=== PATIENT | male | born 1960 | race Caucasian/White ===

== ENCOUNTER 2017-02-13 14:23 | Emergency (ER) | payer MEDICARE ==
[2017-02-13] MEDS ORDERED: KETOROLAC 60 MG/2 ML VIAL IM STA (14:59)
--- NOTE | 2017-02-13 15:04 | ED ---
General Adult HPI - General Chief complaint: Fall Stated complaint: Fall-back Pain Time Seen by Provider: 02/13/17 14:35 Source: patient, RN notes reviewed Mode of arrival: wheelchair Limitations: no limitations - History of Present Illness Initial comments: This is a 56-year-old male who presents to the emergency department complaining of lower back pain. Patient states he fell on the ice on and ever since his lower back has been hurting and he has pain radiating down the anterior thigh bilaterally. Patient denies any numbness or weakness. Patient states she's had surgery on his back years ago. Patient states currently is not any medications for his lower back. Patient denies any urinary incontinence or urinary retention. Patient states he hit his head slightly but there is no headache he did not lose consciousness and he has no upper extremity numbness or weakness. Patient denies any neck pain whatsoever. Patient denies any upper back pain patient denies any chest pain or abdominal pain. - Related Data Home Medications Medication Instructions Recorded Confirmed Multivitamins, Thera [Multivitamin 1 tab PO DAILY 02/13/17 02/13/17 (formulary)] Naproxen Sodium [Aleve] 220 mg PO ONCE PRN 02/13/17 02/13/17 Previous Rx's Medication Instructions Recorded Hydrocodone/Acetaminophen [Plato 1 each PO Q4HR PRN #20 tab 02/13/17 5-325] Allergies Allergy/AdvReac Type Severity Reaction Status Date / Time No Known Allergies Allergy Verified 02/13/17 14:49 Review of Systems ROS Statement: Those systems with pertinent positive or pertinent negative responses have been documented in the HPI. ROS Other: All systems not noted in ROS Statement are negative. Past Medical History Past Medical History: Osteoarthritis (OA) History of Any Multi-Drug Resistant Organisms: None Reported Past Surgical History: Back Surgery, Joint Replacement Additional Past Surgical History / Comment(s): neck marita hip replacement Past Psychological History: Depression Smoking Status: Current every day smoker Past Alcohol Use History: Daily Past Drug Use History: Marijuana General Exam - General Exam Comments Initial Comments: GENERAL: Patient is well-developed and well-nourished. Patient is nontoxic and well- hydrated and is in moderate distress. ENT: Neck is soft and supple. No significant lymphadenopathy is noted. Oropharynx is clear. Moist mucous membranes. Neck has full range of motion without eliciting any pain. EYES: The sclera were anicteric and conjunctiva were pink and moist. Extraocular movements were intact and pupils were equal round and reactive to light. Eyelids were unremarkable. PULMONARY: Unlabored respirations. Good breath sounds bilaterally. No audible rales rhonchi or wheezing was noted. CARDIOVASCULAR: There is a regular rate and rhythm without any murmurs gallops or rubs. ABDOMEN: Soft and nontender with normal bowel sounds. No palpable organomegaly was noted. There is no palpable pulsatile mass. SKIN: Skin is clear with no lesions or rashes and otherwise unremarkable. NEUROLOGIC: Patient is alert and oriented x3. Cranial nerves II through XII are grossly intact. Motor and sensory are also intact. Normal speech, volume and content. Symmetrical smile. Patient's straight leg test is negative bilaterally to 45 MUSCULOSKELETAL: Normal extremities with adequate strength and full range of motion. No lower extremity swelling or edema. No calf tenderness. LYMPHATICS: No significant lymphadenopathy is noted PSYCHIATRIC: Normal psychiatric evaluation. Normal interpersonal interactions appears functionally intact in deals appropriately with others. No signs of depression. No signs of anxiety. Limitations: no limitations Course Vital Signs 02/13/17 14:33 Temperature 98.2 F Pulse Rate 97 Respiratory 18 Rate Blood Pressure 163/82 O2 Sat by Pulse 98 Oximetry Disposition Clinical Impression: Fall, Sciatica Disposition: HOME SELF-CARE Condition: Good Instructions: Fall Prevention for Older Adults (ED) Prescriptions: Hydrocodone/Acetaminophen [Plato 5-325] 1 each PO Q4HR PRN #20 tab PRN Reason: Pain Referrals: Fely Rey DO [REFERRING] - 1-2 days Time of Disposition: 16:25
--- NOTE | 2017-02-13 15:29 | XR ---
EXAMINATION TYPE: XR pelvis AP view DATE OF EXAM: 02/13/2017 CLINICAL HISTORY: Pelvic pain TECHNIQUE: A single AP view of the pelvis is obtained. COMPARISON: Pelvic x-ray July 01, 2012 FINDINGS: There is no acute fracture/dislocation evident in the pelvis. Metallic hardware from hip a rthroplasties is redemonstrated. Sacroiliac joints are maintained. The overlying soft tissue appears unremarkable. IMPRESSION: There is no acute fracture or dislocation in the pelvis. No significant change from lorenzo r.
--- NOTE | 2017-02-13 15:32 | XR ---
EXAMINATION TYPE: XR lumbar spine 2 or 3V DATE OF EXAM: 02/13/2017 CLINICAL HISTORY: Low back pain TECHNIQUE: Frontal and lateral images of the lumbar spine are obtained. COMPARISON: Prior MRI lumbar spine December 23, 2012 FINDINGS: There are 5 lumbar type vertebral bodies identified. The lumbar spine shows stable and st raightened alignment without evidence of acute fracture or dislocation. Vertebral body heights remain heights are within normal limits. There is moderate to severe multilevel anterior and lateral spurr ing redemonstrated. There is stable mild to borderline moderate multilevel disc space narrowing. Ther e is facet arthropathy lower lumbar levels. Left-sided Laminectomy defects are seen better on MRI low er lumbar levels. The overlying soft tissue appears unremarkable. IMPRESSION: No acute fracture or dislocation is seen in the lumbar spine. Multilevel degenerative ch anges as detailed above, no significant change from prior MRI 2012.
[2017-02-13] MEDS ORDERED: HYDROmorphone 1 MG/ML 1 ML SYRINGE IM STA (16:03)
[2017-02-13 16:29] VITALS: BP 158/84; PULSE 75; RESP 16
[2017-02-13 16:35] VITALS: TEMP 97.2
== END 2017-02-13 16:43 | disposition home or self-care (01) ==
LOC: EC 14:23
DX: M54.30 Sciatica, unspecified side (principal); F17.200 Nicotine dependence, unspecified, uncomplicated; Z79.899 Other long term (current) drug therapy; W00.9XXA Unspecified fall due to ice and snow, initial encounter
CPT/HCPCS: 99283; 96372 ×2; 72100; 72170; J1885; J1170

== ENCOUNTER 2018-03-12 17:07 | Inpatient (IN) | payer MEDICARE ==
[2018-03-12] MEDS ORDERED: NITROGLYCERIN SL TABS 0.4 MG TAB SUBLINGUAL STA (17:38)
[2018-03-12] MEDS ORDERED: ASPIRIN 81 MG PO STA (17:38)
[2018-03-12] MEDS ORDERED: SODIUM CHLORIDE 0.9% 1,000 ML IV STA (17:38)
--- NOTE | 2018-03-12 17:41 | ED ---
Chest Pain HPI - General Chief Complaint: Chest Pain Stated Complaint: CHEST PAIN AND SHAKING Time Seen by Provider: 03/12/18 17:24 Source: patient, RN notes reviewed Mode of arrival: ambulatory Limitations: no limitations - History of Present Illness Initial Comments: This a 57-year-old male with no prior history of heart disease or known lung disease though he is a one pack plus today a smoker who states he had the onset several days ago of retrosternal chest pain at did resolve yesterday he felt good his morning he started developing anterior chest pain dull 6/10 severity he had a cough with yellow phlegm some sweats no fevers or chills. He states pain possibly gets worse with certain movements or deep breathing. He has no other modifying factors at this time other than he is very shaky and states his arms are shaking he's not sure why. Never had this happen before either MD Complaint: chest pain - Related Data Home Medications Medication Instructions Recorded Confirmed Multivitamins, Thera [Multivitamin 1 tab PO DAILY 02/13/17 03/12/18 (formulary)] Allergies Allergy/AdvReac Type Severity Reaction Status Date / Time No Known Allergies Allergy Verified 03/12/18 17:12 Review of Systems ROS Statement: Those systems with pertinent positive or pertinent negative responses have been documented in the HPI. ROS Other: All systems not noted in ROS Statement are negative. EKG Findings - EKG Results: EKG: interpreted by DAVE PENA, sinus rhythm, normal axis, normal QRS, normal ST/ T, no acute changes (EKG shows normal sinus rhythm of 94. Interval 122 QRS duration 76 QT since QTC 356/[address]-T wave changes) Past Medical History Past Medical History: Osteoarthritis (OA) History of Any Multi-Drug Resistant Organisms: None Reported Past Surgical History: Back Surgery, Joint Replacement Additional Past Surgical History / Comment(s): neck marita hip replacement , R shoulder B wrist R knee Past Psychological History: Depression Smoking Status: Current every day smoker Past Alcohol Use History: Abuse, Daily, Heavy Past Drug Use History: Marijuana General Exam - General Exam Comments Initial Comments: This is a well-developed sec appearing male who is awake alert oriented 3 and is anxious. Limitations: no limitations General appearance: alert, anxious, in distress Head exam: Present: atraumatic, normocephalic, normal inspection Eye exam: Present: normal appearance, PERRL, EOMI. Absent: scleral icterus, conjunctival injection, periorbital swelling ENT exam: Present: normal exam, mucous membranes moist Neck exam: Present: normal inspection, full ROM, other (No stridor JVD or bruits ). Absent: tenderness, meningismus, lymphadenopathy Respiratory exam: Present: normal lung sounds bilaterally. Absent: respiratory distress, wheezes, rales, rhonchi, stridor Cardiovascular Exam: Present: normal rhythm, tachycardia, normal heart sounds. Absent: systolic murmur, diastolic murmur, rubs, gallop, clicks GI/Abdominal exam: Present: soft, normal bowel sounds. Absent: distended, tenderness, guarding, rebound, rigid, bruit, pulsatile mass Extremities exam: Present: normal inspection, full ROM, normal capillary refill. Absent: tenderness, pedal edema, joint swelling, calf tenderness Back exam: Present: normal inspection Neurological exam: Present: alert, oriented X3, CN II-XII intact Psychiatric exam: Present: normal affect, normal mood Skin exam: Present: warm, dry, intact, normal color. Absent: rash Course Vital Signs 03/12/18 03/12/18 03/12/18 17:12 18:30 18:54 Temperature 98.7 F Pulse Rate 109 H 84 86 Respiratory 18 18 19 Rate Blood Pressure 132/70 146/101 125/86 O2 Sat by Pulse 99 95 99 Oximetry 03/12/18 19:42 Temperature Pulse Rate 84 Respiratory 16 Rate Blood Pressure 143/79 O2 Sat by Pulse 98 Oximetry - Reevaluation(s) Reevaluation #1: 03/12/18 19:50 I did reevaluate the patient is feeling improved after nitroglycerin. Reevaluation #2: 03/12/18 19:51 Reevaluation patient after reviewing laboratory work patient does admit that he drinks alcohol 4-6 shots a day per his family he is probably twice at many. Procedures - Smoking Cessation Time Spent Discussing Smoking Cessation w/Patient (Minutes): 3 Patient Acknowledges Need for Cessation: Yes (3.1 minutes. Patient does agree that he needs to stop smoking. ) Chest Pain MDM - MDM I did review the imaging and report no acute findings. The patient did present with complaints of retrosternal chest pain at did improve after aspirin and nitroglycerin. He does admit to smoking over one pack of cigarettes per day additionally he does admit to drinking alcohol every day. He is not had any since yesterday. He believes his tremors that he was demonstrated when he came in happen before the alcohol was stopped yesterday. He does have mild pancreatitis on lab work. I did discuss findings with him and his as well as with Dr. Love. Patient will be admitted for evaluation of chest pain. He will be placed on the alcohol withdrawal protocol as well as nicotine patch Critical Care Time Critical Care Time: Yes Critical Care Time: 31 minutes of critical care time which includes initial presentation with history physical labs x-rays several reevaluation patient to responsive therapy discuss with the patient and family regarding findings discussed with the admitting physician admission orders documentation of the above Disposition Clinical Impression: Unstable angina pectoris, Chest pain, Smoking, Alcohol abuse, Pancreatitis Disposition: ADMITTED IP TO THIS [facility] Condition: Stable Referrals: Helena Simental DO [Primary Care Provider] - 1-2 days
[2018-03-12 18:06] LABS: Glucose,Whole Blood 95 mg/dL (75-99)
[2018-03-12 18:10] LABS: Basophils % (A) 0 %; Eosinophils # (A) 0.2 k/uL (0-0.7); Eosinophils % (A) 2 %; HCT 40.8 % (39.0-53.0); HGB 13.8 gm/dL (13.0-17.5); Lymphocytes % (A) 13 %; MCH 31.9 pg (25.0-35.0); MCHC 33.7 g/dL (31.0-37.0); MCV 94.8 fL (80.0-100.0); Mean Platelet Volume 7.7; Monocytes # (A) 0.6 k/uL (0-1.0); Monocytes % (A) 8 %; Neutrophils # (A) 5.9 k/uL (1.3-7.7); Neutrophils % (A) 75 %; RBC 4.31 m/uL (4.30-5.90); WBC 7.9 k/uL (3.8-10.6)
[2018-03-12 18:25] LABS: D-Dimer 0.44 mg/L FEU (<0.60); Partial Thromboplastin Time 24.9 sec (22.0-30.0); Prothrombin Time 10.6 sec (9.0-12.0)
[2018-03-12 18:27] LABS: ALT 64 U/L (21-72); AST 137 U/L (17-59); Albumin 4.7 g/dL (3.5-5.0); Alkaline Phosphatase 112 U/L (38-126); Amylase 118 U/L (30-110); Anion Gap 9 mmol/L; Blood Urea Nitrogen 18 mg/dL (9-20); Calcium 9.8 mg/dL (8.4-10.2); Carbon Dioxide 28 mmol/L (22-30); Chloride 104 mmol/L (98-107); Creatine Kinase 92 U/L (55-170); Glucose 100 mg/dL (74-99); Lipase 503 U/L (23-300); Magnesium 1.8 mg/dL (1.6-2.3); Potassium 3.4 mmol/L (3.5-5.1); Sodium 141 mmol/L (137-145); Total Bilirubin 1.2 mg/dL (0.2-1.3); Total Protein 7.8 g/dL (6.3-8.2)
[2018-03-12 18:39] LABS: Platelet Count 76 k/uL (150-450)
[2018-03-12 18:40] LABS: Creatine Kinase MB 0.7 ng/mL (0.0-2.4); Troponin I <0.012 ng/mL (0.000-0.034)
--- NOTE | 2018-03-12 18:54 | XR ---
EXAMINATION TYPE: XR chest 2V DATE OF EXAM: 03/12/2018 COMPARISON: Chest x-ray July 01, 2012. HISTORY: Chest pain and tremors. TECHNIQUE: Frontal and lateral views of the chest are obtained. FINDINGS: There is some chronic parenchymal change without suspicious focal air space opacity, pleur al effusion, or pneumothorax seen. The cardiac silhouette size is within normal limits. Multilevel s purring in the lower thoracic spine is present. IMPRESSION: Chronic changes without acute pulmonary process.
[2018-03-12] MEDS ORDERED: HEPARIN SODIUM,PORCINE 5,000 UNIT/ML 1 ML VIAL IV ONE (19:58)
[2018-03-12] MEDS ORDERED: NICOTINE 21MG/24HR PATCH TRANSDERM STA (20:01)
[2018-03-12] MEDS ORDERED: LORazepam 2 MG/ML INJ IV PRN (20:01)
[2018-03-12] MEDS ORDERED: THIAMINE 100 MG/ML 2 ML VIAL IM STA (20:01)
[2018-03-12] MEDS: HEPARIN SOD,PORK IN 0.45% NACL 25,000 UNIT in 0.45% NACL 1 250ML.BAG IV SCH (20:26)
[2018-03-12] MEDS: NITROGLYCERIN SL TABS 0.4 MG TAB SUBLINGUAL PRN (21:13)
[2018-03-12] MEDS: NITROGLYCERIN OINT 1 INCH/GM PACKET TOPICAL SCH (21:14)
[2018-03-12] MEDS: SODIUM CHLORIDE 0.9% 1,000 ML IV SCH (21:14)
[2018-03-12 21:44] VITALS: BMI 21.2
[2018-03-12] MEDS: LORazepam 2 MG/ML INJ IV PRN (21:57)
[2018-03-13] MEDS: LORazepam 2 MG/ML INJ IV PRN ×4 (00:16→22:58)
[2018-03-13 00:47] LABS: Creatine Kinase 117 U/L (55-170)
[2018-03-13 01:00] LABS: Creatine Kinase MB 1.2 ng/mL (0.0-2.4); Troponin I <0.012 ng/mL (0.000-0.034)
[2018-03-13] MEDS: NITROGLYCERIN SL TABS 0.4 MG TAB SUBLINGUAL PRN ×2 (01:33→01:43)
[2018-03-13] MEDS: HYDROmorphone 0.5 MG/0.5 ML SYRINGE IVP PRN ×2 (02:50→19:39)
[2018-03-13] MEDS: NITROGLYCERIN OINT 1 INCH/GM PACKET TOPICAL SCH ×4 (05:26→22:58)
[2018-03-13 07:35] LABS: Cholesterol 177 mg/dL (<200); HDL Cholesterol 102 mg/dL (40-60); LDL Cholesterol,Calculated 64 mg/dL (0-99); Triglycerides 56 mg/dL (<150)
[2018-03-13 07:47] LABS: Creatine Kinase 113 U/L (55-170)
[2018-03-13 08:00] LABS: Creatine Kinase MB 1.2 ng/mL (0.0-2.4); Troponin I <0.012 ng/mL (0.000-0.034)
--- NOTE | 2018-03-13 08:59 | P.HPIM ---
History of Present Illness H&P Date: 03/13/18 Chief Complaint: Chest pain Donte May is a 57-year-old male who presented to [facility] emergency room with a chief complaint of chest pain patient describes a retrosternal sharp pain radiating to both sides of his chest accompanied with shortness of breath nausea and sweating patient rates pain at 6-7 out of 10. He states that he had pain for several days on and off then pain recurred on 03/2009 and was more severe and he decided to come to emergency room. Patient was evaluated in emergency room EKG and first set of cardiac enzymes are within normal limits his pain was relieved after he was given nitroglycerin , patient was also found to have elevated lipase and elevated AST he admits to drinking 5-10 alcoholic drinks daily, he was admitted to telemetry floor cardiology consultation was requested serial troponins were ordered he was started on IV heparin. D-dimer was negative in the emergency room. Patient is a lifelong smoker he smokes 1-2 packs per day he has been smoking for more than 50 years, he states that his cholesterol was elevated at some point in the past he has not had any blood test recently and he is not on any cholesterol medication at this time he denies ever being diagnosed with hypertension or diabetes, he does not take any prescription drug medication and has not seen his primary care physician Dr. Helena Simental in few years. In the emergency room patient was noticed to have some tremor his alcohol level was low he was started on CIWA protocol. 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 Past Medical History Past Medical History: Hyperlipidemia, Osteoarthritis (OA) Additional Past Medical History / Comment(s): Patient states "his urinary function has been changing, it is harder to urinate". History of Any Multi-Drug Resistant Organisms: None Reported Past Surgical History: Back Surgery, Joint Replacement Additional Past Surgical History / Comment(s): neck marita hip replacement , R shoulder B wrist R knee, back surgery x3 Past Anesthesia/Blood Transfusion Reactions: No Reported Reaction Past Psychological History: Anxiety, Depression Smoking Status: Current every day smoker Past Alcohol Use History: Abuse, Daily, Heavy Past Drug Use History: Marijuana - Past Family History Mother History Unknown: Yes Additional Family Medical History / Comment(s): Patient states patient after a fall. Father Family Medical History: Memory Impairment Additional Family Medical History / Comment(s): Parkinsons Medications and Allergies Home Medications Medication Instructions Recorded Confirmed Type Multivitamins, Thera [Multivitamin 1 tab PO DAILY 02/13/17 03/12/18 History (formulary)] Allergies Allergy/AdvReac Type Severity Reaction Status Date / Time No Known Allergies Allergy Verified 03/12/18 17:12 Physical Exam Vitals: Vital Signs Temp Pulse Pulse Resp BP BP Pulse Ox 03/13/18 03:48 98.1 F 69 18 103/59 99 03/13/18 01:52 79 03/13/18 01:40 112/69 03/13/18 01:30 79 18 114/70 100 03/13/18 00:00 83 18 126/71 96 03/12/18 21:30 98.6 F 85 18 160/89 99 03/12/18 19:42 84 16 143/79 98 03/12/18 18:54 86 19 125/86 99 03/12/18 18:30 84 18 146/101 95 03/12/18 17:12 98.7 F 109 H 18 132/70 99 Intake and Output 03/12/18 03/13/18 03/13/18 22:59 06:59 14:59 Intake Total 647.244 Balance 647.244 Intake: Intake, IV Titration 47.244 Amount Heparin Sod,Pork in 0.45% 47.244 NaCl 25,000 unit In 0.45 % NaCl 1 250ml.bag @ 12 UNITS/KG/HR 7.62 mls/hr IV .Q24H [facility] Rx#: [id number] Oral 600 Other: Voiding Method Toilet Toilet Urinal Urinal # Voids 1 1 Weight 63.503 kg 59.7 kg In general patient is alert and oriented 3 in no apparent distress HEENT head normocephalic and atraumatic Neck is supple no JVD no goiter no lymphadenopathy Chest exam reveals a few scattered rhonchi bilaterally no wheezing Cardiac exam reveals regular heart sounds S1 and S2 no gallops no murmurs Abdomen is soft nontender no organomegaly with normal bowel sounds Extremity exam reveals no edema no cyanosis or clubbing Neurological examination reveals no gross focal deficit Results CBC & Chem 7: 03/12/18 17:55 03/12/18 17:55 Labs: Abnormal Lab Results - Last 24 Hours (Table) 03/12/18 03/12/18 03/13/18 Range/Units 17:55 17:55 02:06 Plt Count 76 L (150-450) k/uL APTT 83.4 H (22.0-30.0) sec Potassium 3.4 L (3.5-5.1) mmol/L Glucose 100 H (74-99) mg/dL AST 137 H (17-59) U/L HDL Cholesterol (40-60) mg/dL Amylase 118 H (30-110) U/L Lipase 503 H (23-300) U/L 03/13/18 Range/Units 06:16 Plt Count (150-450) k/uL APTT (22.0-30.0) sec Potassium (3.5-5.1) mmol/L Glucose (74-99) mg/dL AST (17-59) U/L HDL Cholesterol 102 H (40-60) mg/dL Amylase (30-110) U/L Lipase (23-300) U/L Thrombosis Risk Factor Assmnt - Choose All That Apply Any of the Below Risk Factors Present?: Yes Each Factor Represents 1 point: Age 41-60 years Other Risk Factors: No Other congenital or acquired thrombophilia - If yes, enter type in comment: No Thrombosis Risk Factor Assessment Total Risk Factor Score: 1 Thrombosis Risk Factor Assessment Level: Low Risk Assessment and Plan Plan: #1 recurrent episodes of chest pain over the last few days, possible unstable angina, no evidence of acute myocardial infarction. #2 acute pancreatitis with elevated lipase #3 acute alcoholic hepatitis with elevated AST #4 underlying history of hyperlipidemia #5 underlying history of osteoarthritis, with previous history of bilateral hip replacement #6 underlying history of degenerative disc disease with previous history of back surgeries. At this time patient is admitted to telemetry floor, serial cardiac enzymes are ordered, he was started on IV heparin in the emergency room, repeat amylase and lipase were ordered, repeat liver enzymes were ordered, patient is kept nothing by mouth at this time, he is maintained on IV fluid. At this time he is chest pain-free. He is maintained on CIWA protocol for alcohol withdrawal. Will check echocardiogram and check lipid profile, possible stress test in a.m. tomorrow awaiting cardiology input.
--- NOTE | 2018-03-13 09:23 | P.CRDCN ---
History of Present Illness Consult date: 03/13/18 Requesting physician: Bobby Love Reason for Consult (text): chest pain Chief complaint: chest pain History of present illness: This is a pleasant 57-year-old gentleman with history of hyperlipidemia, smoking up to 2 packs per day, alcohol abuse drinking 5-10 drinks daily, and multiple orthopedic surgeries in the past. Presented to the emergency department with complaints of aching chest discomfort. Initially occurred a few days ago at which time he was short of breath, diaphoretic, dizzy and had some palpitations. He described the pain as aching that radiated from his left axilla to the right chest with some intermittent sharp discomfort in the right chest and some aching down his right arm. Occurred again yesterday at which time he presented to the emergency department. He's also been complaining of some abdominal discomfort with tenderness around the umbilicus and right lower quadrant. EKG on admission showed sinus rhythm without acute ischemic changes. Laboratory values show a platelet count of 76, testing of 3.4, BUN 18, creatinine 0.79, troponins negative 3, amylase 118 and a lipase of 503. Lipids this morning showed triglyceride level of 56, total cholesterol 177, LDL 64 and HDL 102. NT proBNP was normal. He's been initiated on IV heparin, aspirin and Nitro-Bid. Upon examination this morning, patient is resting comfortably in bed. He does complain of some abdominal tenderness around the umbilicus and the right lower quadrant with palpation. Denies current complaints of chest discomfort, dizziness, shortness of breath, palpitations or diaphoresis. Does verbalize concerns as his last drink of alcohol was 2 days ago. He is ordered to receive Ativan as indicated according to CIWA scale. Past Medical History Past Medical History: Hyperlipidemia, Osteoarthritis (OA) Additional Past Medical History / Comment(s): Patient states "his urinary function has been changing, it is harder to urinate". History of Any Multi-Drug Resistant Organisms: None Reported Past Surgical History: Back Surgery, Joint Replacement Additional Past Surgical History / Comment(s): neck marita hip replacement , R shoulder B wrist R knee, back surgery x3 Past Anesthesia/Blood Transfusion Reactions: No Reported Reaction Past Psychological History: Anxiety, Depression Smoking Status: Current every day smoker Past Alcohol Use History: Abuse, Daily, Heavy Past Drug Use History: Marijuana - Past Family History Mother History Unknown: Yes Additional Family Medical History / Comment(s): Patient states patient after a fall. Father Family Medical History: Memory Impairment Additional Family Medical History / Comment(s): Parkinsons Medications and Allergies Home Medications Medication Instructions Recorded Confirmed Type Multivitamins, Thera [Multivitamin 1 tab PO DAILY 02/13/17 03/12/18 History (formulary)] Allergies Allergy/AdvReac Type Severity Reaction Status Date / Time No Known Allergies Allergy Verified 03/12/18 17:12 Physical Exam Vitals: Vital Signs Temp Pulse Pulse Resp BP BP Pulse Ox 03/13/18 03:48 98.1 F 69 18 103/59 99 03/13/18 01:52 79 03/13/18 01:40 112/69 03/13/18 01:30 79 18 114/70 100 03/13/18 00:00 83 18 126/71 96 03/12/18 21:30 98.6 F 85 18 160/89 99 03/12/18 19:42 84 16 143/79 98 03/12/18 18:54 86 19 125/86 99 03/12/18 18:30 84 18 146/101 95 03/12/18 17:12 98.7 F 109 H 18 132/70 99 Intake and Output 03/12/18 03/13/18 03/13/18 22:59 06:59 14:59 Intake Total 647.244 Balance 647.244 Intake: Intake, IV Titration 47.244 Amount Heparin Sod,Pork in 0.45% 47.244 NaCl 25,000 unit In 0.45 % NaCl 1 250ml.bag @ 12 UNITS/KG/HR 7.62 mls/hr IV .Q24H [facility] Rx#: [id number] Oral 600 Other: Voiding Method Toilet Toilet Urinal Urinal # Voids 1 1 Weight 63.503 kg 59.7 kg PHYSICAL EXAMINATION: HEENT: Head is atraumatic, normocephalic. Pupils equal, round. Neck is supple. There is no elevated jugular venous pressure. HEART EXAMINATION: Heart sounds regular, S1 and S2 normal. No murmur or gallop heard. CHEST EXAMINATION: Lungs are clear to auscultation and precussion. No chest wall tenderness is noted on palpation or with deep breathing. ABDOMEN: Soft, tenderness with moderate palpation noted around the umbilicus and right lower quadrant. Bowel sounds are heard. No organomegaly noted. EXTREMITIES: 2+ peripheral pulses with no evidence of peripheral edema and no calf tenderness noted. NEUROLOGIC patient is awake, alert and oriented x3. . Results 03/13/18 08:54 03/13/18 08:54 Cardiac Enzymes 03/12/18 03/12/18 03/13/18 Range/Units 17:55 17:55 00:02 AST 137 H (17-59) U/L CK-MB (CK-2) 0.7 1.2 (0.0-2.4) ng/mL Troponin I <0.012 <0.012 (0.000-0.034) ng/mL 03/13/18 Range/Units 06:16 AST (17-59) U/L CK-MB (CK-2) 1.2 (0.0-2.4) ng/mL Troponin I <0.012 (0.000-0.034) ng/mL Coagulation 03/12/18 03/13/18 Range/Units 17:55 02:06 PT 10.6 (9.0-12.0) sec APTT 24.9 83.4 H (22.0-30.0) sec Lipids 03/13/18 Range/Units 06:16 Triglycerides 56 (<150) mg/dL Cholesterol 177 (<200) mg/dL HDL Cholesterol 102 H (40-60) mg/dL CBC 03/12/18 Range/Units 17:55 WBC 7.9 (3.8-10.6) k/uL RBC 4.31 (4.30-5.90) m/uL Hgb 13.8 (13.0-17.5) gm/dL Hct 40.8 (39.0-53.0) % Plt Count 76 L (150-450) k/uL Comprehensive Metabolic Panel 03/12/18 Range/Units 17:55 Sodium 141 (137-145) mmol/L Potassium 3.4 L (3.5-5.1) mmol/L Chloride 104 (98-107) mmol/L Carbon Dioxide 28 (22-30) mmol/L BUN 18 (9-20) mg/dL Creatinine 0.79 (0.66-1.25) mg/dL Glucose 100 H (74-99) mg/dL Calcium 9.8 (8.4-10.2) mg/dL AST 137 H (17-59) U/L ALT 64 (21-72) U/L Alkaline Phosphatase 112 (38-126) U/L Total Protein 7.8 (6.3-8.2) g/dL Albumin 4.7 (3.5-5.0) g/dL Current Medications Generic Name Dose Route Start Last Admin Trade Name Freq PRN Reason Stop Dose Admin Aspirin 325 mg 03/13/18 09:00 Aspirin PO DAILY [facility] Hydromorphone HCl 0.5 mg 03/13/18 02:37 03/13/18 02:50 Dilaudid IVP 0.5 mg Q6HR PRN Administration Pain Heparin Sodium/Sodium Chloride 250 mls @ 7.62 mls/hr 03/12/18 20:00 03/13/18 02:38 25,000 unit/ Sodium Chloride IV 10 units/kg/hr .Q24H [facility] 6.35 mls/hr Titration Protocol 12 UNITS/KG/HR Sodium Chloride 1,000 mls @ 20 mls/hr 03/12/18 20:00 03/12/18 21:14 Saline 0.9% IV 20 mls/hr .Q24H [facility] Administration Lorazepam 1 mg 03/12/18 20:01 03/13/18 08:36 Ativan IV 1 mg Q2HR PRN Administration CIWA 8 or 9 Lorazepam 1 mg 03/12/18 20:01 03/13/18 05:21 Ativan IV 1 mg Q1HR PRN Administration CIWA 10 to 15 Lorazepam 2 mg 03/12/18 20:01 Ativan IV 03/14/18 20:01 Q10M PRN CIWA 16 or higher Multivitamins 1 each 03/13/18 12:00 Theragran PO 1200 CARLEE Nitroglycerin 1 inch 03/13/18 00:00 03/13/18 05:26 Nitro-Bid Oint TOPICAL 1 inch Q6HR [facility] Administration Nitroglycerin 0.4 mg 03/12/18 19:58 03/13/18 01:43 Nitrostat SUBLINGUAL 0.4 mg Q5M PRN Administration Chest Pain Thiamine HCl 100 mg 03/13/18 12:00 Vitamin B-1 PO BID@1200,1700 CARLEE Intake and Output 03/12/18 03/13/18 03/13/18 22:59 06:59 14:59 Intake Total 647.244 Balance 647.244 Intake: Intake, IV Titration 47.244 Amount Heparin Sod,Pork in 0.45% 47.244 NaCl 25,000 unit In 0.45 % NaCl 1 250ml.bag @ 12 UNITS/KG/HR 7.62 mls/hr IV .Q24H [facility] Rx#: [id number] Oral 600 Other: Voiding Method Toilet Toilet Urinal Urinal # Voids 1 1 Weight 63.503 kg 59.7 kg 03/12/18 17:55 03/12/18 17:55 EKG Interpretations (text) Normal sinus rhythm Assessment and Plan Assessment: #1 symptoms of chest discomfort with associated dizziness, diaphoresis, shortness of breath and palpitations, suggestive of angina #2 pancreatitis #3 nicotine dependence #4 alcohol abuse Plan: From Cardiology's standpoint, we will obtain a 2-D echo with Doppler to assess LV systolic function. We'll keep the patient nothing by mouth after midnight and reevaluate patient in the morning to determine possible stress test versus cardiac catheterization. We will continue to follow the patient and provide further recommendations accordingly. EMERGENCY MEDICAL DISPATCHER note has been reviewed, I agree with a documented findings and plan of care. Patient was seen and examined.
[2018-03-13 09:31] LABS: Basophils % (A) 1 %; Eosinophils # (A) 0.2 k/uL (0-0.7); Eosinophils % (A) 3 %; HCT 32.7 % (39.0-53.0); HGB 11.3 gm/dL (13.0-17.5); Lymphocytes % (A) 21 %; MCH 32.9 pg (25.0-35.0); MCHC 34.5 g/dL (31.0-37.0); MCV 95.3 fL (80.0-100.0); Mean Platelet Volume 7.5; Monocytes # (A) 0.4 k/uL (0-1.0); Monocytes % (A) 8 %; Neutrophils # (A) 3.2 k/uL (1.3-7.7); Neutrophils % (A) 65 %; RBC 3.43 m/uL (4.30-5.90); WBC 4.9 k/uL (3.8-10.6)
[2018-03-13 09:32] LABS: Platelet Count 64 k/uL (150-450)
[2018-03-13 09:44] LABS: ALT 58 U/L (21-72); AST 77 U/L (17-59); Albumin 3.6 g/dL (3.5-5.0); Alkaline Phosphatase 79 U/L (38-126); Amylase 88 U/L (30-110); Anion Gap 4 mmol/L; Blood Urea Nitrogen 18 mg/dL (9-20); Calcium 8.6 mg/dL (8.4-10.2); Carbon Dioxide 28 mmol/L (22-30); Chloride 106 mmol/L (98-107); Cholesterol 183 mg/dL (<200); Glucose 84 mg/dL (74-99); HDL Cholesterol 105 mg/dL (40-60); LDL Cholesterol,Calculated 65 mg/dL (0-99); Lipase 433 U/L (23-300); Potassium 3.2 mmol/L (3.5-5.1); Sodium 138 mmol/L (137-145); Total Bilirubin 1.4 mg/dL (0.2-1.3); Total Protein 5.9 g/dL (6.3-8.2); Triglycerides 66 mg/dL (<150)
[2018-03-13] MEDS ORDERED: Potassium Replacement Protocol 1 EACH MISC MISCELLANE PRN (12:15)
[2018-03-13] MEDS: ASPIRIN 325 MG TAB PO SCH (12:16)
[2018-03-13] MEDS: THIAMINE 100 MG TAB PO SCH ×2 (12:16→17:38)
[2018-03-13] MEDS: MULTIVITAMINS, THERA 1 EACH TAB PO SCH (12:16)
[2018-03-13] MEDS: POTASSIUM CHLORIDE ER 20 MEQ TAB.ER PO SCH ×2 (13:24→17:38)
[2018-03-13] MEDS: HEPARIN SOD,PORK IN 0.45% NACL 25,000 UNIT in 0.45% NACL 1 250ML.BAG IV SCH (19:25)
[2018-03-13] MEDS: SODIUM CHLORIDE 0.9% 1,000 ML IV SCH (19:31)
[2018-03-14 03:52] VITALS: RESP 16
[2018-03-14] MEDS: NITROGLYCERIN OINT 1 INCH/GM PACKET TOPICAL SCH ×2 (05:14→13:33)
[2018-03-14] MEDS: HEPARIN SOD,PORK IN 0.45% NACL 25,000 UNIT in 0.45% NACL 1 250ML.BAG IV SCH (05:14)
[2018-03-14 06:23] LABS: Magnesium 1.8 mg/dL (1.6-2.3); Potassium 3.9 mmol/L (3.5-5.1)
[2018-03-14 08:42] LABS: Basophils % (A) 1 %; Eosinophils # (A) 0.2 k/uL (0-0.7); Eosinophils % (A) 4 %; HCT 33.8 % (39.0-53.0); HGB 11.6 gm/dL (13.0-17.5); Lymphocytes % (A) 22 %; MCH 33.2 pg (25.0-35.0); MCHC 34.3 g/dL (31.0-37.0); MCV 96.7 fL (80.0-100.0); Mean Platelet Volume 9.2; Monocytes # (A) 0.5 k/uL (0-1.0); Monocytes % (A) 10 %; Neutrophils # (A) 2.9 k/uL (1.3-7.7); Neutrophils % (A) 62 %; RDW 12.8 % (11.5-15.5); WBC 4.7 k/uL (3.8-10.6)
[2018-03-14 08:46] LABS: Platelet Count 70 k/uL (150-450)
[2018-03-14 08:47] LABS: ALT 41 U/L (21-72); AST 54 U/L (17-59); Albumin 3.3 g/dL (3.5-5.0); Alkaline Phosphatase 82 U/L (38-126); Amylase 101 U/L (30-110); Anion Gap 4 mmol/L; Blood Urea Nitrogen 10 mg/dL (9-20); Calcium 9.1 mg/dL (8.4-10.2); Carbon Dioxide 27 mmol/L (22-30); Chloride 106 mmol/L (98-107); Glucose 91 mg/dL (74-99); Lipase 398 U/L (23-300); Potassium 3.9 mmol/L (3.5-5.1); Sodium 137 mmol/L (137-145); Total Bilirubin 0.9 mg/dL (0.2-1.3); Total Protein 5.8 g/dL (6.3-8.2)
[2018-03-14] MEDS ORDERED: CAFFEINE CITRATE 60 MG/3 ML VIAL IV PRN (08:48)
[2018-03-14] MEDS ORDERED: REGADENOSON 0.4 MG/5 ML SYRINGE IV ONE (08:48)
[2018-03-14] MEDS: LORazepam 2 MG/ML INJ IV PRN (09:06)
--- NOTE | 2018-03-14 11:47 | ECHOF ---
Referral Reason:chest pain MEASUREMENTS -------- HEIGHT: 172.7 cm WEIGHT: 58.1 kg BP: IVSd: 1.2 cm (0.6 - 1.1) LVIDd: 2.4 cm (3.9 - 5.3) LVPWd: 1.3 cm (0.6 - 1.1) IVSs: 1.4 cm LVIDs: 1.6 cm LVPWs: 1.6 cm LAESV Index (A-L): 9.98 ml/m Ao Diam: 2.6 cm (2.0 - 3.7) AV Cusp: 1.6 cm (1.5 - 2.6) LA Diam: 2.5 cm (2.7 - 3.8) MV EXCURSION: 12.148 mm (> 18.000) MV EF SLOPE: 35 mm/s (70 - 150) EPSS: 0.5 cm MV E Glen: 0.54 m/s MV DecT: 276 ms MV A Glen: 0.64 m/s MV E/A Ratio: 0.85 RAP: 5.00 mmHg RVSP: 19.01 mmHg FINDINGS -------- Sinus rhythm. This was a technically good study. The left ventricular size is normal. There is mild concentric left ventricular hypertrophy. Overa ll left ventricular systolic function is normal with, an EF between 55 - 60 %. The right ventricle is normal in size and function. Normal LA size by volume 22+/-6 ml/m2. The right atrium is normal in size. The aortic valve is trileaflet, and appears structurally normal. No aortic stenosis or regurgitation. There is trace mitral regurgitation. Trace tricuspid regurgitation present. The right ventricular systolic pressure, as measured by Dopp ler, is 19.01mmHg. Pulmonic valve appears structurally normal. The aortic root size is normal. Normal inferior vena cava with normal inspiratory collapse consistent with estimated right atrial pre ssure of 5 mmHg. The pericardium is normal. CONCLUSIONS -------- 1. Sinus rhythm. 2. This was a technically good study. 3. The left ventricular size is normal. 4. There is mild concentric left ventricular hypertrophy. 5. Overall left ventricular systolic function is normal with, an EF between 55 - 60 %. 6. The right ventricle is normal in size and function. 7. Normal LA size by volume 22+/-6 ml/m2. 8. The right atrium is normal in size. 9. The aortic valve is trileaflet, and appears structurally normal. No aortic stenosis or regurgitati on. 10. There is trace mitral regurgitation. 11. Trace tricuspid regurgitation present. 12. The right ventricular systolic pressure, as measured by Doppler, is 19.01mmHg. 13. Pulmonic valve appears structurally normal. 14. The aortic root size is normal. 15. Normal inferior vena cava with normal inspiratory collapse consistent with estimated right atrial pressure of 5 mmHg. 16. The pericardium is normal. PLASTER WHITTLER: Louise Yan RDCS
--- NOTE | 2018-03-14 12:26 | P.PN ---
Subjective Progress Note Date: 03/14/18 This is a pleasant 57-year-old gentleman with history of hyperlipidemia, smoking up to 2 packs per day, alcohol abuse drinking 5-10 drinks daily, and multiple orthopedic surgeries in the past. Presented to the emergency department with complaints of aching chest discomfort. Initially occurred a few days ago at which time he was short of breath, diaphoretic, dizzy and had some palpitations. He described the pain as aching that radiated from his left axilla to the right chest with some intermittent sharp discomfort in the right chest and some aching down his right arm. Occurred again yesterday at which time he presented to the emergency department. He's also been complaining of some abdominal discomfort with tenderness around the umbilicus and right lower quadrant. EKG on admission showed sinus rhythm without acute ischemic changes. Laboratory values show a platelet count of 76, testing of 3.4, BUN 18, creatinine 0.79, troponins negative 3, amylase 118 and a lipase of 503. Lipids this morning showed triglyceride level of 56, total cholesterol 177, LDL 64 and HDL 102. NT proBNP was normal. He's been initiated on IV heparin, aspirin and Nitro-Bid. Upon examination this morning, patient is resting comfortably in bed. He does complain of some abdominal tenderness around the umbilicus and the right lower quadrant with palpation. Denies current complaints of chest discomfort, dizziness, shortness of breath, palpitations or diaphoresis. Does verbalize concerns as his last drink of alcohol was 2 days ago. He is ordered to receive Ativan as indicated according to CIWA scale. 03/14/2018 Patient seen and examined this morning, denies any chest discomfort. Blood pressure 132/80 with a heart rate in the 80s, 99% on 2 L of depression. White blood cell count 4.7, hemoglobin 11.6, platelet count 70. Sodium 137, potassium 3.9, BUN 10, creatinine 0.6. Objective - Vital Signs Vital signs: Vital Signs Temp 98.1 F 03/14/18 08:00 Pulse 80 03/14/18 08:00 Resp 16 03/14/18 08:00 BP 132/81 03/14/18 08:00 Pulse Ox 99 03/14/18 08:00 Intake & Output 03/13/18 03/14/18 03/14/18 18:59 06:59 18:59 Intake Total 211.2 168.91 23.813 Output Total 200 400 600 Balance 11.2 -231.09 -576.187 Weight 58.1 kg Intake: IV 51.2 Heparin Sod,Pork in 0.45% 51.2 NaCl 25,000 unit In 0.45 % NaCl 1 250ml.bag @ 12 UNITS/KG/HR 7.62 mls/hr IV .Q24H [facility] Rx#: [id number] Intake, IV Titration 160 168.91 23.813 Amount Heparin Sod,Pork in 0.45% 168.91 23.813 NaCl 25,000 unit In 0.45 % NaCl 1 250ml.bag @ 12 UNITS/KG/HR 7.62 mls/hr IV .Q24H [facility] Rx#: [id number] Sodium Chloride 0.9% 1, 160 000 ml @ 20 mls/hr IV . Q24H [facility] Rx#:[id number] Output: Urine 200 400 600 Other: Voiding Method Toilet Toilet Urinal Urinal # Voids 2 1 - Exam PHYSICAL EXAMINATION: HEENT: Head is atraumatic, normocephalic. Pupils equal, round. Neck is supple. There is no elevated jugular venous pressure. HEART EXAMINATION: Heart sounds regular, S1 and S2 normal. No murmur or gallop heard. CHEST EXAMINATION: Lungs are clear to auscultation and precussion. No chest wall tenderness is noted on palpation or with deep breathing. ABDOMEN: Soft, tenderness with moderate palpation noted around the umbilicus and right lower quadrant. Bowel sounds are heard. No organomegaly noted. EXTREMITIES: 2+ peripheral pulses with no evidence of peripheral edema and no calf tenderness noted. NEUROLOGIC patient is awake, alert and oriented x3. . - Labs CBC & Chem 7: 03/14/18 05:52 03/14/18 05:52 Labs: Abnormal Lab Results - Last 24 Hours (Table) 03/14/18 03/14/18 03/14/18 Range/Units 05:52 05:52 05:52 RBC 3.50 L (4.30-5.90) m/uL Hgb 11.6 L (13.0-17.5) gm/dL Hct 33.8 L (39.0-53.0) % Plt Count 70 L (150-450) k/uL APTT 39.3 H (22.0-30.0) sec Creatinine 0.65 L (0.66-1.25) mg/dL Total Protein 5.8 L (6.3-8.2) g/dL Albumin 3.3 L (3.5-5.0) g/dL Lipase 398 H (23-300) U/L Assessment and Plan Plan: Assessment: #1 symptoms of chest discomfort with associated dizziness, diaphoresis, shortness of breath and palpitations, suggestive of angina #2 pancreatitis #3 nicotine dependence #4 alcohol abuse Plan Patient had an echo cardiac gram with Doppler study performed which revealed a normal left ventricular systolic function. He will be scheduled today to undergo a Lexiscan stress test. From our perspective if it is negative he may be able to be discharged home today. If the test is positive further recommendations will be made. DNP note has been reviewed, I agree with a documented findings and plan of care. Patient was seen and examined.
--- NOTE | 2018-03-14 13:17 | NM ---
EXAMINATION TYPE: NM stress lexiscan cardiolite DATE OF EXAM: 03/14/2018 COMPARISON: NONE HISTORY: TECHNIQUE: After the intravenous administration of 10.2 mCi Tc 99m Sestamibi - Cardiolite resting SP ECT images acquired 90 minutes post injection. The patient received 0.4mg Lexiscan, 25.8 mCi Tc 99m Sestamibi - Stress images obtained [address] injection FINDINGS: Review of stress and rest SPECT images demonstrates no distinct perfusion abnormality. Gated analysi s shows normal wall motion with an estimated left ventricular ejection fraction of 89 %. IMPRESSION: No scintigraphic evidence for reversible ischemia.
[2018-03-14] MEDS: THIAMINE 100 MG TAB PO SCH ×2 (13:30→17:21)
[2018-03-14] MEDS: ASPIRIN 325 MG TAB PO SCH (13:30)
[2018-03-14] MEDS ORDERED: NICOTINE 21MG/24HR PATCH TRANSDERM SCH (13:30)
[2018-03-14] MEDS: MULTIVITAMINS, THERA 1 EACH TAB PO SCH (13:30)
--- NOTE | 2018-03-14 15:29 | P.DS ---
Providers Date of admission: 03/12/18 19:58 Expected date of discharge: 03/14/18 Attending physician: Bobby Love Consults: 03/12/18 19:58 Consult Physician Urgent Consulting Provider: Adarsh Marks Consult Reason/Comments: Chest pain Do you want consulting provider notified?: Yes, Notify in am Primary care physician: Helena Simental Hospital Course: Discharge diagnosis #1 recurrent episodes of chest pain over the last few days, possible angina, no evidence of acute myocardial infarction. Troponins negative 3 sets. Patient underwent stress test which was negative. Echo shows an EF of 55-60%. Patient has been cleared by cardiology for discharge #2 acute alcoholic pancreatitis with elevated lipase. Lipase has trended down to 398. He can tolerating regular diet. Abdominal pain has improved #3 acute alcoholic hepatitis with elevated AST. LFTs have normalized #4 underlying history of hyperlipidemia #5 underlying history of osteoarthritis, with previous history of bilateral hip replacement #6 underlying history of degenerative disc disease with previous history of back surgeries. Hospital course Donte May is a 57-year-old male who presented to [facility] emergency room with a chief complaint of chest pain patient describes a retrosternal sharp pain radiating to both sides of his chest accompanied with shortness of breath nausea and sweating patient rates pain at 6-7 out of 10. He states that he had pain for several days on and off then pain recurred on 03/2009 and was more severe and he decided to come to emergency room. Patient was evaluated in emergency room EKG and first set of cardiac enzymes are within normal limits his pain was relieved after he was given nitroglycerin , patient was also found to have elevated lipase and elevated AST he admits to drinking 5-10 alcoholic drinks daily, he was admitted to telemetry floor cardiology consultation was requested serial troponins were ordered he was started on IV heparin. D-dimer was negative in the emergency room. Patient is a lifelong smoker he smokes 1-2 packs per day he has been smoking for more than 50 years, he states that his cholesterol was elevated at some point in the past he has not had any blood test recently and he is not on any cholesterol medication at this time he denies ever being diagnosed with hypertension or diabetes, he does not take any prescription drug medication and has not seen his primary care physician Dr. Helena Simental in few years. In the emergency room patient was noticed to have some tremor his alcohol level was low he was started on CIWA protocol. 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 03/14/2018 stress test was negative for reversible ischemia. Patient is chest pain-free. MD ruled out. Troponins are negative 3 sets. Cardiology has cleared patient for discharge. They're recommending discharge home. Patient did have some mild pancreatitis likely alcohol induced. He was requiring the CIWA protocol. Patient has been encouraged to refrain from any alcohol use. To continue with multivitamin and thiamine and Xanax for any anxiety which all- like symptoms. And will have him follow up with his PCP in the office within the next 3 days. Also will have him follow up with GI service and outpatient setting regarding his pancreatitis. Patient's symptoms have improved. Medically stable for discharge. Please refer to chart for any further details. I performed an examination of the patient and discussed their management with the physician Senior Staff Psychologist. I have reviewed the Physician Senior Staff Psychologist's notes and agree with the documented findings and plan of care Patient Condition at Discharge: Stable Plan - Discharge Summary Discharge Rx Participant: No New Discharge Prescriptions: New ALPRAZolam [Xanax] 0.5 mg PO Q8HR PRN 3 Days #9 tab PRN Reason: Anxiety Thiamine [Vitamin B-1] 100 mg PO BID@1200,1700 #60 tab Continue Multivitamins, Thera [Multivitamin (formulary)] 1 tab PO DAILY Discharge Medication List Multivitamins, Thera [Multivitamin (formulary)] 1 tab PO DAILY 02/13/17 [History ] ALPRAZolam [Xanax] 0.5 mg PO Q8HR PRN 3 Days #9 tab 03/14/18 [Rx] Thiamine [Vitamin B-1] 100 mg PO BID@1200,1700 #60 tab 03/14/18 [Rx] Follow up Appointment(s)/Referral(s): Cm Panda MD [STAFF PHYSICIAN] - 1 Week Helena Simental DO [Primary Care Provider] - 3 Days Activity/Diet/Wound Care/Special Instructions: Diet: regular Activity: as tolerated Discharge Disposition: HOME SELF-CARE
[2018-03-14 15:35] VITALS: BP 141/81; PULSE 84; TEMP 98.2
--- NOTE | 2018-03-15 13:55 | EST ---
EXERCISE STRESS AGE: 57 SEX: M HT: 5'8" WT: 128 PROTOCOL: Lexiscan Cardiolite Stress Test HEART RATE REST: 89 BLOOD PRESSURE REST: 140/91 MAXIMUM HEART RATE ACHIEVED: 100 MAXIMUM BLOOD PRESSURE: 159/77 INDICATIONS: Chest pain. CLINICAL INFORMATION: A Lexiscan nuclear study was performed. Peak heart rate of 100 was achieved, maximum blood pressure of 159/77 mmHg was noted. Resting EKG shows normal sinus rhythm with normal MI interval and QRS duration and normal ST-T waves. No ST-segment depression suggestive of ischemia is noted. The results of the nuclear study will follow. MMODL / IJN: [id number] /
== END 2018-03-14 18:39 | disposition home or self-care (01) | DRG 311 ==
LOC: EC 17:07 → 3SCARD 19:58
PROVIDERS: ADMIT Internal Medicine; ATTEND Internal Medicine
DX: I20.9 Angina pectoris, unspecified (principal); K85.20 Alcohol induced acute pancreatitis without necrosis or infection; F10.239 Alcohol dependence with withdrawal, unspecified; K70.10 Alcoholic hepatitis without ascites; E78.5 Hyperlipidemia, unspecified; M19.90 Unspecified osteoarthritis, unspecified site; F17.210 Nicotine dependence, cigarettes, uncomplicated; F41.9 Anxiety disorder, unspecified; F32.9 Major depressive disorder, single episode, unspecified; Z71.6 Tobacco abuse counseling; Z79.899 Other long term (current) drug therapy; Z96.643 Presence of artificial hip joint, bilateral; Z82.0 Family history of epilepsy and other diseases of the nervous system
CPT/HCPCS: 36415; 71046; 78452; 80053; 80061; 80320; 82150; 82550; 82553; 83690; 83735; 83880; 84132; 84484; 85025; 85379; 85610; 85730; 93005; 93017; 93306; 96361; 96365; 96366; 96372; 96375; 96376; 99291

== ENCOUNTER 2018-04-14 07:39 | Day surgery (SDC) | payer MEDICARE ==
[2018-04-13 08:58] VITALS: BMI 20.5
[~2018-04-14 07:39] MED LIST: LACTATED RINGERS 1,000 ML IV SCH; LIDOCAINE 1% 20 ML VIAL (10MG/ML) FOR IV START INTRADERMA PRN
[2018-04-14 08:08] VITALS: TEMP 97.3
[2018-04-14] MEDS ORDERED: PROPOFOL 10 MG/ML 20 ML VIAL IV ONE (08:35)
[2018-04-14] MEDS ORDERED: LIDOCAINE 1% INJ 10MG/ML (20 ML MDV) ONE (08:35)
--- NOTE | 2018-04-14 08:43 | P.GSHP ---
History of Present Illness H&P Date: 04/14/18 Chief Complaint: Screening colonoscopy This is a 57-year-old male who presents today for screening colonoscopy. Patient denies a significant GI complaints. Past Medical History Past Medical History: Osteoarthritis (OA) Additional Past Medical History / Comment(s): Patient states "his urinary function has been changing, it is harder to urinate, had testing done on prostate, getting results today". Neuropathy bilateral feet and hands. Tinnitus bilateral ears. History of Any Multi-Drug Resistant Organisms: None Reported Past Surgical History: Back Surgery, Joint Replacement Additional Past Surgical History / Comment(s): Neck surgery, bilateral hip replacement, right shoulder surgery, bilateral wrist surgery, right knee surgery, back surgery x3. Past Anesthesia/Blood Transfusion Reactions: No Reported Reaction Past Psychological History: Anxiety Smoking Status: Current every day smoker Past Alcohol Use History: Occasional Additional Past Alcohol Use History / Comment(s): Smokes 1 PPD, has been smoking 40-50 yrs. Past Drug Use History: Marijuana Additional Drug Use History / Comment(s): Occasional marijuana use. - Past Family History Mother History Unknown: Yes Additional Family Medical History / Comment(s): Patient states after a fall. Father Family Medical History: Memory Impairment Additional Family Medical History / Comment(s): Parkinsons Medications and Allergies Home Medications Medication Instructions Recorded Confirmed Type Multivitamins, Thera [Multivitamin 1 tab PO DAILY 02/13/17 04/13/18 History (formulary)] Aspirin [Adult Low Dose Aspirin EC] 81 mg PO DAILY #30 tablet. 03/14/18 04/13/18 Rx Thiamine [Vitamin B-1] 100 mg PO BID@1200,1700 #60 tab 03/14/18 04/13/18 Rx Gabapentin [Neurontin] 300 mg PO BID 04/13/18 04/13/18 History cloNIDine HCL [Catapres] 0.1 mg PO QAM 04/13/18 04/13/18 History Allergies Allergy/AdvReac Type Severity Reaction Status Date / Time No Known Allergies Allergy Verified 04/14/18 08:02 Surgical - Exam Vital Signs Temp Pulse Resp BP Pulse Ox 97.3 F L 78 16 160/92 100 04/14/18 08:07 04/14/18 08:07 04/14/18 08:07 04/14/18 08:04/14/18 08:07 - General well developed, well nourished, no distress - Eyes PERRL - ENT normal pinna - Neck no masses - Respiratory normal expansion - Cardiovascular Rhythm: regular - Abdomen Abdomen: soft, non tender Assessment and Plan Assessment: We'll perform screening colonoscopy
--- NOTE | 2018-04-14 08:58 | P.OP ---
Date of Procedure: 04/14/18 Preoperative Diagnosis: Screening colonoscopy Postoperative Diagnosis: Internal hemorrhoids Procedure(s) Performed: Colonoscopy Anesthesia: MAC Surgeon: Michael Blankenship Pathology: none sent Condition: stable Disposition: PACU Description of Procedure: The patient's placed on the endoscopy table in the lateral position. He received IV sedation. Digital rectal exam was performed which revealed mild internal hemorrhoids. Flexible colonoscope was then placed patient anus and passed throughout the entire colon. The ileocecal valve was visualized. The cecum, ascending and transverse colon appeared normal. In descending and sigmoid colon there was no polyps seen. Scope was then brought back the rectum this appeared normal. Scope was then withdrawn through the anus and internal hemorrhoids were noted. Scope was withdrawn for patient.
[2018-04-14 09:01] VITALS: RESP 18
[2018-04-14 09:24] VITALS: BP 123/63; PULSE 82
== END 2018-04-14 09:38 | disposition home or self-care (01) ==
LOC: ORWHC2ENDO 07:39
PROVIDERS: ATTEND Surgery
DX: Z12.11 Encounter for screening for malignant neoplasm of colon (principal); F17.200 Nicotine dependence, unspecified, uncomplicated; G62.9 Polyneuropathy, unspecified; K64.8 Other hemorrhoids; M19.90 Unspecified osteoarthritis, unspecified site; Z79.82 Long term (current) use of aspirin; Z96.643 Presence of artificial hip joint, bilateral; Z79.899 Other long term (current) drug therapy
CPT/HCPCS: J2001; J2704; G0121

== ENCOUNTER → 2018-12-02 | Outpatient (CLI) | payer MEDICARE ==
--- NOTE | 2018-12-03 15:09 | MR ---
EXAMINATION TYPE: MR shoulder LT wo con DATE OF EXAM: 12/02/2018 COMPARISON: None HISTORY: Left shoulder pain into chest TECHNIQUE: Multiplanar, multisequence imaging of the left shoulder is performed without contrast. FINDINGS: The biceps tendon is intact. Subscapularis tendon shows increased signal anteriorly consistent with s ome tendinitis. There is small shoulder joint effusion. There is moderate spurring at the AC joint. T here is thickening and increased signal in the supraspinatus tendon at the subacromial space. There i s no retraction. There is spurring at the AC joint impinging on the supraspinatus tendon. The glenoid sebastian appear intact. There is no evidence of a fracture. IMPRESSION: Thickening and increased signal in the supraspinatus tendon related to full-thickness tear. No retrac tion. Partial tear of the subscapularis tendon. Moderate hypertrophic osteoarthritis of the AC joint. Mild shoulder joint effusion.
== END | disposition home or self-care (01) ==
LOC: RADMRIMAIN 21:30
PROVIDERS: ATTEND Orthopaedic Surgery
DX: S46.812A Strain of other muscles, fascia and tendons at shoulder and upper arm level, left arm, initial encounter (principal); M19.012 Primary osteoarthritis, left shoulder

== ENCOUNTER 2019-11-28 17:47 | Inpatient (IN) | payer MEDICARE ==
[2019-11-28] MEDS ORDERED: MORPHINE SULFATE 4 MG/ML SYRINGE IV STA (18:19)
--- NOTE | 2019-11-28 18:52 | CT ---
EXAMINATION TYPE: CT brain cspine wo con DATE OF EXAM: 11/28/2019 COMPARISON: None available. HISTORY: fall injury CT DLP: 1115.5 mGycm Automated exposure control for dose reduction was used. TECHNIQUE: CT scan of the head and cervical spine are performed without contrast. FINDINGS: There is no acute intracranial hemorrhage, mass effect, or midline shift identified. The ventricles and sulci are within normal limits in size. The globes are intact and the visualized sin uses are clear. Cervical spine is visualized in its entirety from C1 through upper thoracic levels and demonstrates s atisfactory alignment without evidence of acute fracture or dislocation. Prevertebral soft tissue ap pears within normal limits. The C1-C2 articulation is unremarkable. There is multilevel mild cervic al spondylosis. IMPRESSION: 1. There is no acute fracture or dislocation evident in the cervical spine. 2. No acute intracranial hemorrhage, mass effect, or midline shift is seen.
--- NOTE | 2019-11-28 18:58 | CT ---
EXAMINATION TYPE: CT facial bones wo con DATE OF EXAM: 11/28/2019 COMPARISON: None available. HISTORY: Fall injury CT DLP: 1115.5 mGycm Automated exposure control for dose reduction was used. TECHNIQUE: CT scan of the facial bones is performed without contrast, axial images are obtained, luna nal reformatted images are also reviewed. FINDINGS: There is no acute fracture or dislocation. The bilateral globes are intact. The paranasal s inuses are adequately aerated. The visualized zygomatic arches, mandible, maxilla and pterygoid plate s are intact. No significant soft tissue abnormality. IMPRESSION: No acute abnormality.
--- NOTE | 2019-11-28 19:00 | ED ---
General Adult HPI - General Chief complaint: Fall Stated complaint: fall, weakness Time Seen by Provider: 11/28/19 18:09 Source: patient Mode of arrival: wheelchair Limitations: no limitations - History of Present Illness Initial comments: Dictation was produced using [employer] dictation software. please excuse any grammatical, word or spelling errors. This patient was cared for during a federal and state declared state of emergency secondary to Covid 19 Chief Complaint: 59-year-old male with facial pain after fall 3 days ago History of Present Illness: Patient is 59-year-old male who has past medical history of osteoarthritis, hip replacement and alcoholism presents today with facial pain. Patient reports that he fell 3 days ago. He does not recall every single detail about the event. He is a limited historian. He also complains of right shoulder pain. Patient states he had multiple section chief at beverages today. Patient complains of chronic right hip pain. He reports that its stable and because of his hip surgery. The ROS documented in this emergency department record has been reviewed and confirmed by me. Those systems with pertinent positive or negative responses have been documented in the HPI. All other systems are other negative and/or noncontributory. PHYSICAL EXAM: General Impression: Alert and oriented x3, not in acute distress, smells of EtOH, tremulous HEENT: Ecchymosis to the right frontal oriented and periorbital area, extra- ocular movements intact, pupils equal and reactive to light bilaterally, mucous membranes moist. Cardiovascular: Heart regular rate and rhythm Chest: Able to complete full sentences, no retractions, no tachypnea Abdomen: abdomen soft, non-tender, non-distended, no organomegaly Musculoskeletal: Pulses present and equal in all extremities, no peripheral edema, intact right shoulder range of motion passively. There is some elicited tenderness with Motor: no focal deficits noted Neurological: CN II-XII grossly intact, no focal motor or sensory deficits noted Skin: Intact with no visualized rashes Psych: Anxious ED course: 19-year-old male presents with facial pain and right shoulder pain after fall 3 days ago. Vital signs upon arrival are within acceptable limits. Patient smells of EtOH. He does admit to having multiple alcoholic beverages today. Computed tomography scan of the head and C-spine shows no acute processes. Facial CT shows no acute abnormalities. Chest x-ray is nonacute. Pelvis x-ray is not acute. Shoulder x-ray shows no acute osseous abnormality. Laboratory evaluation obtained. CBC is unremarkable. Coag panel is negative. Patient has potassium 3.1. He does have a an alcohol level of 295. Patient is very shaky appears to be withdrawing despite having alcohol on the system. Patient will be admitted for alcohol withdrawal.. Case discussed with Dr. Rey. EKG interpretation: Ventricular rate 87, sinus rhythm, QRS 70, QTC 486. No RI prolongation, no QTC prolongation, no ST or T-wave changes noted. - Related Data Home Medications Medication Instructions Recorded Confirmed Multivitamins, Thera [Multivitamin 1 tab PO DAILY 02/13/17 04/13/18 (formulary)] Gabapentin [Neurontin] 300 mg PO BID 04/13/18 04/13/18 cloNIDine HCL [Catapres] 0.1 mg PO QAM 04/13/18 04/13/18 Previous Rx's Medication Instructions Recorded Aspirin [Adult Low Dose Aspirin EC] 81 mg PO DAILY #30 tablet. 03/14/18 Thiamine [Vitamin B-1] 100 mg PO BID@1200,1700 #60 tab 03/14/18 Allergies Allergy/AdvReac Type Severity Reaction Status Date / Time No Known Allergies Allergy Verified 11/28/19 18:07 Review of Systems ROS Statement: Those systems with pertinent positive or pertinent negative responses have been documented in the HPI. ROS Other: All systems not noted in ROS Statement are negative. Past Medical History Past Medical History: Osteoarthritis (OA) Additional Past Medical History / Comment(s): Patient states "his urinary function has been changing, it is harder to urinate, had testing done on prostate, getting results today". Neuropathy bilateral feet and hands. Tinnitus bilateral ears. History of Any Multi-Drug Resistant Organisms: None Reported Past Surgical History: Back Surgery, Joint Replacement Additional Past Surgical History / Comment(s): Neck surgery, bilateral hip repla cement, right shoulder surgery, bilateral wrist surgery, right knee surgery, back surgery x3. Past Anesthesia/Blood Transfusion Reactions: No Reported Reaction Past Psychological History: Anxiety Smoking Status: Current every day smoker Past Alcohol Use History: Occasional Past Drug Use History: Marijuana - Past Family History Mother History Unknown: Yes Additional Family Medical History / Comment(s): Patient states after a fall. Father Family Medical History: Memory Impairment Additional Family Medical History / Comment(s): Parkinsons General Exam Limitations: no limitations Course Vital Signs 11/28/19 18:05 Temperature 98.1 F Pulse Rate 88 Respiratory 18 Rate Blood Pressure 147/76 O2 Sat by Pulse 100 Oximetry Medical Decision Making - Lab Data Result diagrams: 11/28/19 19:02 11/28/19 19:02 Lab Results 11/28/19 11/28/19 11/28/19 Range/Units 19:02 19:02 19:02 WBC 3.9 (3.8-10.6) k/uL RBC 4.22 L (4.30-5.90) m/uL Hgb 14.2 (13.0-17.5) gm/dL Hct 43.0 (39.0-53.0) % MCV 101.9 H (80.0-100.0) fL MCH 33.7 (25.0-35.0) pg MCHC 33.0 (31.0-37.0) g/dL RDW 14.2 (11.5-15.5) % Plt Count 59 L (150-450) k/uL Neutrophils % 57 % Lymphocytes % 26 % Monocytes % 9 % Eosinophils % 2 % Basophils % 3 % Neutrophils # 2.2 (1.3-7.7) k/uL Lymphocytes # 1.0 (1.0-4.8) k/uL Monocytes # 0.3 (0-1.0) k/uL Eosinophils # 0.1 (0-0.7) k/uL Basophils # 0.1 (0-0.2) k/uL Macrocytosis Slight PT 10.5 (9.0-12.0) sec INR 1.0 (<1.2) APTT 26.5 (22.0-30.0) sec Sodium 142 (137-145) mmol/L Potassium 3.1 L (3.5-5.1) mmol/L Chloride 97 L (98-107) mmol/L Carbon Dioxide 29 (22-30) mmol/L Anion Gap 16 mmol/L BUN 14 (9-20) mg/dL Creatinine 0.75 (0.66-1.25) mg/dL Est GFR (CKD-EPI)AfAm >90 (>60 ml/min/1.73 sqM) Est GFR (CKD-EPI)NonAf >90 (>60 ml/min/1.73 sqM) Glucose 77 (74-99) mg/dL Calcium 9.4 (8.4-10.2) mg/dL Serum Alcohol 295 H* mg/dL Disposition Clinical Impression: Alcohol withdrawal Disposition: ADMITTED IP TO THIS HOSP Condition: Fair Referrals: Helena Simental DO [Primary Care Provider] - 1-2 days Decision Time: 20:13
--- NOTE | 2019-11-28 19:15 | XR ---
EXAMINATION TYPE: XR chest 2V DATE OF EXAM: 11/28/2019 COMPARISON: 03/12/2018. HISTORY: Pain status post fall. TECHNIQUE: Frontal and lateral views of the chest are obtained. FINDINGS: There is no focal air space opacity, pleural effusion, or pneumothorax seen. The cardiac silhouette size is within normal limits. The osseous structures are intact. IMPRESSION: No acute cardiopulmonary process.
--- NOTE | 2019-11-28 19:19 | XR ---
EXAMINATION TYPE: XR pelvis AP view DATE OF EXAM: 11/28/2019 CLINICAL HISTORY: Pain status post fall. TECHNIQUE: A single AP view of the pelvis is obtained. COMPARISON: None. FINDINGS: There is no acute fracture/dislocation evident in the pelvis. Bilateral hip arthroplasties are noted. No evidence of hardware complication. IMPRESSION: There is no acute fracture or dislocation in the pelvis.
[2019-11-28 19:21] LABS: Basophils # (A) 0.1 k/uL (0-0.2); Basophils % (A) 3 %; Eosinophils # (A) 0.1 k/uL (0-0.7); Eosinophils % (A) 2 %; HGB 14.2 gm/dL (13.0-17.5); Lymphocytes % (A) 26 %; MCH 33.7 pg (25.0-35.0); MCV 101.9 fL (80.0-100.0); Macrocytosis Slight; Mean Platelet Volume 8.3; Monocytes # (A) 0.3 k/uL (0-1.0); Monocytes % (A) 9 %; Neutrophils # (A) 2.2 k/uL (1.3-7.7); Neutrophils % (A) 57 %; RBC 4.22 m/uL (4.30-5.90); RDW 14.2 % (11.5-15.5); WBC 3.9 k/uL (3.8-10.6)
[2019-11-28 19:27] LABS: African American GFR (CKD) >90 (>60 ml/min/1.73 sqM); Anion Gap 16 mmol/L; Blood Urea Nitrogen 14 mg/dL (9-20); Calcium 9.4 mg/dL (8.4-10.2); Carbon Dioxide 29 mmol/L (22-30); Chloride 97 mmol/L (98-107); Glucose 77 mg/dL (74-99); Non-African American GFR(CKD) >90 (>60 ml/min/1.73 sqM); Platelet Count 59 k/uL (150-450); Potassium 3.1 mmol/L (3.5-5.1); Sodium 142 mmol/L (137-145)
[2019-11-28 19:32] LABS: Alcohol 295 mg/dL
--- NOTE | 2019-11-28 19:33 | XR ---
Result: Clinical History: Pain. Comparison: None available. Technique: 3 views of the right shoulder. Findings: The bone mineralization is appropriate for age. No acute fracture or dislocation is seen. There are mild degenerative changes of the acromioclavicula r and glenohumeral joints. The visualized lung is clear. Impression: No acute osseous abnormality.
[2019-11-28] MEDS ORDERED: LORazepam 2 MG/ML INJ IV STA (19:36)
[2019-11-28 19:41] LABS: Partial Thromboplastin Time 26.5 sec (22.0-30.0); Prothrombin Time 10.5 sec (9.0-12.0)
[2019-11-28] MEDS ORDERED: LORazepam 2 MG/ML INJ IV PRN ×2 (19:51)
[2019-11-28] MEDS ORDERED: THIAMINE 100 MG/ML 2 ML VIAL IM STA (19:51)
[2019-11-28] MEDS ORDERED: NALOXONE 0.4 MG/ML 1 ML VIAL IV PRN (20:11)
[2019-11-28] MEDS: SODIUM CHLORIDE 0.9% 1,000 ML IV SCH (20:36)
[2019-11-29] MEDS: ACETAMINOPHEN TAB 325 MG TAB PO PRN ×3 (00:36→23:03)
[2019-11-29] MEDS: LORazepam 2 MG/ML INJ IV PRN ×4 (00:41→19:48)
[2019-11-29] MEDS: THIAMINE 100 MG TAB PO SCH ×2 (06:48→17:49)
[2019-11-29] MEDS: SODIUM CHLORIDE 0.9% 1,000 ML IV SCH ×2 (10:58→19:50)
--- NOTE | 2019-11-29 23:58 | P.HPIM ---
History of Present Illness H&P Date: 11/29/19 Chief Complaint: alcohol withdrawl Donte May is a 59 yo M with PMH of alcoholism, OA who was brought to the ED by his due to weakness, facial swelling and intoxication. He apparently drinks a few pints of hard alcohol daily and has been drinking more recently. He had a fall at home about 3 days ago and has had some residual weakness and since then. He had another fall and hit the R side of his face which has caused eye swelling. On presentation he was hypertensive, K 3.1, alcohol 290. CT head, C spine, face with no actute process. Review of Systems All systems: negative Constitutional: Reports malaise, Reports weakness, Denies chills, Denies fever Eyes: denies blurred vision, denies pain Ears, nose, mouth and throat: Denies headache, Denies sore throat Cardiovascular: Denies chest pain, Denies shortness of breath Respiratory: Denies cough Gastrointestinal: Denies abdominal pain, Denies diarrhea, Denies nausea, Denies vomiting Musculoskeletal: Reports frequent falls, Reports gait dysfunction, Reports myalgias Integumentary: Denies pruritus, Denies rash Neurological: Reports weakness, Denies numbness Psychiatric: Denies anxiety, Denies depression Endocrine: Denies fatigue, Denies weight change Past Medical History Past Medical History: Osteoarthritis (OA) Additional Past Medical History / Comment(s): Patient states "his urinary function has been changing, it is harder to urinate, had testing done on prostate, getting results today". Neuropathy bilateral feet and hands. Tinnitus bilateral ears. History of Any Multi-Drug Resistant Organisms: None Reported Past Surgical History: Back Surgery, Joint Replacement Additional Past Surgical History / Comment(s): Neck surgery, bilateral hip re placement, right shoulder surgery, bilateral wrist surgery, right knee surgery, back surgery x3. Past Anesthesia/Blood Transfusion Reactions: No Reported Reaction Past Psychological History: Anxiety Smoking Status: Current every day smoker Past Alcohol Use History: Daily, Heavy Additional Past Alcohol Use History / Comment(s): Smokes 1 PPD, has been smoking 40-50 yrs. drinks a pint of alcohol a day for the last 6 months. Past Drug Use History: Marijuana Additional Drug Use History / Comment(s): Occasional marijuana use. - Past Family History Mother History Unknown: Yes Additional Family Medical History / Comment(s): Patient states after a fall. Father Family Medical History: Memory Impairment Additional Family Medical History / Comment(s): Parkinsons Medications and Allergies Home Medications Medication Instructions Recorded Confirmed Type Naproxen Sodium [Aleve] 440 mg PO Q12HR 11/28/19 11/28/19 History Allergies Allergy/AdvReac Type Severity Reaction Status Date / Time No Known Allergies Allergy Verified 11/28/19 21:03 Physical Exam Vitals: Vital Signs Temp Pulse Resp BP Pulse Ox 11/29/19 21:45 132/93 11/29/19 20:00 99.2 F 99 18 170/102 11/29/19 15:50 96.7 F L 95 18 169/98 97 11/29/19 11:23 98.3 F 97 18 136/89 97 11/29/19 08:02 96.5 F L 112 H 18 155/96 92 L 11/29/19 04:00 98.2 F 101 H 16 119/78 96 Intake and Output 11/29/19 11/29/19 11/30/19 14:59 22:59 06:59 Intake Total 358 240 600 Output Total 300 575 550 Balance 58 -335 50 Intake: Oral 358 240 600 Output: Urine 300 575 550 Other: Voiding Method Urinal Urinal # Voids 1 1 General: well nourished, well developed, NAD. Vitals reviewed Eyes: PERRL, EOMI, conjunctiva normal HENT: normocephalic, mucus membranes moist Neck: supple, no JVD Lungs: normal respiratory effort, no wheezes or rales CV: Regular rate and rhythm, no murmur. Peripheral pulses 2+ Abdomen: soft, nondistended, no organomegaly Lymph: no cervical or axillary LAD Skin: warm and dry. Neuro: A&Ox3, normal mood and affect. Intention tremor present Results CBC & Chem 7: 11/28/19 19:02 11/28/19 19:02 Thrombosis Risk Factor Assmnt - Choose All That Apply Any of the Below Risk Factors Present?: No Other Risk Factors: Yes Each Risk Factor Represents 2 Points: Age 61-74 years Other congenital or acquired thrombophilia - If yes, enter type in comment: No Thrombosis Risk Factor Assessment Total Risk Factor Score: 2 Thrombosis Risk Factor Assessment Level: Low Risk Assessment and Plan (1) Facial swelling Current Visit: Yes Status: Acute Code(s): R22.0 - LOCALIZED SWELLING, MASS AND LUMP, HEAD SNOMED Code(s): 652446810 (2) Alcohol withdrawal Current Visit: Yes Status: Acute Code(s): F10.239 - ALCOHOL DEPENDENCE WITH WITHDRAWAL, UNSPECIFIED SNOMED Code(s): 873159966 (3) Smoking Current Visit: No Status: Acute Code(s): F17.200 - NICOTINE DEPENDENCE, UNSPECIFIED, UNCOMPLICATED SNOMED Code(s): 55419772 Plan: 1. Alcohol withdrawal. Admit with CIWA protocol. Taper off ativan. Replete vitamins 2. R facial swelling and pain. fall. CT imaging negative, pain control
[2019-11-30] MEDS: ACETAMINOPHEN TAB 325 MG TAB PO PRN ×2 (06:31→18:35)
[2019-11-30] MEDS: THIAMINE 100 MG TAB PO SCH ×2 (06:31→15:45)
[2019-11-30] MEDS: SODIUM CHLORIDE 0.9% 1,000 ML IV SCH ×2 (06:34→21:34)
[2019-11-30 10:23] LABS: HGB 13.2 gm/dL (13.0-17.5); MCH 34.3 pg (25.0-35.0); MCV 100.8 fL (80.0-100.0); RBC 3.87 m/uL (4.30-5.90); RDW 13.1 % (11.5-15.5)
[2019-11-30 10:28] LABS: ALT 62 U/L (4-49); AST 146 U/L (17-59); African American GFR (CKD) >90 (>60 ml/min/1.73 sqM); Albumin 4.4 g/dL (3.5-5.0); Alkaline Phosphatase 97 U/L (38-126); Anion Gap 8 mmol/L; Blood Urea Nitrogen 10 mg/dL (9-20); Calcium 9.4 mg/dL (8.4-10.2); Carbon Dioxide 29 mmol/L (22-30); Chloride 97 mmol/L (98-107); Glucose 112 mg/dL (74-99); Magnesium 1.5 mg/dL (1.6-2.3); Non-African American GFR(CKD) >90 (>60 ml/min/1.73 sqM); Platelet Count 34 k/uL (150-450); Potassium 2.9 mmol/L (3.5-5.1); Sodium 134 mmol/L (137-145); Total Bilirubin 1.6 mg/dL (0.2-1.3)
[2019-11-30] MEDS ORDERED: Potassium Replacement Protocol 1 EACH MISC MISCELLANE PRN (10:39)
[2019-11-30] MEDS ORDERED: Magnesium Replacement Protocol 1 EACH MISC MISCELLANE PRN (10:40)
[2019-11-30] MEDS: MAGNESIUM SULFATE-D5W PMX 1 GM in DEXTROSE/WATER 1 100ML.BAG IVPB SCH ×2 (11:03→12:18)
[2019-11-30] MEDS: LORazepam 2 MG/ML INJ IV PRN ×2 (11:03→18:41)
[2019-11-30] MEDS: POTASSIUM CHLORIDE ER 20 MEQ TAB.ER PO SCH ×3 (11:03→13:23)
[2019-11-30] MEDS: PANTOPRAZOLE 40 MG/10 ML VIAL IVP SCH (11:17)
[2019-11-30 12:41] VITALS: BMI 18.2
--- NOTE | 2019-11-30 13:56 | P.PN ---
Subjective Progress Note Date: 11/30/19 Donte May is a 59 yo M with PMH of alcoholism, OA who was brought to the ED by his due to weakness, facial swelling and intoxication. He apparently drinks a few pints of hard alcohol daily and has been drinking more recently. He had a fall at home about 3 days ago and has had some residual weakness and since then. He had another fall and hit the R side of his face which has caused eye swelling. On presentation he was hypertensive, K 3.1, alcohol 290. CT head, C spine, face with no actute process. 11/30/2019 maintained onCIWA protocol. Sensorium significantly improved. tremors, mild tachycardia. Patient reports that he has had continuous tremors for months. Tested for Parkinson's as well; Abnormal glabellar tap, abnormal cogwheeling. Also complaining of feet numb and burning. Previously has been on Neurontin Potassium 2.9, magnesium 1.5. Elevated T bili and LFTs; T bili 1.6, AST 146, ALT 62. Alk phos 97. T-max 99.2, normal WBC. Denies chest pain, palpitations or shortness of breath. Objective - Vital Signs Vital signs: Vital Signs Temp 99.0 F 11/30/19 08:03 Pulse 114 H 11/30/19 08:03 Resp 18 11/30/19 08:03 BP 117/80 11/30/19 08:03 Pulse Ox 97 11/30/19 08:03 Intake & Output 11/29/19 11/30/19 11/30/19 18:59 06:59 18:59 Intake Total 598 600 118 Output Total 575 1150 Balance 23 -550 118 Weight 54.4 kg Intake: Oral 598 600 118 Output: Urine 575 1150 Other: Voiding Method Urinal Urinal # Voids 1 - Exam General: well nourished, well developed, NAD. Vitals reviewed Eyes: PERRL, EOMI, conjunctiva normal HENT: normocephalic, mucus membranes moist Neck: supple, no JVD Lungs: normal respiratory effort, no wheezes or rales CV: Regular rate and rhythm, no murmur. Peripheral pulses 2+ Abdomen: soft, nondistended, no organomegaly. No guarding, positive bowel sounds Skin: warm and dry. Neuro: A&Ox3, normal mood and affect. Intention tremor present, possibly Parkinson's,abnormal glabellar tap and cogwheeling - Labs CBC & Chem 7: 11/30/19 09:36 11/30/19 09:36 Labs: Abnormal Lab Results - Last 24 Hours (Table) 11/30/19 11/30/19 Range/Units 09:36 09:36 RBC 3.87 L (4.30-5.90) m/uL MCV 100.8 H (80.0-100.0) fL Plt Count 34 L (150-450) k/uL Sodium 134 L (137-145) mmol/L Potassium 2.9 L (3.5-5.1) mmol/L Chloride 97 L (98-107) mmol/L Glucose 112 H (74-99) mg/dL Magnesium 1.5 L (1.6-2.3) mg/dL Total Bilirubin 1.6 H (0.2-1.3) mg/dL AST 146 H (17-59) U/L ALT 62 H (4-49) U/L Assessment and Plan Assessment: (1) Facial swelling Current Visit: Yes Status: Acute Code(s): R22.0 - LOCALIZED SWELLING, MASS AND LUMP, HEAD SNOMED Code(s): 842041757 (2) Alcohol withdrawal Current Visit: Yes Status: Acute Code(s): F10.239 - ALCOHOL DEPENDENCE WITH WITHDRAWAL, UNSPECIFIED SNOMED Code(s): 353322878 (3) Smoking Current Visit: No Status: Acute Code(s): F17.200 - NICOTINE DEPENDENCE, UNS PECIFIED, UNCOMPLICATED SNOMED Code(s): 35223295 (4) hypokalemia (5) hypomagnesemia (6) possible Parkinson's disease, abnormal glabellar tap and cogwheeling (7) neuropathy Plan: Continue on current medication regime ,monitoring and symptomatic treatment. Neurology consulted regarding potential Parkinson's disease/tremors. Neurontin added to med regimen for neuropathy. Maintain CIWA protocol. Potassium and magnesium replacement protocols ordered. IV fluid hydration. Close monitoring of LFTs, electrolytes. Discharge planning in progress for subacute rehab tomorrow. The impression and plan of care has been dictated as directed. : I performed a history and examination of this patient, discussed the same with the dictator. I agree with the dictator's note ,documented as a scribe. Any additional findings or plans will be noted.
[2019-11-30] MEDS: GABAPENTIN 300 MG CAP PO SCH ×2 (15:45→21:34)
[2019-11-30] MEDS: NICOTINE 14MG/24HR PATCH TRANSDERM SCH (18:35)
[2019-12-01] MEDS: LORazepam 2 MG/ML INJ IV PRN ×2 (00:42→04:52)
[2019-12-01] MEDS: ACETAMINOPHEN TAB 325 MG TAB PO PRN (06:26)
[2019-12-01] MEDS: THIAMINE 100 MG TAB PO SCH (06:26)
--- NOTE | 2019-12-01 08:07 | P.DS ---
Providers Date of admission: 11/28/19 20:11 Expected date of discharge: 12/01/19 Attending physician: Bernardo Rey MD Consults: 11/30/19 13:20 Consult Physician Routine Consulting Provider: Kathie Matson Consult Reason/Comments: tremors, ?parkinsons Do you want consulting provider notified?: Yes Primary care physician: Helena Simental Hospital Course: Final DIagnoses: (1) Facial swelling,Ct imaging negative Current Visit: Yes Status: Acute Code(s): R22.0 - LOCALIZED SWELLING, MASS AND LUMP, HEAD SNOMED Code(s): 090960617 (2) Alcohol withdrawal Current Visit: Yes Status: Acute Code(s): F10.239 - ALCOHOL DEPENDENCE WITH WITHDRAWAL, UNSPECIFIED SNOMED Code(s): 983679590 (3) Smoking Current Visit: No Status: Acute Code(s): F17.200 - NICOTINE DEPENDENCE, UNSPECIFIED, UNCOMPLICATED SNOMED Code(s): 41439354 (4) hypokalemia (5) hypomagnesemia (6) possible Parkinson's disease, abnormal glabellar tap and cogwheeling (7) neuropathy Hospital COurse:Donte May is a 59 yo M with PMH of alcoholism, OA who was brought to the ED by his due to weakness, facial swelling and intoxication. He apparently drinks a few pints of hard alcohol daily and has been drinking more recently. He had a fall at home about 3 days ago and has had some residual weakness and since then. He had another fall and hit the R side of his face which has caused eye swelling. On presentation he was hypertensive, K 3.1, alcohol 290. CT head, C spine, face with no actute process. 11/30/2019 maintained onCIWA protocol. Sensorium significantly improved. tremors, mild tachycardia. Patient reports that he has had continuous tremors for months. Tested for Parkinson's as well; Abnormal glabellar tap, abnormal cogwheeling. Also complaining of feet numb and burning. Previously has been on Neurontin Potassium 2.9, magnesium 1.5. Elevated T bili and LFTs; T bili 1.6, AST 146, ALT 62. Alk phos 97. T-max 99.2, normal WBC. Denies chest pain, palpitations or shortness of breath. Significant clinical improvement. Further Neurology work up regarding potential Parkinsons Disease, OP rec. Patient will be discharged today to [facility] in a stable condition with guarded prognosis, pending magnesium level. The impression and plan of care has been dictated as directed. : I performed a history and examination of this patient, discussed the same with the dictator. I agree with the dictator's note ,documented as a scribe. Any additional findings or plans will be noted. Patient Condition at Discharge: Stable Plan - Discharge Summary Discharge Rx Participant: No New Discharge Prescriptions: No Action Naproxen Sodium [Aleve] 440 mg PO Q12HR Discharge Medication List Naproxen Sodium [Aleve] 440 mg PO Q12HR 11/28/19 [History] Follow up Appointment(s)/Referral(s): Raul Veloz MD [REFERRING] - 2 Weeks Helena Simental DO [Primary Care Provider] - 1 Week (After discharge from subacute rehab) Activity/Diet/Wound Care/Special Instructions: pending Magnesium level. [facility] Recommend following up with vending stand supervisor of choice in 2 weeks. CBC, BMP in 3 days.
[2019-12-01 08:55] LABS: HCT 40.7 % (39.0-53.0); HGB 13.6 gm/dL (13.0-17.5); MCH 34.1 pg (25.0-35.0); MCHC 33.4 g/dL (31.0-37.0); MCV 102.1 fL (80.0-100.0); Macrocytosis Slight; Mean Platelet Volume 10.3; RBC 3.99 m/uL (4.30-5.90); RDW 13.3 % (11.5-15.5); WBC 4.6 k/uL (3.8-10.6)
[2019-12-01 08:58] LABS: Platelet Count 33 k/uL (150-450)
[2019-12-01 09:02] LABS: ALT 56 U/L (4-49); AST 106 U/L (17-59); African American GFR (CKD) >90 (>60 ml/min/1.73 sqM); Albumin 4.5 g/dL (3.5-5.0); Alkaline Phosphatase 110 U/L (38-126); Anion Gap 8 mmol/L; Blood Urea Nitrogen 7 mg/dL (9-20); Carbon Dioxide 27 mmol/L (22-30); Chloride 100 mmol/L (98-107); Glucose 96 mg/dL (74-99); Magnesium 1.9 mg/dL (1.6-2.3); Non-African American GFR(CKD) >90 (>60 ml/min/1.73 sqM); Potassium 3.2 mmol/L (3.5-5.1); Sodium 135 mmol/L (137-145); Total Bilirubin 1.4 mg/dL (0.2-1.3); Total Protein 7.3 g/dL (6.3-8.2)
[2019-12-01] MEDS: GABAPENTIN 300 MG CAP PO SCH (09:35)
[2019-12-01] MEDS: PANTOPRAZOLE 40 MG/10 ML VIAL IVP SCH (09:36)
[2019-12-01] MEDS: NICOTINE 14MG/24HR PATCH TRANSDERM SCH (09:36)
[2019-12-01] MEDS: POTASSIUM CHLORIDE ER 20 MEQ TAB.ER PO SCH ×2 (09:39→11:55)
[2019-12-01 09:43] VITALS: RESP 16
[2019-12-01] MEDS ORDERED: PRIMIDONE 50 MG TAB PO SCH (11:15)
[2019-12-01 11:57] VITALS: BP 135/86; PULSE 95; TEMP 98.6
[2019-12-01] MEDS: SODIUM CHLORIDE 0.9% 1,000 ML IV SCH (12:01)
--- NOTE | 2019-12-01 12:57 | P.CNNES ---
History of Present Illness Consult date: 12/01/19 Requesting physician: Lillian Stauffer Reason for Consult: Tremors, ? Parkinson's History of Present Illness: Patient is a 59-year-old male came to the hospital on 11/28/2019 at 5:45 PM for facial pain. Patient has history of alcoholism, osteoarthritis. Patient reported that he fell 3 days ago. He does not recall every single detail about the event. Patient had multiple alcoholic beverages on the day of admission. Neurology was consulted for tremors. Patient underwent Computed tomography scan of head showed no acute process. CT of the cervical spine showed no acute fracture or dislocation. Patient is currently on gabapentin 300 mg 3 times a day, lorazepam, Protonix. Patient's blood test on arrival showed WBC 3.9 hemoglobin 14.2 with elevated MCV 101.9 and platelets 59. PTT PTT normal. Sodium normal potassium 3.1, normal renal functions, AST was elevated 146, ALT 62 and blood alcohol level 295 Patient states that he started having tremors about 6 months ago, seems to be getting worse. It involves arms and legs. He also has neuropathy in the feet, denies diabetes. Patient states his handwriting is getting more vividly and bigger. He is having difficulty getting up from chair. He sometimes uses cane sometimes walker. Patient has history of smoking tobacco 1 pack per day for last 50 years. He also has been drinking for last 40-50 years. For the first 20 years he drank 1 pint of whiskey every day, although in the last 20-30 years, he has cut back and drinks 1 pint of whiskey every other day since he got . He denies any drug use. Patient states his mother also used to have tremors. Review of Systems Positive for tremors, gait imbalance, numbness. Denies headache any problem with the vision hoarseness or throat dysphagia. Complains of numbness. Denies abdominal pain nausea vomiting diarrhea. Patient does have some back pain he has multiple surgeries including bilateral shoulders for rotator cuff, neck, back, carpal tunnel, bilateral hip, right knee surgeries. All other review of systems reviewed and noncontributory. Past Medical History Past Medical History: Osteoarthritis (OA) Additional Past Medical History / Comment(s): Patient states "his urinary function has been changing, it is harder to urinate, had testing done on prostate, getting results today". Neuropathy bilateral feet and hands. Tinnitus bilateral ears. History of Any Multi-Drug Resistant Organisms: None Reported Past Surgical History: Back Surgery, Joint Replacement Additional Past Surgical History / Comment(s): Neck surgery, bilateral hip replacement, right shoulder surgery, bilateral wrist surgery, right knee surg deena, back surgery x3. Past Anesthesia/Blood Transfusion Reactions: No Reported Reaction Past Psychological History: Anxiety Smoking Status: Current every day smoker Past Alcohol Use History: Daily, Heavy Additional Past Alcohol Use History / Comment(s): Smokes 1 PPD, has been smoking 40-50 yrs. drinks a pint of alcohol a day for the last 6 months. Past Drug Use History: Marijuana Additional Drug Use History / Comment(s): Occasional marijuana use. - Past Family History Mother History Unknown: Yes Additional Family Medical History / Comment(s): Patient states after a fall. Father Family Medical History: Memory Impairment Additional Family Medical History / Comment(s): Parkinsons Medications and Allergies Home Medications Medication Instructions Recorded Confirmed Type Acetaminophen Tab [Tylenol] 650 mg PO Q6HR PRN tab 12/01/19 Rx Famotidine [Pepcid] 40 mg PO BID #60 tab 12/01/19 Rx Folic Acid 1 mg PO DAILY #30 tablet 12/01/19 Rx Gabapentin [Neurontin] 300 mg PO TID #9 cap 12/01/19 Rx Multivitamins, Thera [Multivitamin 1 tab PO DAILY #30 tablet 12/01/19 Rx (formulary)] Nicotine 14Mg/24Hr Patch [Habitrol] 1 patch TRANSDERM DAILY patch 12/01/19 Rx Primidone [Mysoline] 50 mg PO DAILY tab 12/01/19 Rx Thiamine [Vitamin B-1] 100 mg PO DAILY tab 12/01/19 Rx Allergies Allergy/AdvReac Type Severity Reaction Status Date / Time No Known Allergies Allergy Verified 11/28/19 21:03 Physical Examination - Vital Signs Vital Signs: Vital Signs Temp Pulse Resp BP Pulse Ox 12/01/19 04:00 98.2 F 81 18 145/94 98 11/30/19 23:27 95 16 11/30/19 23:26 98.7 F 95 16 147/93 99 11/30/19 20:00 98.7 F 91 18 129/75 99 11/30/19 15:39 98.6 F 86 18 146/90 95 11/30/19 11:00 98.6 F 110 H 18 140/88 97 Intake and Output 11/30/19 12/01/19 12/01/19 22:59 06:59 14:59 Intake Total 940 Output Total 200 300 Balance 740 -300 Intake: IV 640 Sodium Chloride 0.9% 1, 640 000 ml @ 80 mls/hr IV . [id number] [facility] Rx#:[id number] Oral 300 Output: Urine 200 300 Other: Voiding Method Urinal Urinal # Voids 1 Weight 55.5 kg On examination patient is a late middle aged male, in no acute distress. Patient is alert awake fully oriented. Speech and language functions are normal. Attention and concentration fund of knowledge is adequate. On cranial examination pupils are round and reacting to light, visual boyer are full on confrontation, extraocular muscles are intact with no nystagmus. Face is symmetric, tongue protrudes the midline. Palatal elevation and sensation normal. Hearing and shoulder shrug normal. Facial sensations normal. On muscle strength testing there is no pronator drift and the strength appears normal in the arms and legs distally and proximally. Reflexes are 2+ to 3 all over and plantars are downgoing. Sensory touch is equal. Patient has moderate rhythmic tremors of both hands for [id number] as well as with posture. Tone is normal in the arms. No definitive tremors at rest noted. Bulk of muscles normal although he is thin built. Gait was deferred. Sensory touch is equal. On general examination there is Dr. bruit, S1 and S2 audible, abdomen soft nontender, chest is clear although he is slightly congested. No peripheral edema. Results - Laboratory Findings CBC and BMP: 12/01/19 08:09 12/01/19 08:09 Abnormal Lab Findings: Abnormal Labs 11/28/19 11/28/19 11/30/19 19:02 19:02 09:36 RBC 4.22 L 3.87 L MCV 101.9 H 100.8 H Plt Count 59 L 34 L Sodium Potassium 3.1 L Chloride 97 L BUN Glucose Magnesium Total Bilirubin AST ALT Serum Alcohol 295 H* 11/30/19 12/01/19 12/01/19 09:36 08:09 08:09 RBC 3.99 L MCV 102.1 H Plt Count 33 L Sodium 134 L 135 L Potassium 2.9 L 3.2 L Chloride 97 L BUN 7 L Glucose 112 H Magnesium 1.5 L Total Bilirubin 1.6 H 1.4 H AST 146 H 106 H ALT 62 H 56 H Serum Alcohol Assessment and Plan Assessment: * 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 Patient's mother also used to have tremors. Patient's long-standing history of alcoholism may also have contributing to these tremors. * Chronic alcoholism, came with alcohol intoxication * Peripheral neuropathy, likely due to above and due to possible nutritional deficiencies. Plan: * Patient will be started on Mysoline 50 mg daily for benign familial tremors. If needed, the dose can be increased to 50 mg twice a day. Possible side effects of drowsiness was informed. * Suggest patient follow up with neurologist as outpatient for management of these tremors. * Stat these labs were checked, including TSH, which is normal 1.99. B12 1123, folate 6.9, all normal. * Patient strongly recommended to abstain from alcohol, as alcoholism can make his balance, peripheral neuropathy and tremors further worse. * Also recommended complete tobacco cessation. * Neurologically clear for discharge.
[2019-12-01 20:40] LABS: Folate, Serum 6.9 ng/mL
[2019-12-02] MEDS ORDERED: PANTOPRAZOLE 40 MG TABLET PO SCH (07:30)
== END 2019-12-01 13:37 | DRG 897 ==
LOC: EC 17:47 → 3SCARD 20:11
PROVIDERS: ADMIT Family Medicine; ATTEND Family Medicine
DX: F10.239 Alcohol dependence with withdrawal, unspecified (principal); F41.9 Anxiety disorder, unspecified; F17.200 Nicotine dependence, unspecified, uncomplicated; G20 Parkinson's disease; M19.90 Unspecified osteoarthritis, unspecified site; G62.9 Polyneuropathy, unspecified; Z96.643 Presence of artificial hip joint, bilateral; Y90.8 Blood alcohol level of 240 mg/100 ml or more; R22.0 Localized swelling, mass and lump, head; G25.0 Essential tremor; E83.42 Hypomagnesemia; E87.6 Hypokalemia; G89.29 Other chronic pain; Z79.82 Long term (current) use of aspirin; Z79.899 Other long term (current) drug therapy; Z86.19 Personal history of other infectious and parasitic diseases; Z98.890 Other specified postprocedural states; Z82.0 Family history of epilepsy and other diseases of the nervous system
CPT/HCPCS: 36415; 70450; 70486; 71046; 72125; 72170; 80048; 80053; 80320; 82607; 82746; 83735; 84132; 84443; 85025; 85027; 85610; 85730; 93005

== ENCOUNTER 2020-07-24 12:34 | Observation (INO) | payer MEDICARE ==
[2020-07-24] MEDS ORDERED: NITROGLYCERIN SL TABS 0.4 MG TAB SUBLINGUAL STA ×2 (12:44)
[2020-07-24] MEDS ORDERED: ASPIRIN 81 MG PO STA (12:44)
[2020-07-24] MEDS ORDERED: ONDANSETRON 4 MG/2 ML VIAL IVP STA (12:44)
--- NOTE | 2020-07-24 12:46 | ED ---
General Adult HPI - General Chief complaint: Chest Pain Stated complaint: chest pain Time Seen by Provider: 07/24/20 12:41 Source: patient, RN notes reviewed Mode of arrival: wheelchair Limitations: no limitations - History of Present Illness Initial comments: Patient is a pleasant 60-year-old male presenting to the emergency Department with complaints of chest discomfort. Onset of symptoms was last night. Symptoms have worsened since that time. Discomfort is now becoming severe. Discomfort feels like pressure without radiation. Patient does have some associated dyspnea. Patient has had some nausea and did vomit once. Patient still has some nausea. Patient was sweaty earlier. Patient did have similar symptoms once previously associated with a muscle strain. No history of previous heart disease. No leg pain or leg swelling. - Related Data Home Medications Medication Instructions Recorded Confirmed Aspirin EC [Ecotrin] 325 mg PO DAILY PRN 07/24/20 07/24/20 Loratadine [Claritin] 10 mg PO DAILY 07/24/20 07/24/20 Allergies Allergy/AdvReac Type Severity Reaction Status Date / Time No Known Allergies Allergy Verified 07/24/20 13:46 Review of Systems ROS Statement: Those systems with pertinent positive or pertinent negative responses have been documented in the HPI. ROS Other: All systems not noted in ROS Statement are negative. Constitutional: Denies: fever Eyes: Denies: eye pain ENT: Denies: ear pain Respiratory: Reports: as per HPI, dyspnea. Denies: cough Cardiovascular: Reports: as per HPI, chest pain Endocrine: Denies: fatigue Gastrointestinal: Denies: abdominal pain Genitourinary: Denies: dysuria Musculoskeletal: Denies: back pain Skin: Denies: rash Neurological: Denies: weakness Past Medical History Past Medical History: Osteoarthritis (OA) Additional Past Medical History / Comment(s): Patient states "his urinary function has been changing, it is harder to urinate, had testing done on prostate, getting results today". Neuropathy bilateral feet and hands. Tinnitus bilateral ears. History of Any Multi-Drug Resistant Organisms: None Reported Past Surgical History: Back Surgery, Joint Replacement Additional Past Surgical History / Comment(s): Neck surgery, bilateral hip replacement, right shoulder surgery, bilateral wrist surgery, right knee surgery , back surgery x3. Past Anesthesia/Blood Transfusion Reactions: No Reported Reaction Past Psychological History: Anxiety Smoking Status: Current every day smoker Past Alcohol Use History: Daily, Heavy Past Drug Use History: Marijuana - Past Family History Mother History Unknown: Yes Additional Family Medical History / Comment(s): Patient states after a fall. Father Family Medical History: Memory Impairment Additional Family Medical History / Comment(s): Parkinsons General Exam Limitations: no limitations General appearance: alert Head exam: Present: normocephalic Eye exam: Present: normal appearance Neck exam: Present: normal inspection Respiratory exam: Present: normal lung sounds bilaterally. Absent: chest wall tenderness Cardiovascular Exam: Present: regular rate, normal rhythm, normal heart sounds Expanded Peripheral pulses: 2+: Radial (R), Radial (L), Posterior Tibialis (R), Posterior Tibialis (L) GI/Abdominal exam: Present: soft. Absent: tenderness Extremities exam: Present: normal inspection. Absent: pedal edema, calf tenderness Neurological exam: Present: alert Psychiatric exam: Present: normal affect, normal mood Skin exam: Present: normal color Course Vital Signs 07/24/20 07/24/20 07/24/20 12:36 12:54 13:00 Temperature 98.9 F Pulse Rate 59 L 121 H 138 H Respiratory 20 20 20 Rate Blood Pressure 100/66 112/99 95/72 O2 Sat by Pulse 99 100 100 Oximetry 07/24/20 13:45 Temperature Pulse Rate 104 H Respiratory 18 Rate Blood Pressure 127/77 O2 Sat by Pulse 100 Oximetry EKG Findings - EKG Comments: EKG Findings:: Sinus tachycardia with a rate of 126. IA 18. QRS 70. QT 316. QTC 457. Normal axis. Normal QRS. No acute ST change. Medical Decision Making - Medical Decision Making Patient reevaluated and resting comfortably in bed. Patient states discomfort has improved to 4/10. Patient feels like the nitroglycerin helps more than morphine. Patient and family updated on results and plan. Dr. Dobbins has been paged covering for Dr. Simental. Sotero was discussed with Dr. Rey, who will admit. - Lab Data Result diagrams: 07/24/20 12:50 07/24/20 12:50 Lab Results 07/24/20 07/24/20 07/24/20 Range/Units 12:50 12:50 12:50 WBC 8.3 (3.8-10.6) k/uL RBC 3.72 L (4.30-5.90) m/uL Hgb 12.7 L (13.0-17.5) gm/dL Hct 36.0 L (39.0-53.0) % MCV 96.9 (80.0-100.0) fL MCH 34.1 (25.0-35.0) pg MCHC 35.2 (31.0-37.0) g/dL RDW 13.7 (11.5-15.5) % Plt Count 76 L (150-450) k/uL MPV 9.0 Neutrophils % 74 % Lymphocytes % 14 % Monocytes % 9 % Eosinophils % 0 % Basophils % 1 % Neutrophils # 6.1 (1.3-7.7) k/uL Lymphocytes # 1.2 (1.0-4.8) k/uL Monocytes # 0.8 (0-1.0) k/uL Eosinophils # 0.0 (0-0.7) k/uL Basophils # 0.1 (0-0.2) k/uL PT 10.7 (9.0-12.0) sec INR 1.0 (<1.2) APTT 23.9 (22.0-30.0) sec D-Dimer 0.53 (<0.60) mg/L FEU Sodium 137 (137-145) mmol/L Potassium 3.0 L (3.5-5.1) mmol/L Chloride 95 L (98-107) mmol/L Carbon Dioxide 29 (22-30) mmol/L Anion Gap 13 mmol/L BUN 51 H (9-20) mg/dL Creatinine 1.12 (0.66-1.25) mg/dL Est GFR (CKD-EPI)AfAm 81 (>60 ml/min/1.73 sqM) Est GFR (CKD-EPI)NonAf 70 (>60 ml/min/1.73 sqM) Glucose 93 (74-99) mg/dL Calcium 10.0 (8.4-10.2) mg/dL Magnesium 1.3 L (1.6-2.3) mg/dL Total Bilirubin 1.7 H (0.2-1.3) mg/dL AST 51 (17-59) U/L ALT 33 (4-49) U/L Alkaline Phosphatase 100 (38-126) U/L Troponin I (0.000-0.034) ng/mL Total Protein 8.1 (6.3-8.2) g/dL Albumin 5.4 H (3.5-5.0) g/dL Amylase 79 (30-110) U/L Lipase 76 (23-300) U/L / Range/Units 12:50 WBC (3.8-10.6) k/uL RBC (4.30-5.90) m/uL Hgb (13.0-17.5) gm/dL Hct (39.0-53.0) % MCV (80.0-100.0) fL MCH (25.0-35.0) pg MCHC (31.0-37.0) g/dL RDW (11.5-15.5) % Plt Count (150-450) k/uL MPV Neutrophils % % Lymphocytes % % Monocytes % % Eosinophils % % Basophils % % Neutrophils # (1.3-7.7) k/uL Lymphocytes # (1.0-4.8) k/uL Monocytes # (0-1.0) k/uL Eosinophils # (0-0.7) k/uL Basophils # (0-0.2) k/uL PT (9.0-12.0) sec INR (<1.2) APTT (22.0-30.0) sec D-Dimer (<0.60) mg/L FEU Sodium (137-145) mmol/L Potassium (3.5-5.1) mmol/L Chloride (98-107) mmol/L Carbon Dioxide (22-30) mmol/L Anion Gap mmol/L BUN (9-20) mg/dL Creatinine (0.66-1.25) mg/dL Est GFR (CKD-EPI)AfAm (>60 ml/min/1.73 sqM) Est GFR (CKD-EPI)NonAf (>60 ml/min/1.73 sqM) Glucose (74-99) mg/dL Calcium (8.4-10.2) mg/dL Magnesium (1.6-2.3) mg/dL Total Bilirubin (0.2-1.3) mg/dL AST (17-59) U/L ALT (4-49) U/L Alkaline Phosphatase (38-126) U/L Troponin I <0.012 (0.000-0.034) ng/mL Total Protein (6.3-8.2) g/dL Albumin (3.5-5.0) g/dL Amylase (30-110) U/L Lipase (23-300) U/L - Radiology Data Radiology results: image reviewed (Chest x-ray shows no acute process) Disposition Clinical Impression: Chest pain Disposition: ADMITTED IP TO THIS HOSP Is patient prescribed a controlled substance at d/c from ED?: No Referrals: Helena Simental DO [Primary Care Provider] - 1-2 days Decision Time: 14:04
--- NOTE | 2020-07-24 13:09 | XR ---
EXAMINATION TYPE: XR chest 1V portable DATE OF EXAM: 07/24/2020 COMPARISON: Chest x-ray November 28, 2019 HISTORY: Chest pain. TECHNIQUE: Single AP portable follow-up right view of the chest is obtained. FINDINGS: There is chronic parenchymal change bilaterally without suspicious focal air space opacity , pleural effusion, or pneumothorax seen. The cardiac silhouette size is stable and within normal li mits. Old lateral left eighth rib fracture. Prominent spurring in the lower thoracic spine. Nodularit y right lung base redemonstrated presumed patient's nipple. IMPRESSION: No acute process.
[2020-07-24 13:16] LABS: Albumin 5.4 g/dL (3.5-5.0); Magnesium 1.3 mg/dL (1.6-2.3); Total Bilirubin 1.7 mg/dL (0.2-1.3); Total Protein 8.1 g/dL (6.3-8.2)
[2020-07-24] MEDS ORDERED: SODIUM CHLORIDE 0.9% 1,000 ML IV STA (13:19)
[2020-07-24] MEDS ORDERED: POTASSIUM CHLORIDE 20 MEQ in WATER FOR INJECTION 1 100ML.BAG IVPB STA (13:19)
[2020-07-24] MEDS ORDERED: MAGNESIUM SULFATE-D5W PMX 1 GM in DEXTROSE/WATER 1 100ML.BAG IVPB ONE (13:19)
[2020-07-24 13:21] LABS: Basophils # (A) 0.1 k/uL (0-0.2); Basophils % (A) 1 %; Eosinophils % (A) 0 %; HGB 12.7 gm/dL (13.0-17.5); Lymphocytes # (A) 1.2 k/uL (1.0-4.8); Lymphocytes % (A) 14 %; MCH 34.1 pg (25.0-35.0); MCHC 35.2 g/dL (31.0-37.0); MCV 96.9 fL (80.0-100.0); Monocytes # (A) 0.8 k/uL (0-1.0); Monocytes % (A) 9 %; Neutrophils # (A) 6.1 k/uL (1.3-7.7); Neutrophils % (A) 74 %; RBC 3.72 m/uL (4.30-5.90); RDW 13.7 % (11.5-15.5); WBC 8.3 k/uL (3.8-10.6)
[2020-07-24 13:32] LABS: D-Dimer 0.53 mg/L FEU (<0.60); Partial Thromboplastin Time 23.9 sec (22.0-30.0); Prothrombin Time 10.7 sec (9.0-12.0)
[2020-07-24] MEDS: NITROGLYCERIN SL TABS 0.4 MG TAB SUBLINGUAL STA ×2 (13:35→15:06)
[2020-07-24 13:50] LABS: Platelet Count 76 k/uL (150-450)
[2020-07-24] MEDS ORDERED: NITROGLYCERIN SL TABS 0.4 MG TAB SUBLINGUAL PRN (14:04)
[2020-07-24] MEDS ORDERED: MORPHINE SULFATE 4 MG/ML SYRINGE IVP STA (15:00)
[2020-07-24] MEDS: NITROGLYCERIN OINT 1 INCH/GM PACKET TOPICAL SCH ×2 (17:21→17:53)
[2020-07-25] MEDS: NITROGLYCERIN OINT 1 INCH/GM PACKET TOPICAL SCH ×2 (00:10→05:37)
[2020-07-25 08:15] VITALS: BP 115/73; PULSE 75; RESP 16; TEMP 97.8
--- NOTE | 2020-07-25 08:58 | CONS ---
CONSULTATION ATTENDING PHYSICIAN: Bernardo Rey MD. HISTORY OF PRESENT ILLNESS: Mr. May is a 60-year-old male with known history of chronic tobacco use, chronic alcohol intake and severe osteoarthritis, who presented to the hospital with symptoms of chest discomfort going on for the last 5 years, constant. His main complaint has been numbness in the legs and arms. He has severe back discomfort and is limited in his physical activity. He started to have discomfort in the epigastrium and upper chest. The discomfort is constant. He has chronic dyspnea on exertion, occasional rapid heartbeat with physical activity. He denies any dizziness or peripheral edema. No PND, no orthopnea. His coronary risk factors are remarkable for prior history of smoking and he has stopped recently. He has no history of hypertension, hyperlipidemia, diabetes mellitus. He was in the hospital in March of 2018 with symptoms of chest discomfort. At that time, he had no evidence of myocardial infarction and underwent myocardial perfusion imaging that revealed no evidence of inducible ischemia. The patient has been admitted for withdrawal in the past. MEDICATION: His medications at home include aspirin on a p.r.n. basis and loratadine. REVIEW OF SYSTEMS: RESPIRATORY SYSTEM: He has no recent wheezing or cough. Denies any documented history of obstructive lung disease. GI SYSTEM: No recent GI bleeding. No peptic ulcer disease. SYSTEM: No dysuria or hematuria. NERVOUS SYSTEM: No history of stroke or seizure. PHYSICAL EXAMINATION: GENERAL: A 60-year-old male, alert, oriented, in no apparent distress. VITAL SIGNS: Blood pressure 114/70 with a heart rate in 90s, afebrile. HEAD: Normocephalic. Eyes sclerae anicteric. NECK: Good carotid upstroke, no bruit, no jugular venous distention. LUNGS: Clear to auscultation. HEART: Regular rate and rhythm S1, S2. No S3. No S4. No murmur or rub. ABDOMEN: Soft. The epigastric tenderness and tenderness in the chest wall reproducing the pain. No rebound. EXTREMITIES: No edema. Intact distal pulses. LAB DATA: Lab data revealed troponin less than 0.012 for 3 samples. Potassium 3.0, BUN and creatinine of 51 and 1.12. Hemoglobin of 12.7, platelet count of 76,000. EKG revealed a sinus mechanism. Rate of 126, normal axis and intervals. No acute ST- segment changes. Chest x-ray shows no acute infiltrate. IMPRESSION: 1. Chest discomfort atypical for ischemic heart disease, appears to be musculoskeletal in etiology. The discomfort in the epigastrium could be related to history of alcohol and gastritis. 2. Prior history of chronic tobacco use. 3. Severe osteoarthritis and severe back discomfort. 4. History of chronic alcohol intake. RECOMMENDATION: From the cardiac standpoint, I see no evidence of cardiac etiology to his symptoms. I will stop his nitroglycerin paste. An echocardiogram has been ordered. If there is no evidence of segmental wall motion abnormality, then no further cardiac workup will be needed. Thank you for this consult. MMODL / IJN: [id number] /
[2020-07-25] MEDS ORDERED: ASPIRIN 81 MG PO SCH (09:00)
[2020-07-25] MEDS ORDERED: ASPIRIN 325 MG TAB PO SCH (09:00)
[2020-07-25] MEDS ORDERED: HYDROcodone/APAP 7.5-325MG 1 EACH TAB PO PRN (09:12)
[2020-07-25] MEDS ORDERED: GABAPENTIN 100 MG CAP PO SCH (10:15)
[2020-07-25 10:34] LABS: Chol/HDL Ratio 1.99; LDL Cholesterol,Calculated 152.8 mg/dL (0.0-131.0); VLDL Calculation 18.2 mg/dL (5.00-40.00)
[2020-07-25] MEDS ORDERED: PANTOPRAZOLE 40 MG TABLET PO SCH (10:45)
[2020-07-25 12:18] LABS: HCT 29.1 % (39.0-53.0); HGB 10.4 gm/dL (13.0-17.5); MCH 35.3 pg (25.0-35.0); MCHC 35.9 g/dL (31.0-37.0); MCV 98.4 fL (80.0-100.0); Mean Platelet Volume 9.4; RBC 2.96 m/uL (4.30-5.90); RDW 13.5 % (11.5-15.5)
[2020-07-25 12:20] LABS: Platelet Count 55 k/uL (150-450)
[2020-07-25 12:28] LABS: African American GFR (CKD) >90 (>60 ml/min/1.73 sqM); Anion Gap 10 mmol/L; Blood Urea Nitrogen 27 mg/dL (9-20); Calcium 9.3 mg/dL (8.4-10.2); Carbon Dioxide 29 mmol/L (22-30); Chloride 96 mmol/L (98-107); Glucose 137 mg/dL (74-99); Magnesium 1.7 mg/dL (1.6-2.3); Non-African American GFR(CKD) >90 (>60 ml/min/1.73 sqM); Potassium 3.1 mmol/L (3.5-5.1); Sodium 135 mmol/L (137-145)
--- NOTE | 2020-07-25 12:30 | ECHOF ---
Referral Reason: MEASUREMENTS -------- HEIGHT: 172.7 cm WEIGHT: 55.3 kg BP: IVSd: 1.1 cm (0.6 - 1.1) LVIDd: 3.5 cm (3.9 - 5.3) LVPWd: 1.1 cm (0.6 - 1.1) IVSs: 1.2 cm LVIDs: 3.1 cm LVPWs: 1.1 cm LAESV Index (A-L): 14.09 ml/m Ao Diam: 2.7 cm (2.0 - 3.7) AV Cusp: 1.4 cm (1.5 - 2.6) MV EXCURSION: 19.176 mm (> 18.000) MV EF SLOPE: 55 mm/s (70 - 150) EPSS: 0.3 cm MV E Glen: 0.44 m/s MV DecT: 233 ms MV A Glen: 0.72 m/s MV E/A Ratio: 0.62 RAP: 5.00 mmHg RVSP: 29.45 mmHg FINDINGS -------- Sinus rhythm. This was a technically adequate study. LV size, wall thickness and systolic function are normal, with an EF greater than 55%. The left jeison tricular size is normal. The right ventricle is normal in size. Normal LA size by volume 22+/-6 ml/m2. The right atrial size is normal. The aortic valve is trileaflet, and appears structurally normal. No aortic stenosis or regurgitation. The mitral valve is normal. Mild mitral regurgitation is present. The tricuspid valve appears structurally normal. Trace tricuspid regurgitation present. Right jeison tricular systolic pressure is normal at < 35 mmHg. There is no pulmonic regurgitation present. The aortic root size is normal. There is no pericardial effusion. CONCLUSIONS -------- 1. LV size, wall thickness and systolic function are normal, with an EF greater than 55%. 2. The left ventricular size is normal. 3. Normal LA size by volume 22+/-6 ml/m2. 4. The aortic valve is trileaflet, and appears structurally normal. No aortic stenosis or regurgitati on. 5. Mild mitral regurgitation is present. 6. Trace tricuspid regurgitation present. 7. There is no pericardial effusion. KEY ACCOUNT DIRECTOR: Inga Patrick RDCS
[2020-07-25] MEDS ORDERED: Magnesium Replacement Protocol 1 EACH MISC MISCELLANE PRN ×2 (14:26→15:10)
[2020-07-25] MEDS ORDERED: Potassium Replacement Protocol 1 EACH MISC MISCELLANE PRN ×2 (14:26→15:09)
--- NOTE | 2020-07-25 15:30 | P.HPIM ---
History of Present Illness H&P Date: 07/25/20 Chief Complaint: Chest pain History and Physical and Discharge Summary This is a 60-year-old gentleman with past medical history of osteoarthritis, neuropathy, ongoing nicotine dependence, alcohol abuse drinks a pint of alcohol daily, history of falls, THC use, anxiety presented to the ER with complaints of chest pain. Vague historian , nonradiating left chest pressure started on Wednesday accompanied by shortness of breath ,diaphoresis and nausea. Reports cardiac disease exists in family, grandmother had MO. Chest x-ray reported no acute process, old lateral left rib fracture. EKG reporting sinus tachycardia. Troponin negative X3, K 3.0, Magnesium 1.3. Received magnesium and replacement protocols in the ER. BUN 51, creatinine 1.12. Afebrile, normal WBC. Total bili 1.7, triglycerides 91, cholesterol 344, LDL 152.8, HDL 173. Hemoglobin 12.7, platelets 76 . Cardiology consult in place. Review of Systems ROS Statement: Those systems with pertinent positive or pertinent negative responses have been documented in the HPI. ROS Other: All systems not noted in ROS Statement are negative. Past Medical History Past Medical History: Osteoarthritis (OA) Additional Past Medical History / Comment(s): Patient states "his urinary function has been changing, it is harder to urinate, had testing done on prostate, getting results today". Neuropathy bilateral feet and hands. Tinnitus bilateral ears. History of Any Multi-Drug Resistant Organisms: None Reported Past Surgical History: Back Surgery, Joint Replacement Additional Past Surgical History / Comment(s): Neck surgery, bilateral hip replacement, right shoulder surgery, bilateral wrist surgery, right knee surgery, back surgery x3. Past Anesthesia/Blood Transfusion Reactions: No Reported Reaction Past Psychological History: Anxiety Smoking Status: Current every day smoker Past Alcohol Use History: Daily, Heavy Additional Past Alcohol Use History / Comment(s): Smokes 1 PPD, has been smoking 40-50 yrs. drinks a pint of alcohol a day for the last 6 months. Past Drug Use History: Marijuana Additional Drug Use History / Comment(s): Occasional marijuana use. - Past Family History Mother History Unknown: Yes Additional Family Medical History / Comment(s): Patient states after a fall. Father Family Medical History: Memory Impairment Additional Family Medical History / Comment(s): Parkinsons Medications and Allergies Home Medications Medication Instructions Recorded Confirmed Type Loratadine [Claritin] 10 mg PO DAILY 07/24/20 07/24/20 History Aspirin 81 mg PO DAILY chew 07/25/20 Rx Diclofenac Sodium Gel [Voltaren 2 gm TOPICAL QID #1 tube 07/25/20 Rx Gel] Gabapentin [Neurontin] 100 mg PO BID #9 cap 07/25/20 Rx Pantoprazole [Protonix] 40 mg PO AC-BRKFST #30 tablet. 07/25/20 Rx Allergies Allergy/AdvReac Type Severity Reaction Status Date / Time No Known Allergies Allergy Verified 07/24/20 13:46 Physical Exam Vitals: Vital Signs Temp Pulse Pulse Resp BP BP Pulse Ox 07/25/20 07:00 97.8 F 75 16 115/73 99 07/25/20 01:06 14 07/25/20 00:54 98.3 F 90 16 114/76 99 07/24/20 21:39 14 07/24/20 19:05 98.0 F 101 H 14 129/69 100 07/24/20 18:10 98.3 F 100 16 133/83 100 07/24/20 15:32 105 H 16 134/84 100 Intake and Output 07/24/20 07/25/20 07/25/20 22:59 06:59 14:59 Intake Total 118 Balance 118 Intake: Oral 118 Other: Voiding Method Toilet Toilet # Voids 2 2 Weight 55.338 kg General: well nourished, well developed, NAD. Vitals reviewed Eyes: PERRL, EOMI, conjunctiva normal HENT: normocephalic, mucus membranes moist Neck: supple, no JVD Lungs: normal respiratory effort, no wheezes or rales CV: Regular rate and rhythm, no murmur. Peripheral pulses 2+ Abdomen: soft, nondistended, no organomegaly Lymph: no cervical or axillary LAD Skin: warm and dry. Neuro: A&Ox3, normal mood and affect. Results CBC & Chem 7: 07/25/20 12:00 07/25/20 12:00 Labs: Abnormal Lab Results - Last 24 Hours (Table) 07/24/20 07/25/20 07/25/20 Range/Units 12:50 12:00 12:00 RBC 2.96 L (4.30-5.90) m/uL Hgb 10.4 L (13.0-17.5) gm/dL Hct 29.1 L (39.0-53.0) % MCH 35.3 H (25.0-35.0) pg Plt Count 55 L (150-450) k/uL Sodium 135 L (137-145) mmol/L Potassium 3.1 L (3.5-5.1) mmol/L Chloride 96 L (98-107) mmol/L BUN 27 H (9-20) mg/dL Glucose 137 H (74-99) mg/dL Cholesterol 344 H (0-200) mg/dL LDL Cholesterol, Calc 152.8 H (0.0-131.0) mg/dL HDL Cholesterol 173.0 H (40.0-60.0) mg/dL Thrombosis Risk Factor Assmnt - Choose All That Apply Each Risk Factor Represents 2 Points: Age 61-74 years Other congenital or acquired thrombophilia - If yes, enter type in comment: No Thrombosis Risk Factor Assessment Total Risk Factor Score: 2 Thrombosis Risk Factor Assessment Level: Low Risk Assessment and Plan Assessment: Chest pain, atypical, troponins negative 3, cardiology following Hypokalemia Hypomagnesemia Hyperlipidemia Chronic alcoholism Anemia, possibly dilutional, possibly of chronic disease, baseline trends between 11.3 and 13.6. Thrombocytopenia, close follow-up outpatient with PCP in clinic. Peripheral neuropathy secondary to suspected nutritional deficiencies Nicotine dependence THC use Plan: Continue on current medication regime ,monitoring and symptomatic treatment.Evaluated by cardiology, Echo pending. Follow-up labs ordered; Potassium and magnesium replaced yesterday with follow-up values pending. Electrolyte Replacement protocols will be ordered as necessary. Patient will be discharged home today in a stable condition pending echo results, final DC recommendations and clearance from cardiology,and if repeat electrolyte levels within normal limits. Smoking cessation and alcohol abstinence reinforced. Vague historian, staff reports he had dark stools at home, none here. Recommending further GI workup outpatient. Regarding thrombocytopenia, close follow-up outpatient with PCP in clinic. The impression and plan of care has been dictated as directed. : I performed a history and examination of this patient, discussed the same with the dictator. I agree with the dictator's note ,documented as a scribe. Any additional findings or plans will be noted.
== END 2020-07-25 14:20 | disposition home or self-care (01) ==
LOC: EC 12:34 → 6NMEDSUR 14:05
PROVIDERS: ADMIT Family Medicine; ATTEND Family Medicine
DX: R07.89 Other chest pain (principal); E87.6 Hypokalemia; E83.42 Hypomagnesemia; D69.6 Thrombocytopenia, unspecified; D64.9 Anemia, unspecified; G62.9 Polyneuropathy, unspecified; F10.20 Alcohol dependence, uncomplicated; H93.13 Tinnitus, bilateral; M19.90 Unspecified osteoarthritis, unspecified site; F41.9 Anxiety disorder, unspecified; J44.9 Chronic obstructive pulmonary disease, unspecified; M47.9 Spondylosis, unspecified; R61 Generalized hyperhidrosis; F17.210 Nicotine dependence, cigarettes, uncomplicated; E78.5 Hyperlipidemia, unspecified; F12.90 Cannabis use, unspecified, uncomplicated; Z79.82 Long term (current) use of aspirin; Z79.899 Other long term (current) drug therapy; Z96.643 Presence of artificial hip joint, bilateral; Z98.890 Other specified postprocedural states; Z87.81 Personal history of (healed) traumatic fracture; Z91.81 History of falling; Z82.0 Family history of epilepsy and other diseases of the nervous system; Z82.49 Family history of ischemic heart disease and other diseases of the circulatory system
CPT/HCPCS: 93005 ×2; 96368; 96365; 96366; 96375; 99285; 36415; 93306; 85379; 83880; 80061; 80053; 80048; 82150; 83690; 83735 ×2; 84484; 85025; 85027; 85610; 85730; 87635; 71045; G0378 ×2; J2270; J3480; J2405; J3475

== ENCOUNTER 2021-09-09 17:20 | Emergency (ER) | payer MEDICARE ==
[2021-09-09] MEDS ORDERED: SODIUM CHLORIDE 0.9% 1,000 ML IV STA (17:40)
[2021-09-09] MEDS ORDERED: HYDROmorphone 0.5 MG/0.5 ML SYRINGE IVP STA (17:40)
[2021-09-09] MEDS ORDERED: KETOROLAC 15 MG/ML 1 ML VIAL IVP STA (17:40)
[2021-09-09] MEDS ORDERED: ONDANSETRON 4 MG/2 ML VIAL IVP STA (17:40)
--- NOTE | 2021-09-09 17:51 | ED ---
General Adult HPI - General Chief complaint: Abdominal Pain Stated complaint: Fall-back pain Time Seen by Provider: 09/09/21 17:30 Source: patient, RN notes reviewed, old records reviewed Mode of arrival: ambulatory Limitations: no limitations - History of Present Illness Initial comments: This is a 61-year-old male who presents to the emergency department stating for the last 3 days he's had right-sided back pain that radiates into his lower abdomen. Patient states the pain does come and go. Patient states he fell a few weeks back but he didn't have any back pain then. Patient denies any dysuria hematuria urinary frequency. Patient states he has prostate problems so he wears a diaper because he can't go on his own any leak some time. Patient denies any fever chills. Patient denies any vomiting or diarrhea. Patient states occasionally little nauseated. Patient denies chest pain difficulty breathing or shortness of breath. - Related Data Home Medications Medication Instructions Recorded Confirmed Cetirizine HCl [Zyrtec] 10 mg PO DAILY 09/09/21 09/09/21 Previous Rx's Medication Instructions Recorded Cyclobenzaprine [Flexeril] 10 mg PO TID #20 tab 09/09/21 Ibuprofen [Motrin] 600 mg PO Q6HR PRN #20 tab 09/09/21 Potassium Chloride ER [K-Dur 10] 10 meq PO DAILY #7 tab 09/09/21 Allergies Allergy/AdvReac Type Severity Reaction Status Date / Time No Known Allergies Allergy Verified 09/09/21 19:33 Review of Systems ROS Statement: Those systems with pertinent positive or pertinent negative responses have been documented in the HPI. ROS Other: All systems not noted in ROS Statement are negative. Past Medical History Past Medical History: Osteoarthritis (OA) Additional Past Medical History / Comment(s): Patient states "his urinary function has been changing, it is harder to urinate, had testing done on prostate, getting results today". Neuropathy bilateral feet and hands. Tinnitus bilateral ears. History of Any Multi-Drug Resistant Organisms: None Reported Past Surgical History: Back Surgery, Joint Replacement Additional Past Surgical History / Comment(s): Neck surgery, bilateral hip replacement, right shoulder surgery, bilateral wrist surgery, right knee surgery, back surgery x3. Past Anesthesia/Blood Transfusion Reactions: No Reported Reaction Past Psychological History: Anxiety Smoking Status: Current every day smoker Past Alcohol Use History: Daily, Heavy Past Drug Use History: Marijuana - Past Family History Mother History Unknown: Yes Additional Family Medical History / Comment(s): Patient states after a fall. Father Family Medical History: Memory Impairment Additional Family Medical History / Comment(s): Parkinsons General Exam - General Exam Comments Initial Comments: GENERAL: Patient is well-developed and well-nourished. Patient is nontoxic and well- hydrated and is in moderate distress. ENT: Neck is soft and supple. No significant lymphadenopathy is noted. Oropharynx is clear. Moist mucous membranes. Neck has full range of motion without eliciting any pain. EYES: The sclera were anicteric and conjunctiva were pink and moist. Extraocular movements were intact and pupils were equal round and reactive to light. Eyelids were unremarkable. PULMONARY: Unlabored respirations. Good breath sounds bilaterally. No audible rales rhonchi or wheezing was noted. CARDIOVASCULAR: There is a regular rate and rhythm without any murmurs gallops or rubs. ABDOMEN: Soft and nontender with normal bowel sounds. SKIN: Skin is clear with no lesions or rashes and otherwise unremarkable. NEUROLOGIC: Patient is alert and oriented x3. Cranial nerves II through XII are grossly intact. Motor and sensory are also intact. Normal speech, volume and content. Symmetrical smile. MUSCULOSKELETAL: Normal extremities with adequate strength and full range of motion. LYMPHATICS: No significant lymphadenopathy is noted PSYCHIATRIC: Normal psychiatric evaluation. Limitations: no limitations Course Vital Signs 09/09/21 09/09/21 17:20 19:10 Temperature 98.1 F 97.8 F Pulse Rate 104 H 85 Respiratory 18 16 Rate Blood Pressure 139/86 164/101 O2 Sat by Pulse 98 96 Oximetry Medical Decision Making - Medical Decision Making I will back and reevaluated the patient he was feeling considerably better and was asking be discharged home. - Lab Data Result diagrams: 09/09/21 18:02 09/09/21 18:02 Lab Results 09/09/21 09/09/21 09/09/21 Range/Units 18:02 18:02 18:02 WBC 7.9 (3.8-10.6) k/uL RBC 3.84 L (4.30-5.90) m/uL Hgb 12.9 L (13.0-17.5) gm/dL Hct 38.0 L (39.0-53.0) % MCV 99.1 (80.0-100.0) fL MCH 33.7 (25.0-35.0) pg MCHC 34.0 (31.0-37.0) g/dL RDW 13.3 (11.5-15.5) % Plt Count 153 (150-450) k/uL MPV 7.7 Neutrophils % 72 % Lymphocytes % 17 % Monocytes % 7 % Eosinophils % 2 % Basophils % 1 % Neutrophils # 5.7 (1.3-7.7) k/uL Lymphocytes # 1.4 (1.0-4.8) k/uL Monocytes # 0.5 (0-1.0) k/uL Eosinophils # 0.1 (0-0.7) k/uL Basophils # 0.1 (0-0.2) k/uL Sodium 141 (137-145) mmol/L Potassium 2.7 L* (3.5-5.1) mmol/L Chloride 100 (98-107) mmol/L Carbon Dioxide 29 (22-30) mmol/L Anion Gap 12 mmol/L BUN 8 L (9-20) mg/dL Creatinine 0.74 (0.66-1.25) mg/dL Est GFR (CKD-EPI)AfAm >90 (>60 ml/min/1.73 sqM) Est GFR (CKD-EPI)NonAf >90 (>60 ml/min/1.73 sqM) Glucose 79 (74-99) mg/dL Calcium 9.3 (8.4-10.2) mg/dL Total Bilirubin 0.5 (0.2-1.3) mg/dL AST 76 H (17-59) U/L ALT 21 (4-49) U/L Alkaline Phosphatase 149 H (38-126) U/L Total Protein 7.2 (6.3-8.2) g/dL Albumin 4.5 (3.5-5.0) g/dL Amylase 110 (30-110) U/L Lipase 293 (23-300) U/L Urine Color Colorless Urine Appearance Clear (Clear) Urine pH 6.5 (5.0-8.0) Ur Specific [place] 1.002 (1.001-1.035) Urine Protein Negative (Negative) Urine Glucose (UA) Negative (Negative) Urine Ketones Negative (Negative) Urine Blood Negative (Negative) Urine Nitrite Negative (Negative) Urine Bilirubin Negative (Negative) Urine Urobilinogen <2.0 (<2.0) mg/dL Ur Leukocyte Esterase Negative (Negative) Disposition Clinical Impression: Lumbar strain, Hypokalemia Disposition: HOME SELF-CARE Condition: Good Prescriptions: Cyclobenzaprine [Flexeril] 10 mg PO TID #20 tab Potassium Chloride ER [K-Dur 10] 10 meq PO DAILY #7 tab Ibuprofen [Motrin] 600 mg PO Q6HR PRN #20 tab PRN Reason: For pain Is patient prescribed a controlled substance at d/c from ED?: No Referrals: Helena Simental DO [Primary Care Provider] - 1-2 days Time of Disposition: 20:14
[2021-09-09 18:14] LABS: Basophils # (A) 0.1 k/uL (0-0.2); Basophils % (A) 1 %; Eosinophils # (A) 0.1 k/uL (0-0.7); Eosinophils % (A) 2 %; HGB 12.9 gm/dL (13.0-17.5); Lymphocytes # (A) 1.4 k/uL (1.0-4.8); Lymphocytes % (A) 17 %; MCH 33.7 pg (25.0-35.0); MCV 99.1 fL (80.0-100.0); Mean Platelet Volume 7.7; Monocytes # (A) 0.5 k/uL (0-1.0); Monocytes % (A) 7 %; Neutrophils # (A) 5.7 k/uL (1.3-7.7); Neutrophils % (A) 72 %; Platelet Count 153 k/uL (150-450); RBC 3.84 m/uL (4.30-5.90); RDW 13.3 % (11.5-15.5); WBC 7.9 k/uL (3.8-10.6)
[2021-09-09 18:27] LABS: ALT 21 U/L (4-49); AST 76 U/L (17-59); African American GFR (CKD) >90 (>60 ml/min/1.73 sqM); Albumin 4.5 g/dL (3.5-5.0); Alkaline Phosphatase 149 U/L (38-126); Amylase 110 U/L (30-110); Anion Gap 12 mmol/L; Blood Urea Nitrogen 8 mg/dL (9-20); Calcium 9.3 mg/dL (8.4-10.2); Carbon Dioxide 29 mmol/L (22-30); Chloride 100 mmol/L (98-107); Glucose 79 mg/dL (74-99); Lipase 293 U/L (23-300); Non-African American GFR(CKD) >90 (>60 ml/min/1.73 sqM); Sodium 141 mmol/L (137-145); Total Bilirubin 0.5 mg/dL (0.2-1.3); Total Protein 7.2 g/dL (6.3-8.2)
[2021-09-09 18:30] LABS: Appearance,Urine Clear (Clear); Bilirubin,Urine Negative (Negative); Blood,Urine Negative (Negative); Color,Urine Colorless; Glucose,Urine (UA) Negative (Negative); Ketones,Urine Negative (Negative); Leukocyte Esterase,Urine Negative (Negative); Nitrite,Urine Negative (Negative); PH, Urine 6.5 (5.0-8.0); Potassium 2.7 mmol/L (3.5-5.1); Protein,Urine Negative (Negative); Specific Gravity,Urine 1.002 (1.001-1.035); Urobilinogen,Urine <2.0 mg/dL (<2.0)
[2021-09-09] MEDS ORDERED: POTASSIUM CHLORIDE ER 20 MEQ TAB.ER PO STA (18:38)
[2021-09-09] MEDS ORDERED: POTASSIUM CHLORIDE 20 MEQ in WATER FOR INJECTION 1 100ML.BAG IVPB STA (18:41)
--- NOTE | 2021-09-09 18:58 | XR ---
EXAMINATION TYPE: XR KUB DATE OF EXAM: 09/09/2021 COMPARISON: NONE HISTORY: Flank pain TECHNIQUE: 2 views upright FINDINGS: The bowel gas pattern is normal. No sign of intestinal obstruction or pneumoperitoneum. Fec al pattern is normal. No evidence of a mass. There is bilateral hip prosthesis. Lung bases are clear. There is spurring in the lumbar spine. Sacroiliac joints are intact. IMPRESSION: Nonacute abdomen. No evidence of renal calculus.
--- NOTE | 2021-09-09 19:04 | CT ---
EXAMINATION TYPE: CT abdomen pelvis wo con DATE OF EXAM: 09/09/2021 COMPARISON: None HISTORY: right flank pain CT DLP: 387.6 mGycm Automated exposure control for dose reduction was used. Images obtained from the diaphragm to the floor the pelvis with no contrast. Lung bases are clear of infiltrate. No pleural effusion. Heart size is normal. No pericardial effusion. Liver spleen and stomach pancreas appear intact. The b owel is not dilated. Gallbladder appears normal. There is no adrenal mass. Kidneys show normal size and contour. No hydronephrosis. Ureters are not di lated. There is no retroperitoneal adenopathy. Appendix is posterior and appears normal. The bladder distends smoothly. There is bilateral hip prosthesis with metal artifact. No pelvic mass no free flui d in the pelvis. There is no mesenteric edema. No ascites or free air. No sign of a bowel obstruction. There is multil evel lumbar spondylotic changes. No lumbar compression fracture. Abdominal aorta is atheromatous. Aor ta measures up to 2.8 cm. IMPRESSION: No evidence of renal stone or obstruction. Normal appendix. Atherosclerotic vascular disease. No acut e abnormality of the abdomen and pelvis.
[2021-09-09 19:12] VITALS: RESP 16
[2021-09-09 20:33] VITALS: BP 158/94; PULSE 79; TEMP 98.5
== END 2021-09-09 20:43 | disposition home or self-care (01) ==
LOC: EC 17:20
DX: S39.012A Strain of muscle, fascia and tendon of lower back, initial encounter (principal); E87.6 Hypokalemia; F17.200 Nicotine dependence, unspecified, uncomplicated; M19.90 Unspecified osteoarthritis, unspecified site; Z79.899 Other long term (current) drug therapy; W19.XXXA Unspecified fall, initial encounter
CPT/HCPCS: 36415; 80053; 82150; 83690; 85025; 81003; 74018; 74176; 99284; 96374; 96375; J3480; J2405; J1885; J1170

== ENCOUNTER 2021-09-18 18:34 | Inpatient (IN) | payer MEDICARE ==
[2021-09-18] MEDS ORDERED: LORazepam 2 MG/ML INJ IV PRN ×3 (19:49)
[2021-09-18] MEDS ORDERED: THIAMINE 100 MG/ML 2 ML VIAL IM STA (19:49)
[2021-09-18] MEDS ORDERED: chlordiazePOXIDE 25 MG CAP PO PRN (20:04)
[2021-09-18 20:28] LABS: Basophils % (A) 0 %; Eosinophils # (A) 0.2 k/uL (0-0.7); Eosinophils % (A) 1 %; HCT 41.8 % (39.0-53.0); Lymphocytes # (A) 0.8 k/uL (1.0-4.8); Lymphocytes % (A) 4 %; MCH 33.6 pg (25.0-35.0); MCHC 33.4 g/dL (31.0-37.0); MCV 100.5 fL (80.0-100.0); Mean Platelet Volume 8.1; Monocytes # (A) 1.2 k/uL (0-1.0); Monocytes % (A) 6 %; Neutrophils # (A) 16.4 k/uL (1.3-7.7); Neutrophils % (A) 88 %; Platelet Count 122 k/uL (150-450); RBC 4.16 m/uL (4.30-5.90); RDW 13.2 % (11.5-15.5); WBC 18.7 k/uL (3.8-10.6)
--- NOTE | 2021-09-18 20:31 | CT ---
Exam: CT FACIAL BONES WITHOUT CONTRAST Clinical Indication: Pain/injury Comparison: None. Technique: A CT of the facial bones was performed utilizing axial acquisition without the administra tion of intravenous contrast. Sagittal and coronal reformations were obtained. Automated dose reducti on was used for this exam. Findings: There is no acute fracture or dislocation. The pterygoid plates, zygomatic arches, maxilla and mandib le are intact. The bilateral orbits are unremarkable. The paranasal sinuses and mastoid air cells are adequately aerated. There is no significant soft tissue abnormality. Impression: No acute abnormality.
[2021-09-18 20:37] LABS: Albumin 4.8 g/dL (3.5-5.0); Calcium 9.6 mg/dL (8.4-10.2); Potassium 3.1 mmol/L (3.5-5.1); Total Bilirubin 2.4 mg/dL (0.2-1.3); Total Protein 7.7 g/dL (6.3-8.2)
[2021-09-18] MEDS: THIAMINE 100 MG TAB PO SCH (20:50)
[2021-09-18] MEDS: chlordiazePOXIDE 25 MG CAP PO PRN (20:50)
[2021-09-18] MEDS ORDERED: POTASSIUM CHLORIDE ER 20 MEQ TAB.ER PO STA (21:24)
[2021-09-18] MEDS ORDERED: ACETAMINOPHEN TAB 500 MG TAB PO STA (21:26)
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
--- NOTE | 2021-09-18 21:54 | XR ---
EXAMINATION TYPE: XR chest 2V DATE OF EXAM: 09/18/2021 COMPARISON: 07/24/2020 HISTORY: Leukocytosis. Altered mental status. TECHNIQUE: Frontal and lateral views of the chest are obtained. FINDINGS: There is no focal air space opacity, pleural effusion, or pneumothorax seen. The cardiac silhouette size is within normal limits. The osseous structures are intact. IMPRESSION: No acute cardiopulmonary process.
[2021-09-19] MEDS: chlordiazePOXIDE 25 MG CAP PO PRN ×2 (04:09→09:43)
[2021-09-19] MEDS: SODIUM CHLORIDE 0.9% 1,000 ML IV SCH ×5 (04:13→23:45)
[2021-09-19] MEDS: THIAMINE 100 MG TAB PO SCH ×2 (07:54→16:56)
[2021-09-19] MEDS: CEPHALEXIN 500 MG CAP PO SCH ×2 (09:43→20:26)
[2021-09-19] MEDS ORDERED: KETOROLAC 15 MG/ML 1 ML VIAL IVP STA (10:52)
[2021-09-19] MEDS: buPROPion XL 150 MG TAB.ER.24H PO SCH (11:20)
[2021-09-19 14:33] VITALS: BMI 18.2
[2021-09-19] MEDS: ACETAMINOPHEN TAB 325 MG TAB PO PRN (20:29)
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
[2021-09-20] MEDS: chlordiazePOXIDE 25 MG CAP PO PRN ×4 (01:18→20:35)
[2021-09-20] MEDS: ACETAMINOPHEN TAB 325 MG TAB PO PRN (01:18)
[2021-09-20] MEDS: CEPHALEXIN 500 MG CAP PO SCH ×2 (09:23→20:34)
[2021-09-20] MEDS: buPROPion XL 150 MG TAB.ER.24H PO SCH (09:23)
[2021-09-20] MEDS: THIAMINE 100 MG TAB PO SCH ×2 (09:23→16:36)
[2021-09-20] MEDS: SODIUM CHLORIDE 0.9% 1,000 ML IV SCH ×2 (09:24→20:35)
[2021-09-20 12:03] LABS: African American GFR (CKD) 111.8 (60.0-200.0); Anion Gap 10.4 mmol/L (10.00-18.00); BUN/Creat Ratio 19.66 Ratio (12.00-20.00); Blood Urea Nitrogen 15.2 mg/dL (9.0-27.0); Calcium 8.1 mg/dL (8.7-10.3); Potassium 2.7 mmol/L (3.5-5.5)
[2021-09-20 12:11] LABS: Non-African American GFR(CKD) 96.4 (60.0-200.0)
[2021-09-20] MEDS ORDERED: Potassium Replacement Protocol 1 EACH MISC MISCELLANE PRN (13:19)
[2021-09-20] MEDS: POTASSIUM CHLORIDE ER 20 MEQ TAB.ER PO SCH ×6 (13:37→22:33)
[2021-09-20 14:20] LABS: Basophils # (A) 0.04 X 10*3/uL (0.00-0.10); Basophils % (A) 0.6 %; Eosinophils # (A) 0.15 X 10*3/uL (0.04-0.35); Eosinophils % (A) 2.3 %; HCT 31.7 % (39.6-50.0); HGB 10.9 g/dL (13.0-17.0); Immature Grans, Automated 0.3 %; Lymphocytes # (A) 0.93 X 10*3/uL (0.90-5.00); Lymphocytes % (A) 14.5 %; MCH 34.3 pg (27.0-32.0); MCHC 34.4 g/dL (32.0-37.0); MCV 99.7 fL (80.0-97.0); Mean Platelet Volume 10.3 fL (9.5-12.2); Monocytes # (A) 0.93 X 10*3/uL (0.20-1.00); Monocytes % (A) 14.5 %; NRBC Per 100 WBC 0 /100 WBCS (0.0-0.0); Neutrophils # (A) 4.36 X 10*3/uL (1.80-7.70); Neutrophils % (A) 67.8 %; Platelet Count 81 X 10*3/uL (140-440); RBC 3.18 X 10*6/uL (4.40-5.60); RDW 13.2 % (11.5-14.5); WBC 6.43 X 10*3/uL (4.50-10.00)
[2021-09-21] MEDS: POTASSIUM CHLORIDE ER 20 MEQ TAB.ER PO SCH ×4 (01:31→08:34)
[2021-09-21] MEDS: chlordiazePOXIDE 25 MG CAP PO PRN ×4 (01:33→21:37)
[2021-09-21] MEDS: SODIUM CHLORIDE 0.9% 1,000 ML IV SCH ×4 (04:12→20:14)
[2021-09-21] MEDS: CEPHALEXIN 500 MG CAP PO SCH ×2 (08:34→20:13)
[2021-09-21] MEDS: THIAMINE 100 MG TAB PO SCH ×2 (08:34→17:07)
[2021-09-21] MEDS: buPROPion XL 150 MG TAB.ER.24H PO SCH (08:34)
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
[2021-09-22] MEDS: CEPHALEXIN 500 MG CAP PO SCH ×2 (08:47→20:21)
[2021-09-22] MEDS: buPROPion XL 150 MG TAB.ER.24H PO SCH (08:47)
[2021-09-22] MEDS: SODIUM CHLORIDE 0.9% 1,000 ML IV SCH ×2 (08:47→17:03)
[2021-09-22] MEDS: FAMOTIDINE 20 MG TAB PO SCH ×2 (08:47→20:21)
[2021-09-22] MEDS: THIAMINE 100 MG TAB PO SCH ×2 (08:47→16:58)
[2021-09-22 09:39] LABS: Magnesium 1.2 mg/dL (1.5-2.4)
[2021-09-22 09:44] LABS: African American GFR (CKD) 116.4 (60.0-200.0); Anion Gap 13.7 mmol/L (10.00-18.00); BUN/Creat Ratio 10.29 Ratio (12.00-20.00); Blood Urea Nitrogen 7.2 mg/dL (9.0-27.0); Calcium 9.2 mg/dL (8.7-10.3); Carbon Dioxide 24.3 mmol/L (20.0-27.5); Non-African American GFR(CKD) 100.4 (60.0-200.0); Potassium 4.5 mmol/L (3.5-5.5)
[2021-09-22 12:38] LABS: Basophils # (A) 0.05 X 10*3/uL (0.00-0.10); Basophils % (A) 0.3 %; Eosinophils # (A) 0.03 X 10*3/uL (0.04-0.35); Eosinophils % (A) 0.2 %; HCT 42.1 % (39.6-50.0); Immature Grans, Automated 0.5 %; Lymphocytes # (A) 0.55 X 10*3/uL (0.90-5.00); Lymphocytes % (A) 2.8 %; MCH 33.6 pg (27.0-32.0); MCHC 33.3 g/dL (32.0-37.0); Mean Platelet Volume 10.4 fL (9.5-12.2); Monocytes # (A) 1.79 X 10*3/uL (0.20-1.00); Monocytes % (A) 9.3 %; NRBC Per 100 WBC 0 /100 WBCS (0.0-0.0); Neutrophils # (A) 16.83 X 10*3/uL (1.80-7.70); Neutrophils % (A) 86.9 %; Platelet Count 103 X 10*3/uL (140-440); RBC 4.17 X 10*6/uL (4.40-5.60); RBC Morphology NORMAL; RDW 12.7 % (11.5-14.5); WBC 19.35 X 10*3/uL (4.50-10.00)
[2021-09-22] MEDS: ACETAMINOPHEN TAB 325 MG TAB PO PRN (16:58)
[2021-09-23] MEDS: SODIUM CHLORIDE 0.9% 1,000 ML IV SCH ×2 (00:05→08:17)
[2021-09-23] MEDS: ACETAMINOPHEN TAB 325 MG TAB PO PRN (06:06)
[2021-09-23] MEDS: THIAMINE 100 MG TAB PO SCH (08:17)
[2021-09-23] MEDS: buPROPion XL 150 MG TAB.ER.24H PO SCH (08:17)
[2021-09-23] MEDS: CEPHALEXIN 500 MG CAP PO SCH (08:17)
[2021-09-23] MEDS: FAMOTIDINE 20 MG TAB PO SCH (08:17)
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
[2021-09-23] MEDS ORDERED: IPRATROPIUM-ALBUTEROL 3 ML NEB INHALATION PRN (09:52)
[2021-09-23] MEDS: IPRATROPIUM-ALBUTEROL 3 ML NEB INHALATION SCH ×3 (11:29→15:39)
[2021-09-23 12:23] VITALS: BP 150/92; RESP 17; TEMP 97.9
[2021-09-23 15:41] VITALS: PULSE 88
== END 2021-09-23 18:39 | DRG 897 ==
LOC: EC 18:34 → 4SSUR 23:03 → 5NMEDONC 09-19 05:51
PROVIDERS: ADMIT Family Medicine; ATTEND Family Medicine
PROC: HZ2ZZZZ Detoxification Services for Substance Abuse Treatment (ICD-10-PCS; principal; 2021-09-18)
DX: F10.231 Alcohol dependence with withdrawal delirium (principal); N17.9 Acute kidney failure, unspecified; J98.11 Atelectasis; D72.829 Elevated white blood cell count, unspecified; S01.01XA Laceration without foreign body of scalp, initial encounter; Z20.822 Contact with and (suspected) exposure to COVID-19; Z71.41 Alcohol abuse counseling and surveillance of alcoholic; Z71.6 Tobacco abuse counseling; E87.6 Hypokalemia; R04.0 Epistaxis; F32.A Depression, unspecified; Y04.0XXA Assault by unarmed brawl or fight, initial encounter; E78.00 Pure hypercholesterolemia, unspecified; F17.210 Nicotine dependence, cigarettes, uncomplicated; H91.90 Unspecified hearing loss, unspecified ear; Z79.899 Other long term (current) drug therapy; Z87.19 Personal history of other diseases of the digestive system; Z96.643 Presence of artificial hip joint, bilateral; R00.0 Tachycardia, unspecified; D69.6 Thrombocytopenia, unspecified; G62.9 Polyneuropathy, unspecified; Z86.010 Personal history of colon polyps
CPT/HCPCS: 36415; 70486; 71046; 80048; 80053; 82075; 83690; 83735; 84132; 85025; 87635; 93005; 94640; 99285

== ENCOUNTER 2022-07-16 11:04 | Observation (INO) | payer MEDICARE ==
[2022-07-16] MEDS ORDERED: NITROGLYCERIN OINT 1 INCH/GM PACKET TOPICAL STA (11:48)
[2022-07-16] MEDS ORDERED: ASPIRIN 81 MG PO STA (11:48)
--- NOTE | 2022-07-16 11:50 | ED ---
General Adult HPI - General Chief complaint: Chest Pain Stated complaint: palpitations Time Seen by Provider: 07/16/22 11:26 Source: patient, EMS, RN notes reviewed Mode of arrival: ambulatory Limitations: no limitations - History of Present Illness Initial comments: Patient is a pleasant [age]-year-old male presenting to the emergency Department with chest discomfort. Patient woke up this morning and had palpitations and dyspnea that lasted around an hour. both resolved. Patient is having soreness of his upper chest which has remained since that time. Discomfort is moderate. No diaphoresis. No vomiting. - Related Data Home Medications Medication Instructions Recorded Confirmed No Known Home Medications 07/16/22 07/16/22 Allergies Allergy/AdvReac Type Severity Reaction Status Date / Time No Known Allergies Allergy Verified 07/16/22 12:30 Review of Systems ROS Statement: Those systems with pertinent positive or pertinent negative responses have been documented in the HPI. ROS Other: All systems not noted in ROS Statement are negative. Constitutional: Denies: fever Eyes: Denies: eye pain ENT: Denies: ear pain Respiratory: Reports: as per HPI Cardiovascular: Reports: as per HPI, chest pain, palpitations Endocrine: Denies: fatigue Gastrointestinal: Denies: abdominal pain Genitourinary: Denies: urgency Musculoskeletal: Denies: back pain Skin: Denies: rash Past Medical History Past Medical History: Blood Disorder, Hearing Disorder / Deafness, Hyperlipidemia, Osteoarthritis (OA), Syncope Additional Past Medical History / Comment(s): ETOH abuse/withdrawal DTs, thrombocytopenia, FALLS, past high cholesterol, neuropathy bilateral hands/feet, chronic back pain, benign colon polyps, frequent urination/wears depends, tinnitis bilateral ears, sinus issues History of Any Multi-Drug Resistant Organisms: None Reported Past Surgical History: Back Surgery, Joint Replacement Additional Past Surgical History / Comment(s): Back surgeries x 3, cervical surgery, bilateral hip surgeries including total hip arthroplasties, R knee arthroscopy/meniscus repair, R knee injections, R shoulder rotator cuff repair, bilateral wrist carpal tunnel releases, colonoscopy. Past Anesthesia/Blood Transfusion Reactions: No Reported Reaction Past Psychological History: Anxiety Smoking Status: Current every day smoker Past Alcohol Use History: Daily, Heavy Past Drug Use History: Marijuana - Past Family History Mother History Unknown: Yes Additional Family Medical History / Comment(s): Patient states after a fall which cause cervical fracture. Father Family Medical History: Dementia, Musculoskeletal Disorder Additional Family Medical History / Comment(s): Parkinsons General Exam Limitations: no limitations General appearance: alert, in no apparent distress Head exam: Present: normocephalic Eye exam: Present: normal appearance Neck exam: Present: normal inspection Respiratory exam: Present: normal lung sounds bilaterally. Absent: chest wall tenderness Cardiovascular Exam: Present: regular rate, normal rhythm, normal heart sounds Expanded Peripheral pulses: 2+: Radial (R), Radial (L), Posterior Tibialis (R), Posterior Tibialis (L) GI/Abdominal exam: Present: soft. Absent: tenderness Extremities exam: Present: normal inspection. Absent: pedal edema, calf t enderness Neurological exam: Present: alert Psychiatric exam: Present: normal affect, normal mood Skin exam: Present: normal color Course Vital Signs 07/16/22 07/16/22 07/16/22 11:20 11:24 12:09 Temperature 98.2 F Pulse Rate 98 95 Pulse Rate [ 91 Dock Associate ] Respiratory 18 18 Rate Blood Pressure 129/58 164/81 O2 Sat by Pulse 95 96 Oximetry EKG Findings - EKG Results: EKG: interpreted by ERMD, sinus rhythm, normal axis, normal QRS, normal ST/T Medical Decision Making - Medical Decision Making Was pt. sent in by a medical professional or institution ([facility], MUSIC DEPARTMENT CHAIR, urgent care, hospital, or senior care...) When possible be specific @ -No Did you speak to anyone other than the patient for history (EMS, parent, family, police, friend...)? What history was obtained from this source @ -No Did you review nursing and triage notes (agree or disagree)? Why? @ -I reviewed and agree with nursing and triage notes Were old charts reviewed (outside hosp., previous admission, EMS record, old EKG, old radiological studies, urgent care reports/EKG's, senior care records)? Report findings @ -No old charts were reviewed Differential Diagnosis (chest pain, altered mental status, abdominal pain women, abdominal pain men, vaginal bleeding, weakness, fever, dyspnea, syncope, headache, dizziness, GI bleed, back pain, seizure, CVA, palpatations, mental health)? @ -Differential Chest Pain: Stable Angina, Unstable Angina, STEMI, NSTEMI Aortic Dissection, Pneumothorax, Musculoskeletal, Esophageal Spasm GERD, Cholecystitis, Pancreatitis, Zoster, this is not meant to be an all-inclusive list. EKG interpreted by me (3pts min.). @ -As above X-rays interpreted by me (1pt min.). @ -Chest x-ray shows no acute process CT interpreted by me (1pt min.). @ -Report reviewed U/S interpreted by me (1pt. min.). @ -None done What testing was considered but not performed or refused? (CT, X-rays, U/S, labs)? Why? @ -None What meds were considered but not given or refused? Why? @ -None Did you discuss the management of the patient with other professionals (gonzalo shannon i.e. , PA, MUSIC DEPARTMENT CHAIR, lab, RT, psych nurse, social welfare clerk, farm crew member, teacher, security vehicle patrol officer, nurse outreach case manager)? Give summary @ -Case was discussed with Dr. Metcalf who will admit covering Dr. Nieto. Was smoking cessation discussed for >3mins.? @ -No Was critical care preformed (if so, how long)? @ -No Were there social determinants of health that impacted care today? How? (Homelessness, low income, unemployed, alcoholism, drug addiction, transportation, low edu. Level, literacy, decrease access to med. care, detention, rehab)? @ -No Was there de-escalation of care discussed even if they declined (Discuss DNR or withdrawal of care, Hospice)? DNR status @ -No What co-morbidities impacted this encounter? (DM, HTN, Smoking, COPD, CAD, Cancer, CVA, ARF, Chemo, Hep., AIDS, mental health diagnosis, sleep apnea, m orbid obesity)? @ -None Was patient admitted / discharged? Hospital course, mention meds given and route, prescriptions, significant lab abnormalities, going to OR and other pertinent info. @ -Patient reevaluated. Patient updated. Patient will be admitted Undiagnosed new problem with uncertain prognosis? @ -No Drug Therapy requiring intensive monitoring for toxicity (Heparin, Nitro, Insulin, Cardizem)? @ -No Were any procedures done? @ -No Diagnosis/symptom? @ -Chest pain Acute, or Chronic, or Acute on Chronic? @ -Acute Uncomplicated (without systemic symptoms) or Complicated (systemic symptoms)? @ -default Side effects of treatment? @ -No Exacerbation, Progression, or Severe Exacerbation? @ -No Poses a threat to life or bodily function? How? (Chest pain, [place], [place], pneumonia, PE, COPD, DKA, ARF, appy, cholecystitis, CVA, Diverticulitis, Homicidal, Suicidal, threat to staff... and all critical care pts) @ -No - Lab Data Result diagrams: 07/16/22 12:03 07/16/22 12:03 Lab Results 07/16/22 07/16/22 07/16/22 Range/Units 12:03 12:03 12:03 WBC 9.1 (3.8-10.6) k/uL RBC 3.98 L (4.30-5.90) m/uL Hgb 13.2 (13.0-17.5) gm/dL Hct 38.6 L (39.0-53.0) % MCV 97.1 (80.0-100.0) fL MCH 33.3 (25.0-35.0) pg MCHC 34.3 (31.0-37.0) g/dL RDW 14.1 (11.5-15.5) % Plt Count 102 L D (150-450) k/uL MPV 8.0 Neutrophils % 82 % Lymphocytes % 9 % Monocytes % 6 % Eosinophils % 1 % Basophils % 1 % Neutrophils # 7.5 (1.3-7.7) k/uL Lymphocytes # 0.8 L (1.0-4.8) k/uL Monocytes # 0.6 (0-1.0) k/uL Eosinophils # 0.1 (0-0.7) k/uL Basophils # 0.1 (0-0.2) k/uL PT (9.0-12.0) sec INR (<1.2) APTT (22.0-30.0) sec D-Dimer (<0.60) mg/L FEU Sodium 140 (137-145) mmol/L Potassium 3.3 L (3.5-5.1) mmol/L Chloride 99 (98-107) mmol/L Carbon Dioxide 30 (22-30) mmol/L Anion Gap 11 mmol/L BUN 12 (9-20) mg/dL Creatinine 0.63 L (0.66-1.25) mg/dL Est GFR (CKD-EPI)AfAm >90 (>60 ml/min/1.73 sqM) Est GFR (CKD-EPI)NonAf >90 (>60 ml/min/1.73 sqM) Glucose 78 (74-99) mg/dL Calcium 8.6 (8.4-10.2) mg/dL Magnesium 1.6 (1.6-2.3) mg/dL Total Bilirubin 1.2 (0.2-1.3) mg/dL AST 113 H (17-59) U/L ALT 39 (4-49) U/L Alkaline Phosphatase 152 H (38-126) U/L Troponin I 0.012 (0.000-0.034) ng/mL NT-Pro-B Natriuret Pep pg/mL Total Protein 7.0 (6.3-8.2) g/dL Albumin 4.2 (3.5-5.0) g/dL 07/16/22 07/16/22 Range/Units 12:03 13:47 WBC (3.8-10.6) k/uL RBC (4.30-5.90) m/uL Hgb (13.0-17.5) gm/dL Hct (39.0-53.0) % MCV (80.0-100.0) fL MCH (25.0-35.0) pg MCHC (31.0-37.0) g/dL RDW (11.5-15.5) % Plt Count (150-450) k/uL MPV Neutrophils % % Lymphocytes % % Monocytes % % Eosinophils % % Basophils % % Neutrophils # (1.3-7.7) k/uL Lymphocytes # (1.0-4.8) k/uL Monocytes # (0-1.0) k/uL Eosinophils # (0-0.7) k/uL Basophils # (0-0.2) k/uL PT 10.9 (9.0-12.0) sec INR 1.0 (<1.2) APTT 25.2 (22.0-30.0) sec D-Dimer 2.20 H (<0.60) mg/L FEU Sodium (137-145) mmol/L Potassium (3.5-5.1) mmol/L Chloride (98-107) mmol/L Carbon Dioxide (22-30) mmol/L Anion Gap mmol/L BUN (9-20) mg/dL Creatinine (0.66-1.25) mg/dL Est GFR (CKD-EPI)AfAm (>60 ml/min/1.73 sqM) Est GFR (CKD-EPI)NonAf (>60 ml/min/1.73 sqM) Glucose (74-99) mg/dL Calcium (8.4-10.2) mg/dL Magnesium (1.6-2.3) mg/dL Total Bilirubin (0.2-1.3) mg/dL AST (17-59) U/L ALT (4-49) U/L Alkaline Phosphatase (38-126) U/L Troponin I (0.000-0.034) ng/mL NT-Pro-B Natriuret Pep 94 pg/mL Total Protein (6.3-8.2) g/dL Albumin (3.5-5.0) g/dL Disposition Clinical Impression: Chest pain Disposition: ADMITTED IP TO THIS HOSP Is patient prescribed a controlled substance at d/c from ED?: No Referrals: Rosa Nieto MD [Primary Care Provider] - 1-2 days Forms: Outpatient Counseling, In Substance Abuse Facilities Time of Disposition: 15:01
--- NOTE | 2022-07-16 12:14 | XR ---
EXAMINATION TYPE: XR chest 2V DATE OF EXAM: 07/16/2022 COMPARISON: 06/12/2022 TECHNIQUE: PA and lateral views submitted. HISTORY: Chest pain FINDINGS: The lungs are clear and there is no pneumothorax, pleural effusion, or focal pneumonia. Heart size normal and no overt failure. Osseous structures demonstrate hypertrophic and degenerative changes of the spine. Diffuse hyperinflation lungs compatible COPD. Arthropathy of the shoulders with diffuse os teopenia. Vague nodules bilateral lung boyer most likely related to nipple shadows. IMPRESSION: 1. No acute process. COPD. Suspect nodules overlying both midlungs are related to nipple shadow.
[2022-07-16 12:24] LABS: Basophils # (A) 0.1 k/uL (0-0.2); Basophils % (A) 1 %; Eosinophils # (A) 0.1 k/uL (0-0.7); Eosinophils % (A) 1 %; HCT 38.6 % (39.0-53.0); HGB 13.2 gm/dL (13.0-17.5); Lymphocytes # (A) 0.8 k/uL (1.0-4.8); Lymphocytes % (A) 9 %; MCH 33.3 pg (25.0-35.0); MCHC 34.3 g/dL (31.0-37.0); MCV 97.1 fL (80.0-100.0); Monocytes # (A) 0.6 k/uL (0-1.0); Monocytes % (A) 6 %; Neutrophils # (A) 7.5 k/uL (1.3-7.7); Neutrophils % (A) 82 %; RBC 3.98 m/uL (4.30-5.90); RDW 14.1 % (11.5-15.5); WBC 9.1 k/uL (3.8-10.6)
[2022-07-16 12:36] LABS: Platelet Count 102 k/uL (150-450)
[2022-07-16 12:45] LABS: ALT 39 U/L (4-49); AST 113 U/L (17-59); African American GFR (CKD) >90 (>60 ml/min/1.73 sqM); Albumin 4.2 g/dL (3.5-5.0); Alkaline Phosphatase 152 U/L (38-126); Anion Gap 11 mmol/L; Blood Urea Nitrogen 12 mg/dL (9-20); Calcium 8.6 mg/dL (8.4-10.2); Carbon Dioxide 30 mmol/L (22-30); Chloride 99 mmol/L (98-107); Glucose 78 mg/dL (74-99); Magnesium 1.6 mg/dL (1.6-2.3); Non-African American GFR(CKD) >90 (>60 ml/min/1.73 sqM); Potassium 3.3 mmol/L (3.5-5.1); Sodium 140 mmol/L (137-145); Total Bilirubin 1.2 mg/dL (0.2-1.3)
[2022-07-16 14:07] LABS: Partial Thromboplastin Time 25.2 sec (22.0-30.0); Prothrombin Time 10.9 sec (9.0-12.0)
--- NOTE | 2022-07-16 14:58 | CT ---
EXAMINATION TYPE: CT angio chest CT DLP: 230.7 mGycm, Automated exposure control for dose reduction was used. DATE OF EXAM: 07/16/2022 2:37 PM COMPARISON: Chest radiograph 07/16/2022 CLINICAL INDICATION:Male, 62 years old with history of cp; Chest pain. TECHNIQUE/CONTRAST: CTA scan of the thorax is performed with IV Contrast, patient injected with 60ml mL of Isovue 370, pu lmonary embolism protocol. MIP images are created and reviewed. FINDINGS: Pulmonary Artery: There is no evidence for a filling defect within the pulmonary vasculature to sugge st acute pulmonary embolism. The pulmonary artery is of normal size. Lungs/Pleura: No evidence of focal consolidation, pleural effusion or pneumothorax. Mild emphysematou s changes. No suspicious pulmonary nodule or mass. Airway: Large airways are patent. Heart: Heart is within normal limits for size.. No pericardial effusion. Mild coronary arterial calci fications. Vasculature: No evidence of aortic aneurysm. Mediastinum: No evidence of adenopathy. Musculoskeletal: No acute osseous abnormalities. Remote posterior left 11th rib fracture. Multilevel degenerative disc disease. Soft Tissues: Unremarkable. Lower neck: No significant findings. Upper Abdomen: Diffuse low-attenuation to the liver parenchyma.. Nonspecific calcification in the reg ion of the pancreatic body. IMPRESSION: 1. No evidence of pulmonary embolism or acute thoracic process. 2. Mild COPD changes.
[2022-07-16] MEDS ORDERED: NITROGLYCERIN SL TABS 0.4 MG TAB SUBLINGUAL PRN ×2 (15:00→15:01)
[2022-07-16] MEDS ORDERED: NALOXONE 0.4 MG/ML 1 ML VIAL IVP PRN (15:00)
[2022-07-16] MEDS ORDERED: LORazepam 0.5 MG TAB PO PRN (15:03)
[2022-07-16] MEDS ORDERED: THIAMINE 100 MG/ML 2 ML VIAL IM STA (15:03)
[2022-07-16] MEDS ORDERED: POTASSIUM CHLORIDE 20 MEQ in WATER FOR INJECTION 1 100ML.BAG IVPB STA (15:05)
[2022-07-16] MEDS: ASPIRIN 81 MG PO SCH (15:22)
--- NOTE | 2022-07-16 15:25 | P.HPIM ---
History of Present Illness H&P Date: 07/16/22 * 57-year-old gentleman with past medical history significant for hyperlipidemia chronic history of smoking, history of alcohol use disorder presented to the emergency department with complaints of chest pain. * patient does have extensive history of alcohol use smokes about 5-10 drinks every day * Patient complained of associated shortness of breath, diaphoresis and feeling dizzy * Lab work obtained in the time of presentation showed serum chemistry sodium of 140 potassium 3.3 BUN 12 creatinine 0.63, initial troponin obtained negative d-dimer elevated * CTA chest on negative for acute intrathoracic process negative for pulmonary embolism * EKG obtained showed normal sinus rhythm * Patient to be admitted with cardiology consultation and management for alcohol withdrawal and ACS rule out * Patient states he has not seen a physician in several years Review of Systems REVIEW OF SYSTEMS: Chest pain, weakness, generalized tremors chronic CONSTITUTIONAL: No fever, no malaise, no fatigue. HEENT: No recent visual problems or hearing problems. Denied any sore throat. CARDIOVASCULAR: No chest pain, orthopnea, PND, no palpitations, no syncope. PULMONARY: No shortness of breath, no cough, no hemoptysis. GASTROINTESTINAL: No diarrhea, no nausea, no vomiting, no abdominal pain. NEUROLOGICAL: No headaches, no weakness, no numbness. HEMATOLOGICAL: Denies any bleeding or petechiae. GENITOURINARY: Denies any burning micturition, frequency, or urgency. MUSCULOSKELETAL/RHEUMATOLOGICAL: Denies any joint pain, swelling, or any muscle pain. ENDOCRINE: Denies any polyuria or polydipsia. Past Medical History Past Medical History: Blood Disorder, Hearing Disorder / Deafness, Hyperlipidemia, Osteoarthritis (OA), Syncope Additional Past Medical History / Comment(s): ETOH abuse/withdrawal DTs, thrombocytopenia, FALLS, past high cholesterol, neuropathy bilateral hands/feet, chronic back pain, benign colon polyps, frequent urination/wears depends, tinnitis bilateral ears, sinus issues History of Any Multi-Drug Resistant Organisms: None Reported Past Surgical History: Back Surgery, Joint Replacement Additional Past Surgical History / Comment(s): Back surgeries x 3, cervical surgery, bilateral hip surgeries including total hip arthroplasties, R knee art hroscopy/meniscus repair, R knee injections, R shoulder rotator cuff repair, bilateral wrist carpal tunnel releases, colonoscopy. Past Anesthesia/Blood Transfusion Reactions: No Reported Reaction Past Psychological History: Anxiety Smoking Status: Current every day smoker Past Alcohol Use History: Daily, Heavy Past Drug Use History: Marijuana - Past Family History Mother History Unknown: Yes Additional Family Medical History / Comment(s): Patient states after a fall which cause cervical fracture. Father Family Medical History: Dementia, Musculoskeletal Disorder Additional Family Medical History / Comment(s): Parkinsons Medications and Allergies Home Medications Medication Instructions Recorded Confirmed Type No Known Home Medications 07/16/22 07/16/22 History Allergies Allergy/AdvReac Type Severity Reaction Status Date / Time No Known Allergies Allergy Verified 07/16/22 12:30 Physical Exam Vitals: Vital Signs Temp Pulse Pulse Resp BP Pulse Ox 07/16/22 12:09 95 18 164/81 96 07/16/22 11:24 91 07/16/22 11:20 98.2 F 98 18 129/58 95 Intake and Output 07/16/22 07/16/22 07/16/22 06:59 14:59 22:59 Other: Weight 53.524 kg PHYSICAL EXAMINATION: GENERAL: The patient is alert and oriented x3 ill appearance, generalized weakness, generalized tremor noted, underweight HEENT: Pupils are round and equally reacting to light. EOMI. No scleral icterus. No conjunctival pallor. Normocephalic, atraumatic. No pharyngeal erythema. No thyromegaly. CARDIOVASCULAR: S1 and S2 present. No murmurs, rubs, or gallops. PULMONARY: Chest is clear to auscultation, no wheezing or crackles. ABDOMEN: Soft, nontender, nondistended, normoactive bowel sounds. No palpable organomegaly. MUSCULOSKELETAL: No joint swelling or deformity. EXTREMITIES: No cyanosis, clubbing, or pedal edema. NEUROLOGICAL: Gross neurological examination did not reveal any focal deficits. SKIN: No rashes. Results CBC & Chem 7: 07/16/22 12:03 07/16/22 12:03 Labs: Abnormal Lab Results - Last 24 Hours (Table) 07/16/22 07/16/22 07/16/22 Range/Units 12:03 12:03 13:47 RBC 3.98 L (4.30-5.90) m/uL Hct 38.6 L (39.0-53.0) % Plt Count 102 L D (150-450) k/uL Lymphocytes # 0.8 L (1.0-4.8) k/uL D-Dimer 2.20 H (<0.60) mg/L FEU Potassium 3.3 L (3.5-5.1) mmol/L Creatinine 0.63 L (0.66-1.25) mg/dL AST 113 H (17-59) U/L Alkaline Phosphatase 152 H (38-126) U/L Assessment and Plan Assessment: Assessment and plan * Chest pain rule out acute coronary syndrome * Alcohol use disorder * Hypokalemia * Serial troponins ordered, EKG ordered, echocardiogram ordered, continue aspirin * In regards to alcohol withdrawal patient started on Cipro protocol continue thiamine * In regards to hypokalemia potassium supplementation given * Patient on Lovenox for DVT prophylaxis * CODE STATUS is full code
[2022-07-16] MEDS: LORazepam 2 MG/ML INJ IV PRN ×2 (15:42→19:37)
[2022-07-16] MEDS: NITROGLYCERIN OINT 1 INCH/GM PACKET TOPICAL SCH (18:27)
[2022-07-17] MEDS: NITROGLYCERIN OINT 1 INCH/GM PACKET TOPICAL SCH ×2 (01:08→08:12)
[2022-07-17 07:25] LABS: HCT 36.3 % (39.0-53.0); HGB 12.3 gm/dL (13.0-17.5); MCH 33.1 pg (25.0-35.0); MCHC 33.8 g/dL (31.0-37.0); Mean Platelet Volume 8.6; RDW 14.1 % (11.5-15.5); WBC 6.9 k/uL (3.8-10.6)
[2022-07-17 07:40] LABS: African American GFR (CKD) >90 (>60 ml/min/1.73 sqM); Anion Gap 6 mmol/L; Blood Urea Nitrogen 10 mg/dL (9-20); Calcium 8.1 mg/dL (8.4-10.2); Carbon Dioxide 32 mmol/L (22-30); Chloride 96 mmol/L (98-107); Glucose 67 mg/dL (74-99); Magnesium 1.4 mg/dL (1.6-2.3); Non-African American GFR(CKD) >90 (>60 ml/min/1.73 sqM); Potassium 2.8 mmol/L (3.5-5.1); Sodium 134 mmol/L (137-145)
[2022-07-17 07:56] LABS: Platelet Count 90 k/uL (150-450)
[2022-07-17] MEDS: THIAMINE 100 MG TAB PO SCH ×2 (09:03→09:04)
[2022-07-17] MEDS: LORazepam 1 MG TAB PO PRN ×3 (09:04→21:08)
[2022-07-17] MEDS: ENOXAPARIN 40 MG/0.4 ML SYRINGE SQ SCH (09:04)
[2022-07-17] MEDS: ASPIRIN 81 MG PO SCH (09:05)
[2022-07-17] MEDS ORDERED: REGADENOSON 0.4 MG/5 ML SYRINGE IV PRN (09:33)
[2022-07-17] MEDS ORDERED: AMINOPHYLLINE 500 MG/20 ML VIAL IV PRN (09:33)
[2022-07-17] MEDS ORDERED: CAFFEINE CITRATE 60 MG/3 ML VIAL IV PRN (09:33)
[2022-07-17] MEDS: MAGNESIUM SULFATE-D5W PMX 1 GM in DEXTROSE/WATER 1 100ML.BAG IVPB SCH ×2 (09:41→12:58)
[2022-07-17] MEDS ORDERED: POTASSIUM CHLORIDE 10 MEQ in WATER FOR INJECTION 1 100ML.BAG IVPB SCH (10:00)
--- NOTE | 2022-07-17 10:38 | P.CRDCN ---
History of Present Illness History of present illness: HISTORY OF PRESENT ILLNESS: This is a 62-year-old male with a past medical history significant for hyperlipidemia, nicotine dependence, and alcohol abuse. 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 He also reports he has not seen a doctor in several years.. We have been asked to see the patient in consultation for chest pain. Patient examined at the bedside. Patient states that he woke up the other day and was having multiple symptoms. He states that his heart felt like it was racing. He states that his breathing felt faster than normal. He had pain go ing across the top of his chest on the left and right side. He also reports having sharp shooting pains down his arms. He states this has happened before as he has a history of neuropathy. He states that he felt like his heart was going to jump out of his chest so he called EMS and was brought to the hospital for further evaluation. At the time of examination, the patient denies chest pain or pressure. He denies shortness of breath. The patient is a current cigarette smoker and smokes one to 2 packs per day. He is a daily alcohol drinker as well. He also reports a history of hyperlipidemia but states he does not take medications any more. He states that he does not drive so he has not been to see a doctor in several years. He also reports that he does not walk very frequently and is fairly and active. He states that he falls frequently at home and uses a cane to ambulate. * EKG reveals sinus mechanism with nonspecific ST-T wave changes * Chest xray no acute process. COPD. Suspect nodules overlying both mid lungs related to nipple shadow. * CTA: No evidence for PE. Mild COPD changes. * Laboratory data: WBC 6.9. Hemoglobin 12.3. Platelet count 90. D-dimer 2.20. Sodium 134. Potassium 2.8. BUN 10. Creatinine 0.71. * Current home cardiac medications include none * Most recent echocardiogram obtained in July 2020 revealing ejection fraction 55%, mild MR, trace TR * Patient underwent Lexiscan stress test in March 2018 which was negative for ischemia REVIEW OF SYSTEMS: At the time of my exam: CONSTITUTIONAL: Denies fever or chills. HEENT: Denies blurred vision, vision changes, or eye pain. Denies hemoptysis CARDIOVASCULAR: Denies chest pain. Denies orthopnea. Denies PND. Denies palpitations RESPIRATORY: Denies shortness of breath. GASTROINTESTINAL: Denies abdominal pain. Denies nausea or vomiting. HEMATOLOGIC: Denies bleeding disorders. GENITOURINARY: Denies any blood in urine. SKIN: Denies pruitis. Denies rash. PHYSICAL EXAM: VITAL SIGNS: Reviewed. GENERAL: Well-developed in no acute distress. HEENT: Head is normocephalic. Pupils are equal, round. Sclerae anicteric. Mucous membranes of the mouth are moist. Neck supple. No JVD or thyromegaly LUNGS: Respirations even and unlabored. Lungs essentially clear to auscultation bilaterally. HEART: Regular rate and rhythm. S1 and S2 heard. ABDOMEN: Soft. Nondistended. Nontender. EXTREMITIES: Normal range of motion. No clubbing or cyanosis. Peripheral pulses intact. No lower extremity edema NEUROLOGIC: Awake and alert. Oriented x 3. ASSESSMENT: Chest pain, troponins negative 3 Hyperlipidemia, not on a statin therapy outpatient Medication noncompliance History of alcohol abuse Nicotine dependence Hypokalemia Hypomagnesemia Thrombocytopenia PLAN: An acute coronary event has been ruled out Obtain 2-D echo to assess cardiac structure and function Replace magnesium and potassium Smoking cessation recommended Abstinence from alcohol recommended Begin Lipitor 20 mg daily. Lipid panel pending. Patient to undergo Lexiscan stress test today Further recommendations pending patient's course Nurse practitioner note has been reviewed by physician. Signing provider agrees with the documented findings, assessment, and plan of care. Past Medical History Past Medical History: Blood Disorder, Hearing Disorder / Deafness, Hyp erlipidemia, Osteoarthritis (OA), Syncope Additional Past Medical History / Comment(s): ETOH abuse/withdrawal DTs, thrombocytopenia, FALLS, past high cholesterol, neuropathy bilateral hands/feet, chronic back pain, benign colon polyps, frequent urination/wears depends, tinni tis bilateral ears, sinus issues History of Any Multi-Drug Resistant Organisms: None Reported Past Surgical History: Back Surgery, Joint Replacement Additional Past Surgical History / Comment(s): Back surgeries x 3, cervical surgery, bilateral hip surgeries including total hip arthroplasties, R knee arthroscopy/meniscus repair, R knee injections, R shoulder rotator cuff repair, bilateral wrist carpal tunnel releases, colonoscopy. Past Anesthesia/Blood Transfusion Reactions: No Reported Reaction Past Psychological History: Anxiety Smoking Status: Current every day smoker Past Alcohol Use History: Daily, Heavy Past Drug Use History: Marijuana - Past Family History Mother History Unknown: Yes Additional Family Medical History / Comment(s): Patient states after a fall which cause cervical fracture. Father Family Medical History: Dementia, Musculoskeletal Disorder Additional Family Medical History / Comment(s): Parkinsons Medications and Allergies Home Medications Medication Instructions Recorded Confirmed Type No Known Home Medications 07/16/22 07/16/22 History Allergies Allergy/AdvReac Type Severity Reaction Status Date / Time No Known Allergies Allergy Verified 07/16/22 12:30 Physical Exam Vitals: Vital Signs Temp Pulse Pulse Resp BP Pulse Ox 07/17/22 08:11 75 16 121/67 96 07/17/22 07:20 16 07/17/22 06:48 74 15 123/88 96 07/17/22 05:42 82 16 113/92 96 07/17/22 03:57 74 14 120/77 97 07/17/22 02:00 96 15 124/86 94 L 07/17/22 01:08 65 12 104/72 07/16/22 22:48 115 H 17 07/16/22 21:24 115 H 17 128/65 99 07/16/22 21:13 99 07/16/22 19:27 110 H 17 145/95 98 07/16/22 18:00 98 16 149/98 97 07/16/22 17:30 97 16 153/91 97 07/16/22 17:00 95 16 145/90 97 07/16/22 16:30 95 16 137/87 96 07/16/22 16:00 90 16 139/89 99 07/16/22 15:00 99.3 F 94 18 162/94 97 07/16/22 12:09 95 18 164/81 96 07/16/22 11:24 91 07/16/22 11:20 98.2 F 98 18 129/58 95 Intake and Output 07/16/22 07/17/22 07/17/22 22:59 06:59 14:59 Intake Total 0 Output Total 650 400 Balance -650 -400 Intake: Oral 0 Tube Feeding 0 Blood Product 0 Other 0 Output: Gastric Drainage 0 Urine 650 400 Stool 0 Urine/Stool Mix 0 Emesis 0 Oral Regurgitation 0 Other 0 Other: # Voids 0 # Bowel Movements 0 Results 07/17/22 06:13 07/17/22 06:13 Cardiac Enzymes 07/16/22 07/16/22 07/16/22 Range/Units 12:03 12:03 15:22 AST 113 H (17-59) U/L Troponin I 0.012 0.014 (0.000-0.034) ng/mL 07/16/22 Range/Units 18:12 AST (17-59) U/L Troponin I <0.012 (0.000-0.034) ng/mL Coagulation 07/16/22 Range/Units 13:47 PT 10.9 (9.0-12.0) sec APTT 25.2 (22.0-30.0) sec CBC 07/16/22 07/17/22 Range/Units 12:03 06:13 WBC 9.1 6.9 (3.8-10.6) k/uL RBC 3.98 L 3.70 L (4.30-5.90) m/uL Hgb 13.2 12.3 L (13.0-17.5) gm/dL Hct 38.6 L 36.3 L (39.0-53.0) % Plt Count 102 L D 90 L (150-450) k/uL Comprehensive Metabolic Panel 07/16/22 07/17/22 Range/Units 12:03 06:13 Sodium 140 134 L (137-145) mmol/L Potassium 3.3 L 2.8 L (3.5-5.1) mmol/L Chloride 99 96 L (98-107) mmol/L Carbon Dioxide 30 32 H (22-30) mmol/L BUN 12 10 (9-20) mg/dL Creatinine 0.63 L 0.71 (0.66-1.25) mg/dL Glucose 78 67 L (74-99) mg/dL Calcium 8.6 8.1 L (8.4-10.2) mg/dL AST 113 H (17-59) U/L ALT 39 (4-49) U/L Alkaline Phosphatase 152 H (38-126) U/L Total Protein 7.0 (6.3-8.2) g/dL Albumin 4.2 (3.5-5.0) g/dL Current Medications Generic Name Dose Route Start Last Admin Trade Name Freq PRN Reason Stop Dose Admin Aspirin 81 mg 07/16/22 15:15 07/16/22 15:22 Aspirin 81 Mg PO Not Given DAILY [facility] Enoxaparin Sodium 40 mg 07/17/22 09:00 Enoxaparin 40 Mg/0.4 Ml Syringe SQ DAILY CARLEE Lorazepam 0.5 mg 07/16/22 15:03 Lorazepam 0.5 Mg Tab PO Q4HR PRN Ciwa 4 To 5 Lorazepam 1 mg 07/16/22 15:03 Lorazepam 1 Mg Tab PO Q4HR PRN Ciwa 6 To 7 Lorazepam 2 mg 07/16/22 15:03 07/17/22 09:04 Lorazepam 1 Mg Tab PO 2 mg Q2HR PRN Administration Ciwa 10 or greater Lorazepam 1 mg 07/16/22 15:03 07/16/22 19:37 Lorazepam 2 Mg/Ml Inj IV 1 mg Q1HR PRN Administration CIWA 10 to 15 Naloxone HCl 0.2 mg 07/16/22 15:00 Naloxone 0.4 Mg/Ml 1 Ml Vial IVP Q2M PRN Opioid Reversal Nitroglycerin 0.4 mg 07/16/22 15:00 Nitroglycerin Sl Tabs 0.4 Mg Tab SUBLINGUAL Q5M PRN Chest Pain Sodium Chloride 10 ml 07/16/22 21:00 07/17/22 09:03 Sodium Chloride 0.9% Flush 10 Ml Syringe IV 10 ml BID CARLEE Administration Thiamine HCl 100 mg 07/17/22 09:00 07/17/22 09:03 Thiamine 100 Mg Tab PO 100 mg DAILY CARLEE Administration Intake and Output 07/16/22 07/17/22 07/17/22 22:59 06:59 14:59 Intake Total 0 Output Total 650 400 Balance -650 -400 Intake: Oral 0 Tube Feeding 0 Blood Product 0 Other 0 Output: Gastric Drainage 0 Urine 650 400 Stool 0 Urine/Stool Mix 0 Emesis 0 Oral Regurgitation 0 Other 0 Other: # Voids 0 # Bowel Movements 0 07/17/22 06:13 07/17/22 06:13
[2022-07-17 11:04] LABS: VLDL Calculation 12.66 mg/dL (5.00-40.00)
[2022-07-17 11:15] LABS: Chol/HDL Ratio 1.74 Ratio; LDL Cholesterol,Calculated 96.3 mg/dL (0.0-131.0)
[2022-07-17] MEDS: POTASSIUM CHLORIDE ER 20 MEQ TAB.ER PO SCH ×3 (13:03→14:38)
--- NOTE | 2022-07-17 13:20 | P.PN ---
Subjective Progress Note Date: 07/17/22 * 62-year-old male with a past medical history significant for hyperlipidemia, nicotine dependence, and alcohol abuse.alls frequently at home and uses a cane to ambulate. * EKG reveals sinus mechanism with nonspecific ST-T wave changes * Chest xray no acute process. COPD. * CTA: No evidence for PE. * Consultation from cardiology, Stress test ordered * Monitor for Alcohol Withdrawl REVIEW OF SYSTEMS: Chest pain RESOLVED , weakness, generalized tremors chronic CONSTITUTIONAL: No fever, no malaise, no fatigue. HEENT: No recent visual problems or hearing problems. Denied any sore throat. CARDIOVASCULAR: No chest pain, orthopnea, PND, no palpitations, no syncope. PULMONARY: No shortness of breath, no cough, no hemoptysis. GASTROINTESTINAL: No diarrhea, no nausea, no vomiting, no abdominal pain. NEUROLOGICAL: No headaches, no weakness, no numbness. HEMATOLOGICAL: Denies any bleeding or petechiae. GENITOURINARY: Denies any burning micturition, frequency, or urgency. MUSCULOSKELETAL/RHEUMATOLOGICAL: Denies any joint pain, swelling, or any muscle pain. ENDOCRINE: Denies any polyuria or polydipsia. Objective - Vital Signs Vital signs: Vital Signs Temp 98.1 F 07/17/22 09:06 Pulse 112 H 07/17/22 13:04 Resp 18 07/17/22 13:04 BP 124/97 07/17/22 13:04 Pulse Ox 98 07/17/22 13:04 FiO2 Intake & Output 07/16/22 07/17/22 07/17/22 18:59 06:59 18:59 Intake Total 0 Output Total 650 400 Balance -650 -400 Weight 53.524 kg Intake: Oral 0 Tube Feeding 0 Blood Product 0 Other 0 Output: Gastric Drainage 0 Urine 650 400 Stool 0 Urine/Stool Mix 0 Emesis 0 Oral Regurgitation 0 Other 0 Other: # Voids 0 # Bowel Movements 0 - Exam PHYSICAL EXAMINATION: GENERAL: The patient is alert and oriented x3 ill appearance, generalized weakness, generalized tremor noted, underweight HEENT: Pupils are round and equally reacting to light. EOMI. No scleral icterus. No conjunctival pallor. Normocephalic, atraumatic. No pharyngeal erythema. No thyromegaly. CARDIOVASCULAR: S1 and S2 present. No murmurs, rubs, or gallops. PULMONARY: Chest is clear to auscultation, no wheezing or crackles. ABDOMEN: Soft, nontender, nondistended, normoactive bowel sounds. No palpable organomegaly. MUSCULOSKELETAL: No joint swelling or deformity. EXTREMITIES: No cyanosis, clubbing, or pedal edema. NEUROLOGICAL: Gross neurological examination did not reveal any focal deficits. SKIN: No rashes. - Labs CBC & Chem 7: 07/17/22 06:13 07/17/22 06:13 Labs: Abnormal Lab Results - Last 24 Hours (Table) 07/16/22 07/17/22 07/17/22 Range/Units 13:47 06:13 06:13 RBC 3.70 L (4.30-5.90) m/uL Hgb 12.3 L (13.0-17.5) gm/dL Hct 36.3 L (39.0-53.0) % Plt Count 90 L (150-450) k/uL D-Dimer 2.20 H (<0.60) mg/L FEU Sodium 134 L (137-145) mmol/L Potassium 2.8 L (3.5-5.1) mmol/L Chloride 96 L (98-107) mmol/L Carbon Dioxide 32 H (22-30) mmol/L Glucose 67 L (74-99) mg/dL Calcium 8.1 L (8.4-10.2) mg/dL Magnesium 1.4 L (1.6-2.3) mg/dL Cholesterol 257.00 H (0.00-200.00) mg/dL HDL Cholesterol 148.00 H (40.00-60.00) mg/dL Assessment and Plan Assessment: Assessment and plan * Chest pain rule out acute coronary syndrome * Alcohol use disorder * Hypokalemia, Hypomagnesemia * Serial troponins ordered NEGATIVE >> STRESS TEST ORDERED , , echocardiogram ordered, continue aspirin * In regards to alcohol withdrawal patient started on CIWA * In regards to hypokalemia potassium supplementation given, Mag replaced * Patient on Lovenox for DVT prophylaxis * CODE STATUS is full code Time with Patient: Less than 30
--- NOTE | 2022-07-17 13:21 | CA ---
Transthoracic Echo Report Name: Donte May Age: 62 Gender: M : 1960 Exam Date: 07/17/2022 08:16 Exam Location: [place] [facility] Ht (in): 67 Wt (lb): 118 Ordering Physician: John Rivera MD Attending/Referring Phys: Blanchard Grinder Operator Sudhir Rogers Procedure CPT: Indications: chest pain, [place] breath Cardiac Hx: Technical Quality: Fair Contrast 1: Total Dose (mL): Contrast 2: Total Dose (mL): MEASUREMENTS (Male / Female) Normal Values 2D ECHO LV Diastolic Diameter PLAX 3.4 cm 4.2 - 5.9 / 3.9 - 5.3 cm LV Systolic Diameter PLAX 2.5 cm IVS Diastolic Thickness 0.8 cm 0.6 - 1.0 / 0.6 - 0.9 cm LVPW Diastolic Thickness 0.9 cm 0.6 - 1.0 / 0.6 - 0.9 cm LV Relative Wall Thickness 0.5 RV Internal Dim ED PLAX 2.2 cm LVOT Diameter 2.1 cm Aortic Root Diameter 3.1 cm LA Systolic Diameter LX 1.6 cm 3.0 - 4.0 / 2.7 - 3.8 cm LV Diastolic Volume MOD BP 23.5 cm??? 67 - 155 / 56 - 104 cm??? LV Systolic Volume MOD BP 6.7 cm??? 22 - 58 / 19 - 49 cm??? LV Ejection Fraction MOD BP 71.5 % >= 55 % LV Diastolic Volume MOD 4C 27.5 cm??? LV Systolic Volume MOD 4C 5.5 cm??? LV Ejection Fraction MOD 4C 80.1 % LV Diastolic Length 4C 6.2 cm LV Systolic Length 4C 4.8 cm LV Diastolic Volume MOD 2C 13.2 cm??? LV Systolic Volume MOD 2C 6.8 cm??? LV Ejection Fraction MOD 2C 48.4 % LV Diastolic Length 2C 4.1 cm LV Systolic Length 2C 3.9 cm LA Volume 20.1 cm??? 18 - 58 / 22 - 52 cm??? Ascending Aorta Diameter 2.9 cm DOPPLER AV Peak Velocity 97.0 cm/s AV Peak Gradient 3.8 mmHg Mitral E Point Velocity 69.1 cm/s Mitral A Point Velocity 71.8 cm/s Mitral E to A Ratio 1.0 MV Deceleration Time 178.9 ms TR Peak Velocity 87.3 cm/s TR Peak Gradient 3.0 mmHg Right Ventricular Systolic Press 8.0 mmHg FINDINGS Left Ventricle Left ventricular ejection fraction is estimated at 50-55 %. Right Ventricle Normal right ventricular size. Right Atrium Normal right atrial size. Left Atrium Normal left atrial size. Mitral Valve Structurally normal mitral valve. No mitral stenosis, regurgitation. Aortic Valve No aortic valve stenosis or regurgitation. Aortic valve not well visualized. Tricuspid Valve Tricuspid valve not well visualized. Trace TR. Pulmonic Valve Pulmonic valve not well visualized. Pericardium Normal pericardium. Aorta Aortic root and proximal ascending aorta not well visualized. CONCLUSIONS Normal LV systolic function Poorly visualized aortic valve Previewed by: Dr. Jareth Aguilar MD (Electronically Signed) Final Date: 17 July 2022 13:20
--- NOTE | 2022-07-17 14:44 | NM ---
EXAMINATION TYPE: NM stress lexiscan cardiolite DATE OF EXAM: 07/17/2022 COMPARISON: 03/14/2018 CLINICAL INDICATION: Male, 62 years old with history of chest pain; TECHNIQUE: After the intravenous administration of 9.1 mCi Tc 99m Sestamibi - Cardiolite resting SPE CT images acquired 50 minutes post injection. The patient received 0.4mg Lexiscan, 25.2 mCi Tc 99m Sestamibi - Stress images obtained [address] injection FINDINGS: Review of stress and rest SPECT images demonstrates decreased perfusion along the septal wall on rest . This improves on stress suggesting attenuation artifact. Otherwise, no distinct perfusion abnormali ty. Gated analysis shows normal wall motion with an estimated left ventricular ejection fraction of 81 %. TID is calculated at 0.7 by, within normal limits. IMPRESSION: Some attenuation artifact along the septal wall. No scintigraphic evidence for reversible ischemia.
--- NOTE | 2022-07-17 18:48 | CA ---
Lexiscan Nuclear Stress Test Report Name: Donte May Exam Date: 07/17/2022 11:39 Exam Location: [place] Stress Ht (in): 67 Wt (lb): 118 BSA: 1.62 Ordering Phys: Charmaine Pop Referring Phys: KUSHAL,, Technologist: ALYSIA,, Age: 62 Gender: M : 1960 Procedure CPT: Indications: Reflex order-Stress test ICD-10 Codes: Patient History: Chest pain Medications: Meds past 24 hrs: Pretest Chest Pain: STRESS TEST Lexiscan Protocol Exercise Duration (min:sec): 01:[address] Depressions (mm): Angina Score: Kemp Score: Resting HR (bpm): 75 Peak HR (bpm): 122 Resting BP (mmHg): 159 / 94 Peak BP (mmHg): 152 / 87 MPHR: 156 Target HR: 133 % MPHR: 78 METS: 1.0 Total Dose: Peak Dose: Atropine: Double Product: 48663 BP Response: Stress Termination: INFUSION COMPLETE Stress Symptoms: CHEST PRESSURE,DIFFICULTY IN BREATHING Stress Summary: ECG ANALYSIS Resting ECG: Stress ECG: CONCLUSIONS Nondiagnostic stress test Dr. Jareth Aguilar MD (Electronically Signed) Final Date: 17 July 2022 18:47
[2022-07-17] MEDS ORDERED: ATORVASTATIN 20 MG TAB PO SCH (21:00)
[2022-07-18] MEDS: LORazepam 1 MG TAB PO PRN ×3 (03:33→14:07)
--- NOTE | 2022-07-18 08:31 | CT ---
EXAMINATION TYPE: CT brain wo con DATE OF EXAM: 07/18/2022 COMPARISON: 06/12/2022 HISTORY: 62-year-old male with pain after Hit head, fall TECHNIQUE: Examination was done in axial plane without intravenous contrast. Coronal and sagittal r econstructions performed. CT DLP: 1036.0 mGycm Automated exposure control for dose reduction was used. FINDINGS: There is no evidence of acute intracranial hemorrhage, acute ischemic changes, mass, mass-effect, or extra-axial fluid collection. There is no effacement of cerebral sulci or basal subarachnoid cister ns. There is no midline shift. Maharaj-white matter distinction is preserved. Redemonstrated mild generalized supratentorial volume loss and secondary prominence to the ventricula r system. Benign basal ganglionic punctate calcifications. Paranasal sinuses and mastoid air cells well pneumatized. Orbits and globes are intact. IMPRESSION: Mild generalized atrophy redemonstrated. Otherwise stable exam without acute intracranial abnormality seen.
[2022-07-18] MEDS: ASPIRIN 81 MG PO SCH (09:17)
[2022-07-18] MEDS: ENOXAPARIN 40 MG/0.4 ML SYRINGE SQ SCH (09:17)
--- NOTE | 2022-07-18 10:11 | P.PN ---
Subjective HISTORY OF PRESENT ILLNESS: This is a 62-year-old male with a past medical history significant for hyperlipidemia, nicotine dependence, and alcohol abuse. 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 He also reports he has not seen a doctor in several years.. We have been asked to see the patient in consultation for chest pain. Patient examined at the bedside. Patient states that he woke up the other day and was having multiple symptoms. He states that his heart felt like it was racing. He states that his breathing felt faster than normal. He had pain going across the top of his chest on the left and right side. He also reports having sharp shooting pains down his arms. He states this has happened before as he has a history of neuropathy. He states that he felt like his heart was going to jump out of his chest so he called EMS and was brought to the hospital for further evaluation. At the time of examination, the patient denies chest pain or pressure. He denies shortness of breath. The patient is a current cigarette smoker and smokes one to 2 packs per day. He is a daily alcohol drinker as well. He also reports a history of hyperlipidemia but states he does not take medications any more. He states that he does not drive so he has not been to see a doctor in several years. He also reports that he does not walk very frequently and is fairly and active. He states that he falls frequently at home and uses a cane to ambulate. * EKG reveals sinus mechanism with nonspecific ST-T wave changes * Chest xray no acute process. COPD. Suspect nodules overlying both mid lungs related to nipple shadow. * CTA: No evidence for PE. Mild COPD changes. * Laboratory data: WBC 6.9. Hemoglobin 12.3. Platelet count 90. D-dimer 2.20. Sodium 134. Potassium 2.8. BUN 10. Creatinine 0.71. * Current home cardiac medications include none * Most recent echocardiogram obtained in July 2020 revealing ejection fraction 55%, mild MR, trace TR * Patient underwent Lexiscan stress test in March 2018 which was negative for ischemia 07/18 Patient seen and examined. Patient still admits to continued chest pain. It is reproducible on the left chest wall. Stress test showed no inducible ischemia. Echo showed preserved EF with poorly viewed aortic valve. PHYSICAL EXAM: VITAL SIGNS: Reviewed. GENERAL: Well-developed in no acute distress. HEENT: Head is normocephalic. Pupils are equal, round. Sclerae anicteric. Mucous membranes of the mouth are moist. Neck supple. No JVD or thyromegaly LUNGS: Respirations even and unlabored. Lungs essentially clear to auscultation bilaterally. HEART: Regular rate and rhythm. S1 and S2 heard. ABDOMEN: Soft. Nondistended. Nontender. EXTREMITIES: Normal range of motion. No clubbing or cyanosis. Peripheral pulses intact. No lower extremity edema NEUROLOGIC: Awake and alert. Oriented x 3. ASSESSMENT: Chest pain, troponins negative 3 Hyperlipidemia, not on a statin therapy outpatient Medication noncompliance History of alcohol abuse Nicotine dependence Hypokalemia Hypomagnesemia Thrombocytopenia PLAN: Chest pain atypical and reproducible on exam. Stress test unrevealing for any reversible ischemia and echo showing preserved EF. No further workup from a cardiology standpoint. Follow-up in office in 1-2 weeks. Stable for discharge home from a cardiology standpoint. Objective - Vital Signs Vital signs: Vital Signs Temp 97.7 F 07/18/22 07:00 Pulse 86 07/18/22 07:00 Resp 14 07/18/22 07:00 BP 159/83 07/18/22 07:00 Pulse Ox 99 07/18/22 07:00 FiO2 Intake & Output 07/17/22 07/18/22 07/18/22 18:59 06:59 18:59 Weight 53.524 kg Other: Voiding Method Diaper External Catheter # Voids 3 - Labs CBC & Chem 7: 07/17/22 06:13 07/17/22 06:13 Labs: Abnormal Lab Results - Last 24 Hours (Table) 07/17/22 Range/Units 06:13 Cholesterol 257.00 H (0.00-200.00) mg/dL HDL Cholesterol 148.00 H (40.00-60.00) mg/dL
[2022-07-18 13:07] VITALS: BMI 18.4
[2022-07-18 14:39] VITALS: BP 116/78; RESP 18; TEMP 97.9
[2022-07-18 16:07] VITALS: PULSE 91
== END 2022-07-18 18:36 | disposition home or self-care (01) ==
LOC: EC 11:04 → 6NMEDSUR 15:02 → 3SCARD 07-17 11:40 → 6NMEDSUR 07-17 18:21
PROVIDERS: ADMIT Internal Medicine; ATTEND Internal Medicine
DX: R07.89 Other chest pain (principal); E78.5 Hyperlipidemia, unspecified; G62.9 Polyneuropathy, unspecified; F41.9 Anxiety disorder, unspecified; R29.6 Repeated falls; F10.239 Alcohol dependence with withdrawal, unspecified; E87.6 Hypokalemia; E83.42 Hypomagnesemia; D69.6 Thrombocytopenia, unspecified; Z91.148 Patient's other noncompliance with medication regimen for other reason; F17.210 Nicotine dependence, cigarettes, uncomplicated; Z79.01 Long term (current) use of anticoagulants
CPT/HCPCS: 96372 ×3; 96376; 96368; 96365; 96366 ×2; 96375; 99285; 36415; 93005 ×2; 93017; 93306; 85379; 83880; 80061; 80053; 80048; 83735 ×2; 84484; 85025; 85027; 85610; 85730; 71046; 70450; 71275; 78452; G0378 ×4; A9500; J2060; J3411; J3480 ×2; J1650 ×2; J3475; J2785; Q9967

== ENCOUNTER 2023-01-29 19:20 | Observation (INO) | payer MEDICARE ==
[2023-01-29 20:57] LABS: Basophils # (A) 0.1 k/uL (0-0.2); Basophils % (A) 1 %; Eosinophils # (A) 0.1 k/uL (0-0.7); Eosinophils % (A) 2 %; HCT 41.8 % (39.0-53.0); HGB 14.2 gm/dL (13.0-17.5); Lymphocytes # (A) 1.4 k/uL (1.0-4.8); Lymphocytes % (A) 21 %; MCH 33.6 pg (25.0-35.0); MCHC 34.1 g/dL (31.0-37.0); MCV 98.8 fL (80.0-100.0); Mean Platelet Volume 7.5; Monocytes # (A) 0.6 k/uL (0-1.0); Monocytes % (A) 9 %; Neutrophils % (A) 63 %; RBC 4.23 m/uL (4.30-5.90); RDW 12.4 % (11.5-15.5); WBC 6.4 k/uL (3.8-10.6)
[2023-01-29 20:58] LABS: ALT 19 U/L (4-49); AST 65 U/L (17-59); African American GFR (CKD) >90 (>60 ml/min/1.73 sqM); Albumin 4.3 g/dL (3.5-5.0); Alkaline Phosphatase 109 U/L (38-126); Anion Gap 12 mmol/L; Blood Urea Nitrogen 11 mg/dL (9-20); Calcium 8.5 mg/dL (8.4-10.2); Carbon Dioxide 27 mmol/L (22-30); Chloride 105 mmol/L (98-107); Glucose 75 mg/dL (74-99); Magnesium 1.7 mg/dL (1.6-2.3); Non-African American GFR(CKD) >90 (>60 ml/min/1.73 sqM); Potassium 3.2 mmol/L (3.5-5.1); Sodium 144 mmol/L (137-145); Total Bilirubin 0.6 mg/dL (0.2-1.3)
--- NOTE | 2023-01-29 20:58 | CT ---
EXAMINATION TYPE: CT brain cspine wo con CT DLP: 1271 mGycm, Automated exposure control for dose reduction was used. DATE OF EXAM: 01/29/2023 8:25 PM COMPARISON: 11/02/2022. CLINICAL INDICATION:Male, 62 years old with history of fall; Fall. ETOH. Neuropathy. Head and neck pa in. TECHNIQUE: Brain: Multiple axial CT images of the brain were obtained without IV contrast. Cspine: Axial CT images from the skull base to the inferior aspect of T2 we obtained without intraven ous contrast. Coronal and sagittal reformatted images were also reviewed. FINDINGS: Brain: Extra-axial spaces: No abnormal extra-axial fluid collections. Ventricular system: Dilatation in proportion to cerebral atrophy. Cerebral parenchyma: Cerebral atrophy. No acute intraparenchymal hemorrhage or mass effect. The parker -white junction is well differentiated. Scattered hypoattenuating areas are seen within the white mat ter. Cerebellum: Unremarkable. Mass effect: No evidence of midline shift. Intracranial vasculature: Atherosclerotic calcifications of the intracranial vessels. Soft tissues: Normal. Calvarium/osseous structures: No depressed skull fracture. Paranasal sinuses and mastoid air cells: Clear. Visualized orbits: Orbital contents are intact. Cervical spine: Fracture: None. Osseous structures: Multilevel degenerative disc disease changes with endplate spurring and disc oste ophyte complex's. Vertebral alignment: Within normal limits. Spinal canal/Neural Foramina: Disc osteophyte complexes at C3-C7 with at least mild spinal canal sten osis. Facet joint uncovertebral joint arthropathy scattered throughout the cervical spine with varyin g degrees of neural foraminal stenosis. Findings worse at C3-C4 with moderate to severe left, C4-C5 w ith moderate left, C5-C6 moderate to severe bilateral, severe right and moderate severe left C6-C7. Neck soft tissues: Prevertebral soft tissues are within normal limits. Other: The airway is patent. Atherosclerosis of the carotid bifurcations. Mild paraseptal and centril obular emphysema changes. IMPRESSION: 1. No acute intracranial process. 2. Nonspecific white matter changes, likely secondary to chronic small vessel ischemic disease. 3. No evidence of cervical spine fracture. 4. Moderate multilevel degenerative disc disease. Multilevel high-grade neural foraminal stenosis as described above.
[2023-01-29 21:09] LABS: Alcohol 370 mg/dL
[2023-01-29 21:36] LABS: Platelet Count 56 k/uL (150-450)
[2023-01-29] MEDS ORDERED: THIAMINE 100 MG/ML 2 ML VIAL IM STA (21:41)
[2023-01-29] MEDS ORDERED: LORazepam 2 MG/ML INJ IV PRN ×2 (21:41)
[2023-01-29] MEDS ORDERED: NALOXONE 0.4 MG/ML 1 ML VIAL IV PRN (21:42)
[2023-01-29] MEDS ORDERED: POTASSIUM CHLORIDE ER 20 MEQ TAB.ER PO STA (21:43)
--- NOTE | 2023-01-29 21:53 | ED ---
General Adult HPI - General Chief complaint: Fall Stated complaint: Fall Time Seen by Provider: 01/29/23 19:40 Source: patient, EMS, RN notes reviewed, old records reviewed Mode of arrival: EMS Limitations: no limitations - History of Present Illness Initial comments: 62-year-old male presenting for evaluation of alcohol intoxication and fall. Patient admits to drinking large volume of whiskey. Patient had a ground-level fall he states that he had minor head injury. Patient was transported by paramedics for evaluation. - Related Data Previous Rx's Medication Instructions Recorded Aspirin 81 mg PO DAILY tab 07/18/22 Atorvastatin [Lipitor] 20 mg PO HS 30 Days #30 tab 07/18/22 Thiamine [Vitamin B-1] 100 mg PO DAILY tab 07/18/22 Ibuprofen [Motrin] 600 mg PO Q8HR PRN #30 tab 11/03/22 Allergies Allergy/AdvReac Type Severity Reaction Status Date / Time No Known Allergies Allergy Verified 11/02/22 20:29 Review of Systems ROS Statement: Those systems with pertinent positive or pertinent negative responses have been documented in the HPI. ROS Other: All systems not noted in ROS Statement are negative. Past Medical History Past Medical History: Blood Disorder, Hearing Disorder / Deafness, Hyperlipidemia, Osteoarthritis (OA), Syncope Additional Past Medical History / Comment(s): ETOH abuse/withdrawal DTs, thrombocytopenia, FALLS, past high cholesterol, neuropathy bilateral hands/feet, chronic back pain, benign colon polyps, frequent urination/wears depends, tinnitis bilateral ears, sinus issues History of Any Multi-Drug Resistant Organisms: None Reported Past Surgical History: Back Surgery, Joint Replacement Additional Past Surgical History / Comment(s): Back surgeries x 3, cervical surgery, bilateral hip surgeries including total hip arthroplasties, R knee arthroscopy/meniscus repair, R knee injections, R shoulder rotator cuff repair, bilateral wrist carpal tunnel releases, colonoscopy. Past Anesthesia/Blood Transfusion Reactions: No Reported Reaction Past Psychological History: Anxiety Additional Psychological History / Comment(s): Pt resides with his spouse. He had a walker but fell on it and now it is bent and unable to use. Pt no longer drives d/t bilateral feet neuropathy. Pt has FALLS. He states he manages his own medication but misses doses at times. Smoking Status: Current every day smoker Past Alcohol Use History: Daily, Heavy Additional Past Alcohol Use History / Comment(s): Pt started smoking in 1973 and smokes at least a ppd. Pt drinks a pint to a fifth of whiskey per day and last drank 07/16/2022 Past Drug Use History: Marijuana Additional Drug Use History / Comment(s): Occasional marijuana use. - Past Family History Mother History Unknown: Yes Additional Family Medical History / Comment(s): Patient states after a fall which cause cervical fracture. Father Family Medical History: Dementia, Musculoskeletal Disorder Additional Family Medical History / Comment(s): Parkinsons General Exam General appearance: alert, in no apparent distress Head exam: Present: atraumatic, normocephalic, other (I do not see any external signs of trauma, no hematoma) Neck exam: Present: normal inspection, other (C-collar). Absent: tenderness Respiratory exam: Present: normal lung sounds bilaterally. Absent: respiratory distress, wheezes Cardiovascular Exam: Present: regular rate, normal rhythm GI/Abdominal exam: Present: soft. Absent: distended, tenderness Extremities exam: Present: normal inspection, full ROM Neurological exam: Present: alert, oriented X3, CN II-XII intact. Absent: motor sensory deficit Psychiatric exam: Present: normal affect, normal mood Skin exam: Present: warm, dry, intact. Absent: cyanosis, diaphoretic Course Vital Signs 01/29/23 19:25 Pulse Rate 86 Respiratory 18 Rate Blood Pressure 153/87 O2 Sat by Pulse 97 Oximetry Medical Decision Making - Medical Decision Making Was pt. sent in by a medical professional or institution (, PA, CONTROL CENTER OPERATOR, urgent care, hospital, or penitentiary...) When possible be specific @ -No Did you speak to anyone other than the patient for history (EMS, parent, family, police, friend...)? What history was obtained from this source @ -No Did you review nursing and triage notes (agree or disagree)? Why? @ -I reviewed and agree with nursing and triage notes Were old charts reviewed (outside hosp., previous admission, EMS record, old EKG, old radiological studies, urgent care reports/EKG's, penitentiary records)? Report findings @ -No old charts were reviewed Differential Diagnosis (chest pain, altered mental status, abdominal pain women, abdominal pain men, vaginal bleeding, weakness, fever, dyspnea, syncope, headache, dizziness, GI bleed, back pain, seizure, CVA, palpatations, mental health, musculoskeletal)? @Alcohol intoxication, traumatic injury from EKG interpreted by me (3pts min.). @ -As above X-rays interpreted by me (1pt min.). @ -None done CT interpreted by me (1pt min.). @22 brain negative for intracranial hemorrhage or mass effect, CT cervical spine negative for fracture subluxation U/S interpreted by me (1pt. min.). @ -None done What testing was considered but not performed or refused? (CT, X-rays, U/S, labs )? Why? @ -None What meds were considered but not given or refused? Why? @ -None Did you discuss the management of the patient with other professionals (professionals i.e. , PA, CONTROL CENTER OPERATOR, lab, RT, psych nurse, medical social consultant, continuous improvement director, teacher, administrative officer, bottle caser)? Give summary @ -EMH Was smoking cessation discussed for >3mins.? @ -No Was critical care preformed (if so, how long)? @ -No Were there social determinants of health that impacted care today? How? (Homelessness, low income, unemployed, alcoholism, drug addiction, transportation, low edu. Level, literacy, decrease access to med. care, snf, rehab)? @ -No Was there de-escalation of care discussed even if they declined (Discuss DNR or withdrawal of care, Hospice)? DNR status @ -No What co-morbidities impacted this encounter? (DM, HTN, Smoking, COPD, CAD, Cancer, CVA, ARF, Chemo, Hep., AIDS, mental health diagnosis, sleep apnea, morbid obesity)? @ -Alcohol abuse. Was patient admitted / discharged? Hospital course, mention meds given and route, prescriptions, significant lab abnormalities, going to OR and other pertinent info. @ -[62-year-old male presenting with alcohol intoxication and apparent fall. No external signs of trauma. CT brain and C-spine are negative for traumatic injury. Patient's blood alcohol is 370. He has no one at home was able to get him. He will be placed in observation for acute alcohol intoxication. Undiagnosed new problem with uncertain prognosis? @ -No Drug Therapy requiring intensive monitoring for toxicity (Heparin, Nitro, Insulin, Cardizem)? @ -No Were any procedures done? @ -No Diagnosis/symptom? @ -Alcohol intoxication Acute, or Chronic, or Acute on Chronic? @ -[Acute Uncomplicated (without systemic symptoms) or Complicated (systemic symptoms)? @ -default Side effects of treatment? @ -No Exacerbation, Progression, or Severe Exacerbation? @ -No] Poses a threat to life or bodily function? How? (Chest pain, USA, CT, pneumonia, PE, COPD, DKA, ARF, appy, cholecystitis, CVA, Diverticulitis, Homicidal, Suicidal, threat to staff... and all critical care pts) @ -[low risk - Lab Data Result diagrams: 01/29/23 20:28 01/29/23 20:28 Lab Results 01/29/23 01/29/23 Range/Units 20: 20:28 WBC 6.4 (3.8-10.6) k/uL RBC 4.23 L (4.30-5.90) m/uL Hgb 14.2 (13.0-17.5) gm/dL Hct 41.8 (39.0-53.0) % MCV 98.8 (80.0-100.0) fL MCH 33.6 (25.0-35.0) pg MCHC 34.1 (31.0-37.0) g/dL RDW 12.4 (11.5-15.5) % Plt Count 56 L (150-450) k/uL MPV 7.5 Neutrophils % 63 % Lymphocytes % 21 % Monocytes % 9 % Eosinophils % 2 % Basophils % 1 % Neutrophils # 4.0 (1.3-7.7) k/uL Lymphocytes # 1.4 (1.0-4.8) k/uL Monocytes # 0.6 (0-1.0) k/uL Eosinophils # 0.1 (0-0.7) k/uL Basophils # 0.1 (0-0.2) k/uL Manual Slide Review Performed Sodium 144 (137-145) mmol/L Potassium 3.2 L (3.5-5.1) mmol/L Chloride 105 (98-107) mmol/L Carbon Dioxide 27 (22-30) mmol/L Anion Gap 12 mmol/L BUN 11 (9-20) mg/dL Creatinine 0.58 L (0.66-1.25) mg/dL Est GFR (CKD-EPI)AfAm >90 (>60 ml/min/1.73 sqM) Est GFR (CKD-EPI)NonAf >90 (>60 ml/min/1.73 sqM) Glucose 75 (74-99) mg/dL Calcium 8.5 (8.4-10.2) mg/dL Magnesium 1.7 (1.6-2.3) mg/dL Total Bilirubin 0.6 (0.2-1.3) mg/dL AST 65 H (17-59) U/L ALT 19 (4-49) U/L Alkaline Phosphatase 109 (38-126) U/L Total Protein 7.0 (6.3-8.2) g/dL Albumin 4.3 (3.5-5.0) g/dL Serum Alcohol 370 H* mg/dL Disposition Clinical Impression: Alcohol abuse, Alcohol intoxication Disposition: ADMITTED IP TO THIS HOSP Condition: Stable Is patient prescribed a controlled substance at d/c from ED?: No Referrals: Rosa Nieto MD [Primary Care Provider] - 1-2 days Time of Disposition: 21:53
[2023-01-29] MEDS: SODIUM CHLORIDE 0.9% 1,000 ML IV SCH (22:27)
[2023-01-30] MEDS: LORazepam 2 MG/ML INJ IV PRN ×3 (01:58→21:09)
[2023-01-30 08:29] LABS: African American GFR (CKD) >90 (>60 ml/min/1.73 sqM); Anion Gap 10 mmol/L; Blood Urea Nitrogen 8 mg/dL (9-20); Calcium 8.2 mg/dL (8.4-10.2); Carbon Dioxide 26 mmol/L (22-30); Chloride 104 mmol/L (98-107); Glucose 72 mg/dL (74-99); Magnesium 1.5 mg/dL (1.6-2.3); Non-African American GFR(CKD) >90 (>60 ml/min/1.73 sqM); Potassium 3.5 mmol/L (3.5-5.1); Sodium 140 mmol/L (137-145)
[2023-01-30] MEDS ORDERED: NALOXONE 0.4 MG/ML 1 ML VIAL IV PRN (10:52)
[2023-01-30] MEDS ORDERED: CALCIUM CARBONATE 500 MG CHEWABLE PO PRN (10:52)
[2023-01-30] MEDS ORDERED: ONDANSETRON 4 MG/2 ML VIAL IVP PRN (10:52)
[2023-01-30] MEDS ORDERED: MELATONIN 3 MG TABLET PO PRN (10:52)
[2023-01-30] MEDS ORDERED: MAG HYDROX/AL HYDROX/SIMETH 30 ML CUP PO PRN (10:52)
[2023-01-30] MEDS: THIAMINE 100 MG TAB PO SCH (11:04)
[2023-01-30] MEDS: SODIUM CHLORIDE 0.9% 1,000 ML IV SCH (11:04)
[2023-01-30] MEDS: MAGNESIUM SULFATE-D5W PMX 1 GM in DEXTROSE/WATER 1 100ML.BAG IVPB SCH ×3 (11:04→14:06)
--- NOTE | 2023-01-30 14:40 | P.HPIM ---
History of Present Illness H&P Date: 01/30/23 History of present illness; patient is 62-year-old gentleman with no significant past medical history of present the ER for alcohol intoxication and fall. Patient lives at home with his who he states works all the time. Patient admits to drinking whiskey daily. Patient denies any homicidal or suicidal thoughts. Denies any auditory or visual hallucinations. Patient was drinking yesterday and did state that he might have drunk too much. Patient admitted to falling, didn't lose his consciousness. Denies any jerking movement of any extremity. Denies any slurred speech. Because of this FALL, patient was brought to the ER Initial lab work done in the ER showed WBC 6.4, hemoglobin 14.2, platelet count 56 sodium 144, potassium 3.2, BUN 11, creatinine 0.58 AST 65, serum alcohol level is 370 CT head done showed no acute intracranial process CTA head and neck done showed no significant stenosis, aneurysm or thrombus in the intracranial circulation Patient admitted to internal medicine service REVIEW OF SYSTEMS: CONSTITUTIONAL: No fever, no malaise, no fatigue. HEENT: No recent visual problems or hearing problems. Denied any sore throat. CARDIOVASCULAR: No chest pain, orthopnea, PND, no palpitations, no syncope. PULMONARY: No shortness of breath, no cough, no hemoptysis. GASTROINTESTINAL: No diarrhea, no nausea, no vomiting, no abdominal pain. NEUROLOGICAL: No headaches, no weakness, no numbness. HEMATOLOGICAL: Denies any bleeding or petechiae. GENITOURINARY: Denies any burning micturition, frequency, or urgency. MUSCULOSKELETAL/RHEUMATOLOGICAL: Denies any joint pain, swelling, or any muscle pain. ENDOCRINE: Denies any polyuria or polydipsia. The rest of the 14-point review of systems is negative. PHYSICAL EXAMINATION: GENERAL: The patient is alert and oriented x3, not in any acute distress. Well developed, well nourished. HEENT: Pupils are round and equally reacting to light. EOMI. No scleral icterus. No conjunctival pallor. Normocephalic, atraumatic. No pharyngeal erythema. No thyromegaly. CARDIOVASCULAR: S1 and S2 present. No murmurs, rubs, or gallops. PULMONARY: Chest is clear to auscultation, no wheezing or crackles. ABDOMEN: Soft, nontender, nondistended, normoactive bowel sounds. No palpable organomegaly. MUSCULOSKELETAL: No joint swelling or deformity. EXTREMITIES: No cyanosis, clubbing, or pedal edema. NEUROLOGICAL: Gross neurological examination did not reveal any focal deficits. SKIN: No rashes. Assessment and plan Alcohol intoxication Impending alcohol detox Hypokalemia Alcohol abuse disorder Thrombocytopenia Monitor vital signs Monitor CBC Monitor CMP Continue telemetry monitoring Continue CIWA protocol Continue thiamine and folic acid Continue antiemetics Continue IV fluids Replace electrolytes Patient counseled in detail regarding alcohol cessation. Labs and medication were reviewed.. Continue same treatment. Continue with symptomatic treatment. Resume home medication. Monitor labs and vitals. DVT and GI prophylaxis. Further recommendations as per clinical course of the pat ient Dictation was produced using [employer] dictation software. please excuse any grammatical, word or spelling errors. Past Medical History Past Medical History: Blood Disorder, Hearing Disorder / Deafness, Hyperlipidemia, Osteoarthritis (OA), Syncope Additional Past Medical History / Comment(s): ETOH abuse/withdrawal DTs, thrombocytopenia, FALLS, past high cholesterol, neuropathy bilateral hands/feet, chronic back pain, benign colon polyps, frequent urination/wears depends, tinnitis bilateral ears, sinus issues History of Any Multi-Drug Resistant Organisms: None Reported Past Surgical History: Back Surgery, Joint Replacement Additional Past Surgical History / Comment(s): Back surgeries x 3, cervical surgery, bilateral hip surgeries including total hip arthroplasties, R knee arthroscopy/meniscus repair, R knee injections, R shoulder rotator cuff repair, bilateral wrist carpal tunnel releases, colonoscopy. Past Anesthesia/Blood Transfusion Reactions: No Reported Reaction Past Psychological History: Anxiety Additional Psychological History / Comment(s): Pt resides with his spouse. He had a walker but fell on it and now it is bent and unable to use. Pt no longer drives d/t bilateral feet neuropathy. Pt has FALLS. He states he manages his own medication but misses doses at times. Smoking Status: Current every day smoker Past Alcohol Use History: Daily, Heavy Additional Past Alcohol Use History / Comment(s): Pt started smoking in 1973 and smokes at least a ppd. Pt drinks a pint to a fifth of whiskey per day and last drank 07/16/2022 Past Drug Use History: Marijuana Additional Drug Use History / Comment(s): Occasional marijuana use. - Past Family History Mother History Unknown: Yes Additional Family Medical History / Comment(s): Patient states after a fall which cause cervical fracture. Father Family Medical History: Dementia, Musculoskeletal Disorder Additional Family Medical History / Comment(s): Parkinsons Medications and Allergies Home Medications Medication Instructions Recorded Confirmed Type No Known Home Medications 01/29/23 01/29/23 History Allergies Allergy/AdvReac Type Severity Reaction Status Date / Time No Known Allergies Allergy Verified 01/29/23 22:34 Physical Exam Vitals: Vital Signs Temp Pulse Pulse Resp BP BP BP 01/30/23 07:00 98.8 F 88 20 143/85 01/30/23 02:00 98.3 F 96 18 158/84 01/30/23 00:02 80 18 114/77 01/29/23 19:25 86 18 153/87 Pulse Ox 01/30/23 07:00 97 01/30/23 02:00 98 01/30/23 00:02 98 01/29/23 19:25 97 Intake and Output 01/29/23 01/30/23 01/30/23 22:59 06:59 14:59 Other: Voiding Method Urinal Urinal # Voids 1 Weight 56.699 kg 56.699 kg Results CBC & Chem 7: 01/29/23 20:28 01/30/23 07:14 Labs: Abnormal Lab Results - Last 24 Hours (Table) 01/29/23 01/29/23 01/30/23 Range/Units 20:28 20:28 07:14 RBC 4.23 L (4.30-5.90) m/uL Plt Count 56 L (150-450) k/uL Potassium 3.2 L (3.5-5.1) mmol/L BUN 8 L (9-20) mg/dL Creatinine 0.58 L 0.61 L (0.66-1.25) mg/dL Glucose 72 L (74-99) mg/dL Calcium 8.2 L (8.4-10.2) mg/dL Magnesium 1.5 L (1.6-2.3) mg/dL AST 65 H (17-59) U/L Serum Alcohol 370 H* mg/dL Thrombosis Risk Factor Assmnt - Choose All That Apply Any of the Below Risk Factors Present?: No Other Risk Factors: Yes Each Risk Factor Represents 2 Points: Age 61-74 years Other congenital or acquired thrombophilia - If yes, enter type in comment: No Thrombosis Risk Factor Assessment Total Risk Factor Score: 2 Thrombosis Risk Factor Assessment Level: Low Risk
[2023-01-31] MEDS: SODIUM CHLORIDE 0.9% 1,000 ML IV SCH ×2 (03:47→14:49)
[2023-01-31] MEDS: ACETAMINOPHEN TAB 325 MG TAB PO PRN ×3 (03:47→20:28)
[2023-01-31] MEDS: THIAMINE 100 MG TAB PO SCH (08:40)
[2023-01-31 10:38] LABS: ALT 17 U/L (10-49); AST 50 U/L (14-35); Albumin 4.4 g/dL (3.8-4.9); Albumin/Globulin Ratio 1.83 Ratio (1.60-3.17); Alkaline Phosphatase 111 U/L (41-126); BUN/Creat Ratio 8.57 Ratio (12.00-20.00); Calcium 9.1 mg/dL (8.7-10.3); Carbon Dioxide 26.2 mmol/L (21.6-31.8); Chloride 98 mmol/L (96-109); Globulin 2.4 g/dL (1.6-3.3); Glucose 91 mg/dL (70-110); Potassium 3.7 mmol/L (3.5-5.5); Sodium 136 mmol/L (135-145); Total Bilirubin 1.2 mg/dL (0.3-1.2); Total Protein 6.8 g/dL (6.2-8.2)
[2023-01-31 11:40] LABS: Basophils # (A) 0.06 X 10*3/uL (0.00-0.10); Basophils % (A) 0.8 %; Eosinophils # (A) 0.14 X 10*3/uL (0.04-0.35); Eosinophils % (A) 1.8 %; HCT 37.7 % (39.6-50.0); HGB 13.1 g/dL (13.0-17.0); Immature Platelet Fraction 6.9 % (1.1-6.1); Lymphocytes # (A) 0.92 X 10*3/uL (0.90-5.00); Lymphocytes % (A) 11.5 %; MCH 32.8 pg (27.0-32.0); MCHC 34.7 g/dL (32.0-37.0); MCV 94.5 FL (80.0-97.0); Monocytes # (A) 1.32 X 10*3/uL (0.20-1.00); Monocytes % (A) 16.6 %; NRBC Per 100 WBC 0 X 10*3/uL (0.00-0.01); Neutrophils # (A) 5.51 X 10*3/uL (1.80-7.70); Platelet Count 41 X 10*3/uL (140-440); RBC 3.99 X 10*6/uL (4.40-5.60); RBC Morphology Normal (Normal); RDW 11.9 % (11.5-14.5); WBC 7.97 X 10*3/uL (4.50-10.00)
--- NOTE | 2023-01-31 12:44 | P.PN ---
Subjective Progress Note Date: 01/31/23 patient is 62-year-old gentleman with no significant past medical history of present the ER for alcohol intoxication and fall. Patient lives at home with his who he states works all the time. Patient admits to drinking whiskey daily. Patient denies any homicidal or suicidal thoughts. Denies any auditory or visual hallucinations. Patient was drinking yesterday and did state that he might have drunk too much. Patient admitted to falling, didn't lose his consciousness. Denies any jerking movement of any extremity. Denies any slurred speech. Because of this FALL, patient was brought to the ER Initial lab work done in the ER showed WBC 6.4, hemoglobin 14.2, platelet count 56 sodium 144, potassium 3.2, BUN 11, creatinine 0.58 AST 65, serum alcohol level is 370 CT head done showed no acute intracranial process CTA head and neck done showed no significant stenosis, aneurysm or thrombus in the intracranial circulation Patient admitted to internal medicine service 01/31. Patient seen and examined. CIWA scores have been ranging between 4-8. Patient is very shaky and fidgety. Denies any auditory or visual hallucinations. REVIEW OF SYSTEMS: CONSTITUTIONAL: No fever, no malaise,. CARDIOVASCULAR: No chest pain, no palpitations, no syncope. PULMONARY: No shortness of breath, no cough, GASTROINTESTINAL: No diarrhea, no nausea, no vomiting, no abdominal pain. NEUROLOGICAL: No headaches, no weakness, PHYSICAL EXAMINATION: GENERAL: The patient is alert and oriented x3, not in any acute distress. Very shaky HEENT: Pupils are round and equally reacting to light. EOMI. No scleral icterus. No conjunctival pallor. Normocephalic, atraumatic. No pharyngeal erythema. No thyromegaly. CARDIOVASCULAR: S1 and S2 present. No murmurs, rubs, or gallops. PULMONARY: Chest is clear to auscultation, no wheezing or crackles. ABDOMEN: Soft, nontender, nondistended, normoactive bowel sounds. No palpable organomegaly. MUSCULOSKELETAL: No joint swelling or deformity. EXTREMITIES: No cyanosis, clubbing, or pedal edema. NEUROLOGICAL: Gross neurological examination did not reveal any focal deficits. SKIN: No rashes. Assessment and plan Alcohol intoxication Impending alcohol detox Hypokalemia Alcohol abuse disorder Thrombocytopenia Monitor vital signs Monitor CBC Monitor CMP Fall precautions Delirium precautions Continue telemetry monitoring Continue CIWA protocol Continue thiamine and folic acid Continue antiemetics Continue IV fluids Continue rest of treatment for now Labs and medication were reviewed.. Continue same treatment. Continue with symptomatic treatment. Resume home medication. Monitor labs and vitals. DVT and GI prophylaxis. Further recommendations as per clinical course of the patient Dictation was produced using [employer] dictation software. please excuse any grammatical, word or spelling errors. Objective - Vital Signs Vital signs: Vital Signs Temp 97.4 F L 01/31/23 07:00 Pulse 80 01/31/23 07:00 Resp 15 01/31/23 07:00 BP 132/93 01/31/23 07:00 Pulse Ox 100 01/31/23 07:00 FiO2 Intake & Output 01/30/23 01/31/23 01/31/23 18:59 06:59 18:59 Intake Total 360 222 Output Total 675 Balance 360 -675 222 Intake: Oral 360 222 Output: Urine 675 Other: Voiding Method Urinal Urinal # Voids 1 - Labs CBC & Chem 7: 01/31/23 04:42 01/31/23 04:42
[2023-01-31] MEDS: LORazepam 2 MG/ML INJ IV PRN (23:43)
[2023-02-01] MEDS: SODIUM CHLORIDE 0.9% 1,000 ML IV SCH (04:18)
[2023-02-01 05:28] VITALS: RESP 16; TEMP 98.3
[2023-02-01 07:21] VITALS: BP 171/84; PULSE 73
[2023-02-01] MEDS: THIAMINE 100 MG TAB PO SCH (08:01)
[2023-02-01] MEDS: LORazepam 2 MG/ML INJ IV PRN (08:02)
--- NOTE | 2023-02-01 10:23 | P.DS ---
Providers Date of admission: 01/29/23 21:43 Expected date of discharge: 02/01/23 Attending physician: Antonella Ferguson Primary care physician: Rosa Nieto [facility] Course: Discharge diagnoses; Alcohol intoxication Impending alcohol detox Hypokalemia Alcohol abuse disorder Thrombocytopenia Hospital course; patient is 62-year-old gentleman with no significant past medical history of present the ER for alcohol intoxication and fall. Patient lives at home with his who he states works all the time. Patient admits to drinking whiskey daily. Patient denies any homicidal or suicidal thoughts. Denies any auditory or visual hallucinations. Patient was drinking yesterday and did state that he might have drunk too much. Patient admitted to falling, didn't lose his consciousness. Denies any jerking movement of any extremity. Denies any slurred speech. Because of this FALL, patient was brought to the ER Initial lab work done in the ER showed WBC 6.4, hemoglobin 14.2, platelet count 56 sodium 144, potassium 3.2, BUN 11, creatinine 0.58 AST 65, serum alcohol level is 370 CT head done showed no acute intracranial process CTA head and neck done showed no significant stenosis, aneurysm or thrombus in the intracranial circulation Patient admitted to internal medicine service 01/31. Patient seen and examined. CIWA scores have been ranging between 4-8. Patient is very shaky and fidgety. Denies any auditory or visual hallucinations. 02/01. Patient seen and examined. CIWA scores have been low. Patient asking to discharge home. Patient not interested in any alcohol rehab. Being discharged on thiamine and folic acid PHYSICAL EXAMINATION: GENERAL: The patient is alert and oriented x3, not in any acute distress. Well developed, well nourished. HEENT: Pupils are round and equally reacting to light. EOMI. No scleral icterus. No conjunctival pallor. Normocephalic, atraumatic. No pharyngeal erythema. No thyromegaly. CARDIOVASCULAR: S1 and S2 present. No murmurs, rubs, or gallops. PULMONARY: Chest is clear to auscultation, no wheezing or crackles. ABDOMEN: Soft, nontender, nondistended, normoactive bowel sounds. No palpable organomegaly. MUSCULOSKELETAL: No joint swelling or deformity. EXTREMITIES: No cyanosis, clubbing, or pedal edema. NEUROLOGICAL: Gross neurological examination did not reveal any focal deficits. SKIN: No rashes. Dictation was produced using [employer] dictation software. please excuse any grammatical, word or spelling errors. Patient Condition at Discharge: Stable Plan - Discharge Summary Discharge Rx Participant: No New Discharge Prescriptions: New Thiamine [Vitamin B-1] 100 mg PO DAILY 30 Days #30 tab Folic Acid 1 mg PO DAILY 30 Days #30 tablet Discharge Medication List Folic Acid 1 mg PO DAILY 30 Days #30 tablet 02/01/23 [Rx] Thiamine [Vitamin B-1] 100 mg PO DAILY 30 Days #30 tab 02/01/23 [Rx] Follow up Appointment(s)/Referral(s): Rosa Nieto MD [Primary Care Provider] - 1-2 days
== END 2023-02-01 13:40 | disposition home or self-care (01) ==
LOC: EC 19:20 → 6NMEDSUR 21:43
PROVIDERS: ADMIT Hospitalist; ATTEND Hospitalist
DX: F10.229 Alcohol dependence with intoxication, unspecified (principal); F41.9 Anxiety disorder, unspecified; F17.200 Nicotine dependence, unspecified, uncomplicated; E87.6 Hypokalemia; E78.00 Pure hypercholesterolemia, unspecified; D69.6 Thrombocytopenia, unspecified; I10 Essential (primary) hypertension; H91.90 Unspecified hearing loss, unspecified ear; W18.30XA Fall on same level, unspecified, initial encounter; Y90.8 Blood alcohol level of 240 mg/100 ml or more; Z79.82 Long term (current) use of aspirin; Z82.0 Family history of epilepsy and other diseases of the nervous system; Z87.19 Personal history of other diseases of the digestive system
CPT/HCPCS: 96376 ×3; 96361 ×3; 96375; 96365; 96366; 96372; 99285; 36415; 80053 ×2; 80048; 83735 ×2; 85025 ×2; 72125; 70450; G0378 ×4; G0480; J2060 ×3; J3411; J3475; 80320

== ENCOUNTER 2023-02-23 21:09 | Emergency (ER) | payer MEDICARE ==
[2023-02-23 21:45] VITALS: BP 122/78; PULSE 91; RESP 20; TEMP 98
--- NOTE | 2023-02-23 22:10 | CT ---
EXAMINATION TYPE: CT brain onel muñoz con DATE OF EXAM: 02/23/2023 COMPARISON: 01/29/2023 HISTORY: Fall CT DLP: 1255.3 mGycm Automated exposure control for dose reduction was used. TECHNIQUE: CT scan of the head and cervical spine are performed without contrast. FINDINGS: Head CT: The ventricles, basal cisterns and sulci over convexities are moderately enlarged consistent with mod erate generalized atrophy. There is no mass effect or shift of midline structures. No abnormal density is seen throughout the brain parenchyma and there is no acute intraparenchymal ex tra-axial hemorrhage. The posterior fossa is grossly normal. The intraorbital contents appear normal and symmetric Visualized paranasal sinuses and mastoid air cells are well aerated. The calvarium is intact. CT cervical spine: The craniovertebral junction relationships and prevertebral soft tissues are normal. The cervical vertebral segments are normal in height and alignment and there is no fracture subluxati on. There is moderate degenerative disease at C6-7 and mild degenerative disease at the C3-4, C4-5 an d C5-6 levels. There is no bony encroachment of the cervical canal. Secondary to degeneration of facet joints and un covertebral joints, there is severe bony neural foraminal encroachment at multiple levels including C 3-4 on the left, C5-6 on the right and C6-7 bilaterally. IMPRESSION: 1. Moderate generalized atrophy. 2. No acute bleed or mass effect. 3. Calvarium intact. 4. Degenerative changes in the cervical spine without acute fracture or subluxation.
--- NOTE | 2023-02-23 23:19 | ED ---
Fall HPI - General Source: patient Mode of arrival: EMS <Leo Beach - Last Filed: 02/23/23 23:18> <Fredis Cao - Last Filed: 02/24/23 03:06> - General Chief Complaint: Fall Stated Complaint: Fall Time Seen by Provider: 02/23/23 23:18 - History of Present Illness Initial Comments: 62-year-old male presenting with chief complaint of fall. Patient is intoxicated. He fell off of 3 steps on his porch this evening he also states that after he got inside he fell on his headache. He admits to loss of consciousness. Denies blood thinners. He also complains of left shoulder pain. (Leo Beach) - Related Data Previous Rx's Medication Instructions Recorded Folic Acid 1 mg PO DAILY 30 Days #30 tablet 02/01/23 Thiamine [Vitamin B-1] 100 mg PO DAILY 30 Days #30 tab 02/01/23 Allergies Allergy/AdvReac Type Severity Reaction Status Date / Time No Known Allergies Allergy Verified 01/29/23 22:34 Review of Systems ROS Other: All systems not noted in ROS Statement are negative. <Leo Beach - Last Filed: 02/23/23 23:18> ROS Other: All systems not noted in ROS Statement are negative. <Fredis Cao - Last Filed: 02/24/23 03:06> ROS Statement: Those systems with pertinent positive or pertinent negative responses have been documented in the HPI. Past Medical History Past Medical History: Blood Disorder, Hearing Disorder / Deafness, Hyperlipidemia, Osteoarthritis (OA), Syncope Additional Past Medical History / Comment(s): ETOH abuse/withdrawal DTs, thrombocytopenia, FALLS, past high cholesterol, neuropathy bilateral hands/feet, chronic back pain, benign colon polyps, frequent urination/wears depends, tinnitis bilateral ears, sinus issues History of Any Multi-Drug Resistant Organisms: None Reported Past Surgical History: Back Surgery, Joint Replacement Additional Past Surgical History / Comment(s): Back surgeries x 3, cervical surgery, bilateral hip surgeries including total hip arthroplasties, R knee arthroscopy/meniscus repair, R knee injections, R shoulder rotator cuff repair, bilateral wrist carpal tunnel releases, colonoscopy. Past Anesthesia/Blood Transfusion Reactions: No Reported Reaction Past Psychological History: Anxiety Smoking Status: Current every day smoker Past Alcohol Use History: Daily, Heavy Past Drug Use History: Marijuana - Past Family History Mother History Unknown: Yes Additional Family Medical History / Comment(s): Patient states after a fall which cause cervical fracture. Father Family Medical History: Dementia, Musculoskeletal Disorder Additional Family Medical History / Comment(s): Parkinsons <Leo Beach - Last Filed: 02/23/23 23:18> General Exam Limitations: no limitations <Leo Beach - Last Filed: 02/23/23 23:18> - General Exam Comments Initial Comments: Visual Physical Exam Vital signs reviewed General:intoxicated Head: Normocephalic, atraumatic Eyes: PERRLA, EOMI ENT: Airway patent Chest: Nonlabored breathing Skin: No visual rash, normal skin tone Neuro: Alert and oriented 3 Musculoskeletal: No gross abnormalities (Leo Beach) Course Vital Signs 02/23/23 21:32 Temperature 98 F Pulse Rate 91 Respiratory 20 Rate Blood Pressure 122/78 O2 Sat by Pulse 98 Oximetry Disposition <Leo Beach - Last Filed: 02/23/23 23:18> Is patient prescribed a controlled substance at d/c from ED?: No <Fredis Cao - Last Filed: 02/24/23 03:06> Clinical Impression: Fall, Shoulder injury, Head injury, Cervical strain Disposition: HOME SELF-CARE Condition: Poor Instructions (If sedation given, give patient instructions): Fall Prevention for Older Adults (ED), Rotator Cuff Injury (ED), Head Injury (ED) Referrals: Rosa Nieto MD [Primary Care Provider] - 1-2 days
[2023-02-24] MEDS ORDERED: ACET/COD 300 MG/30 MG STARTER PACK 6 TAB BTL PO STA (03:07)
--- NOTE | 2023-02-24 07:56 | XR ---
EXAM: XR Left Shoulder Complete, 3 Views CLINICAL HISTORY: Fall TECHNIQUE: 3 views of the left shoulder. COMPARISON: 06/12/2022. FINDINGS: Bones/joints: Bones are osteopenic. No acute fracture. No dislocation. Soft tissues: Unremarkable. IMPRESSION: Normal left shoulder x-rays. MTDD
== END 2023-02-24 03:21 | disposition home or self-care (01) ==
LOC: EC 21:09
DX: S16.1XXA Strain of muscle, fascia and tendon at neck level, initial encounter (principal); S09.90XA Unspecified injury of head, initial encounter; S49.92XA Unspecified injury of left shoulder and upper arm, initial encounter; F17.200 Nicotine dependence, unspecified, uncomplicated; F12.90 Cannabis use, unspecified, uncomplicated; Z86.59 Personal history of other mental and behavioral disorders; W10.9XXA Fall (on) (from) unspecified stairs and steps, initial encounter
CPT/HCPCS: 70450; 72125; 99284

== ENCOUNTER 2023-04-17 21:33 | Observation (INO) | payer MEDICARE ==
--- NOTE | 2023-04-17 21:42 | ED ---
Weakness HPI - General Chief complaint: Fall Stated complaint: Fall, head pain Time Seen by Provider: 04/17/23 21:41 Source: patient, EMS, RN notes reviewed, old records reviewed, Caregiver Mode of arrival: EMS Limitations: no limitations, altered mental status, physical limitation - History of Present Illness Initial comments: This is a 62-year-old male well-known to this emergency room coming in for fall. Patient states he fell and hit his head which is why he called EMS to come to the hospital. Patient states he was very light headed dizzy and weak on his feet prior to this fall. Patient is a poor historian secondary to likely clinical condition of intoxication history of ER visits for alcohol intoxication MD Complaint: lack of energy, difficulty walking -: days(s) Location: generalized Severity: moderate Severity scale (1-10): 7 Quality: aching Consistency: constant Improves with: none Worsens with: none Context: recent illness, history of similar Associated Symptoms: denies other symptoms - Related Data Home Medications Medication Instructions Recorded Confirmed No Known Home Medications 04/18/23 04/18/23 Allergies Allergy/AdvReac Type Severity Reaction Status Date / Time No Known Allergies Allergy Verified 04/18/23 11:17 Review of Systems ROS Statement: Those systems with pertinent positive or pertinent negative responses have been documented in the HPI. ROS Other: All systems not noted in ROS Statement are negative. Past Medical History Past Medical History: Blood Disorder, Hearing Disorder / Deafness, Hyperlipidemia, Osteoarthritis (OA), Syncope Additional Past Medical History / Comment(s): ETOH abuse/withdrawal DTs, thrombocytopenia, FALLS, past high cholesterol, neuropathy bilateral hands/feet, chronic back pain, benign colon polyps, frequent urination/wears depends, tinnitis bilateral ears, sinus issues. History of Any Multi-Drug Resistant Organisms: None Reported Past Surgical History: Back Surgery, Joint Replacement Additional Past Surgical History / Comment(s): Back surgeries x 3, cervical surgery, bilateral hip surgeries including total hip arthroplasties, R knee arthroscopy/meniscus repair, R knee injections, R shoulder rotator cuff repair, bilateral wrist carpal tunnel releases, colonoscopy. Past Anesthesia/Blood Transfusion Reactions: No Reported Reaction Past Psychological History: Anxiety Smoking Status: Current every day smoker Past Alcohol Use History: Daily, Heavy Past Drug Use History: Marijuana - Past Family History Mother History Unknown: Yes Additional Family Medical History / Comment(s): Patient states after a fall which cause cervical fracture. Father Family Medical History: Dementia, Musculoskeletal Disorder Additional Family Medical History / Comment(s): Parkinsons General Exam Limitations: no limitations, altered mental status, physical limitation General appearance: alert, appears intoxicated, anxious, lethargic Head exam: Present: atraumatic, normocephalic, normal inspection Eye exam: Present: normal appearance, PERRL, EOMI. Absent: scleral icterus, conjunctival injection, periorbital swelling ENT exam: Present: normal exam, mucous membranes moist Neck exam: Present: normal inspection. Absent: tenderness, meningismus, lymphadenopathy Respiratory exam: Present: normal lung sounds bilaterally. Absent: respiratory distress, wheezes, rales, rhonchi, stridor Cardiovascular Exam: Present: regular rate, normal rhythm, normal heart sounds. Absent: systolic murmur, diastolic murmur, rubs, gallop, clicks GI/Abdominal exam: Present: soft, normal bowel sounds. Absent: distended, tenderness, guarding, rebound, rigid Extremities exam: Present: normal inspection, full ROM, normal capillary refill. Absent: tenderness, pedal edema, joint swelling, calf tenderness Back exam: Present: normal inspection Neurological exam: Present: alert, oriented X3, CN II-XII intact Psychiatric exam: Present: normal affect, normal mood Skin exam: Present: warm, dry, intact, normal color. Absent: rash Course Vital Signs 04/17/23 04/17/23 04/17/23 21:35 21:46 23:00 Temperature 98.7 F Pulse Rate 91 90 80 Respiratory 16 14 19 Rate Blood Pressure 130/118 140/94 136/91 O2 Sat by Pulse 98 98 94 L Oximetry 04/18/23 04/18/23 04/18/23 00:00 01:00 03:57 Temperature Pulse Rate 97 79 98 Respiratory 16 15 17 Rate Blood Pressure 125/83 137/86 125/90 O2 Sat by Pulse 96 95 96 Oximetry 04/18/23 06:30 Temperature Pulse Rate 85 Respiratory 18 Rate Blood Pressure 113/67 O2 Sat by Pulse 97 Oximetry - Reevaluation(s) Reevaluation #1: 04/17/23 22:01 Medical records reviewed Reevaluation #2: 04/17/23 22:01 Patient symptoms unchanged Reevaluation #3: 04/17/23 23:26 Patient has no change in symptoms here in the ER Reevaluation #4: 04/17/23 22:01 Was pt. sent in by a medical professional or institution (ЮЛИЯ Tolentino, GASTROENTEROLOGY PROFESSOR, urgent care, hospital, or usp...) When possible be specific @ -no Did you speak to anyone other than the patient for history (EMS, parent, family, police, friend...)? What history was obtained from this source @ -no Did you review nursing and triage notes (agree or disagree)? Why? @ -agree Are old charts reviewed (outside hosp., previous admission, EMS record, old EKG, old radiological studies, urgent care reports/EKG's, usp records)? Report findings @ -yes Differential Diagnosis (chest pain, altered mental status, abdominal pain women, abdominal pain men, vaginal bleeding, weakness, fever, dyspnea, syncope, headache, dizziness, GI bleed, back pain, seizure, CVA, palpatations, mental health, musculoskeletal)? @ -prior EKG interpreted by me (3pts min.). @ -yes X-rays interpreted by me (1pt min.). @ -yes negative for acute disease CT interpreted by me (1pt min.). @ -Yes negative for acute disease U/S interpreted by me (1pt. min.). @ -no What testing was considered but not performed or refused? (CT, X-rays, U/S, labs)? Why? @ -none What meds were considered but not given or refused? Why? @ -none Did you discuss the management of the patient with other professionals (randolph pillai i.e. ЮЛИЯ Tolentino, GASTROENTEROLOGY PROFESSOR, lab, RT, psych nurse, social work instructor, pediatric psychologist, teacher, safety instruction police officer, insurance case manager)? Give summary @ -no Was smoking cessation discussed for >3mins.? @ -no Was critical care preformed (if so, how long)? @ -no Were there social determinants of health that impacted care today? How? (Homelessness, low income, unemployed, alcoholism, drug addiction, transportation, low edu. Level, literacy, decrease access to med. care, [facility], rehab)? @ -none Was there de-escalation of care discussed even if they declined (Discuss DNR or withdrawal of care, Hospice)? DNR status @ -no What co-morbidities impacted this encounter? (DM, HTN, Smoking, COPD, CAD, Cancer, CVA, ARF, Chemo, Hep., AIDS, mental health diagnosis, sleep apnea, morbid obesity)? @ -none Was patient admitted / discharged? Hospital course, mention meds given and route, prescriptions, significant lab abnormalities, going to OR and other pertinent info. @ - 62 male to be admitted for severe alcohol intoxication Admitted Undiagnosed new problem with uncertain prognosis? @ -no Drug Therapy requiring intensive monitoring for toxicity (Heparin, Nitro, Insulin, Cardizem)? @ -no Were any procedures done? @ -no Diagnosis/symptom? @ -Alcohol intoxication Acute, or Chronic, or Acute on Chronic? @ -Acute Uncomplicated (without systemic symptoms) or Complicated (systemic symptoms)? @ -Complicated Side effects of treatment? @ -no Exacerbation, Progression, or Severe Exacerbation? @ -exacerbation Poses a threat to life or bodily function? How? (Chest pain, [place], NE, pneumonia, PE, COPD, DKA, ARF, appy, cholecystitis, CVA, Diverticulitis, Homicidal, Suicidal, threat to staff... and all critical care pts) @ -yes with significant intoxication Reevaluation #5: Differential Altered Mental Status: Hypoglycemia, DKA, hypercapnia, ETOH, overdose, CO poisoning, trauma, myxedema coma, HTN encephalopathy, infection, encephalitis, psychosis, intercranial hemorrhage, hepatic encephalopathy, meningitis, CVA, this is not meant to be an all-inclusive list - Consultations Consultation #1: Spoke with sound who agrees to admit this patient EKG Findings - EKG Comments: EKG Findings:: EKG is sinus 88 WI 152 QRS 88 QTc 406 - EKG Results: EKG: interpreted by BECKY Medical Decision Making - Medical Decision Making 62 male to be admitted for severe alcohol intoxication - Lab Data Result diagrams: 04/19/23 05:46 04/19/23 05:46 Lab Results 04/17/23 04/17/23 04/17/23 Range/Units 21:48 21:48 21:48 WBC 5.4 (3.8-10.6) k/uL RBC 3.88 L (4.30-5.90) m/uL Hgb 12.6 L (13.0-17.5) gm/dL Hct 37.7 L (39.0-53.0) % MCV 97.1 (80.0-100.0) fL MCH 32.4 (25.0-35.0) pg MCHC 33.4 (31.0-37.0) g/dL RDW 13.1 (11.5-15.5) % Plt Count 115 L (150-450) k/uL MPV 7.8 Neutrophils % 58 % Lymphocytes % 28 % Monocytes % 8 % Eosinophils % 1 % Basophils % 2 % Neutrophils # 3.1 (1.3-7.7) k/uL Lymphocytes # 1.5 (1.0-4.8) k/uL Monocytes # 0.4 (0-1.0) k/uL Eosinophils # 0.0 (0-0.7) k/uL Basophils # 0.1 (0-0.2) k/uL PT 10.9 (10.0-12.5) sec INR 1.0 (<1.2) APTT 28.2 (22.0-30.0) sec Sodium (137-145) mmol/L Potassium (3.5-5.1) mmol/L Chloride (98-107) mmol/L Carbon Dioxide (22-30) mmol/L Anion Gap mmol/L BUN (9-20) mg/dL Creatinine (0.66-1.25) mg/dL Est GFR (CKD-EPI)AfAm (>60 ml/min/1.73 sqM) Est GFR (CKD-EPI)NonAf (>60 ml/min/1.73 sqM) Glucose (74-99) mg/dL Lactic Ac Sepsis Rflx Plasma Lactic Acid Pratik (0.7-2.0) mmol/L Calcium (8.4-10.2) mg/dL Phosphorus (2.5-4.5) mg/dL Magnesium (1.6-2.3) mg/dL Total Bilirubin (0.2-1.3) mg/dL AST (17-59) U/L ALT (4-49) U/L Alkaline Phosphatase (38-126) U/L Troponin I (0.000-0.034) ng/mL Total Protein (6.3-8.2) g/dL Albumin (3.5-5.0) g/dL Urine Color Colorless Urine Appearance Clear (Clear) Urine pH 7.0 (5.0-8.0) Ur Specific [place] 1.004 (1.001-1.035) Urine Protein Negative (Negative) Urine Glucose (UA) Negative (Negative) Urine Ketones Negative (Negative) Urine Blood Negative (Negative) Urine Nitrite Negative (Negative) Urine Bilirubin Negative (Negative) Urine Urobilinogen <2.0 (<2.0) mg/dL Ur Leukocyte Esterase Negative (Negative) Serum Alcohol mg/dL 04/17/23 04/17/23 04/17/23 Range/Units 21:48 21:48 21:48 WBC (3.8-10.6) k/uL RBC (4.30-5.90) m/uL Hgb (13.0-17.5) gm/dL Hct (39.0-53.0) % MCV (80.0-100.0) fL MCH (25.0-35.0) pg MCHC (31.0-37.0) g/dL RDW (11.5-15.5) % Plt Count (150-450) k/uL MPV Neutrophils % % Lymphocytes % % Monocytes % % Eosinophils % % Basophils % % Neutrophils # (1.3-7.7) k/uL Lymphocytes # (1.0-4.8) k/uL Monocytes # (0-1.0) k/uL Eosinophils # (0-0.7) k/uL Basophils # (0-0.2) k/uL PT (10.0-12.5) sec INR (<1.2) APTT (22.0-30.0) sec Sodium (137-145) mmol/L Potassium (3.5-5.1) mmol/L Chloride (98-107) mmol/L Carbon Dioxide (22-30) mmol/L Anion Gap mmol/L BUN (9-20) mg/dL Creatinine (0.66-1.25) mg/dL Est GFR (CKD-EPI)AfAm (>60 ml/min/1.73 sqM) Est GFR (CKD-EPI)NonAf (>60 ml/min/1.73 sqM) Glucose (74-99) mg/dL Lactic Ac Sepsis Rflx Plasma Lactic Acid Pratik 2.3 H* (0.7-2.0) mmol/L Calcium (8.4-10.2) mg/dL Phosphorus 3.8 (2.5-4.5) mg/dL Magnesium 1.9 (1.6-2.3) mg/dL Total Bilirubin (0.2-1.3) mg/dL AST (17-59) U/L ALT (4-49) U/L Alkaline Phosphatase (38-126) U/L Troponin I <0.012 (0.000-0.034) ng/mL Total Protein (6.3-8.2) g/dL Albumin (3.5-5.0) g/dL Urine Color Urine Appearance (Clear) Urine pH (5.0-8.0) Ur Specific [place] (1.001-1.035) Urine Protein (Negative) Urine Glucose (UA) (Negative) Urine Ketones (Negative) Urine Blood (Negative) Urine Nitrite (Negative) Urine Bilirubin (Negative) Urine Urobilinogen (<2.0) mg/dL Ur Leukocyte Esterase (Negative) Serum Alcohol mg/dL 04/17/23 04/17/23 Range/Units 22:27 22:38 WBC (3.8-10.6) k/uL RBC (4.30-5.90) m/uL Hgb (13.0-17.5) gm/dL Hct (39.0-53.0) % MCV (80.0-100.0) fL MCH (25.0-35.0) pg MCHC (31.0-37.0) g/dL RDW (11.5-15.5) % Plt Count (150-450) k/uL MPV Neutrophils % % Lymphocytes % % Monocytes % % Eosinophils % % Basophils % % Neutrophils # (1.3-7.7) k/uL Lymphocytes # (1.0-4.8) k/uL Monocytes # (0-1.0) k/uL Eosinophils # (0-0.7) k/uL Basophils # (0-0.2) k/uL PT (10.0-12.5) sec INR (<1.2) APTT (22.0-30.0) sec Sodium 146 H (137-145) mmol/L Potassium 3.5 (3.5-5.1) mmol/L Chloride 109 H (98-107) mmol/L Carbon Dioxide 27 (22-30) mmol/L Anion Gap 10 mmol/L BUN 9 (9-20) mg/dL Creatinine 0.64 L (0.66-1.25) mg/dL Est GFR (CKD-EPI)AfAm >90 (>60 ml/min/1.73 sqM) Est GFR (CKD-EPI)NonAf >90 (>60 ml/min/1.73 sqM) Glucose 85 (74-99) mg/dL Lactic Ac Sepsis Rflx Y Plasma Lactic Acid Pratik (0.7-2.0) mmol/L Calcium 8.6 (8.4-10.2) mg/dL Phosphorus (2.5-4.5) mg/dL Magnesium (1.6-2.3) mg/dL Total Bilirubin 0.6 (0.2-1.3) mg/dL AST 51 (17-59) U/L ALT 17 (4-49) U/L Alkaline Phosphatase 96 (38-126) U/L Troponin I (0.000-0.034) ng/mL Total Protein 6.9 (6.3-8.2) g/dL Albumin 4.2 (3.5-5.0) g/dL Urine Color Urine Appearance (Clear) Urine pH (5.0-8.0) Ur Specific [place] (1.001-1.035) Urine Protein (Negative) Urine Glucose (UA) (Negative) Urine Ketones (Negative) Urine Blood (Negative) Urine Nitrite (Negative) Urine Bilirubin (Negative) Urine Urobilinogen (<2.0) mg/dL Ur Leukocyte Esterase (Negative) Serum Alcohol 373 H* mg/dL - EKG Data -: EKG Interpreted by Me - Radiology Data Radiology results: report reviewed (CT brain and C-spine x-rays negative for acute traumatic injury, chest and pelvis x-ray negative for acute disease), image reviewed Disposition Clinical Impression: Alcohol intoxication, Alcohol abuse, Fall Disposition: ADMITTED IP TO THIS [facility] Condition: Stable Is patient prescribed a controlled substance at d/c from ED?: No
[2023-04-17] MEDS: SODIUM CHLORIDE 0.9% 1,000 ML IV STA ×2 (21:51→21:52)
[2023-04-17] MEDS: SODIUM CHLORIDE 0.9% 500 ML 500 ML IV STA (21:51)
[2023-04-17] MEDS: LORazepam 2 MG/ML INJ IV STA (21:52)
[2023-04-17 21:59] LABS: Basophils # (A) 0.1 k/uL (0-0.2); Basophils % (A) 2 %; Eosinophils % (A) 1 %; HCT 37.7 % (39.0-53.0); HGB 12.6 gm/dL (13.0-17.5); Lymphocytes # (A) 1.5 k/uL (1.0-4.8); Lymphocytes % (A) 28 %; MCH 32.4 pg (25.0-35.0); MCHC 33.4 g/dL (31.0-37.0); MCV 97.1 fL (80.0-100.0); Mean Platelet Volume 7.8; Monocytes # (A) 0.4 k/uL (0-1.0); Monocytes % (A) 8 %; Neutrophils # (A) 3.1 k/uL (1.3-7.7); Neutrophils % (A) 58 %; Platelet Count 115 k/uL (150-450); RBC 3.88 m/uL (4.30-5.90); RDW 13.1 % (11.5-15.5); WBC 5.4 k/uL (3.8-10.6)
[2023-04-17 22:11] LABS: Magnesium 1.9 mg/dL (1.6-2.3); Phosphorus 3.8 mg/dL (2.5-4.5)
[2023-04-17 22:23] LABS: Partial Thromboplastin Time 28.2 sec (22.0-30.0); Prothrombin Time 10.9 sec (10.0-12.5)
--- NOTE | 2023-04-17 22:46 | CT ---
EXAMINATION TYPE: CT brain cspine wo con CT DLP: 1224.8 mGycm, Automated exposure control for dose reduction was used. DATE OF EXAM: 04/17/2023 10:30 PM COMPARISON: None. CLINICAL INDICATION:Male, 62 years old with history of fall; pain after fall TECHNIQUE: Brain: Multiple axial CT images of the brain were obtained without IV contrast. Cspine: Axial CT images from the skull base to the inferior aspect of T2 we obtained without intraven ous contrast. Coronal and sagittal reformatted images were also reviewed. FINDINGS: Brain: Extra-axial spaces: No abnormal extra-axial fluid collections. Ventricular system: Appear dilated in proportion to the degree of cerebral atrophy. Cerebral parenchyma: No increased attenuation to suggest acute intraparenchymal hemorrhage. The gra y-white matter interface appears maintained without evidence of acute territorial infarct. Mild/mode rate generalized brain atrophy. White matter unremarkable by CT. Small bilateral basal ganglia calci fications. Small circumscribed hypodensity in the right subinsular region, may represent prominent pe rivascular space or remote lacunar infarct. Cerebellum: No acute abnormality. Mass effect: No evidence of mass effect or midline shift. Intracranial vasculature: Atherosclerotic calcifications of the larger arteries near the skull base. No evidence for hyperdense vessels sign. Soft tissues: Normal. Visualized orbits: Orbital contents appear grossly intact. Calvarium/osseous structures: No evidence of calvarial fracture. Paranasal sinuses and mastoid air cells: Clear. Frontal sinuses are developmentally hypoplastic. MRI is more sensitive for detecting acute processes such as infarct, and may be considered if clinica lly warranted. Cervical spine: Fracture: None seen. Osseous structures, spinal canal/neural foramina: Craniocervical junction is intact. Mild/moderate de generative change of the anterior C1-C2 articulation. Mild/moderate multilevel degenerative disc dise ase throughout the cervical spine with straightening and mild reversal of the normal lordosis. Mild/m oderate facet disease throughout as well, with no evidence of jumped/perched facets. Most significant findings appear to be moderate severe left neural foraminal stenosis, mild/moderate canal and right neural foraminal stenosis C3-C4. At C5-C6, moderate to severe right neural foraminal stenosis, mild c anal and left neural foraminal stenosis. At C6-C7, moderate bilateral neural foraminal stenoses. Mild canal stenosis. Vertebral alignment: No traumatic malalignment. Straightening and mild reversal of the normal cervica l lordosis. Neck soft tissues: show no acute abnormalities. Calcifications of the right more than left carotid ar teries in the bifurcation regions. Other: Included lung apices show mild paraseptal emphysematous changes. No acute infiltrate or pneumo thorax. IMPRESSION: CT head: 1. No acute intracranial CT abnormality. 2. Mild/moderate generalized atrophy. CT cervical spine: 1. No evidence of acute cervical spine fracture or traumatic malalignment. 2. Mild/moderate cervical spondylosis. 3. Mild biapical pulmonary emphysema.
[2023-04-17 23:03] LABS: ALT 17 U/L (4-49); AST 51 U/L (17-59); African American GFR (CKD) >90 (>60 ml/min/1.73 sqM); Albumin 4.2 g/dL (3.5-5.0); Alkaline Phosphatase 96 U/L (38-126); Anion Gap 10 mmol/L; Blood Urea Nitrogen 9 mg/dL (9-20); Calcium 8.6 mg/dL (8.4-10.2); Carbon Dioxide 27 mmol/L (22-30); Chloride 109 mmol/L (98-107); Glucose 85 mg/dL (74-99); Non-African American GFR(CKD) >90 (>60 ml/min/1.73 sqM); Potassium 3.5 mmol/L (3.5-5.1); Sodium 146 mmol/L (137-145); Total Bilirubin 0.6 mg/dL (0.2-1.3); Total Protein 6.9 g/dL (6.3-8.2)
[2023-04-17 23:18] LABS: Alcohol 373 mg/dL
[2023-04-17] MEDS ORDERED: MORPHINE SULFATE 4 MG/ML SYRINGE IV PRN (23:24)
[2023-04-17] MEDS ORDERED: ONDANSETRON 4 MG/2 ML VIAL IVP PRN (23:24)
[2023-04-17] MEDS ORDERED: LORazepam 2 MG/ML INJ IV PRN ×3 (23:24)
[2023-04-17] MEDS ORDERED: LORazepam 0.5 MG TAB PO PRN (23:24)
[2023-04-17] MEDS ORDERED: NALOXONE 0.4 MG/ML 1 ML VIAL IV PRN (23:24)
[2023-04-17] MEDS ORDERED: LORazepam 1 MG TAB PO PRN ×3 (23:24)
[2023-04-17] MEDS: THIAMINE 100 MG/ML 2 ML VIAL IM STA (23:40)
[2023-04-17 23:56] LABS: Appearance,Urine Clear (Clear); Bilirubin,Urine Negative (Negative); Blood,Urine Negative (Negative); Color,Urine Colorless; Glucose,Urine (UA) Negative (Negative); Ketones,Urine Negative (Negative); Leukocyte Esterase,Urine Negative (Negative); Nitrite,Urine Negative (Negative); Protein,Urine Negative (Negative); Specific Gravity,Urine 1.004 (1.001-1.035); Urobilinogen,Urine <2.0 mg/dL (<2.0)
[2023-04-18 00:21] LABS: Glucose,Whole Blood 88 mg/dL (70-110)
[2023-04-18 00:44] LABS: Glucose,Whole Blood 78 mg/dL (70-110)
[2023-04-18] MEDS: DEXTROSE 5%-0.45% NACL 1,000 ML IV SCH (00:50)
--- NOTE | 2023-04-18 01:21 | XR ---
EXAM: XR Pelvis, 1 or 2 Views CLINICAL HISTORY: ITS.REASON XR Reason: fall TECHNIQUE: Frontal view of the pelvis. COMPARISON: No relevant prior studies available. FINDINGS: Bones/joints: Bilateral hip arthroplasties. No periprosthetic fracture. No pelvic bone fracture. Lumbar spondylosis. Osseous demineralization. No dislocation. Soft tissues: Unremarkable. IMPRESSION: No acute findings in the pelvis. The need for CT scan should be determined clinically.
--- NOTE | 2023-04-18 01:21 | XR ---
EXAM: XR Chest, 1 View CLINICAL HISTORY: ITS.REASON XR Reason: fall TECHNIQUE: Frontal view of the chest. COMPARISON: No relevant prior studies available. FINDINGS: Lungs: Unremarkable. No consolidation. Pleural space: Unremarkable. No pneumothorax. Heart: Unremarkable. No cardiomegaly. Mediastinum: Unremarkable. Normal mediastinal contour. Bones/joints: Unremarkable. No acute fracture. IMPRESSION: Normal chest x-ray.
--- NOTE | 2023-04-18 03:05 | P.HPIM ---
History of Present Illness H&P Date: 04/18/23 Patient is a 62-year-old male with a PMH of EtOH abuse who had presented to the emergency room with complaints of fall. The patient had reportedly fallen and hit his head and called EMS because he felt lightheaded. He also endorsed right hip pain as a result of this fall at the time of interview. Denied experiencing chest discomfort, shortness of breath, loss of consciousness, fever, chills, co ugh. Reports ongoing alcohol abuse drinking a pint of hard liquor daily for the past several years. In the emergency room head/cervical spine CT, pelvis x-ray, and a chest x-ray were all negative for acute abnormalities. EKG revealed sinus rhythm at [address]/T wave changes noted as reviewed by me. Laboratory evaluation was remarkable for lactic acidosis of 2.3, troponin less than 0.012, serum alcohol level 373, hemoglobin 12.6, sodium 146, and chloride 109. ED documentation reviewed and case discussed with ED provider. Review of systems: Pertinent positives and negatives as discussed in HPI, a complete review of systems was performed and all other systems are negative. Physical examination: Vital signs reviewed General: Somewhat foul-smelling and disheveled male, mildly tremulous, appears at stated age, normal weight Derm: no unusual rashes/lesions, warm Head: atraumatic, normocephalic, symmetric Eyes: EOMI, no lid lag, anicteric sclera, pupils equal round reactive to light ENT: Nose and ears atraumatic Neck: No cervical lymphadenopathy, trachea midline, supple Mouth: no lip lesion, mucus membranes moist, tongue fasciculations noted Cardiovascular: S1S2 reg, no murmur, positive dorsalis pedis pulse bilateral, no edema Lungs: CTA bilateral, no rhonchi, no rales, no accessory muscle use Abdominal: soft, nontender to palpation, no guarding Ext: muscle strength 5 out of 5 in all 4 extremities grossly, no gross muscle atrophy, no contractures, Neuro: CN II-XI grossly intact, no gross focal neuro deficits, outstretched hand tremor Psych: Alert, oriented, appropriate affect Assessment: Fall due to lightheadedness in setting of alcohol abuse Lactic acidosis, likely due to EtOH abuse Imaging: In the emergency room head/cervical spine CT, pelvis x-ray, and a chest x-ray were all negative for acute abnormalities. EKG revealed sinus rhythm at [address]/T wave changes noted as reviewed by me. Data Review: Laboratory evaluation was remarkable for lactic acidosis of 2.3, troponin less than 0.012, serum alcohol level 373, hemoglobin 12.6, sodium 146, and chloride 109. Plan: Advised on importance of alcohol cessation CIWA protocol Continue with thiamine, multivitamin IV fluids with normal saline 130 cc/h Fall precautions Cardiac monitoring DVT prophylaxis: Lovenox Subq The patient is admitted with an anticipated [] than 2 midnight stay for evaluation of [] CODE STATUS: Full Code Discussed with: Patient Anticipated discharge place: Home Past Medical History Past Medical History: Blood Disorder, Hearing Disorder / Deafness, Hyperlipidemia, Osteoarthritis (OA), Syncope Additional Past Medical History / Comment(s): ETOH abuse/withdrawal DTs, thrombocytopenia, FALLS, past high cholesterol, neuropathy bilateral hands/feet, chronic back pain, benign colon polyps, frequent urination/wears depends, tinnitis bilateral ears, sinus issues. History of Any Multi-Drug Resistant Organisms: None Reported Past Surgical History: Back Surgery, Joint Replacement Additional Past Surgical History / Comment(s): Back surgeries x 3, cervical surgery, bilateral hip surgeries including total hip arthroplasties, R knee arthroscopy/meniscus repair, R knee injections, R shoulder rotator cuff repair, bilateral wrist carpal tunnel releases, colonoscopy. Past Anesthesia/Blood Transfusion Reactions: No Reported Reaction Past Psychological History: Anxiety Smoking Status: Current every day smoker Past Alcohol Use History: Daily, Heavy Past Drug Use History: Marijuana - Past Family History Mother History Unknown: Yes Additional Family Medical History / Comment(s): Patient states after a fall which cause cervical fracture. Father Family Medical History: Dementia, Musculoskeletal Disorder Additional Family Medical History / Comment(s): Parkinsons Medications and Allergies Home Medications Medication Instructions Recorded Confirmed Type Folic Acid 1 mg PO DAILY 30 Days #30 tablet 02/01/23 Rx Thiamine [Vitamin B-1] 100 mg PO DAILY 30 Days #30 tab 02/01/23 Rx Allergies Allergy/AdvReac Type Severity Reaction Status Date / Time No Known Allergies Allergy Verified 01/29/23 22:34 Physical Exam Vitals: Vital Signs Temp Pulse Resp BP Pulse Ox 04/18/23 01:00 79 15 137/86 95 04/18/23 00:00 97 16 125/83 96 04/17/23 23:00 80 19 136/91 94 L 04/17/23 21:46 90 14 140/94 98 04/17/23 21:35 98.7 F 91 16 130/118 98 Intake and Output 04/17/23 04/17/23 04/18/23 14:59 22:59 07:59 Other: Weight 58.967 kg Results CBC & Chem 7: 04/17/23 21:48 04/17/23 22:38 Labs: Abnormal Lab Results - Last 24 Hours (Table) 04/17/23 04/17/23 04/17/23 Range/Units 21:48 21:48 22:38 RBC 3.88 L (4.30-5.90) m/uL Hgb 12.6 L (13.0-17.5) gm/dL Hct 37.7 L (39.0-53.0) % Plt Count 115 L (150-450) k/uL Sodium 146 H (137-145) mmol/L Chloride 109 H (98-107) mmol/L Creatinine 0.64 L (0.66-1.25) mg/dL Plasma Lactic Acid Pratik 2.3 H* (0.7-2.0) mmol/L Serum Alcohol 373 H* mg/dL 04/18/23 Range/Units 00:37 RBC (4.30-5.90) m/uL Hgb (13.0-17.5) gm/dL Hct (39.0-53.0) % Plt Count (150-450) k/uL Sodium (137-145) mmol/L Chloride (98-107) mmol/L Creatinine (0.66-1.25) mg/dL Plasma Lactic Acid Pratik 2.4 H* (0.7-2.0) mmol/L Serum Alcohol mg/dL
[2023-04-18 03:12] LABS: Glucose,Whole Blood 189 mg/dL (70-110)
[2023-04-18] MEDS: LORazepam 1 MG TAB PO PRN (03:17)
[2023-04-18] MEDS: ENOXAPARIN 40 MG/0.4 ML SYRINGE SQ SCH (08:27)
[2023-04-18] MEDS: THIAMINE 100 MG TAB PO SCH (08:27)
[2023-04-18] MEDS ORDERED: IPRATROPIUM-ALBUTEROL 3 ML NEB INHALATION PRN (09:56)
--- NOTE | 2023-04-18 09:57 | P.PN ---
Subjective Progress Note Date: 04/18/23 Hospital course: Patient is a pleasant 62-year-old male with a past medical history of alcoholism with daily alcohol use/abuse. He presented to the emergency department on 04/17/2023 for reports of dizziness/lightheadedness status post fall resulting in him hitting his head and calling EMS for transport to the hospital. Upon arrival to the emergency department, patient underwent full evaluation. Vital signs upon arrival show blood pressure 130/118, heart rate 91, respiratory rate 16, temp 98.7 F, and SpO2 of 98% on room air. EKG was completed showing normal sinus rhythm at [address] head showing mild to moderate generalized atrophy otherwise negative for acute intracranial abnormality. CT cervical spine showing no evidence of acute cervical spine fracture or traumatic malalignment revealing mild to moderate cervical spondylosis. Chest x-ray negative for acute cardiopulmonary process. X-ray pelvis negative for acute abnormalities. Labs completed and reviewed. CBC showing bicytopenia with hemoglobin of 12.6 and platelet count of 115. Coagulation profile normal findings. BMP revealed mild hyponatremia with sodium of 146 and hyperchloremia with chloride of 109. Liver profile unremarkable. Magnesium normal findings at 1.9. Troponin negative at less than 0.012. Urinalysis negative for infection. Lactic acid was elevated at 2.3. Serum alcohol level also elevated at 373. Patient admitted under our services for alcohol intoxication. Patient reports he has been trying to quit drinking and was recently prescribed Librium to assist him, but states after he ran out, he unfortunately started drinking again. Patient requesting assistance with medical detox and would like to go to rehab. Patient reports he drinks at least a fifth of alcohol daily and is aware of the risks of going through detox and the added stress it causes on one's body, but states he has to quit drinking and cannot do it alone. Admission order changed from observation to inpatient for patient to undergo medical assisted detox. Physical exam: Patient seen and fully evaluated at bedside this morning. Patient currently reporting headache and overall just feeling unwell. He denies having any chest pain, palpitations, shortness of breath, or experiencing any numbness/tingling/weakness in his extremities. Patient reports he has been trying to quit drinking and was recently prescribed Librium to assist him, but states he ran out and unfortunately started drinking again. Patient requesting assistance with medical detox. Patient reports he is aware of the risks of going through detox and that added stress it causes on one's body, but states he has to quit drinking and cannot do it alone. We will change patient from observation to full admission to undergo medical assisted detox. Vital signs reviewed and stable. General: Nontoxic, no distress and appears stated age. Derm: Skin warm and dry, normal coloration for ethnicity. Head: Atraumatic, normocephalic and symmetric. Eyes: EOMs intact, no lid lag, and anicteric sclera Mouth: no lip lesions, mucus membranes moist Cardiovascular: regular rate and rhythm with normal S1S2, no murmur, positive posterior tibial pulses bilaterally, and cap refill < 2 seconds. Lungs: Respirations even, regular, and unlabored on room air. Lungs CTA bilat erally, no rhonchi, no rales, no wheezing, and no accessory muscle usage. Abdominal: soft, nontender to palpation, no guarding, no appreciable organomegaly Ext: ROM intact. No gross muscle atrophy, no edema, no contractures Neuro: Speech clear, face symmetrical and CN II-XII grossly intact with no noted focal neuro deficits Psych: Alert and oriented to person, place, time, and situation. Appropriate and pleasant affect. Assessment and Plan of Care: Alcohol intoxication pending withdrawal in an active alcoholic Bicytopenia secondary to above Lactic acidosis secondary to alcohol intoxication -Continue monitoring of CIWA scores and patient to be medicated with Ativan 0.5 mg every 4 hours as needed for CIWA score of 4-5, Ativan 1 mg every 4 hours for CIWA score of 6-7, Ativan 2 mg every 3 hours CIWA score of 8-9, and Ativan 2 mg every 2 hours forr CIWA score of 10 or greater. -Thiamine 100 mg daily, Multivitamin daily, and Folate 1 mg daily -Seizure and fall precautions in place. -Continued close monitoring of electrolytes and replace as needed. -Telemetry monitoring. Fall with head injury while intoxicated -CT head and cervical spine negative for acute process. -Continue fall precautions. Nicotine dependence Recommend smoking cessation. Order placed for nicotine patch 21 mg daily along with DuoNebs as needed for shortness of breath and/or wheezing. Data reviewed: -Vital signs reviewed and stable. Blood pressure 136/82, heart rate 98, respiratory rate 14, temp 98.2 F, and SpO2 of 94% on room air. CODE STATUS: Full code DVT prophylaxis: Lovenox Anticipated discharge date: Clinical course to determine Anticipated discharge place: Home Patient was seen independently by Nurse Pracitioner. This document was prepared using [employer] dictation software. Please allow for errors in digital technician, while rare they do occur. I reviewed the documentation as provided by the GURPREET above, who is the original author of this note. I agree with the documented assessment and plan, with the following changes: none Objective - Vital Signs Vital signs: Vital Signs Temp 98.2 F 04/18/23 08:02 Pulse 98 04/18/23 08:02 Resp 14 04/18/23 08:02 BP 136/82 04/18/23 08:02 Pulse Ox 94 L 04/18/23 08:02 FiO2 Intake & Output 04/17/23 04/18/23 04/18/23 17:59 06:59 18:59 Weight - Labs CBC & Chem 7: 04/17/23 21:48 04/17/23 22:38 Labs: Abnormal Lab Results - Last 24 Hours (Table) 04/17/23 04/17/23 04/17/23 Range/Units 21:48 21:48 22:38 RBC 3.88 L (4.30-5.90) m/uL Hgb 12.6 L (13.0-17.5) gm/dL Hct 37.7 L (39.0-53.0) % Plt Count 115 L (150-450) k/uL Sodium 146 H (137-145) mmol/L Chloride 109 H (98-107) mmol/L Creatinine 0.64 L (0.66-1.25) mg/dL POC Glucose (mg/dL) (70-110) mg/dL Plasma Lactic Acid Pratik 2.3 H* (0.7-2.0) mmol/L Serum Alcohol 373 H* mg/dL 04/18/23 04/18/23 04/18/23 Range/Units 00:37 03:11 03:28 RBC (4.30-5.90) m/uL Hgb (13.0-17.5) gm/dL Hct (39.0-53.0) % Plt Count (150-450) k/uL Sodium (137-145) mmol/L Chloride (98-107) mmol/L Creatinine (0.66-1.25) mg/dL POC Glucose (mg/dL) 189 H (70-110) mg/dL Plasma Lactic Acid Pratik 2.4 H* 2.1 H* (0.7-2.0) mmol/L Serum Alcohol mg/dL
[2023-04-18] MEDS: FOLIC ACID 1 MG TAB PO SCH (10:05)
[2023-04-18] MEDS: MULTIVITAMINS, THERA 1 EACH TAB PO SCH (10:05)
[2023-04-18] MEDS: NICOTINE 21MG/24HR PATCH TRANSDERM SCH (10:05)
[2023-04-18] MEDS: IBUPROFEN 200 MG TAB PO STA (20:38)
[2023-04-19] MEDS: IBUPROFEN 200 MG TAB PO STA (06:34)
[2023-04-19 08:48] VITALS: BP 119/82; PULSE 100; RESP 17; TEMP 98.7
[2023-04-19 08:48] LABS: ALT 16 U/L (10-49); AST 35 U/L (14-35); Albumin 4.4 g/dL (3.8-4.9); Albumin/Globulin Ratio 1.76 Ratio (1.60-3.17); Alkaline Phosphatase 103 U/L (41-126); BUN/Creat Ratio 9.83 Ratio (12.00-20.00); Blood Urea Nitrogen 5.9 mg/dL (9.0-27.0); Calcium 9.4 mg/dL (8.7-10.3); Carbon Dioxide 23.9 mmol/L (21.6-31.8); Chloride 97 mmol/L (96-109); Globulin 2.5 g/dL (1.6-3.3); Glucose 92 mg/dL (70-110); Magnesium 1.7 mg/dL (1.5-2.4); Potassium 3.3 mmol/L (3.5-5.5); Sodium 136 mmol/L (135-145); Total Bilirubin 0.9 mg/dL (0.3-1.2); Total Protein 6.9 g/dL (6.2-8.2)
[2023-04-19 10:34] LABS: HCT 37.2 % (39.6-50.0); HGB 12.6 g/dL (13.0-17.0); Immature Platelet Fraction 7.9 % (1.1-6.1); MCH 31.7 pg (27.0-32.0); MCHC 33.9 g/dL (32.0-37.0); MCV 93.5 FL (80.0-97.0); Mean Platelet Volume 11.2 FL (9.5-12.2); NRBC Per 100 WBC 0 X 10*3/uL (0.00-0.01); Platelet Count 77 X 10*3/uL (140-440); RBC 3.98 X 10*6/uL (4.40-5.60); RDW 12.5 % (11.5-14.5)
[2023-04-19] MEDS: POTASSIUM CHLORIDE ER 20 MEQ TAB.ER PO STA (12:23)
[2023-04-19] MEDS: MAGNESIUM OXIDE 400 MG TAB PO STA (12:23)
--- NOTE | 2023-04-19 16:14 | P.DS ---
Providers Date of admission: 04/17/23 23:24 Expected date of discharge: 04/19/23 Attending physician: Craig Almanza MD Primary care physician: Rosa Nieto [facility] Course: Discharge Diagnosis: Alcohol intoxication pending withdrawal in an active alcoholic Bicytopenia secondary to above Lactic acidosis secondary to alcohol intoxication Fall with head injury while intoxicated. CT head and cervical spine negative for acute process. Nicotine dependence Recommend smoking cessation. Hospital Course: Patient is a pleasant 62-year-old male with a past medical history of alcoholism with daily alcohol use/abuse. He presented to the emergency department on 04/17/2023 for reports of dizziness/lightheadedness status post fall resulting in him hitting his head and calling EMS for transport to the hospital. Upon arrival to the emergency department, patient underwent full evaluation. Vital signs upon arrival show blood pressure 130/118, heart rate 91, respiratory rate 16, temp 98.7 F, and SpO2 of 98% on room air. EKG was completed showing normal sinus rhythm at [address] head showing mild to moderate generalized atrophy otherwise negative for acute intracranial abnormality. CT cervical spine showing no evidence of acute cervical spine fracture or traumatic malalignment revealing mild to moderate cervical spondylosis. Chest x-ray negative for acute cardiopulmonary process. X-ray pelvis negative for acute abnormalities. Labs completed and reviewed. CBC showing bicytopenia with hemoglobin of 12.6 and platelet count of 115. Coagulation profile normal findings. BMP revealed mild hyponatremia with sodium of 146 and hyperchloremia with chloride of 109. Liver profile unremarkable. Magnesium normal findings at 1.9. Troponin negative at less than 0.012. Urinalysis negative for infection. Lactic acid was elevated at 2.3. Serum alcohol level also elevated at 373. Patient admitted under our services for alcohol intoxication. Patient reports he has been trying to quit drinking and was recently prescribed Librium to assist him, but states after he ran out, he unfortunately started drinking again. Patient requesting assistance with medical detox and would like to go to rehab. Patient reports he drinks at least a fifth of alcohol daily and is aware of the risks of going through detox and the added stress it causes on one's body, but states he has to quit drinking and cannot do it alone. Admission order changed from observation to inpatient for patient to undergo medical assisted detox. On the morning of 04/19/2023 patient stating he does not want to go to rehab. He wants to go home and talk to his first and then possibly go to a rehabilitation facility to assist with maintaining long-term plan for sobriety. Patient medically stable at this time. Strongly recommended inpatient drug and alcohol rehabilitation facility, again patient declined at this time stating there are some things he needs to take c are of at home and needs to discuss with his . Patient medically cleared for discharge at this time. Strongly recommended avoidance of any and all alcohol use. Physical exam: Vital signs reviewed and stable. General: Nontoxic, no distress and appears stated age. Derm: Skin warm and dry, normal coloration for ethnicity. Head: Atraumatic, normocephalic and symmetric. Eyes: EOMs intact, no lid lag, and anicteric sclera Mouth: no lip lesions, mucus membranes moist Cardiovascular: regular rate and rhythm with normal S1S2, no murmur, positive po sterior tibial pulses bilaterally, and cap refill < 2 seconds. Lungs: Respirations even, regular, and unlabored on room air. Lungs CTA bilaterally, no rhonchi, no rales, no wheezing, and no accessory muscle usage. Abdominal: soft, nontender to palpation, no guarding, no appreciable organomegaly Ext: ROM intact. No gross muscle atrophy, no edema, no contractures Neuro: Speech clear, face symmetrical and CN II-XII grossly intact with no noted focal neuro deficits Psych: Alert and oriented to person, place, time, and situation. Appropriate and pleasant affect. A total of 34 minutes of time were spent preparing this complex discharge summary. Pt was discharged on 04/19/2023 at 11:54 AM. Patient was seen independently by Nurse Practitioner. This document was prepared using [employer] dictation software. Please allow for errors in rental car deliverer while rare they do occur. Shane Sanchez NP rendered care for this patient independently, reviewed the findings and plan as documented in the note above. I did not physically speak with or examine the patient on this date. Patient Condition at Discharge: Stable Plan - Discharge Summary New Discharge Prescriptions: No Action No Known Home Medications Discharge Medication List No Known Home Medications 04/18/23 [History] Follow up Appointment(s)/Referral(s): None,Stated [REFERRING] - 1-2 days Patient Instructions/Handouts: Abuse of Alcohol (DC), Alcohol Withdrawal (DC) Activity/Diet/Wound Care/Special Instructions: Activity: As tolerated. Take breaks as needed. Diet: Heart healthy and carb consistent diet. Avoid salts, or foods with hidden salts such as canned or boxed foods and frozen dinners. Extra salt makes your heart work harder and traps the fluid in your body for longer. Special Instructions: As we discussed at bedside, strongly recommend inpatient substance abuse treatment facility. You would like to go home and discuss with your first, we have provided you with a list of inpatient rehab facilities and resources available to you in the community. Strongly recommend avoiding any and all alcohol use. Thank you for allowing us to participate in your care, it was truly a pleasure having you for our patient!!! Discharge/Stand Alone Forms: AA Meetings [facility] - [facility], AA Meetings [place], Community Resources, In Substance Abuse Facilities, Outpatient Counseling Discharge Disposition: HOME SELF-CARE
== END 2023-04-19 19:43 | disposition home or self-care (01) ==
LOC: EC 21:33 → 6NMEDSUR 23:24
PROVIDERS: ADMIT Internal Medicine; ATTEND Internal Medicine
DX: F10.229 Alcohol dependence with intoxication, unspecified (principal); E87.20 Acidosis, unspecified; E87.1 Hypo-osmolality and hyponatremia; R51.9 Headache, unspecified; E87.8 Other disorders of electrolyte and fluid balance, not elsewhere classified; D61.818 Other pancytopenia; M47.812 Spondylosis without myelopathy or radiculopathy, cervical region; S09.90XA Unspecified injury of head, initial encounter; M25.551 Pain in right hip; W19.XXXA Unspecified fall, initial encounter; Y90.8 Blood alcohol level of 240 mg/100 ml or more
CPT/HCPCS: 96361 ×3; 96372 ×3; 96374; 99285; 36415 ×2; 93005; 80053 ×2; 83605 ×2; 83735 ×2; 84100; 84484; 85025; 85027; 85610; 85730; 81003; 72170; 71045; 72125; 70450; G0378 ×3; G0480; S4990 ×2; J2060; J3411; J1650 ×2; 80320

== ENCOUNTER 2023-05-23 10:24 | Emergency (ER) | payer MEDICARE ==
--- NOTE | 2023-05-23 10:35 | ED ---
General Adult HPI - General Stated complaint: Fall Time Seen by Provider: 05/23/23 10:25 Source: patient, RN notes reviewed, old records reviewed - History of Present Illness Initial comments: This is a 63-year-old male who presents to the emergency department after having a fall. Patient states she was walking on the steps to go feed the birds and he fell off the last step forward he states he hit his head he thinks he lost consciousness but is not sure. Patient denies any neck pain. Patient has any numbness or weakness. Patient denies any chest pain after the fall. Patient states earlier in the morning he did have some chest pain but it is resolved. Patient denies any difficulty breathing. Patient states he has some right shoulder pain and right wrist pain. Patient states he last drank at 3:30 in the morning. Patient denies any abdominal pain patient [place] any hip pain or leg pain. - Related Data Home Medications Medication Instructions Recorded Confirmed No Known Home Medications 04/18/23 04/18/23 Allergies Allergy/AdvReac Type Severity Reaction Status Date / Time No Known Allergies Allergy Verified 05/23/23 10:36 Review of Systems ROS Statement: Those systems with pertinent positive or pertinent negative responses have been documented in the HPI. ROS Other: All systems not noted in ROS Statement are negative. Past Medical History Past Medical History: Blood Disorder, Hearing Disorder / Deafness, Hyperlipidemia, Osteoarthritis (OA), Syncope Additional Past Medical History / Comment(s): ETOH abuse/withdrawal DTs, thrombocytopenia, FALLS, past high cholesterol, neuropathy bilateral hands/feet, chronic back pain, benign colon polyps, frequent urination/wears depends, tinnitis bilateral ears, sinus issues. History of Any Multi-Drug Resistant Organisms: None Reported Past Surgical History: Back Surgery, Joint Replacement Additional Past Surgical History / Comment(s): Back surgeries x 3, cervical surgery, bilateral hip surgeries including total hip arthroplasties, R knee arthroscopy/meniscus repair, R knee injections, R shoulder rotator cuff repair, bilateral wrist carpal tunnel releases, colonoscopy. Past Anesthesia/Blood Transfusion Reactions: No Reported Reaction Past Psychological History: Anxiety Smoking Status: Current every day smoker Past Alcohol Use History: Daily, Heavy Past Drug Use History: Marijuana - Past Family History Mother History Unknown: Yes Additional Family Medical History / Comment(s): Patient states after a fall which cause cervical fracture. Father Family Medical History: Dementia, Musculoskeletal Disorder Additional Family Medical History / Comment(s): Parkinsons General Exam - General Exam Comments Initial Comments: GENERAL: Patient is well-developed and well-nourished. Patient is nontoxic and well- hydrated and is in mild distress. ENT: Neck is soft and supple. No significant lymphadenopathy is noted. Oropharynx is clear. Moist mucous membranes. Neck has full range of motion without eliciting any pain. EYES: The sclera were anicteric and conjunctiva were pink and moist. Extraocular movements were intact and pupils were equal round and reactive to light. Eyelids were unremarkable. PULMONARY: Unlabored respirations. Good breath sounds bilaterally. No audible rales rhonchi or wheezing was noted. CARDIOVASCULAR: There is a regular rate and rhythm without any murmurs gallops or rubs. ABDOMEN: Soft and nontender with normal bowel sounds. SKIN: Skin is clear with no lesions or rashes and otherwise unremarkable. NEUROLOGIC: Patient is alert and oriented x3. Cranial nerves II through XII are grossly intact. Motor and sensory are also intact. Normal speech, volume and content. Symmetrical smile. MUSCULOSKELETAL: Normal extremities with adequate strength and full range of motion. Patient has some mild tenderness to the posterior aspect of his right shoulder and the posterior aspect of his right wrist. There is no swelling either. No discoloration. LYMPHATICS: No significant lymphadenopathy is noted PSYCHIATRIC: Normal psychiatric evaluation. Course Vital Signs 05/23/23 05/23/23 10:25 12:20 Temperature 98.0 F Pulse Rate 83 82 Respiratory 18 20 Rate Blood Pressure 118/96 142/91 O2 Sat by Pulse 98 98 Oximetry Medical Decision Making - Medical Decision Making EKG is interpreted by myself but EKG shows a sinus rhythm 88 bpm W[place] of 158 QRS is 81 QT interval 360 QTc is 405. Patient's EKG shows no ST segment ovation or depression. Was pt. sent in by a medical professional or institution (, PA, CUSTOMER SERVICE ADMINISTRATOR, urgent care, hospital, or alf...) When possible be specific @ -No Did you speak to anyone other than the patient for history (EMS, parent, family, police, friend...)? What history was obtained from this source @ -No Did you review nursing and triage notes (agree or disagree)? Why? @ -I reviewed and agree with nursing and triage notes Were old charts reviewed (outside hosp., previous admission, EMS record, old EKG, old radiological studies, urgent care reports/EKG's, alf records)? Report findings @ -No old charts were reviewed Differential Diagnosis (chest pain, altered mental status, abdominal pain women, abdominal pain men, vaginal bleeding, weakness, fever, dyspnea, syncope, headache, dizziness, GI bleed, back pain, seizure, CVA, palpatations, mental health, musculoskeletal)? @ -Subarachnoid hemorrhage, subdural hemorrhage, intraparenchymal hemorrhage, epidural hemorrhage, skull fracture, cervical spine fracture, wrist fracture, shoulder fracture, EKG interpreted by me (3pts min.). @ -As above X-rays interpreted by me (1pt min.). @ -Chest x-ray of the wrist and shoulder showed no acute abnormality CT interpreted by me (1pt min.). @ -CT of the C-spine and brain showed no acute normality U/S interpreted by me (1pt. min.). @ -None done What testing was considered but not performed or refused? (CT, X-rays, U/S, labs)? Why? @ -None What meds were considered but not given or refused? Why? @ -None Did you discuss the management of the patient with other professionals (professionals i.e. , PA, CUSTOMER SERVICE ADMINISTRATOR, lab, RT, psych nurse, social work lecturer, forestry worker, teacher, debt recovery officer, case folder)? Give summary @ -No Was smoking cessation discussed for >3mins.? @ -No Was critical care preformed (if so, how long)? @ -No Were there social determinants of health that impacted care today? How? (Homelessness, low income, unemployed, alcoholism, drug addiction, transportation, low edu. Level, literacy, decrease access to med. care, penitentiary, rehab)? @ -No Was there de-escalation of care discussed even if they declined (Discuss DNR or withdrawal of care, Hospice)? DNR status @ -No What co-morbidities impacted this encounter? (DM, HTN, Smoking, COPD, CAD, Cancer, CVA, ARF, Chemo, Hep., AIDS, mental health diagnosis, sleep apnea, morbid obesity)? @ -None Was patient admitted / discharged? Hospital course, mention meds given and route, prescriptions, significant lab abnormalities, going to OR and other pertinent info. @ -Patient slept most of the time in the emergency department he was able to get up and ambulate without problem. Patient's will come and pick him up and take him home. Undiagnosed new problem with uncertain prognosis? @ -No Drug Therapy requiring intensive monitoring for toxicity (Heparin, Nitro, Insulin, Cardizem)? @ -No Were any procedures done? @ -No Diagnosis/symptom? @ -Alcohol intoxication Acute, or Chronic, or Acute on Chronic? @ -Acute Uncomplicated (without systemic symptoms) or Complicated (systemic symptoms)? @ -Complicated Side effects of treatment? @ -No Exacerbation, Progression, or Severe Exacerbation? @ -No Poses a threat to life or bodily function? How? (Chest pain, [place], [place], pneumonia, PE, COPD, DKA, ARF, appy, cholecystitis, CVA, Diverticulitis, Homicidal, Suicidal, threat to staff... and all critical care pts) @ -No Diagnosis/symptom? @ -Fall Acute, or Chronic, or Acute on Chronic? @ -Acute Uncomplicated (without systemic symptoms) or Complicated (systemic symptoms)? @ -Complicated Side effects of treatment? @ -None Exacerbation, Progression, or Severe Exacerbation] @ -No Poses a threat to life or bodily function? @ -No Diagnosis/symptom? @ -Wrist sprain Acute, or Chronic, or Acute on Chronic? @ -Acute Uncomplicated (without systemic symptoms) or Complicated (systemic symptoms)? @ -Uncomplicated Side effects of treatment? @ -None Exacerbation, Progression, or Severe Exacerbation] @ -No Poses a threat to life or bodily function? @ -No Diagnosis/symptom? @ -Shoulder contusion Acute, or Chronic, or Acute on Chronic? @ -Acute Uncomplicated (without systemic symptoms) or Complicated (systemic symptoms)? @ -Uncomplicated Side effects of treatment? @ -None Exacerbation, Progression, or Severe Exacerbation] @ -No Poses a threat to life or bodily function? @ -No - Lab Data Result diagrams: 05/23/23 10:37 05/23/23 10:31 Lab Results 05/23/23 05/23/23 05/23/23 Range/Units 10:31 10:31 10:31 WBC (3.8-10.6) k/uL RBC (4.30-5.90) m/uL Hgb (13.0-17.5) gm/dL Hct (39.0-53.0) % MCV (80.0-100.0) fL MCH (25.0-35.0) pg MCHC (31.0-37.0) g/dL RDW (11.5-15.5) % Plt Count (150-450) k/uL MPV Neutrophils % % Lymphocytes % % Monocytes % % Eosinophils % % Basophils % % Neutrophils # (1.3-7.7) k/uL Lymphocytes # (1.0-4.8) k/uL Monocytes # (0-1.0) k/uL Eosinophils # (0-0.7) k/uL Basophils # (0-0.2) k/uL PT 11.4 (10.0-12.5) sec INR 1.1 (<1.2) APTT 27.2 (22.0-30.0) sec Sodium 140 (137-145) mmol/L Potassium 4.0 (3.5-5.1) mmol/L Chloride 108 H (98-107) mmol/L Carbon Dioxide 18 L (22-30) mmol/L Anion Gap 14 mmol/L BUN 12 (9-20) mg/dL Creatinine 0.71 (0.66-1.25) mg/dL Est GFR (CKD-EPI)AfAm >90 (>60 ml/min/1.73 sqM) Est GFR (CKD-EPI)NonAf >90 (>60 ml/min/1.73 sqM) Glucose 85 (74-99) mg/dL Calcium 9.3 (8.4-10.2) mg/dL Magnesium 1.8 (1.6-2.3) mg/dL Total Bilirubin 0.8 (0.2-1.3) mg/dL AST 36 (17-59) U/L ALT 12 (4-49) U/L Alkaline Phosphatase 97 (38-126) U/L Troponin I <0.012 (0.000-0.034) ng/mL Total Protein 7.3 (6.3-8.2) g/dL Albumin 4.4 (3.5-5.0) g/dL Serum Alcohol 207 H* mg/dL 05/23/23 Range/Units 10:37 WBC 5.7 (3.8-10.6) k/uL RBC 4.11 L (4.30-5.90) m/uL Hgb 12.9 L (13.0-17.5) gm/dL Hct 38.7 L (39.0-53.0) % MCV 94.0 (80.0-100.0) fL MCH 31.4 (25.0-35.0) pg MCHC 33.4 (31.0-37.0) g/dL RDW 13.5 (11.5-15.5) % Plt Count 141 L (150-450) k/uL MPV 7.9 Neutrophils % 62 % Lymphocytes % 25 % Monocytes % 7 % Eosinophils % 2 % Basophils % 1 % Neutrophils # 3.5 (1.3-7.7) k/uL Lymphocytes # 1.4 (1.0-4.8) k/uL Monocytes # 0.4 (0-1.0) k/uL Eosinophils # 0.1 (0-0.7) k/uL Basophils # 0.1 (0-0.2) k/uL PT (10.0-12.5) sec INR (<1.2) APTT (22.0-30.0) sec Sodium (137-145) mmol/L Potassium (3.5-5.1) mmol/L Chloride (98-107) mmol/L Carbon Dioxide (22-30) mmol/L Anion Gap mmol/L BUN (9-20) mg/dL Creatinine (0.66-1.25) mg/dL Est GFR (CKD-EPI)AfAm (>60 ml/min/1.73 sqM) Est GFR (CKD-EPI)NonAf (>60 ml/min/1.73 sqM) Glucose (74-99) mg/dL Calcium (8.4-10.2) mg/dL Magnesium (1.6-2.3) mg/dL Total Bilirubin (0.2-1.3) mg/dL AST (17-59) U/L ALT (4-49) U/L Alkaline Phosphatase (38-126) U/L Troponin I (0.000-0.034) ng/mL Total Protein (6.3-8.2) g/dL Albumin (3.5-5.0) g/dL Serum Alcohol mg/dL Disposition Clinical Impression: Fall, Wrist sprain, Shoulder contusion, Alcohol intoxication Disposition: HOME SELF-CARE Instructions (If sedation given, give patient instructions): Fall Prevention for Older Adults (ED), Alcohol Intoxication (ED) Is patient prescribed a controlled substance at d/c from ED?: No Referrals: Rosa Nieto MD [Primary Care Provider] - 1-2 days Time of Disposition: 13:04
[2023-05-23] MEDS: SODIUM CHLORIDE 0.9% 1,000 ML IV STA (10:42)
[2023-05-23 10:45] VITALS: TEMP 98
[2023-05-23 10:51] LABS: Basophils # (A) 0.1 k/uL (0-0.2); Basophils % (A) 1 %; Eosinophils # (A) 0.1 k/uL (0-0.7); Eosinophils % (A) 2 %; HCT 38.7 % (39.0-53.0); HGB 12.9 gm/dL (13.0-17.5); Lymphocytes # (A) 1.4 k/uL (1.0-4.8); Lymphocytes % (A) 25 %; MCH 31.4 pg (25.0-35.0); MCHC 33.4 g/dL (31.0-37.0); Mean Platelet Volume 7.9; Monocytes # (A) 0.4 k/uL (0-1.0); Monocytes % (A) 7 %; Neutrophils # (A) 3.5 k/uL (1.3-7.7); Neutrophils % (A) 62 %; Platelet Count 141 k/uL (150-450); RBC 4.11 m/uL (4.30-5.90); RDW 13.5 % (11.5-15.5); WBC 5.7 k/uL (3.8-10.6)
[2023-05-23 11:01] LABS: INR 1.1 (<1.2); Partial Thromboplastin Time 27.2 sec (22.0-30.0); Prothrombin Time 11.4 sec (10.0-12.5)
[2023-05-23 11:06] LABS: ALT 12 U/L (4-49); AST 36 U/L (17-59); African American GFR (CKD) >90 (>60 ml/min/1.73 sqM); Albumin 4.4 g/dL (3.5-5.0); Alkaline Phosphatase 97 U/L (38-126); Anion Gap 14 mmol/L; Blood Urea Nitrogen 12 mg/dL (9-20); Calcium 9.3 mg/dL (8.4-10.2); Carbon Dioxide 18 mmol/L (22-30); Chloride 108 mmol/L (98-107); Glucose 85 mg/dL (74-99); Magnesium 1.8 mg/dL (1.6-2.3); Non-African American GFR(CKD) >90 (>60 ml/min/1.73 sqM); Sodium 140 mmol/L (137-145); Total Bilirubin 0.8 mg/dL (0.2-1.3); Total Protein 7.3 g/dL (6.3-8.2)
[2023-05-23 11:18] LABS: Alcohol 207 mg/dL
--- NOTE | 2023-05-23 11:27 | CT ---
EXAMINATION TYPE: CT brain cspine wo con CT DLP: 1320 mGycm, Automated exposure control for dose reduction was used. DATE OF EXAM: 05/23/2023 11:01 AM COMPARISON: None. CLINICAL INDICATION:Male, 63 years old with history of Trauma; FALL TECHNIQUE: Brain: Multiple axial CT images of the brain were obtained without IV contrast. Cspine: Axial CT images from the skull base to the inferior aspect of T2 we obtained without intraven ous contrast. Coronal and sagittal reformatted images were also reviewed. FINDINGS: Brain: Extra-axial spaces: No abnormal extra-axial fluid collections. Ventricular system: Appear dilated in proportion to the degree of cerebral atrophy. Cerebral parenchyma: No increased attenuation to suggest acute intraparenchymal hemorrhage. The gra y-white matter interface appears maintained. Moderate generalized brain atrophy. Scattered hypoatte nuating areas are seen within the cerebral white matter, nonspecific but most often seen with chronic microvascular ischemic changes; mild to moderate in degree. Faint basal ganglia calcifications. Cerebellum: No acute abnormality. Mass effect: No evidence of mass effect or midline shift. Intracranial vasculature: Atherosclerotic calcifications of the larger arteries near the skull base. Soft tissues: No significant abnormality. Visualized orbits: Orbital contents appear grossly intact. Calvarium/osseous structures: No evidence of calvarial fracture. Paranasal sinuses and mastoid air cells: Clear. MRI is more sensitive for detecting acute processes such as infarct, and may be considered if clinica lly warranted. Cervical spine: Fracture: None seen. Osseous structures, spinal canal/neural foramina: Craniocervical junction appears intact. Mild/modera te degenerative changes of the anterior C1-C2 articulation. Mild/moderate multilevel degenerative dis k disease and facet arthrosis throughout the cervical spine. Changes appear most significant at: C3-C 4 where there is severe left neural foraminal stenosis, mild canal and right neural foraminal stenosi s. C5-C6 where there is moderate to severe right neural foraminal stenosis. C6-C7 where there is mode rate to severe right neural foraminal stenosis, mild canal and lateral foraminal stenosis. Previous l eft-sided laminectomy has been performed at this level. Vertebral alignment: No traumatic malalignment. Some straightening of the normal cervical lordosis, c an be seen with degenerative changes, pain, positioning, muscular spasm. Neck soft tissues: No acute finding.. Airway appears patent. Moderate atherosclerotic calcifications in the carotid bifurcation regions. Other: Lung apices show no acute infiltrate or pneumothorax. Mild to moderate emphysematous changes. IMPRESSION: CT head: 1. No acute intracranial CT abnormality. 2. Atrophy and chronic microvascular ischemic changes. CT cervical spine: 1. No evidence of acute cervical spine fracture or traumatic malalignment. 2. Mild to moderate cervical spondylosis with potentially significant neural foraminal stenoses, as a claudette.
[2023-05-23 12:44] VITALS: RESP 20
--- NOTE | 2023-05-23 13:34 | XR ---
EXAMINATION TYPE: XR shoulder complete RT DATE OF EXAM: 05/23/2023 11:56 AM CLINICAL INDICATION:Male, 63 years old with history of Trauma; [facility] COMPARISON: TECHNIQUE: XR shoulder complete RT; shoulder was examined in AP, internally rotated and scapular Y p rojections. FINDINGS: No evidence of acute osseous pathology, joint dislocation, or soft tissue swelling. Mild to moderate degenerative changes of the acromioclavicular and glenohumeral joints. IMPRESSION: No acute osseous pathology.
--- NOTE | 2023-05-23 13:37 | XR ---
EXAMINATION TYPE: XR wrist complete RT DATE OF EXAM: 05/23/2023 11:56 AM CLINICAL INDICATION:Male, 63 years old with history of Trauma; [facility] COMPARISON: None. TECHNIQUE: 4 views of the right wrist. FINDINGS: Osseous mineralization appears appropriate. No destructive bony lesion. No acute fracture or dislocat ion. Mild degenerative changes.. Unremarkable soft tissues. No radiopaque foreign body is seen. IMPRESSION: No evidence of fracture or dislocation.
--- NOTE | 2023-05-23 13:44 | XR ---
EXAMINATION TYPE: XR chest 2V DATE OF EXAM: 05/23/2023 11:56 AM CLINICAL INDICATION:Male, 63 years old with history of Chest Pain; [facility] COMPARISON: Chest radiographs from 04/17/2023 TECHNIQUE: XR chest 2V Frontal and lateral views of the chest. FINDINGS: Lungs/Pleura: There is no evidence of pleural effusion, focal consolidation, or pneumothorax. Pulmonary vascularity: Unremarkable. Heart/mediastinum: Cardiomediastinal silhouette is unremarkable. Musculoskeletal: Degenerative changes of the shoulder joints. IMPRESSION: No acute cardiopulmonary disease/process.
[2023-05-23] MEDS: ACETAMINOPHEN TAB 500 MG TAB PO STA (13:58)
[2023-05-23 14:03] VITALS: BP 165/95; PULSE 98
== END 2023-05-23 14:16 | disposition home or self-care (01) ==
LOC: EC 10:24
DX: S63.501A Unspecified sprain of right wrist, initial encounter (principal); S40.011A Contusion of right shoulder, initial encounter; F10.129 Alcohol abuse with intoxication, unspecified; F12.90 Cannabis use, unspecified, uncomplicated; F17.200 Nicotine dependence, unspecified, uncomplicated; Y90.7 Blood alcohol level of 200-239 mg/100 ml; W19.XXXA Unspecified fall, initial encounter; Y93.01 Activity, walking, marching and hiking
CPT/HCPCS: 36415; 93005; 80053; 83735; 84484; 85025; 85610; 85730; 73030; 73110; 71046; 72125; 70450; 99285; 96360; G0480; 80320

== ENCOUNTER 2023-07-04 11:58 | Inpatient (IN) | payer MEDICARE ==
[2023-07-04 13:08] LABS: Basophils % (A) 1 %; Eosinophils # (A) 0.1 k/uL (0-0.7); Eosinophils % (A) 1 %; HCT 34.8 % (39.0-53.0); HGB 11.6 gm/dL (13.0-17.5); Lymphocytes # (A) 0.5 k/uL (1.0-4.8); Lymphocytes % (A) 7 %; MCH 31.4 pg (25.0-35.0); MCHC 33.2 g/dL (31.0-37.0); MCV 94.7 fL (80.0-100.0); Mean Platelet Volume 8.5; Monocytes # (A) 0.4 k/uL (0-1.0); Monocytes % (A) 5 %; Neutrophils # (A) 6.1 k/uL (1.3-7.7); Neutrophils % (A) 86 %; RBC 3.68 m/uL (4.30-5.90); RDW 14.5 % (11.5-15.5); WBC 7.1 k/uL (3.8-10.6)
[2023-07-04 13:17] LABS: Partial Thromboplastin Time 24.7 sec (22.0-30.0); Prothrombin Time 11.1 sec (10.0-12.5)
[2023-07-04 13:26] LABS: ALT 22 U/L (4-49); AST 77 U/L (17-59); African American GFR (CKD) >90 (>60 ml/min/1.73 sqM); Albumin 4.2 g/dL (3.5-5.0); Alcohol 70 mg/dL; Alkaline Phosphatase 94 U/L (38-126); Anion Gap 14 mmol/L; Blood Urea Nitrogen 11 mg/dL (9-20); Calcium 8.3 mg/dL (8.4-10.2); Carbon Dioxide 21 mmol/L (22-30); Chloride 106 mmol/L (98-107); Glucose 72 mg/dL (74-99); Lipase 112 U/L (23-300); Magnesium 1.2 mg/dL (1.6-2.3); Non-African American GFR(CKD) >90 (>60 ml/min/1.73 sqM); Potassium 3.2 mmol/L (3.5-5.1); Sodium 141 mmol/L (137-145); Total Bilirubin 1.1 mg/dL (0.2-1.3); Total Protein 6.8 g/dL (6.3-8.2)
[2023-07-04 13:44] LABS: Platelet Count 45 k/uL (150-450)
--- NOTE | 2023-07-04 15:05 | ED ---
Chest Pain HPI - General Chief Complaint: Chest Pain Stated Complaint: Chest pain Time Seen by Provider: 07/04/23 12:00 Source: patient, EMS Mode of arrival: EMS Limitations: no limitations - History of Present Illness Initial Comments: 63-year-old male with past medical history of alcohol abuse who presents emergency department reporting chest pain. States that it started this morning. Described as a pressure sensation over the left side of his chest. States that the pain is so severe that it has caused his legs to feel numb. EMS did give him an aspirin and 3 nitro. He states that it completely resolved his pain. He denies history of coronary disease. Does have history of alcohol abuse. States his last drink was 2 days ago. - Related Data Home Medications Medication Instructions Recorded Confirmed Acetaminophen Tab [Tylenol Tab] 500 mg PO Q6H PRN 07/04/23 07/04/23 Men's Multivitamin 50+ Gummy 1 tab PO DAILY 07/04/23 07/04/23 Potassium Gluconate 99 mg PO DAILY 07/04/23 07/04/23 Thiamine [Vitamin B-1] 100 mg PO DAILY 07/04/23 07/04/23 Allergies Allergy/AdvReac Type Severity Reaction Status Date / Time No Known Allergies Allergy Verified 07/04/23 17:49 Review of Systems ROS Statement: Those systems with pertinent positive or pertinent negative responses have been documented in the HPI. ROS Other: All systems not noted in ROS Statement are negative. Past Medical History Past Medical History: Blood Disorder, Hearing Disorder / Deafness, Hyperlipidemia, Osteoarthritis (OA), Syncope Additional Past Medical History / Comment(s): ETOH abuse/withdrawal DTs, thrombocytopenia, FALLS, past high cholesterol, neuropathy bilateral hands/feet, chronic back pain, benign colon polyps, frequent urination/wears depends, tinnitis bilateral ears, sinus issues. History of Any Multi-Drug Resistant Organisms: None Reported Past Surgical History: Back Surgery, Joint Replacement Additional Past Surgical History / Comment(s): Back surgeries x 3, cervical surgery, bilateral hip surgeries including total hip arthroplasties, R knee arthroscopy/meniscus repair, R knee injections, R shoulder rotator cuff repair, bilateral wrist carpal tunnel releases, colonoscopy. Past Anesthesia/Blood Transfusion Reactions: No Reported Reaction Past Psychological History: Anxiety Smoking Status: Current every day smoker Past Alcohol Use History: Daily, Heavy Past Drug Use History: Marijuana - Past Family History Mother History Unknown: Yes Additional Family Medical History / Comment(s): Patient states after a fall which cause cervical fracture. Father Family Medical History: Dementia, Musculoskeletal Disorder Additional Family Medical History / Comment(s): Parkinsons General Exam Limitations: no limitations General appearance: alert, in no apparent distress Head exam: Present: atraumatic, normocephalic, normal inspection Eye exam: Present: normal appearance, PERRL, EOMI. Absent: scleral icterus, conjunctival injection, periorbital swelling ENT exam: Present: normal exam, mucous membranes moist Neck exam: Present: normal inspection. Absent: tenderness, meningismus, lymphadenopathy Respiratory exam: Present: normal lung sounds bilaterally. Absent: respiratory distress, wheezes, rales, rhonchi, stridor Cardiovascular Exam: Present: regular rate, normal rhythm, normal heart sounds. Absent: systolic murmur, diastolic murmur, rubs, gallop, clicks GI/Abdominal exam: Present: soft, normal bowel sounds. Absent: distended, tenderness, guarding, rebound, rigid Extremities exam: Present: normal inspection, full ROM, normal capillary refill. Absent: tenderness, pedal edema, joint swelling, calf tenderness Back exam: Present: normal inspection Neurological exam: Present: alert, oriented X3, CN II-XII intact Psychiatric exam: Present: normal affect, normal mood Skin exam: Present: warm, dry, intact, normal color. Absent: rash Course Vital Signs 07/04/23 07/04/23 11:59 19:42 Temperature 98.4 F 98.6 F Pulse Rate 111 H 98 Respiratory 16 16 Rate Blood Pressure 145/97 134/99 O2 Sat by Pulse 99 99 Oximetry Chest Pain MDM - MDM Was pt. sent in by a medical professional or institution (, PA, EDUCATIONAL ADMINISTRATOR, urgent care, hospital, or [facility]...) When possible be specific @ -No Did you speak to anyone other than the patient for history (EMS, parent, family, police, friend...)? What history was obtained from this source @ -Spoke with EMS for history Did you review nursing and triage notes (agree or disagree)? Why? @ -I reviewed and agree with nursing and triage notes Were old charts reviewed (outside hosp., previous admission, EMS record, old EKG, old radiological studies, urgent care reports/EKG's, [facility] records)? Report findings @ -No old charts were reviewed Differential Diagnosis (chest pain, altered mental status, abdominal pain women, abdominal pain men, vaginal bleeding, weakness, fever, dyspnea, syncope, headache, dizziness, GI bleed, back pain, seizure, CVA, palpatations, mental health, musculoskeletal)? @ -Differential Chest Pain: Stable Angina, Unstable Angina, STEMI, NSTEMI Aortic Dissection, Pneumothorax, Musculoskeletal, Esophageal Spasm GERD, Cholecystitis, Pancreatitis, Zoster, this is not meant to be an all-inclusive list. EKG interpreted by me (3pts min.). @ -Yes and demonstrates sinus tachycardia with a rate of 107. VT interval 149. QRS 81. QTc of 415. No acute ST segment elevations or depressions X-rays interpreted by me (1pt min.). @ -None done CT interpreted by me (1pt min.). @ -Yes which demonstrates aneurysms that patient is already aware of U/S interpreted by me (1pt. min.). @ -None done What testing was considered but not performed or refused? (CT, X-rays, U/S, labs)? Why? @ -None What meds were considered but not given or refused? Why? @ -None Did you discuss the management of the patient with other professionals (professionals i.e. , PA, EDUCATIONAL ADMINISTRATOR, lab, RT, psych nurse, social services director, brick maker, teacher, air defense artillery officer, upper caser)? Give summary @ -Spoke with Dr. brown for admission Was smoking cessation discussed for >3mins.? @ -No Was critical care preformed (if so, how long)? @ -No Were there social determinants of health that impacted care today? How? (Homelessness, low income, unemployed, alcoholism, drug addiction, transportation, low edu. Level, literacy, decrease access to med. care, senior care, rehab)? @ -No Was there de-escalation of care discussed even if they declined (Discuss DNR or withdrawal of care, Hospice)? DNR status @ -No What co-morbidities impacted this encounter? (DM, HTN, Smoking, COPD, CAD, Cancer, CVA, ARF, Chemo, Hep., AIDS, mental health diagnosis, sleep apnea, morbid obesity)? @ -History of aneurysms, hyperlipidemia, alcohol abuse Was patient admitted / discharged? Hospital course, mention meds given and route, prescriptions, significant lab abnormalities, going to OR and other pertinent info. @ -Upon arrival patient seen and evaluated in room 7. Thorough history and physical exam was performed. IV access was established. Laboratory studies are conducted. As patient is reporting the chest pain with lower extremity numbness I did CT him. It does demonstrate 2 aneurysms with some thrombus. Patient is aware of these aneurysms. Patient does request medication for pain control. Patient is given dose of morphine. Recommended admission for further evaluation by cardiology. Patient was agreeable to this. Spoke with Dr. Brown for admission Undiagnosed new problem with uncertain prognosis? @ -No Drug Therapy requiring intensive monitoring for toxicity (Heparin, Nitro, Insulin, Cardizem)? @ -No Were any procedures done? @ -No Diagnosis/symptom? @ -Acute chest pain, abdominal aneurysms Acute, or Chronic, or Acute on Chronic? @ -Acute Uncomplicated (without systemic symptoms) or Complicated (systemic symptoms)? @ -Complicated Side effects of treatment? @ -No Exacerbation, Progression, or Severe Exacerbation? @ -No Poses a threat to life or bodily function? How? (Chest pain, [place], [place], pneumonia, PE, COPD, DKA, ARF, appy, cholecystitis, CVA, Diverticulitis, Homicidal, Suicidal, threat to staff... and all critical care pts) @ -No Disposition Clinical Impression: Alcohol intoxication, Chest pain, Alcohol abuse, Thrombocytopenia, Hypomagnesemia, Hypokalemia Disposition: ADMITTED IP TO THIS HOSP Condition: Serious Is patient prescribed a controlled substance at d/c from ED?: No Time of Disposition: 18:00 Decision to Admit Reason: Admit from EC Decision Date: 07/04/23 Decision Time: 18:00
[2023-07-04] MEDS: LORazepam 2 MG/ML INJ IV STA (16:38)
[2023-07-04] MEDS: MORPHINE SULFATE 4 MG/ML SYRINGE IVP STA (16:38)
[2023-07-04] MEDS ORDERED: NALOXONE 0.4 MG/ML 1 ML VIAL IV PRN (18:00)
[2023-07-04] MEDS: MAGNESIUM SULFATE-D5W PMX 1 GM in DEXTROSE/WATER 1 100ML.BAG IVPB SCH (18:24)
--- NOTE | 2023-07-04 19:03 | CT ---
EXAMINATION TYPE: CT angio abdomen pelvis CT DLP: 722.6 mGycm, Automated exposure control for dose reduction was used. DATE OF EXAM: 07/04/2023 3:15 PM COMPARISON: None. . CLINICAL INDICATION:Male, 63 years old with history of numbness b/l extremities, hx aneurysm; PHH, bi lateral leg numbness TECHNIQUE: Multiple thin slice angiographic sub-millimeter images of the abdomen and pelvis were obta ined after administration of contrast. 3-D reconstructed images and maximum intensity projection margoth ges were obtained. CT Contrast: Contrast used:100 mL of Isovue 370 with IV Contrast, Oral contrast used: without Oral Contrast None FINDINGS: CTA Abdomen and pelvis: Moderate to heavy atherosclerotic calcifications throughout the abdominal aorta and major branches. Postcontrast study shows relatively normal enhancement of the aortic lumen without evidence of dissec tion flap. There is some soft plaque superimposed on the calcific plaque throughout. There is luminal narrowing with hooklike configuration of the proximal celiac artery and mild poststenotic dilatation which can be seen with median arcuate ligament syndrome. The proximal superior mesenteric artery is patent, major branches appear patent. There is a saccular aneurysm suggested extending towards the ri ght off of a SMA branch on image 66 series 501,r measuring 15 x 11 mm, has peripheral calcification o f the wall and significant crescentic intraluminal thrombus however the enhancing lumen does not appe ar significantly narrowed. The proximal right renal artery appears normally patent. Proximal left lopez al artery appears mildly to moderately narrowed by mixed plaque. Below the renal arteries, there is an unusual lobular saccular aneurysm extending from the anterior w all of the aorta, difficult to measure precisely but the aneurysm plus the aortic lumen is about 3.9 x 2.9 cm, image 75. Most of the aneurysm component shows crescentic thrombus anteriorly with the cavazos nt lumen of the aorta essentially preserved, and there is some mild smooth remaining bulging of the c ontrast column in the base of the aneurysm. No dissection flap is seen. MARGOTH takeoff is patent. Additi onal moderate mixed disease throughout the iliac arterial trees without critical stenosis, aneurysm, or dissection seen. Visualized superficial femoral and profunda femoris arteries appear patent bilate rally. Non-CTA findings: There are some limitations due to the angiographic phase of imaging. Heart size appears within normal limits. No pericardial effusion. Mild dependent atelectasis in the l donis bases. Severe hepatic steatosis. No calcified gallstones or evidence of cholecystitis. No biliary dilatation is seen. Spleen, pancreas show no acute abnormality. There is no adrenal mass. Adrenals appear mildly thickene d. Kidneys show no discrete acute abnormality. No free fluid or free air in the abdomen. No adenopathy by CT criteria. GI tract limited without enteric contrast. There is no evidence of obstruction or wall pneumatosis. A ppendix is not visualized. Moderate stool throughout the colon without definite acute abnormality see n. No evidence of diverticulitis. Pelvis structures are largely obscured by artifact from bilateral femoral arthroplasties. Bladder noreen ears mildly distended, grossly unremarkable. Prostate not visualized. No acute soft tissue abnormality is seen. Bones appear mildly osteopenic. No acute abnormality is seen. There are moderate degenerative changes throughout the lumbar spine with associated canal and foraminal stenoses. IMPRESSION: CTA: * Moderate to heavy mixed calcific and soft atherosclerotic plaque throughout the abdominal aorta an d major branches. * Configuration of the proximal celiac artery can be seen in the setting of median arcuate ligament syndrome. Correlate for corresponding symptoms. * Saccular aneurysm suggested extending towards the right off of an SMA branch * In the mid abdomen measuring 15 x 11 mm, containing crescentic intraluminal thrombus however the e nhancing arterial lumen does not appear significantly narrowed. * Proximal right renal artery is patent. Proximal left renal artery appears mildly to moderately lia rowed by mixed plaque. * Below the renal arteries, there is an unusual lobular saccular aneurysm extending from the anterio r wall of the aorta, difficult to measure precisely but the aneurysm plus the aortic lumen is about 3 .9 x 2.9 cm. Most of the aneurysm component shows crescentic thrombus anteriorly with the patent lume n of the aorta essentially preserved, and there is some mild smooth remaining bulging of the contrast column in the base of the aneurysm. No dissection flap is seen. Non-CTA: * Severe hepatic steatosis. * No acute abnormality shown in the abdomen or pelvis.
[2023-07-04] MEDS: MORPHINE SULFATE 4 MG/ML SYRINGE IV PRN (20:42)
[2023-07-04] MEDS ORDERED: LORazepam 0.5 MG TAB PO PRN (22:18)
[2023-07-04] MEDS ORDERED: LORazepam 1 MG/0.5 ML VIAL IV PRN (22:18)
[2023-07-04] MEDS ORDERED: LORazepam 1 MG TAB PO PRN ×4 (22:18)
[2023-07-05] MEDS: POTASSIUM CHLORIDE ER 20 MEQ TAB.ER PO STA ×2 (00:33→22:15)
[2023-07-05] MEDS: NICOTINE 21MG/24HR PATCH TRANSDERM SCH (00:34)
[2023-07-05] MEDS: LORazepam 1 MG/0.5 ML VIAL IV PRN ×3 (03:56→15:36)
[2023-07-05 09:33] LABS: Blood Urea Nitrogen 9.8 mg/dL (9.0-27.0); Calcium 8.8 mg/dL (8.7-10.3); Carbon Dioxide 27.4 mmol/L (21.6-31.8); Chloride 93 mmol/L (96-109); Glucose 87 mg/dL (70-110); Potassium 3.2 mmol/L (3.5-5.5); Sodium 135 mmol/L (135-145)
[2023-07-05] MEDS: FOLIC ACID 1 MG TAB PO SCH (10:00)
[2023-07-05] MEDS: MULTIVITAMINS, THERA 1 EACH TAB PO SCH (10:00)
[2023-07-05 10:39] LABS: Basophils # (A) 0.05 X 10*3/uL (0.00-0.10); Basophils % (A) 0.9 %; Eosinophils # (A) 0.01 X 10*3/uL (0.04-0.35); Eosinophils % (A) 0.2 %; HCT 35.8 % (39.6-50.0); HGB 12.6 g/dL (13.0-17.0); Lymphocytes # (A) 0.64 X 10*3/uL (0.90-5.00); Lymphocytes % (A) 11.8 %; MCHC 35.2 g/dL (32.0-37.0); MCV 90.9 FL (80.0-97.0); Mean Platelet Volume 10.9 FL (9.5-12.2); Monocytes # (A) 0.61 X 10*3/uL (0.20-1.00); Monocytes % (A) 11.2 %; NRBC Per 100 WBC 0 X 10*3/uL (0.00-0.01); Neutrophils % (A) 75.5 %; Platelet Count 46 X 10*3/uL (140-440); RBC 3.94 X 10*6/uL (4.40-5.60); WBC 5.43 X 10*3/uL (4.50-10.00)
[2023-07-05] MEDS ORDERED: REGADENOSON 0.4 MG/5 ML SYRINGE IV PRN (13:27)
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
[2023-07-05] MEDS ORDERED: ACETAMINOPHEN TAB 500 MG TAB PO PRN (13:45)
[2023-07-05] MEDS: chlordiazePOXIDE 25 MG CAP PO SCH (15:35)
[2023-07-05] MEDS ORDERED: ZINC OXIDE PASTE (Z-GUARD) 1 APPLIC TOPICAL PRN (18:18)
[2023-07-05] MEDS ORDERED: ONDANSETRON 4 MG/2 ML VIAL IVP PRN (19:43)
[2023-07-05] MEDS: HEPARIN SODIUM,PORCINE 5,000 UNIT/ML 1 ML VIAL SQ SCH (20:14)
[2023-07-05] MEDS: SODIUM CHLORIDE 0.9% 1,000 ML IV SCH (20:30)
--- NOTE | 2023-07-05 23:23 | HP ---
HISTORY AND PHYSICAL CHIEF COMPLAINT: Chest pain. HISTORY OF PRESENT ILLNESS: This is a 63-year-old gentleman with a past medical history of multiple medical problems including hyperlipidemia, ETOH, syncope, was admitted with chest pain which was felt in the anterior part of chest and the left side of chest. The patient reports that the pain was so severe that legs felt numb and the patient took some admitted for further evaluation. The patient also had history of EtOH. Alcohol level was 70, the patient is possibly going through early withdrawals also. There is no history of any fevers, rigors, or chills. PAST MEDICAL HISTORY: Hyperlipidemia, syncope, EtOH, rest of the history and rest of the chart is also reviewed. HOME MEDICATIONS: Thiamine, dose and rest of medications reviewed. ALLERGIES: None. FAMILY HISTORY: History of dementia. SOCIAL HISTORY: Heavy alcohol, marijuana. REVIEW OF SYSTEMS: A 14-point review is negative except as mentioned earlier. PHYSICAL EXAMINATION: VITAL SIGNS: Pulse is 90, blood pressure 153/84, respirations 18. HEENT: Conjunctivae normal. NECK: No jugular venous distention. CARDIOVASCULAR: S1, S2. RESPIRATIONS: Few scattered rhonchi. ABDOMEN: Soft, nontender. LEGS: No edema. NERVOUS SYSTEM: Diffusely weak and tremulous. SKIN: No ulcer, rash, bleeding. JOINTS: No active deforming arthropathy. LABORATORY DATA: WBC 5.3, platelets 40, rest of the labs are noted. ASSESSMENT: 1. Chest pain for evaluation, rule out coronary artery disease. 2. Alcohol intoxication and early delirium tremens. 3. Hypokalemia. 4. Thrombocytopenia, possibly secondary to alcohol. 5. Hyperlipidemia. 6. History of DJD. 7. History of syncope. 8. History of falls. 9. History of anxiety. RECOMMENDATIONS AND DISCUSSION: This is a 63-year-old gentleman with multiple complex medical issues, we will monitor the patient closely. [facility] protocol. Cardiology evaluation. Symptomatic treatment. Recommend social service consultation and arrange rehab after discharge. Prognosis is guarded. Further recommendations to follow. Seizure precautions. See orders for details. MMODL / IJN: [id number] / YAO
[2023-07-06] MEDS ORDERED: CAFFEINE CITRATE 60 MG/3 ML VIAL IV PRN (06:00)
[2023-07-06] MEDS ORDERED: REGADENOSON 0.4 MG/5 ML SYRINGE IV PRN (06:00)
[2023-07-06] MEDS ORDERED: AMINOPHYLLINE 500 MG/20 ML VIAL IV PRN (06:00)
[2023-07-06] MEDS: PANTOPRAZOLE 40 MG TABLET PO SCH (06:23)
[2023-07-06] MEDS: THIAMINE 100 MG TAB PO SCH (08:46)
[2023-07-06] MEDS ORDERED: NON FORMULARY DRUG (Potassium Gluconate [Potassium Gluconate] 99 MG Tablet) PO SCH (09:00)
[2023-07-06 10:50] LABS: Basophils # (A) 0.03 X 10*3/uL (0.00-0.10); Basophils % (A) 0.4 %; Eosinophils # (A) 0.05 X 10*3/uL (0.04-0.35); Eosinophils % (A) 0.7 %; HCT 35.1 % (39.6-50.0); Immature Platelet Fraction 12.7 % (1.1-6.1); Lymphocytes # (A) 0.87 X 10*3/uL (0.90-5.00); Lymphocytes % (A) 11.4 %; MCH 31.7 pg (27.0-32.0); MCHC 34.2 g/dL (32.0-37.0); MCV 92.6 FL (80.0-97.0); Mean Platelet Volume 12.2 FL (9.5-12.2); Monocytes % (A) 9.2 %; NRBC Per 100 WBC 0 X 10*3/uL (0.00-0.01); Neutrophils # (A) 5.98 X 10*3/uL (1.80-7.70); Platelet Count 37 X 10*3/uL (140-440); RBC 3.79 X 10*6/uL (4.40-5.60); WBC 7.65 X 10*3/uL (4.50-10.00)
[2023-07-06 11:27] LABS: ALT 22 U/L (10-49); AST 46 U/L (14-35); Albumin 4.2 g/dL (3.8-4.9); Albumin/Globulin Ratio 1.91 Ratio (1.60-3.17); Alkaline Phosphatase 95 U/L (41-126); BUN/Creat Ratio 18.86 Ratio (12.00-20.00); Blood Urea Nitrogen 13.2 mg/dL (9.0-27.0); Carbon Dioxide 27.3 mmol/L (21.6-31.8); Chloride 94 mmol/L (96-109); Globulin 2.2 g/dL (1.6-3.3); Glucose 81 mg/dL (70-110); Potassium 3.3 mmol/L (3.5-5.5); Sodium 136 mmol/L (135-145); Total Protein 6.4 g/dL (6.2-8.2)
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
--- NOTE | 2023-07-06 12:46 | NM ---
EXAMINATION TYPE: NM stress lexiscan cardiolite DATE OF EXAM: 07/06/2023 COMPARISON: NONE CLINICAL INDICATION: Male, 63 years old with history of chest pain; TECHNIQUE: After the intravenous administration of 10.4 mCi Tc 99m Sestamibi - Cardiolite resting SP ECT images acquired 70 minutes post injection. The patient received 0.4mg Lexiscan, 24 mCi Tc 99m Sestamibi - Stress images obtained 30 minutes post injection FINDINGS: Review of stress and rest SPECT images demonstrates predominantly a fixed area of reduced uptake on b oth stress and rest images along the anteroseptal myocardium.. Gated analysis shows normal wall wyatt on with an estimated left ventricular ejection fraction of 86 %. IMPRESSION: Predominantly fixed small defect involving the myocardial septum. Tiny area of stress-induced reversi ble ischemia is not excluded correlate clinically.
[2023-07-06] MEDS: POTASSIUM CHLORIDE ER 20 MEQ TAB.ER PO STA (13:23)
--- NOTE | 2023-07-06 18:25 | CA ---
Transthoracic Echo Report Name: Donte May Age: 63 Gender: M : 1960 Exam Date: 07/06/2023 12:07 Exam Location: [facility] Ht (in): 67 Wt (lb): 120 Ordering Physician: Kaur Leon Attending/Referring Phys: Cnc Programmer Martina Silverman RDCS Procedure CPT: Indications: Chest Pain Cardiac Hx: Technical Quality: Poor Contrast 1: Total Dose (mL): Contrast 2: Total Dose (mL): MEASUREMENTS (Male / Female) Normal Values 2D ECHO LV Diastolic Diameter PLAX 3.6 cm 4.2 - 5.9 / 3.9 - 5.3 cm LV Systolic Diameter PLAX 2.3 cm IVS Diastolic Thickness 1.0 cm 0.6 - 1.0 / 0.6 - 0.9 cm LVPW Diastolic Thickness 1.0 cm 0.6 - 1.0 / 0.6 - 0.9 cm LV Relative Wall Thickness 0.6 RV Internal Dim ED PLAX 2.4 cm LA Systolic Diameter LX 2.9 cm 3.0 - 4.0 / 2.7 - 3.8 cm M-MODE Aortic Root Diameter MM 3.2 cm AV Cusp Separation MM 2.0 cm DOPPLER AV Peak Velocity 70.6 cm/s AV Peak Gradient 2.0 mmHg MV Area PHT 5.5 cm??? Mitral E Point Velocity 46.9 cm/s Mitral A Point Velocity 53.3 cm/s Mitral E to A Ratio 0.9 MV Deceleration Time 138.7 ms FINDINGS Left Ventricle Left ventricular ejection fraction is estimated at 55-60 %. Small left ventricular cavity. No obvious regional wall motion abnormalities. Right Ventricle Normal right ventricular size and function. Unable to estimate the right ventricular systolic pressure. Right Atrium Normal right atrial size. No right atrial thrombus or mass seen. Left Atrium Left atrium not well visualized. No left atrial thrombus or mass present. Mitral Valve Structurally normal mitral valve. No mitral stenosis, regurgitation or prolapse. Aortic Valve No aortic valve stenosis or regurgitation. Tricuspid Valve Structurally normal tricuspid valve. No tricuspid stenosis, regurgitation or prolapse. Pulmonic Valve No pulmonic regurgitation. Pericardium No pericardial effusion. No pleural effusion. Aorta Normal size aortic root and proximal ascending aorta. CONCLUSIONS Left ventricular ejection fraction is estimated at 55-60 %. No obvious regional wall motion abnormalities. Normal right ventricular size and function. No significant valvular dysfunction No pericardial effusion. Previewed by: Dr Cuba Villalobos (Electronically Signed) Final Date: 06 Jul 2023 18:24
--- NOTE | 2023-07-06 18:26 | CA ---
Lexiscan Nuclear Stress Test Report Name: Donte May Exam Date: 07/06/2023 11:07 Exam Location: [facility] Ht (in): 67 Wt (lb): 118 BSA: 1.62 Ordering Phys: Kaur Leon Referring Phys: MARVIN Technologist: ZAIDA Age: 63 Gender: M : 1960 Procedure CPT: Indications: Reflex order-Stress test ICD-10 Codes: Patient History: Chest pain, short of breath and palpitations Medications: Meds past 24 hrs: Pretest Chest Pain: STRESS TEST Lexiscan Protocol Exercise Duration (min:sec): 01:[address] Depressions (mm): Angina Score: Kemp Score: Resting HR (bpm): 86 Peak HR (bpm): 114 Resting BP (mmHg): 158 / 90 Peak BP (mmHg): 146 / 73 MPHR: 155 Target HR: 132 % MPHR: 74 METS: 1.0 Total Dose: Peak Dose: Atropine: Double Product: 40575 BP Response: Stress Termination: Infusion complete Stress Symptoms: No chest pain or symptoms Stress Summary: ECG ANALYSIS Resting ECG: Stress ECG: CONCLUSIONS RESTING EKG: [Normal sinus rhythm, normal EKG] , Heart rate 86 BPM Patient recieved IV infusion of Lexiscan 0.4mg and at peak infusion STRESS EKG showed: [No significant ST-T wave changes diagnostic for ischemia by ST segment analysis] ARRYTHMIAS: [No ectopic rhythms or sustained arrythmias] CONCLUSION: 1. Normal hemodynamic and clinical response to Lexiscan infusion. 2. Non-ischemic EKG response to lexiscan infusion Please refer to the nuclear imaging portion of this stress test for complete interpretation of the study. Dr Cuba Villalobos (Electronically Signed) Final Date: 06 Jul 2023 18:25
[2023-07-06] MEDS ORDERED: LORazepam 1 MG TAB PO PRN (19:13)
--- NOTE | 2023-07-06 19:21 | P.PN ---
Subjective Progress Note Date: 07/06/23 This is a pleasant 63-year-old male who was recently admitted with chest pain along with EtOH intoxication with concerns of acute delirium tremens. Patient evaluated by cardiology with 3 negative troponins continuing to report chest pain and is scheduled to undergo stress test today. Patient is maintained on CIWA protocol along with Librium taper and will continue. Patient is afebrile with no reports of worsening chest pain or shortness of breath. Patient reports to being extremely tremulous. Plan is for patient to return home with home care on discharge. Discussed complete alcohol cessation. Review of systems: Constitutional: No reports of fatigue, fever, or chills Cardiovascular: No reports of chest pain or palpitations Respiratory: No reports of shortness of breath or cough GI: No reports of nausea, no reports of vomiting, no diarrhea : No reports of dysuria or retention Neurovascular: reports of generalized weakness All medications have been reviewed PHYSICAL EXAMINATION: GENERAL: The patient is alert and oriented x4, Well developed, thin built, elderly appearing, tremulous on exam HEENT: Pupils are round and equally reacting to light. EOMI. no scleral icterus. No conjunctival pallor. Normocephalic, atraumatic. No pharyngeal erythema. No thyromegaly. CARDIOVASCULAR: S1 and S2 muffled PULMONARY: diminished breath sounds bilaterally with no wheezing, coarse rhonchi noted. ABDOMEN: soft. Nontender on exam. Thin, scaphoid. non-distended, normoactive bowel sounds. No palpable organomegaly. MUSCULOSKELETAL: No joint swelling or deformity. EXTREMITIES: No cyanosis, clubbing, or pedal edema. Significant muscle wasting noted, cachectic NEUROLOGICAL: Gross neurological examination did not reveal any focal deficits. Diffuse weakness SKIN: No rashes. Assessment: Chest pain, ruled out ACS status post negative stress test on 07/06/2023 Alcohol intoxication and early delirium tremens Hypokalemia Thrombocytopenia, likely secondary to alcohol use Hyperlipidemia History of degenerative joint disease History of syncope History of falls Anxiety history Moderate protein calorie malnutrition with a BMI of 18.8 Continued ongoing nicotine dependence Daily alcohol use GI prophylaxis DVT prophylaxis Full code Plan: Recommend to continue with current medications and management with cardiology following. Patient underwent stress test with a tiny area of concern and reducible ischemia not entirely excluded although reviewed by cardiology and has cleared the patient for discharge. Patient to continue with current medications and outpatient follow-up with cardiology Patient is maintained on CIWA protocol and will continue with Librium taper. Will add as needed Ativan as needed for anxiety Encouraged to increase activity as tolerated. Patient with generalized weakness and recurrent falls discussed further with social work and will plan for home with home care as patient plans on returning home with family on discharge. Discussed complete alcohol cessation Encouraged oral intake Will monitor overnight with possible discharge planning in the next 24 hours Due to multiple complex medical issues, prognosis is guarded The impression and plan of care has been dictated by Meaghan Waller, nurse practitioner as directed. Dr. Marty MD I have performed a history and examination and MDM of this patient, discussed the same with the dictator, and agree with the dictator's assessment and plan as written ,documented as a scribe. Based on total visit time, I have performed more than 50% of the visit. Any additional findings or plans will be noted. Objective - Vital Signs Vital signs: Vital Signs Temp 98.0 F 07/06/23 07:25 Pulse 95 07/06/23 07:25 Resp 18 07/06/23 07:25 BP 126/72 07/06/23 07:25 Pulse Ox 99 07/06/23 07:25 FiO2 Intake & Output 07/05/23 07/06/23 07/06/23 18:59 06:59 18:59 Other: Voiding Method Urinal Urinal # Voids 2 2 # Bowel Movements 1 - Labs CBC & Chem 7: 07/06/23 06:29 07/06/23 06:29 Labs: Abnormal Lab Results - Last 24 Hours (Table) 07/05/23 07/06/23 07/06/23 Range/Units 06:33 06:29 06:29 RBC 3.79 L (4.40-5.60) X 10*6/uL Hgb 12.0 L (13.0-17.0) g/dL Hct 35.1 L (39.6-50.0) % Plt Count 37 L (140-440) X 10*3/uL Lymphocytes # 0.87 L (0.90-5.00) X 10*3/uL Immature Plt Fraction 12.7 H (1.1-6.1) % Potassium 3.3 L (3.5-5.5) mmol/L Chloride 94 L (96-109) mmol/L Anion Gap 14.70 H (4.00-12.00) mmol/L AST 46 H (14-35) U/L NT-Pro-B Natriuret Pep 597 H (0-125) pg/mL
[2023-07-07] MEDS: ASPIRIN 81 MG PO SCH (08:59)
[2023-07-07] MEDS: METOPROLOL SUCCINATE (ER) 25 MG TAB.ER.24H PO SCH (08:59)
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
[2023-07-07 10:45] LABS: Blood Urea Nitrogen 8.8 mg/dL (9.0-27.0); Calcium 8.9 mg/dL (8.7-10.3); Carbon Dioxide 25.2 mmol/L (21.6-31.8); Chloride 101 mmol/L (96-109); Glucose 92 mg/dL (70-110); Magnesium 1.8 mg/dL (1.5-2.4); Potassium 3.4 mmol/L (3.5-5.5); Sodium 138 mmol/L (135-145)
[2023-07-07 15:22] VITALS: BP 114/77; PULSE 85; RESP 20; TEMP 98.1
[2023-07-07] MEDS ORDERED: ATORVASTATIN 20 MG TAB PO SCH (21:00)
--- NOTE | 2023-07-10 07:34 | P.DS ---
Providers Date of admission: 07/05/23 13:44 Expected date of discharge: 07/07/23 Attending physician: Chaka Brown MD Consults: 07/04/23 18:00 Consult Physician Urgent Consulting Provider: [facility] Consult Reason/Comments: chest pain Do you want consulting provider notified?: Yes Primary care physician: Rosa Nieto Hospital Course: Final diagnosis Chest pain, ruled out ACS status post negative stress test on 07/06/2023 Alcohol intoxication and early delirium tremens Hypokalemia, improved Thrombocytopenia, likely secondary to alcohol use Hyperlipidemia History of degenerative joint disease History of syncope History of falls Anxiety history Moderate protein calorie malnutrition with a BMI of 18.8 Continued ongoing nicotine dependence Daily alcohol use GI prophylaxis DVT prophylaxis Full code Discharge disposition Patient is being discharged in a stable condition with guarded prognosis to home. Patient will follow-up with Dr. Nieto in the outpatient setting upon discharge. Patient is to continue with Librium taper and outpatient follow-up with AA meetings. Patient to follow-up with cardiology as scheduled. Total time taken is greater than 35 minutes. Hospital course This is a 63-year-old male who was recently admitted with chest pain and acute alcohol intoxication with acute delirium tremens being closely monitored. Patient maintained on CIWA protocol and also evaluated by cardiology underwent a stress test which per cardiology was negative recommending to continue with medical management and outpatient follow-up. Patient continued on CIWA protocol as well as to Librium taper and discussed alcohol cessation. Patient does not want to go to alcohol rehab. Will continue Librium taper on discharge and has been instructed to follow-up with primary care provider. Please refer to cardiology notes for further HPI. Currently no reports of chest pain, shortness of breath, or palpitations. Patient is afebrile. No reports of nausea or vomiting and patient is tolerating diet. Patient will be discharged home today. Guarded prognosis and high risk for readmissions given patient's continued alcohol use and noncompliance along with comorbidities. Physical exam: Gen: This is a 63-year-old male who is awake, alert and oriented x 3, thin built, elderly appearing, cachectic HEENT: Head is atraumatic, normocephalic. Pupils equal, round. Sclerae is anicteric. NECK: Supple. No JVD. No lymphadenopathy. No thyromegaly. LUNGS: Diminished breath sounds bilaterally otherwise clear to auscultation. No wheezes or rhonchi. No intercostal retractions. HEART: S1, S2 are muffled ABDOMEN: Soft. Thin, scaphoid bowel sounds are present. No masses. No tenderness. EXTREMITIES: No pedal edema. No calf tenderness. Significant muscle wasting noted of the upper and lower extremities NEUROLOGICAL: Patient is awake, alert and oriented x3. Cranial nerves 2 through 12 are grossly intact. Please refer to medication reconciliation sheet for a list of medications. The impression and plan of care has been dictated by Meaghan Waller, Nurse Practitioner as directed. Dr. Marty MD I have performed a history and examination and MDM of this patient, discussed the same with the dictator, and agree with the dictator's assessment and plan as written ,documented as a scribe. Based on total visit time, I have performed more than 50% of the visit. Patient Condition at Discharge: Fair Plan - Discharge Summary New Discharge Prescriptions: New Aspirin 81 mg PO DAILY #30 tab Folic Acid 1 mg PO DAILY #30 tab Nicotine 21Mg/24Hr Patch [Habitrol] 1 patch TRANSDERM DAILY patch Metoprolol Succinate (ER) [Toprol XL] 25 mg PO DAILY #30 tab chlordiazePOXIDE HCl [Librium] 25 mg PO TID #6 cap Atorvastatin [Lipitor] 20 mg PO HS #30 tab Multivitamins, Thera [Multivitamin (formulary)] 1 each PO DAILY #30 tab Continue Thiamine [Vitamin B-1] 100 mg PO DAILY Acetaminophen Tab [Tylenol] 500 mg PO Q6H PRN PRN Reason: Pain Or Fever > 100.5 Potassium Gluconate 99 mg PO DAILY Men's Multivitamin 50+ Gummy 1 tab PO DAILY Discharge Medication List Acetaminophen Tab [Tylenol] 500 mg PO Q6H PRN 07/04/23 [History] Men's Multivitamin 50+ Gummy 1 tab PO DAILY 07/04/23 [History] Potassium Gluconate 99 mg PO DAILY 07/04/23 [History] Thiamine [Vitamin B-1] 100 mg PO DAILY 07/04/23 [History] Aspirin 81 mg PO DAILY #30 tab 07/07/23 [Rx] Atorvastatin [Lipitor] 20 mg PO HS #30 tab 07/07/23 [Rx] Folic Acid 1 mg PO DAILY #30 tab 07/07/23 [Rx] Metoprolol Succinate (ER) [Toprol XL] 25 mg PO DAILY #30 tab 07/07/23 [Rx] Multivitamins, Thera [Multivitamin (formulary)] 1 each PO DAILY #30 tab 07/07/23 [Rx] Nicotine 21Mg/24Hr Patch [Habitrol] 1 patch TRANSDERM DAILY patch 07/07/23 [Rx] chlordiazePOXIDE HCl [Librium] 25 mg PO TID #6 cap 07/07/23 [Rx] Follow up Appointment(s)/Referral(s): [facility], [NON-STAFF] - As Needed (Must have PCP appointment prior to PCP signing Home Care Orders ) Rosa Nieto MD [Primary Care Provider] - 07/08/23 3:00 pm (Must have PCP appointment prior to PCP signing Home Care Orders ) Patient Instructions/Handouts: Chest Pain (GEN), Abuse of Alcohol (GEN), Alcohol Withdrawal (GEN) Discharge/Stand Alone Forms: AA Meetings [address] - [facility], AA Meetings [place], Who Do I Call?, Community Resources, Outpatient Counseling, In Substance Abuse Facilities Discharge Disposition: HOME WITH HOME HEALTH SERVICES
== END 2023-07-07 20:20 | disposition home health service (06) | DRG 313 ==
LOC: EC 11:58 → 6NMEDSUR 18:01 → OBSVTOIN 07-05 13:44
PROVIDERS: ADMIT Internal Medicine; ATTEND Internal Medicine
DX: R07.9 Chest pain, unspecified (principal); F10.121 Alcohol abuse with intoxication delirium; F10.131 Alcohol abuse with withdrawal delirium; E44.0 Moderate protein-calorie malnutrition; Z68.1 Body mass index [BMI] 19.9 or less, adult; E88.A Wasting disease (syndrome) due to underlying condition; D69.59 Other secondary thrombocytopenia; Z28.310 Unvaccinated for COVID-19; E78.00 Pure hypercholesterolemia, unspecified; G62.9 Polyneuropathy, unspecified; E83.42 Hypomagnesemia; E87.6 Hypokalemia; Y90.3 Blood alcohol level of 60-79 mg/100 ml; F41.9 Anxiety disorder, unspecified; H91.90 Unspecified hearing loss, unspecified ear; G89.29 Other chronic pain; M54.9 Dorsalgia, unspecified; M19.90 Unspecified osteoarthritis, unspecified site; R35.0 Frequency of micturition; F17.200 Nicotine dependence, unspecified, uncomplicated; Z71.6 Tobacco abuse counseling; Z79.899 Other long term (current) drug therapy; Z91.81 History of falling; Z59.41 Food insecurity; Z59.82 Transportation insecurity; Z63.8 Other specified problems related to primary support group; Z96.643 Presence of artificial hip joint, bilateral; Z98.1 Arthrodesis status
CPT/HCPCS: 36415; 74174; 78452; 80048; 80053; 80320; 83690; 83735; 83880; 84484; 85025; 85610; 85730; 93005; 93017; 93306; 96365; 96366; 96375; 99285

== ENCOUNTER 2023-10-27 15:36 | Emergency (ER) | payer MEDICARE ==
[2023-10-27 15:53] VITALS: TEMP 98.3
--- NOTE | 2023-10-27 16:20 | ED ---
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 Fall Witnessed: no Place Fall Occurred: home Loss of Consciousness: none Prolonged Down Time?: no Symptoms Prior to Fall: none Location: head Severity: mild Context: tripped/slipped, alcohol use Associated Symptoms: denies - Related Data Home Medications Medication Instructions Recorded Confirmed Acetaminophen Tab [Tylenol] 500 mg PO Q6H PRN 07/04/23 07/04/23 Men's Multivitamin 50+ Gummy 1 tab PO DAILY 07/04/23 07/04/23 Potassium Gluconate 99 mg PO DAILY 07/04/23 07/04/23 Thiamine [Vitamin B-1] 100 mg PO DAILY 07/04/23 07/04/23 Previous Rx's Medication Instructions Recorded Aspirin 81 mg PO DAILY #30 tab 07/07/23 Atorvastatin [Lipitor] 20 mg PO HS #30 tab 07/07/23 Folic Acid 1 mg PO DAILY #30 tab 07/07/23 Metoprolol Succinate (ER) [Toprol 25 mg PO DAILY #30 tab 07/07/23 XL] Multivitamins, Thera [Multivitamin 1 each PO DAILY #30 tab 07/07/23 (formulary)] Nicotine 21Mg/24Hr Patch [Habitrol] 1 patch TRANSDERM DAILY patch 07/07/23 chlordiazePOXIDE HCl [Librium] 25 mg PO TID #6 cap 07/07/23 Allergies Allergy/AdvReac Type Severity Reaction Status Date / Time No Known Allergies Allergy Verified 07/08/23 15:05 Review of Systems ROS Statement: Those systems with pertinent positive or pertinent negative responses have been documented in the HPI. ROS Other: All systems not noted in ROS Statement are negative. Past Medical History Past Medical History: Blood Disorder, Hearing Disorder / Deafness, Hyperlipidemia, Osteoarthritis (OA), Syncope Additional Past Medical History / Comment(s): ETOH abuse/withdrawal DTs, thrombocytopenia, FALLS, past high cholesterol, neuropathy bilateral hands/feet, chronic back pain, benign colon polyps, frequent urination/wears depends, tinnitis bilateral ears, sinus issues. History of Any Multi-Drug Resistant Organisms: None Reported Past Surgical History: Back Surgery, Joint Replacement Additional Past Surgical History / Comment(s): Back surgeries x 3, cervical surgery, bilateral hip surgeries including total hip arthroplasties, R knee arthroscopy/meniscus repair, R knee injections, R shoulder rotator cuff repair, bilateral wrist carpal tunnel releases, colonoscopy. Past Anesthesia/Blood Transfusion Reactions: No Reported Reaction Past Psychological History: Anxiety Smoking Status: Current every day smoker Past Alcohol Use History: Daily, Heavy Past Drug Use History: Marijuana - Past Family History Mother History Unknown: Yes Additional Family Medical History / Comment(s): Patient states after a fall which cause cervical fracture. Father Family Medical History: Dementia, Musculoskeletal Disorder Additional Family Medical History / Comment(s): Parkinsons General Exam General appearance: alert, in no apparent distress, appears intoxicated Head exam: Present: atraumatic, normocephalic, normal inspection Eye exam: Present: normal appearance, PERRL, EOMI. Absent: scleral icterus, conjunctival injection, periorbital swelling ENT exam: Present: normal exam, mucous membranes moist Neck exam: Present: normal inspection. Absent: tenderness, meningismus, l ymphadenopathy Respiratory exam: Present: normal lung sounds bilaterally. Absent: respiratory distress, wheezes, rales, rhonchi, stridor Cardiovascular Exam: Present: regular rate, normal rhythm, normal heart sounds. Absent: systolic murmur, diastolic murmur, rubs, gallop, clicks GI/Abdominal exam: Present: soft, normal bowel sounds. Absent: distended, tenderness, guarding, rebound, rigid Extremities exam: Present: normal inspection, full ROM, normal capillary refill. Absent: tenderness, pedal edema, joint swelling, calf tenderness Back exam: Present: normal inspection Neurological exam: Present: alert, oriented X3, CN II-XII intact Psychiatric exam: Present: normal affect, normal mood Skin exam: Present: warm, dry, intact, normal color. Absent: rash Course Vital Signs 10/27/23 10/27/23 10/27/23 15:46 17:53 20:30 Temperature 98.3 F Pulse Rate 105 H 94 96 Respiratory 18 20 20 Rate Blood Pressure 125/54 146/85 158/87 O2 Sat by Pulse 96 98 95 Oximetry - Reevaluation(s) Reevaluation #1: Medical records reviewed Reevaluation #2: Patient has no significant change in symptoms here in the ER Reevaluation #3: Patient informed of results and questions answered Reevaluation #4: Was pt. sent in by a medical professional or institution (, [facility], [facility], urgent care, hospital, or senior care...) When possible be specific @ -no Did you speak to anyone other than the patient for history (EMS, parent, family, police, friend...)? What history was obtained from this source @ -no Did you review nursing and triage notes (agree or disagree)? Why? @ -agree Are old charts reviewed (outside hosp., previous admission, EMS record, old EKG, old radiological studies, urgent care reports/EKG's, senior care records)? Report findings @ -yes Differential Diagnosis (chest pain, altered mental status, abdominal pain women, abdominal pain men, vaginal bleeding, weakness, fever, dyspnea, syncope, he adache, dizziness, GI bleed, back pain, seizure, CVA, palpatations, mental health, musculoskeletal)? @ -prior EKG interpreted by me (3pts min.). @ -yes X-rays interpreted by me (1pt min.). @ -no CT interpreted by me (1pt min.). @ -yes negative for acute disease U/S interpreted by me (1pt. min.). @ -no What testing was considered but not performed or refused? (CT, X-rays, U/S, labs)? Why? @ -none What meds were considered but not given or refused? Why? @ -none Did you discuss the management of the patient with other professionals (professionals i.e. , [facility], [facility], lab, RT, psych nurse, social and human services assistant, corporation lawyer, teacher, court registry officer, case worker)? Give summary @ -no Was smoking cessation discussed for >3mins.? @ -no Was critical care preformed (if so, how long)? @ -no Were there social determinants of health that impacted care today? How? (Homelessness, low income, unemployed, alcoholism, drug addiction, transportation, low edu. Level, literacy, decrease access to med. care, correction, rehab)? @ -none Was there de-escalation of care discussed even if they declined (Discuss DNR or withdrawal of care, Hospice)? DNR status @ -no What co-morbidities impacted this encounter? (DM, HTN, Smoking, COPD, CAD, Cancer, CVA, ARF, Chemo, Hep., AIDS, mental health diagnosis, sleep apnea, m orbid obesity)? @ -none Was patient admitted / discharged? Hospital course, mention meds given and route, prescriptions, significant lab abnormalities, going to OR and other pertinent info. @ -63 male to ER for evaluation of alcohol intoxication and a fall with no traumatic injury noted can discharged to care of family Charge Undiagnosed new problem with uncertain prognosis? @ -no Drug Therapy requiring intensive monitoring for toxicity (Heparin, Nitro, Insulin, Cardizem)? @ -no Were any procedures done? @ -no Diagnosis/symptom? @ -Alcohol intoxication with fall Acute, or Chronic, or Acute on Chronic? @ -Acute Uncomplicated (without systemic symptoms) or Complicated (systemic symptoms)? @ -Complicated Side effects of treatment? @ -no Exacerbation, Progression, or Severe Exacerbation? @ -exacerbation Poses a threat to life or bodily function? How? (Chest pain, [place], [place], pneumonia, PE, COPD, DKA, ARF, appy, cholecystitis, CVA, Diverticulitis, Homicidal, Suicidal, threat to staff... and all critical care pts) @ -yes severe intoxication Medical Decision Making - Medical Decision Making 63 male with fall fall with weakness and alcohol intoxication. Patient has no acute traumatic injury noted and can be discharged home - Lab Data Result diagrams: 10/27/23 16:51 10/27/23 16:51 Lab Results 10/27/23 10/27/23 10/27/23 Range/Units 16:51 16:51 16:51 WBC 3.7 L (3.8-10.6) k/uL RBC 3.85 L (4.30-5.90) m/uL Hgb 11.4 L (13.0-17.5) gm/dL Hct 35.9 L (39.0-53.0) % MCV 93.2 (80.0-100.0) fL MCH 29.6 (25.0-35.0) pg MCHC 31.7 (31.0-37.0) g/dL RDW 14.4 (11.5-15.5) % Plt Count 83 L (150-450) k/uL MPV 7.6 Neutrophils % 59 % Lymphocytes % 26 % Monocytes % 8 % Eosinophils % 1 % Basophils % 1 % Neutrophils # 2.2 (1.3-7.7) k/uL Lymphocytes # 1.0 (1.0-4.8) k/uL Monocytes # 0.3 (0-1.0) k/uL Eosinophils # 0.0 (0-0.7) k/uL Basophils # 0.1 (0-0.2) k/uL Manual Slide Review Performed PT 10.6 (10.0-12.5) sec INR 1.0 (<1.2) APTT 27.3 (22.0-30.0) sec Sodium 144 (137-145) mmol/L Potassium 3.2 L (3.5-5.1) mmol/L Chloride 107 (98-107) mmol/L Carbon Dioxide 25 (22-30) mmol/L Anion Gap 12 mmol/L BUN 13 (9-20) mg/dL Creatinine 0.75 (0.66-1.25) mg/dL Est GFR (CKD-EPI)AfAm >90 (>60 ml/min/1.73 sqM) Est GFR (CKD-EPI)NonAf >90 (>60 ml/min/1.73 sqM) Glucose 98 (74-99) mg/dL Lactic Ac Sepsis Rflx Plasma Lactic Acid Pratik (0.7-2.0) mmol/L Calcium 8.7 (8.4-10.2) mg/dL Phosphorus 3.4 (2.5-4.5) mg/dL Magnesium 1.7 (1.6-2.3) mg/dL Total Bilirubin 0.5 (0.2-1.3) mg/dL AST 40 (17-59) U/L ALT 9 (4-49) U/L Alkaline Phosphatase 83 (38-126) U/L Troponin I (0.000-0.034) ng/mL Total Protein 6.9 (6.3-8.2) g/dL Albumin 4.2 (3.5-5.0) g/dL TSH 1.020 (0.465-4.680) mIU/L Urine Color Urine Appearance (Clear) Urine pH (5.0-8.0) Ur Specific [place] (1.001-1.035) Urine Protein (Negative) Urine Glucose (UA) (Negative) Urine Ketones (Negative) Urine Blood (Negative) Urine Nitrite (Negative) Urine Bilirubin (Negative) Urine Urobilinogen (<2.0) mg/dL Ur Leukocyte Esterase (Negative) Serum Alcohol 339 H* mg/dL 10/27/23 10/27/23 10/27/23 Range/Units 16:51 16:51 16:57 WBC (3.8-10.6) k/uL RBC (4.30-5.90) m/uL Hgb (13.0-17.5) gm/dL Hct (39.0-53.0) % MCV (80.0-100.0) fL MCH (25.0-35.0) pg MCHC (31.0-37.0) g/dL RDW (11.5-15.5) % Plt Count (150-450) k/uL MPV Neutrophils % % Lymphocytes % % Monocytes % % Eosinophils % % Basophils % % Neutrophils # (1.3-7.7) k/uL Lymphocytes # (1.0-4.8) k/uL Monocytes # (0-1.0) k/uL Eosinophils # (0-0.7) k/uL Basophils # (0-0.2) k/uL Manual Slide Review PT (10.0-12.5) sec INR (<1.2) APTT (22.0-30.0) sec Sodium (137-145) mmol/L Potassium (3.5-5.1) mmol/L Chloride (98-107) mmol/L Carbon Dioxide (22-30) mmol/L Anion Gap mmol/L BUN (9-20) mg/dL Creatinine (0.66-1.25) mg/dL Est GFR (CKD-EPI)AfAm (>60 ml/min/1.73 sqM) Est GFR (CKD-EPI)NonAf (>60 ml/min/1.73 sqM) Glucose (74-99) mg/dL Lactic Ac Sepsis Rflx Plasma Lactic Acid Pratik 2.8 H* (0.7-2.0) mmol/L Calcium (8.4-10.2) mg/dL Phosphorus (2.5-4.5) mg/dL Magnesium (1.6-2.3) mg/dL Total Bilirubin (0.2-1.3) mg/dL AST (17-59) U/L ALT (4-49) U/L Alkaline Phosphatase (38-126) U/L Troponin I <0.012 (0.000-0.034) ng/mL Total Protein (6.3-8.2) g/dL Albumin (3.5-5.0) g/dL TSH (0.465-4.680) mIU/L Urine Color Light Yellow Urine Appearance Clear (Clear) Urine pH 5.5 (5.0-8.0) Ur Specific [place] 1.011 (1.001-1.035) Urine Protein Negative (Negative) Urine Glucose (UA) Negative (Negative) Urine Ketones Negative (Negative) Urine Blood Negative (Negative) Urine Nitrite Negative (Negative) Urine Bilirubin Negative (Negative) Urine Urobilinogen <2.0 (<2.0) mg/dL Ur Leukocyte Esterase Negative (Negative) Serum Alcohol mg/dL 10/27/23 Range/Units 17:39 WBC (3.8-10.6) k/uL RBC (4.30-5.90) m/uL Hgb (13.0-17.5) gm/dL Hct (39.0-53.0) % MCV (80.0-100.0) fL MCH (25.0-35.0) pg MCHC (31.0-37.0) g/dL RDW (11.5-15.5) % Plt Count (150-450) k/uL MPV Neutrophils % % Lymphocytes % % Monocytes % % Eosinophils % % Basophils % % Neutrophils # (1.3-7.7) k/uL Lymphocytes # (1.0-4.8) k/uL Monocytes # (0-1.0) k/uL Eosinophils # (0-0.7) k/uL Basophils # (0-0.2) k/uL Manual Slide Review PT (10.0-12.5) sec INR (<1.2) APTT (22.0-30.0) sec Sodium (137-145) mmol/L Potassium (3.5-5.1) mmol/L Chloride (98-107) mmol/L Carbon Dioxide (22-30) mmol/L Anion Gap mmol/L BUN (9-20) mg/dL Creatinine (0.66-1.25) mg/dL Est GFR (CKD-EPI)AfAm (>60 ml/min/1.73 sqM) Est GFR (CKD-EPI)NonAf (>60 ml/min/1.73 sqM) Glucose (74-99) mg/dL Lactic Ac Sepsis Rflx Y Plasma Lactic Acid Pratik (0.7-2.0) mmol/L Calcium (8.4-10.2) mg/dL Phosphorus (2.5-4.5) mg/dL Magnesium (1.6-2.3) mg/dL Total Bilirubin (0.2-1.3) mg/dL AST (17-59) U/L ALT (4-49) U/L Alkaline Phosphatase (38-126) U/L Troponin I (0.000-0.034) ng/mL Total Protein (6.3-8.2) g/dL Albumin (3.5-5.0) g/dL TSH (0.465-4.680) mIU/L Urine Color Urine Appearance (Clear) Urine pH (5.0-8.0) Ur Specific [place] (1.001-1.035) Urine Protein (Negative) Urine Glucose (UA) (Negative) Urine Ketones (Negative) Urine Blood (Negative) Urine Nitrite (Negative) Urine Bilirubin (Negative) Urine Urobilinogen (<2.0) mg/dL Ur Leukocyte Esterase (Negative) Serum Alcohol mg/dL - Radiology Data Radiology results: report reviewed (CT brain C-spine negative for acute disease), image reviewed Disposition Clinical Impression: Fall, Alcohol intoxication, Weakness Disposition: HOME SELF-CARE Condition: Fair Is patient prescribed a controlled substance at d/c from ED?: No Referrals: Rosa Nieto MD [STAFF PHYSICIAN] - 1-2 days
[2023-10-27] MEDS: SODIUM CHLORIDE 0.9% 1,000 ML IV ONE (16:53)
[2023-10-27] MEDS: SODIUM CHLORIDE 0.9% 1,000 ML IV STA (16:54)
[2023-10-27 17:02] LABS: Basophils # (A) 0.1 k/uL (0-0.2); Basophils % (A) 1 %; Eosinophils % (A) 1 %; HCT 35.9 % (39.0-53.0); HGB 11.4 gm/dL (13.0-17.5); Lymphocytes % (A) 26 %; MCH 29.6 pg (25.0-35.0); MCHC 31.7 g/dL (31.0-37.0); MCV 93.2 fL (80.0-100.0); Mean Platelet Volume 7.6; Monocytes # (A) 0.3 k/uL (0-1.0); Monocytes % (A) 8 %; Neutrophils # (A) 2.2 k/uL (1.3-7.7); Neutrophils % (A) 59 %; RBC 3.85 m/uL (4.30-5.90); RDW 14.4 % (11.5-15.5); WBC 3.7 k/uL (3.8-10.6)
[2023-10-27 17:13] LABS: ALT 9 U/L (4-49); AST 40 U/L (17-59); African American GFR (CKD) >90 (>60 ml/min/1.73 sqM); Albumin 4.2 g/dL (3.5-5.0); Alkaline Phosphatase 83 U/L (38-126); Anion Gap 12 mmol/L; Blood Urea Nitrogen 13 mg/dL (9-20); Calcium 8.7 mg/dL (8.4-10.2); Carbon Dioxide 25 mmol/L (22-30); Chloride 107 mmol/L (98-107); Glucose 98 mg/dL (74-99); Magnesium 1.7 mg/dL (1.6-2.3); Non-African American GFR(CKD) >90 (>60 ml/min/1.73 sqM); Phosphorus 3.4 mg/dL (2.5-4.5); Potassium 3.2 mmol/L (3.5-5.1); Sodium 144 mmol/L (137-145); Total Bilirubin 0.5 mg/dL (0.2-1.3); Total Protein 6.9 g/dL (6.3-8.2)
[2023-10-27 17:15] LABS: Appearance,Urine Clear (Clear); Bilirubin,Urine Negative (Negative); Blood,Urine Negative (Negative); Color,Urine Light Yellow; Glucose,Urine (UA) Negative (Negative); Ketones,Urine Negative (Negative); Leukocyte Esterase,Urine Negative (Negative); Nitrite,Urine Negative (Negative); PH, Urine 5.5 (5.0-8.0); Protein,Urine Negative (Negative); Specific Gravity,Urine 1.011 (1.001-1.035); Urobilinogen,Urine <2.0 mg/dL (<2.0)
[2023-10-27 17:25] LABS: Partial Thromboplastin Time 27.3 sec (22.0-30.0); Prothrombin Time 10.6 sec (10.0-12.5)
--- NOTE | 2023-10-27 17:26 | CT ---
EXAMINATION TYPE: CT brain danisine wo con DATE OF EXAM: 10/27/2023 COMPARISON: 05/23/2023 HISTORY: Fall, hematoma to back of head. ETOH. CT DLP: 1239 mGycm, Automated exposure control for dose reduction was used. CONTRAST: Patient injected with 0 mL of Isovue 300. CT of the brain is performed utilizing 3 mm thick sections through the posterior fossa and 3 mm thick sections through the remaining calvarium. Study is performed within 24 hours of arrival to the hospital. No abnormal hyperdensity is present to suggest an acute intracranial hemorrhage. No mass lesion is evident. No acute infarcts are evident. Ventricles and sulci are appropriate for the patient age. Paranasal sinuses and mastoid air cells within the [id number] are clear. IMPRESSIONS: 1. No acute intracranial process. Follow-up MRI can be performed as clinically indicated. CT cervical spine. COMPARISON: None CT of the cervical spine is performed in the axial plane at 2 mm thick sections. Reconstructed image s in the coronal, and sagittal plane are reviewed on the computer. No acute fractures are evident. Vertebral body alignment is normal. Disc space narrowing is present C6-7. Vertebral body heights are preserved. No spinal canal stenosis is evident. Facet hypertrophy contributing to left foraminal stenosis C3-4. Right foraminal stenosis present C5-6 . Broad-based disc bulge with mild anterior thecal sac compression at C5-6. No AP spinal canal stenosis . Central disc protrusion is present C6-7 with mild anterior thecal sac compression. No AP spinal can al stenosis present. IMPRESSION: 1. Degenerative disc changes lower cervical spine. 2. Disc bulging C5-6 C6-7 without spinal canal stenosis. 3. Some foraminal stenosis discussed above. [facility], , 10/27/2023 5:23 PM
[2023-10-27 17:40] LABS: Alcohol 339 mg/dL
[2023-10-27 17:58] LABS: Platelet Count 83 k/uL (150-450)
[2023-10-27 20:47] VITALS: RESP 20
[2023-10-27 20:50] VITALS: BP 158/87; PULSE 96
== END 2023-10-27 20:35 | disposition home or self-care (01) ==
LOC: EC 15:36
CPT/HCPCS: 36415; 70450; 72125; 80053; 80320; 81003; 83605; 83735; 84100; 84443; 84484; 85025; 85610; 85730; 96360; 96361; 99284

== ENCOUNTER 2023-12-01 16:46 | Observation (INO) | payer MEDICARE ==
--- NOTE | 2023-12-01 17:21 | ED ---
Fall HPI - General Chief Complaint: Fall Stated Complaint: fall, ETOH Time Seen by Provider: 12/01/23 17:00 Source: patient, EMS, RN notes reviewed Mode of arrival: EMS - History of Present Illness Initial Comments: 63-year-old male with history of alcohol use disorder presenting for fall prior to arrival. States he was walking down the porch when he lost his balance and fell down several porch steps, injuring his "tailbone", left shoulder, and hit the back of his head on the concrete. States he did not lose consciousness. Denies chest pain or shortness of breath surrounding the fall. Denies blood thinners. Patient states he lives at home with . Per EMS, patient drinks a half a gallon of alcohol daily and frequently calls EMS for falls. - Related Data Home Medications Medication Instructions Recorded Confirmed Acetaminophen Tab [Tylenol] 500 mg PO Q6H PRN 07/04/23 07/04/23 Men's Multivitamin 50+ Gummy 1 tab PO DAILY 07/04/23 07/04/23 Potassium Gluconate 99 mg PO DAILY 07/04/23 07/04/23 Thiamine [Vitamin B-1] 100 mg PO DAILY 07/04/23 07/04/23 Previous Rx's Medication Instructions Recorded Aspirin 81 mg PO DAILY #30 tab 07/07/23 Atorvastatin [Lipitor] 20 mg PO HS #30 tab 07/07/23 Folic Acid 1 mg PO DAILY #30 tab 07/07/23 Metoprolol Succinate (ER) [Toprol 25 mg PO DAILY #30 tab 07/07/23 XL] Multivitamins, Thera [Multivitamin 1 each PO DAILY #30 tab 07/07/23 (formulary)] Nicotine 21Mg/24Hr Patch [Habitrol] 1 patch TRANSDERM DAILY patch 07/07/23 chlordiazePOXIDE HCl [Librium] 25 mg PO TID #6 cap 07/07/23 Allergies Allergy/AdvReac Type Severity Reaction Status Date / Time No Known Allergies Allergy Verified 12/01/23 17:04 Review of Systems ROS Statement: Those systems with pertinent positive or pertinent negative responses have been documented in the HPI. ROS Other: All systems not noted in ROS Statement are negative. Past Medical History Past Medical History: Blood Disorder, Hearing Disorder / Deafness, Hyperlipidemia, Osteoarthritis (OA), Syncope Additional Past Medical History / Comment(s): ETOH abuse/withdrawal DTs, thrombocytopenia, FALLS, past high cholesterol, neuropathy bilateral hands/feet, chronic back pain, benign colon polyps, frequent urination/wears depends, tinnitis bilateral ears, sinus issues. History of Any Multi-Drug Resistant Organisms: None Reported Past Surgical History: Back Surgery, Joint Replacement Additional Past Surgical History / Comment(s): Back surgeries x 3, cervical surgery, bilateral hip surgeries including total hip arthroplasties, R knee arthroscopy/meniscus repair, R knee injections, R shoulder rotator cuff repair, bilateral wrist carpal tunnel releases, colonoscopy. Past Anesthesia/Blood Transfusion Reactions: No Reported Reaction Past Psychological History: Anxiety Smoking Status: Current every day smoker Past Alcohol Use History: Abuse, Daily, Heavy Past Drug Use History: Marijuana - Past Family History Mother History Unknown: Yes Additional Family Medical History / Comment(s): Patient states after a fall which cause cervical fracture. Father Family Medical History: Dementia, Musculoskeletal Disorder Additional Family Medical History / Comment(s): Parkinsons General Exam General appearance: in no apparent distress, appears intoxicated, other Head exam: Present: atraumatic, normocephalic, normal inspection Eye exam: Present: normal appearance, PERRL, EOMI. Absent: scleral icterus, conjunctival injection, periorbital swelling Neck exam: Present: normal inspection. Absent: tenderness, meningismus, lymphadenopathy Respiratory exam: Present: normal lung sounds bilaterally. Absent: respiratory distress, wheezes, rales, rhonchi, stridor Cardiovascular Exam: Present: regular rate, normal rhythm, normal heart sounds. Absent: systolic murmur, diastolic murmur, rubs, gallop, clicks GI/Abdominal exam: Present: soft, normal bowel sounds. Absent: distended, tenderness, guarding, rebound, rigid Extremities exam: Present: normal inspection, full ROM, normal capillary refill. Absent: tenderness, pedal edema, joint swelling, calf tenderness Back exam: Present: normal inspection, full ROM Neurological exam: Present: alert, oriented X3 Psychiatric exam: Present: agitated Skin exam: Present: warm, dry, intact, normal color. Absent: rash Course Vital Signs 12/01/23 16:57 Temperature 97.4 F L Pulse Rate 92 Respiratory 18 Rate Blood Pressure 126/68 O2 Sat by Pulse 95 Oximetry Medical Decision Making - Medical Decision Making Was pt. sent in by a medical professional or institution ([facility], CENTER REP, urgent care, hospital, or half-way...) When possible be specific @ -No Did you speak to anyone other than the patient for history (EMS, parent, family, police, friend...)? What history was obtained from this source @ -EMS supplemented history Did you review nursing and triage notes (agree or disagree)? Why? @ -I reviewed and agree with nursing and triage notes Were old charts reviewed (outside hosp., previous admission, EMS record, old EKG, old radiological studies, urgent care reports/EKG's, half-way records)? Report findings @ -No old charts were reviewed Differential Diagnosis (chest pain, altered mental status, abdominal pain women, abdominal pain men, vaginal bleeding, weakness, fever, dyspnea, syncope, headache, dizziness, GI bleed, back pain, seizure, CVA, palpatations, mental health, musculoskeletal)? @ -Alcohol intoxication, alcohol withdrawal, intracranial bleed, skull fracture, differential Musculoskeletal Muscular strain, contusion, ligament sprain, fracture, arthritis, septic arthrit is, bursitis, cellulitis, muscle spasm, nerve compression, DVT, arterial occlusion, herpes zoster, electrolyte abnormality, tumor.... This is not meant to be in all inclusive list EKG interpreted by me (3pts min.). @ -None X-rays interpreted by me (1pt min.). @ -X-ray left shoulder interpreted by me reveals no acute process, x-ray sacrococcyx no acute process CT interpreted by me (1pt min.). @ -CT head and neck revealed no acute process U/S interpreted by me (1pt. min.). @ -None done What testing was considered but not performed or refused? (CT, X-rays, U/S, labs)? Why? @ -None What meds were considered but not given or refused? Why? @ -None Did you discuss the management of the patient with other professionals (professionals i.e. [facility], CENTER REP, lab, RT, psych nurse, social worker masters, set key driver, t eacher, radio division officer, rn case manager)? Give summary @ -I spoke with Dr. Rey for admission to observation for alcohol intoxication, will initiate CIWA protocol Was smoking cessation discussed for >3mins.? @ -No Was critical care preformed (if so, how long)? @ -No Were there social determinants of health that impacted care today? How? (Homelessness, low income, unemployed, alcoholism, drug addiction, transportation, low edu. Level, literacy, decrease access to med. care, detention, rehab)? @ -No Was there de-escalation of care discussed even if they declined (Discuss DNR or withdrawal of care, Hospice)? DNR status @ -No What co-morbidities impacted this encounter? (DM, HTN, Smoking, COPD, CAD, Cancer, CVA, ARF, Chemo, Hep., AIDS, mental health diagnosis, sleep apnea, morbid obesity)? @ -Alcohol use disorder Was patient admitted / discharged? Hospital course, mention meds given and route, prescriptions, significant lab abnormalities, going to OR and other pertinent info. @ -Admitted. This is a 63-year-old male with history of alcohol use disorder presenting for mechanical fall prior to arrival and alcohol intoxication. Patient states he drinks half gallon per day. Endorsing left shoulder and low back pain since the fall, also states he hit his head. CT head and neck revealed no acute process. X-ray sacrococcyx and left shoulder revealed no acute process. Laboratory studies including CBC, CMP, lactic acid, serum alcohol remarkable for serum alcohol 379, lactic acid 3.2, AST 224, ALT 73. Findings discussed with patient. Patient does not have a ride home. I believe patient was admitted to observation for alcohol intoxication and will initiate [facility] protocol. I spoke with Dr. Rey for admission. He was discussed with Dr. Thompson. Undiagnosed new problem with uncertain prognosis? @ -No Drug Therapy requiring intensive monitoring for toxicity (Heparin, Nitro, Insul in, Cardizem)? @ -No Were any procedures done? @ -No Diagnosis/symptom? @ -Acute alcohol intoxication Acute, or Chronic, or Acute on Chronic? @ -Acute Uncomplicated (without systemic symptoms) or Complicated (systemic symptoms)? @ -Complicated Side effects of treatment? @ -No Exacerbation, Progression, or Severe Exacerbation? @ -No Poses a threat to life or bodily function? How? (Chest pain, [place], [place], pneumonia, PE, COPD, DKA, ARF, appy, cholecystitis, CVA, Diverticulitis, Homicidal, Suicidal, threat to staff... and all critical care pts) @ -Possibly - Lab Data Result diagrams: 12/01/23 17:50 12/01/23 17:50 Lab Results 12/01/23 12/01/23 12/01/23 Range/Units 17:50 17:50 17:50 WBC 5.1 (3.8-10.6) k/uL RBC 4.42 (4.30-5.90) m/uL Hgb 13.0 (13.0-17.5) gm/dL Hct 39.5 (39.0-53.0) % MCV 89.4 (80.0-100.0) fL MCH 29.4 (25.0-35.0) pg MCHC 32.9 (31.0-37.0) g/dL RDW 16.0 H (11.5-15.5) % Plt Count 57 L (150-450) k/uL MPV 9.0 Neutrophils % 60 % Lymphocytes % 25 % Monocytes % 9 % Eosinophils % 1 % Basophils % 1 % Neutrophils # 3.1 (1.3-7.7) k/uL Lymphocytes # 1.3 (1.0-4.8) k/uL Monocytes # 0.4 (0-1.0) k/uL Eosinophils # 0.0 (0-0.7) k/uL Basophils # 0.1 (0-0.2) k/uL Manual Slide Review Performed Sodium 141 (137-145) mmol/L Potassium 3.7 (3.5-5.1) mmol/L Chloride 102 (98-107) mmol/L Carbon Dioxide 26 (22-30) mmol/L Anion Gap 13 mmol/L BUN 16 (9-20) mg/dL Creatinine 0.78 (0.66-1.25) mg/dL Est GFR (CKD-EPI)AfAm >90 (>60 ml/min/1.73 sqM) Est GFR (CKD-EPI)NonAf >90 (>60 ml/min/1.73 sqM) Glucose 82 (74-99) mg/dL Plasma Lactic Acid Pratik 3.2 H* (0.7-2.0) mmol/L Calcium 9.3 (8.4-10.2) mg/dL Magnesium 1.8 (1.6-2.3) mg/dL Total Bilirubin 1.1 (0.2-1.3) mg/dL AST 224 H (17-59) U/L ALT 73 H (4-49) U/L Alkaline Phosphatase 119 (38-126) U/L Total Protein 9.0 H (6.3-8.2) g/dL Albumin 5.5 H (3.5-5.0) g/dL Serum Alcohol 379 H* mg/dL Disposition Clinical Impression: Acute alcohol intoxication Disposition: ADMITTED IP TO THIS HOSP Referrals: Helena Simental DO [Primary Care Provider] - 1-2 days Time of Disposition: 20:12
--- NOTE | 2023-12-01 18:27 | XR ---
EXAMINATION TYPE: XR shoulder complete LT DATE OF EXAM: 12/01/2023 6:22 PM CLINICAL INDICATION: Male, 63 years old with history of left shoulder injury; [facility] COMPARISON: 02/24/2023 TECHNIQUE: XR shoulder complete LT; examined in AP, internally rotated and scapular Y projections. FINDINGS: No evidence of acute osseous pathology, joint dislocation, or soft tissue swelling. The remaining po rtions of the visualized chest are unremarkable. Degeneration changes of the acromion, distal clavic le with osteophyte formation. There is osteophyte formation of the glenoid and humeral head. There is joint space narrowing of glenohumeral joint. IMPRESSION: 1. No acute osseous pathology. 2. Mild shoulder osteoarthrosis. [facility], , 12/01/2023 6:24 PM
--- NOTE | 2023-12-01 18:28 | XR ---
EXAMINATION TYPE: XR sacrum coccyx DATE OF EXAM: 12/01/2023 6:22 PM CLINICAL INDICATION: Male, 63 years old with history of low back injury; [facility] COMPARISON: 04/17/2023 TECHNIQUE: XR sacrum coccyx, examined in frontal and lateral projections. FINDINGS: There is no evidence of fracture or dislocation. There is no soft tissue abnormality. No a bnormal calcifications are present. Multilevel degenerative changes of the lower spine. Bilateral hip arthroplasties appear intact. IMPRESSION: No acute osseous pathology. [facility], , 12/01/2023 6:26 PM
[2023-12-01 18:43] LABS: ALT 73 U/L (4-49); AST 224 U/L (17-59); African American GFR (CKD) >90 (>60 ml/min/1.73 sqM); Albumin 5.5 g/dL (3.5-5.0); Alkaline Phosphatase 119 U/L (38-126); Anion Gap 13 mmol/L; Blood Urea Nitrogen 16 mg/dL (9-20); Calcium 9.3 mg/dL (8.4-10.2); Carbon Dioxide 26 mmol/L (22-30); Chloride 102 mmol/L (98-107); Glucose 82 mg/dL (74-99); Magnesium 1.8 mg/dL (1.6-2.3); Non-African American GFR(CKD) >90 (>60 ml/min/1.73 sqM); Potassium 3.7 mmol/L (3.5-5.1); Sodium 141 mmol/L (137-145); Total Bilirubin 1.1 mg/dL (0.2-1.3)
[2023-12-01 18:52] LABS: Basophils # (A) 0.1 k/uL (0-0.2); Basophils % (A) 1 %; Eosinophils % (A) 1 %; HCT 39.5 % (39.0-53.0); Lymphocytes # (A) 1.3 k/uL (1.0-4.8); Lymphocytes % (A) 25 %; MCH 29.4 pg (25.0-35.0); MCHC 32.9 g/dL (31.0-37.0); MCV 89.4 fL (80.0-100.0); Monocytes # (A) 0.4 k/uL (0-1.0); Monocytes % (A) 9 %; Neutrophils # (A) 3.1 k/uL (1.3-7.7); Neutrophils % (A) 60 %; RBC 4.42 m/uL (4.30-5.90); WBC 5.1 k/uL (3.8-10.6)
[2023-12-01 18:55] LABS: Alcohol 379 mg/dL
--- NOTE | 2023-12-01 19:07 | CT ---
EXAMINATION TYPE: CT brain cspine wo con CT DLP: 1369.2 mGycm, Automated exposure control for dose reduction was used. DATE OF EXAM: 12/01/2023 6:38 PM COMPARISON: 10/27/2023. CLINICAL INDICATION: Male, 63 years old with history of pain; ams, fall TECHNIQUE: Brain: Multiple axial CT images of the brain were obtained without IV contrast. Cspine: Axial CT images from the skull base to the inferior aspect of T2 we obtained without intraven ous contrast. Coronal and sagittal reformatted images were also reviewed. . FINDINGS: Brain: Extra-axial spaces: No abnormal extra-axial fluid collections. Ventricular system: Dilatation in proportion to cerebral atrophy. Cerebral parenchyma: Cerebral atrophy. No acute intraparenchymal hemorrhage or mass effect. The fransico fady of the parker-white junctions are well differentiated. Cerebellum: Unremarkable. Mass effect: No evidence of midline shift. Intracranial vasculature: unremarkable Soft tissues: Normal. Calvarium/osseous structures: No depressed skull fracture. Paranasal sinuses and mastoid air cells: Clear. Visualized orbits: Orbital contents are intact. Cervical spine: Fracture: None. Osseous structures: Multilevel degenerative disc disease changes with endplate spurring and disc oste ophyte complex's. Vertebral alignment: Within normal limits. Spinal canal/Neural Foramina: Disc osteophyte complexes at C5-C6 and C6-C7 with at least mild spinal canal stenosis. Facet joint uncovertebral joint arthropathy scattered throughout the cervical spine w ith varying degrees of neural foraminal stenosis. Neck soft tissues: Prevertebral soft tissues are within normal limits. Other: The airway is patent. Paraseptal emphysema changes in the lung apices. Atherosclerosis of the carotid bifurcations. IMPRESSION: 1. No acute intracranial process. 2. No evidence of cervical spine fracture. 3. Moderate multilevel degenerative disc disease. 4. Mild emphysema. [facility], , 12/01/2023 7:04 PM
[2023-12-01 19:26] LABS: Platelet Count 57 k/uL (150-450)
[2023-12-01] MEDS ORDERED: NALOXONE 0.4 MG/ML 1 ML VIAL IV PRN (19:51)
[2023-12-01] MEDS ORDERED: ONDANSETRON 4 MG/2 ML VIAL IVP PRN (19:51)
[2023-12-01] MEDS ORDERED: LORazepam 2 MG/ML INJ IV PRN (19:52)
[2023-12-01] MEDS: THIAMINE 100 MG/ML 2 ML VIAL IM STA (20:53)
[2023-12-01] MEDS: KETOROLAC 15 MG/ML 1 ML VIAL IVP STA ×2 (20:53→22:08)
[2023-12-01] MEDS: SODIUM CHLORIDE 0.9% 1,000 ML IV SCH (20:54)
[2023-12-01] MEDS: SODIUM CHLORIDE 0.9% 1,000 ML IV STA (22:42)
[2023-12-01] MEDS: SODIUM CHLORIDE 0.9% 2,000 ML IV STA (22:56)
[2023-12-02] MEDS: LORazepam 2 MG/ML INJ IV PRN ×2 (00:56→10:06)
[2023-12-02] MEDS: KETOROLAC 15 MG/ML 1 ML VIAL IVP SCH (05:22)
[2023-12-02] MEDS: MULTIVITAMINS, THERA 1 EACH TAB PO SCH (09:55)
[2023-12-02 13:34] VITALS: BP 169/101; PULSE 87; RESP 18; TEMP 98.8
--- NOTE | 2023-12-02 16:08 | P.HPIM ---
History of Present Illness H&P Date: 12/02/23 Chief Complaint: Intoxicated, fall History and physical and Discharge Summary: This is a 63-year-old gentleman with past medical history significant for alcohol abuse, drinks 1 pint of whiskey daily, thrombocytopenia, osteoarthritis, anxiety, ongoing nicotine dependence, occasional marijuana use, hearing disorder, hyperlipidemia and multiple other medical issues brought into the ER by EMS. Apparently patient has sustained a fall off of his porch onto concrete, landing on his tailbone and left shoulder. Imaging completed, reporting no fractures. Reports "sore", did not sleep well. Denies nausea, vomiting. Denies heartburn. Denies chest pain, palpitations or shortness of breath. Alcohol level on arrival 379. Denies sweating, reports anxiety. Denies lightheadedness, dizziness or focal deficits. Lactic acid 4.3, 2.1. Maintained on IV fluid hydration, CIWA protocol. CIWA score 0. Vital signs stable, BPs ranging from systolic of 150s to 120s. Afebrile, normal WBC, platelets 57. Electrolytes and renal function unremarkable T. bili 1.1, AST 224, ALT 73, alk phos 119, albumin 5.5. Review of Systems ROS Statement: Those systems with pertinent positive or pertinent negative responses have been documented in the HPI. ROS Other: All systems not noted in ROS Statement are negative. Past Medical History Past Medical History: Blood Disorder, Hearing Disorder / Deafness, Hyperlipidemia, Osteoarthritis (OA), Syncope Additional Past Medical History / Comment(s): ETOH abuse/withdrawal DTs, thrombocytopenia, FALLS, past high cholesterol, neuropathy bilateral hands/feet, chronic back pain, benign colon polyps, frequent urination/wears depends, tinnitis bilateral ears, sinus issues. History of Any Multi-Drug Resistant Organisms: None Reported Past Surgical History: Back Surgery, Joint Replacement Additional Past Surgical History / Comment(s): Back surgeries x 3, cervical surgery, bilateral hip surgeries including total hip arthroplasties, R knee arthroscopy/meniscus repair, R knee injections, R shoulder rotator cuff repair, bilateral wrist carpal tunnel releases, colonoscopy. Past Anesthesia/Blood Transfusion Reactions: No Reported Reaction Past Psychological History: Anxiety Smoking Status: Current every day smoker Past Alcohol Use History: Abuse, Daily, Heavy Past Drug Use History: Marijuana - Past Family History Mother History Unknown: Yes Additional Family Medical History / Comment(s): Patient states after a fall which cause cervical fracture. Father Family Medical History: Dementia, Musculoskeletal Disorder Additional Family Medical History / Comment(s): Parkinsons Medications and Allergies Home Medications Medication Instructions Recorded Confirmed Type Diclofenac Sodium Gel [Voltaren 1% 4 gm TOPICAL QID PRN #100 gm 12/02/23 Rx Gel] Thiamine [Vitamin B-1] 100 mg PO DAILY #30 tablet 12/02/23 Rx Allergies Allergy/AdvReac Type Severity Reaction Status Date / Time No Known Allergies Allergy Verified 12/02/23 08:18 Physical Exam Vitals: Vital Signs Temp Pulse Resp BP Pulse Ox 12/02/23 10:03 110 H 16 155/95 94 L 12/02/23 08:44 16 150/84 12/02/23 06:32 74 19 122/72 96 12/02/23 05:27 71 19 145/96 98 12/02/23 02:15 96 18 125/92 95 12/02/23 00:28 94 19 130/67 98 12/01/23 23:00 92 18 133/85 97 12/01/23 22:10 94 18 116/68 96 12/01/23 16:57 97.4 F L 92 18 126/68 95 Intake and Output 12/01/23 12/02/23 12/02/23 22:59 06:59 14:59 Other: Weight 56.699 kg Gen: Thin built,elderly appearing, cachectic 63-year-old male, alert and oriented x 3 HEENT: Head is atraumatic, normocephalic. Pupils equal, round. Sclerae is anicteric. NECK: Supple. No JVD. No lymphadenopathy. No thyromegaly. LUNGS: Diminished breath sounds bilaterally otherwise clear to auscultation. No wheezes or rhonchi. No intercostal retractions. HEART: S1, S2 are muffled ABDOMEN: Soft. Nondistended, minimal diffuse abdominal pain, bowel sounds are present. No masses appreciated EXTREMITIES: No pedal edema. No calf tenderness. Significant muscle wasting noted of the upper and lower extremities NEUROLOGICAL: Cranial nerves 2 through 12 are grossly intact. Minimal tremors. Results CBC & Chem 7: 12/01/23 17:50 12/01/23 17:50 Labs: Abnormal Lab Results - Last 24 Hours (Table) 12/01/23 12/01/2311/30/24 Range/Units 17:50 17:50 17:50 RDW 16.0 H (11.5-15.5) % Plt Count 57 L (150-450) k/uL Plasma Lactic Acid Pratik 3.2 H* (0.7-2.0) mmol/L AST 224 H (17-59) U/L ALT 73 H (4-49) U/L Total Protein 9.0 H (6.3-8.2) g/dL Albumin 5.5 H (3.5-5.0) g/dL Serum Alcohol 379 H* mg/dL 12/01/23 12/02/23 12/02/23 Range/Units 21:18 00:24 03:54 RDW (11.5-15.5) % Plt Count (150-450) k/uL Plasma Lactic Acid Pratik 4.3 H* 2.6 H* 2.1 H* (0.7-2.0) mmol/L AST (17-59) U/L ALT (4-49) U/L Total Protein (6.3-8.2) g/dL Albumin (3.5-5.0) g/dL Serum Alcohol mg/dL 12/02/23 Range/Units 08:36 RDW (11.5-15.5) % Plt Count (150-450) k/uL Plasma Lactic Acid Pratik 2.1 H* (0.7-2.0) mmol/L AST (17-59) U/L ALT (4-49) U/L Total Protein (6.3-8.2) g/dL Albumin (3.5-5.0) g/dL Serum Alcohol mg/dL Assessment and Plan Assessment: Alcohol intoxication, in a patient with history of daily alcohol abuse, drinks 1 pint of whiskey daily. CIWA score 0 Status post fall secondary to the above, imaging reporting nonacute. Thrombocytopenia, chronic, suspect secondary to alcohol use Elevated AST and ALT Degenerative joint disease History of syncope History of falls Anxiety, history Moderate protein calorie malnutrition with a BMI 20 Ongoing nicotine dependence Plan: Continue on current medication regimen ,monitoring and symptomatic treatme nt. Maintain IV fluid hydration, CIWA protocol. Patient will be discharged home today in a stable condition with guarded prognosis. Alcohol abstinence reinforced .discussed meds to assist him in overcoming his alcohol abuse such as Vivitrol and gabapentin that can be addressed in clinic with PCP. Thiamine ordered. Voltaren gel for sore left shoulder post fall. Smoking sensation reinforced. Discharge Medication List Diclofenac Sodium Gel [Voltaren 1% Gel] 4 gm TOPICAL QID PRN #100 gm 12/02/23 [Rx] Thiamine [Vitamin B-1] 100 mg PO DAILY #30 tablet 12/02/23 [Rx] The impression and plan of care has been dictated as directed. : I performed a history and examination of this patient, discussed the same with the dictator. I agree with the dictator's note ,documented as a scribe. Any additional findings or plans will be noted.
== END 2023-12-02 12:16 | disposition home or self-care (01) ==
LOC: EC 16:46 → 6NMEDSUR 19:54
PROVIDERS: ADMIT Family Medicine; ATTEND Family Medicine
DX: F10.129 Alcohol abuse with intoxication, unspecified (principal); E44.0 Moderate protein-calorie malnutrition; D69.6 Thrombocytopenia, unspecified; R74.8 Abnormal levels of other serum enzymes; F17.200 Nicotine dependence, unspecified, uncomplicated; M19.90 Unspecified osteoarthritis, unspecified site; Z68.20 Body mass index [BMI] 20.0-20.9, adult; W10.9XXA Fall (on) (from) unspecified stairs and steps, initial encounter; Z91.81 History of falling; Y90.8 Blood alcohol level of 240 mg/100 ml or more
CPT/HCPCS: 96376 ×2; 96361 ×2; 96372; 96374; 96375; 99285; 36415; 80053; 83605 ×2; 83735; 85025; 72220; 73030; 72125; 70450; G0378 ×2; G0480; J2060; J3411; J1885 ×2; 80320

== ENCOUNTER 2023-12-15 17:16 | Emergency (ER) | payer MEDICARE ==
[2023-12-15 17:22] VITALS: RESP 18
[2023-12-15 18:03] LABS: Anisocytosis Slight; Basophils # (A) 0.1 k/uL (0-0.2); Basophils % (A) 1 %; Eosinophils # (A) 0.1 k/uL (0-0.7); Eosinophils % (A) 1 %; HCT 36.5 % (39.0-53.0); HGB 11.9 gm/dL (13.0-17.5); Lymphocytes # (A) 1.2 k/uL (1.0-4.8); Lymphocytes % (A) 23 %; MCH 29.6 pg (25.0-35.0); MCHC 32.5 g/dL (31.0-37.0); MCV 91.2 fL (80.0-100.0); Mean Platelet Volume 7.4; Monocytes # (A) 0.5 k/uL (0-1.0); Monocytes % (A) 9 %; Neutrophils # (A) 3.3 k/uL (1.3-7.7); Neutrophils % (A) 61 %; RBC 4.01 m/uL (4.30-5.90); RDW 16.1 % (11.5-15.5); WBC 5.3 k/uL (3.8-10.6)
[2023-12-15] MEDS: SODIUM CHLORIDE 0.9% 1,000 ML IV ONE (18:06)
[2023-12-15 18:10] LABS: Platelet Count 77 k/uL (150-450)
[2023-12-15 18:13] LABS: ALT 81 U/L (4-49); AST 251 U/L (17-59); African American GFR (CKD) >90 (>60 ml/min/1.73 sqM); Albumin 4.9 g/dL (3.5-5.0); Alkaline Phosphatase 120 U/L (38-126); Anion Gap 14 mmol/L; Blood Urea Nitrogen 15 mg/dL (9-20); Calcium 9.1 mg/dL (8.4-10.2); Carbon Dioxide 27 mmol/L (22-30); Chloride 102 mmol/L (98-107); Glucose 91 mg/dL (74-99); Magnesium 1.7 mg/dL (1.6-2.3); Non-African American GFR(CKD) >90 (>60 ml/min/1.73 sqM); Potassium 3.2 mmol/L (3.5-5.1); Sodium 143 mmol/L (137-145); Total Bilirubin 0.9 mg/dL (0.2-1.3); Total Protein 7.7 g/dL (6.3-8.2)
[2023-12-15 18:27] LABS: Alcohol 393 mg/dL
--- NOTE | 2023-12-15 18:37 | ED ---
General Adult HPI - General Chief complaint: Fall Stated complaint: Fall, ETOH, Chest pain Time Seen by Provider: 12/15/23 17:20 Source: patient, EMS, RN notes reviewed, old records reviewed Mode of arrival: EMS Limitations: no limitations - History of Present Illness Initial comments: This is a 63-year-old male who presents to the emergency department intoxicated and stating he fell and hurt his left shoulder and tailbone. Patient also states he hit the back of his head. Patient denies any chest pain palpitations difficulty breathing patient denies any abdominal pain. Patient denies any back injury. Patient Nuys any other extremity injury. - Related Data Previous Rx's Medication Instructions Recorded Diclofenac Sodium Gel [Voltaren 1% 4 gm TOPICAL QID PRN #100 gm 12/02/23 Gel] Thiamine [Vitamin B-1] 100 mg PO DAILY #30 tablet 12/02/23 Allergies Allergy/AdvReac Type Severity Reaction Status Date / Time No Known Allergies Allergy Verified 12/15/23 17:22 Review of Systems ROS Statement: Those systems with pertinent positive or pertinent negative responses have been documented in the HPI. ROS Other: All systems not noted in ROS Statement are negative. Past Medical History Past Medical History: Blood Disorder, Hearing Disorder / Deafness, Hyperlipidemia, Osteoarthritis (OA), Syncope Additional Past Medical History / Comment(s): ETOH abuse/withdrawal DTs, thrombocytopenia, FALLS, past high cholesterol, neuropathy bilateral hands/feet, chronic back pain, benign colon polyps, frequent urination/wears depends, tinnitis bilateral ears, sinus issues. History of Any Multi-Drug Resistant Organisms: None Reported Past Surgical History: Back Surgery, Joint Replacement Additional Past Surgical History / Comment(s): Back surgeries x 3, cervical surgery, bilateral hip surgeries including total hip arthroplasties, R knee arthroscopy/meniscus repair, R knee injections, R shoulder rotator cuff repair, bilateral wrist carpal tunnel releases, colonoscopy. Past Anesthesia/Blood Transfusion Reactions: No Reported Reaction Past Psychological History: Anxiety Smoking Status: Current every day smoker Past Alcohol Use History: Abuse, Daily, Heavy Past Drug Use History: Marijuana - Past Family History Mother History Unknown: Yes Additional Family Medical History / Comment(s): Patient states after a fall which cause cervical fracture. Father Family Medical History: Dementia, Musculoskeletal Disorder Additional Family Medical History / Comment(s): Parkinsons General Exam - General Exam Comments Initial Comments: GENERAL: Patient is well-developed and well-nourished. Patient is nontoxic and well- hydrated and is in no acute distress. Patient does appear highly intoxicated ENT: Neck is soft and supple. No significant lymphadenopathy is noted. Oropharynx is clear. Moist mucous membranes. Neck has full range of motion without eliciting any pain. EYES: The sclera were anicteric and conjunctiva were pink and moist. Extraocular movements were intact and pupils were equal round and reactive to light. Eyelids were unremarkable. PULMONARY: Unlabored respirations. Good breath sounds bilaterally. No audible rales rhonchi or wheezing was noted. CARDIOVASCULAR: There is a regular rate and rhythm without any murmurs gallops or rubs. ABDOMEN: Soft and nontender with normal bowel sounds. SKIN: Skin is clear with no lesions or rashes and otherwise unremarkable. NEUROLOGIC: Patient is alert and oriented x3. Cranial nerves II through XII are grossly intact. Motor and sensory are also intact. Normal speech, volume and content. Symmetrical smile. MUSCULOSKELETAL: Normal extremities with adequate strength and full range of motion. Patient complained of tenderness of the shoulder however when he was not pain attention right shoulder and no tenderness not to find any appointment for motion back patient also no tenderness of his coccyx. Patient had no signs of any head trauma LYMPHATICS: No significant lymphadenopathy is noted PSYCHIATRIC: Unable to assess at this time because he is highly intoxicated Limitations: no limitations Course Vital Signs 12/15/23 17:17 Temperature 97.8 F Pulse Rate 95 Respiratory 18 Rate Blood Pressure 136/77 O2 Sat by Pulse 99 Oximetry Medical Decision Making - Medical Decision Making Was pt. sent in by a medical professional or institution (, PA, RETORT COOLER, urgent care, hospital, or fci...) When possible be specific @ -No Did you speak to anyone other than the patient for history (EMS, parent, family, police, friend...)? What history was obtained from this source @ -No Did you review nursing and triage notes (agree or disagree)? Why? @ -I reviewed and agree with nursing and triage notes Were old charts reviewed (outside hosp., previous admission, EMS record, old EKG , old radiological studies, urgent care reports/EKG's, fci records)? Report findings @ -No old charts were reviewed Differential Diagnosis? @ -Fracture shoulder, fractured coccyx, intracranial hemorrhage, cervical spine fracture, alcohol intoxication, this is not an all-inclusive list EKG interpreted by me (3pts min.). @ -As above X-rays interpreted by me (1pt min.). @ -Patient's x-ray of the shoulder shows no acute abnormality. Patient's sacrum and coccyx x-ray shows no acute normality. CT interpreted by me (1pt min.). @ -CT of the brain and C-spine showed no acute abnormality. U/S interpreted by me (1pt. min.). @ -None done What testing was considered but not performed or refused? (CT, X-rays, U/S, labs)? Why? @ -None What meds were considered but not given or refused? Why? @ -None Did you discuss the management of the patient with other professionals (professionals i.e. , PA, RETORT COOLER, lab, RT, psych nurse, social services manager, fish hatchery man, teacher, probation officer, piano case and bench assembler)? Give summary @ -No Was smoking cessation discussed for >3mins.? @ -No Was critical care preformed (if so, how long)? @ -No Were there social determinants of health that impacted care today? How? (Homelessness, low income, unemployed, alcoholism, drug addiction, transportation, low edu. Level, literacy, decrease access to med. care, usp, rehab)? @ -No Was there de-escalation of care discussed even if they declined (Discuss DNR or withdrawal of care, Hospice)? DNR status @ -No What co-morbidities impacted this encounter? (DM, HTN, Smoking, COPD, CAD, Cancer, CVA, ARF, Chemo, Hep., AIDS, mental health diagnosis, sleep apnea, morbid obesity)? @ -None Was patient admitted / discharged? Hospital course, mention meds given and route, prescriptions, significant lab abnormalities, going to OR and other pertinent info. @ -Patient is highly intoxicated however his states that she will take him home and be responsible for him. Patient has no fractures on x-ray and no abnormalities on the CAT scan. Patient's potassium was slightly low and he was given 40 mill equivalents of K-Dur Undiagnosed new problem with uncertain prognosis? @ -No Drug Therapy requiring intensive monitoring for toxicity (Heparin, Nitro, Insulin, Cardizem)? @ -No Were any procedures done? @ -No Diagnosis/symptom? @ -Alcohol intoxication Acute, or Chronic, or Acute on Chronic? @ -Acute Uncomplicated (without systemic symptoms) or Complicated (systemic symptoms)? @ -Complicated Side effects of treatment? @ -No Exacerbation, Progression, or Severe Exacerbation? @ -No Poses a threat to life or bodily function? How? (Chest pain, [place], [place], pneumonia, PE, COPD, DKA, ARF, appy, cholecystitis, CVA, Diverticulitis, Homicidal, Suicidal, threat to staff... and all critical care pts) @ -No Diagnosis/symptom? @ -Contusion shoulder and coccyx Acute, or Chronic, or Acute on Chronic? @ -Acute Uncomplicated (without systemic symptoms) or Complicated (systemic symptoms)? @ -Uncomplicated Side effects of treatment? @ -None Exacerbation, Progression, or Severe Exacerbation] @ -No Poses a threat to life or bodily function? @ -No - Lab Data Result diagrams: 12/15/23 17:55 12/15/23 17:55 Lab Results 12/15/23 12/15/23 Range/Units 17:55 17:55 WBC 5.3 (3.8-10.6) k/uL RBC 4.01 L (4.30-5.90) m/uL Hgb 11.9 L (13.0-17.5) gm/dL Hct 36.5 L (39.0-53.0) % MCV 91.2 (80.0-100.0) fL MCH 29.6 (25.0-35.0) pg MCHC 32.5 (31.0-37.0) g/dL RDW 16.1 H (11.5-15.5) % Plt Count 77 L (150-450) k/uL MPV 7.4 Neutrophils % 61 % Lymphocytes % 23 % Monocytes % 9 % Eosinophils % 1 % Basophils % 1 % Neutrophils # 3.3 (1.3-7.7) k/uL Lymphocytes # 1.2 (1.0-4.8) k/uL Monocytes # 0.5 (0-1.0) k/uL Eosinophils # 0.1 (0-0.7) k/uL Basophils # 0.1 (0-0.2) k/uL Manual Slide Review Performed Anisocytosis Slight Sodium 143 (137-145) mmol/L Potassium 3.2 L (3.5-5.1) mmol/L Chloride 102 (98-107) mmol/L Carbon Dioxide 27 (22-30) mmol/L Anion Gap 14 mmol/L BUN 15 (9-20) mg/dL Creatinine 0.78 (0.66-1.25) mg/dL Est GFR (CKD-EPI)AfAm >90 (>60 ml/min/1.73 sqM) Est GFR (CKD-EPI)NonAf >90 (>60 ml/min/1.73 sqM) Glucose 91 (74-99) mg/dL Calcium 9.1 (8.4-10.2) mg/dL Magnesium 1.7 (1.6-2.3) mg/dL Total Bilirubin 0.9 (0.2-1.3) mg/dL AST 251 H (17-59) U/L ALT 81 H (4-49) U/L Alkaline Phosphatase 120 (38-126) U/L Total Protein 7.7 (6.3-8.2) g/dL Albumin 4.9 (3.5-5.0) g/dL Serum Alcohol 393 H* mg/dL Disposition Clinical Impression: Fall, Contusion of shoulder, Contusion of coccyx, Alcohol intoxication Disposition: HOME SELF-CARE Instructions (If sedation given, give patient instructions): Fall Prevention for Older Adults (ED), Alcohol Intoxication (ED) Is patient prescribed a controlled substance at d/c from ED?: No Referrals: Helena Simental DO [Primary Care Provider] - 1-2 days Time of Disposition: 19:41
--- NOTE | 2023-12-15 18:41 | CT ---
EXAMINATION TYPE: CT brain cspine wo con DATE OF EXAM: 12/15/2023 6:18 PM COMPARISON: None. CLINICAL INDICATION: Male, 63 years old with history of Trauma; ams TECHNIQUE: Brain: Multiple axial CT images of the brain were obtained without IV contrast. Cspine: Axial CT images from the skull base to the inferior aspect of T2 we obtained without intraven ous contrast. Coronal and sagittal reformatted images were also reviewed. . CT DLP: 1420.9 mGycm, Automated exposure control for dose reduction was used. FINDINGS: Brain: Extra-axial spaces: No abnormal extra-axial fluid collections. Ventricular system: Dilatation in proportion to cerebral atrophy. Cerebral parenchyma: Cerebral atrophy. No acute intraparenchymal hemorrhage or mass effect. The parker -white junction is well differentiated. Scattered hypoattenuating areas are seen within the white mat ter. Cerebellum: Unremarkable. Mass effect: No evidence of midline shift. Intracranial vasculature: unremarkable Soft tissues: Normal. Calvarium/osseous structures: No depressed skull fracture. Paranasal sinuses and mastoid air cells: Clear. Visualized orbits: Orbital contents are intact. Cervical spine: Fracture: None. Osseous structures: Multilevel degenerative disc disease changes with endplate spurring and disc oste ophyte complex's. Vertebral alignment: Within normal limits. Spinal canal/Neural Foramina: Disc osteophyte complexes at C5-C6 and C6-C7. With at least mild spinal canal stenosis. No evidence for significant neural foraminal stenosis. Neck soft tissues: Prevertebral soft tissues are within normal limits. Other: The airway is patent. The lung apices are clear. Atherosclerosis of the carotid bifurcations. IMPRESSION: 1. No acute intracranial process. 2. Nonspecific white matter changes, likely secondary to chronic small vessel ischemic disease. 3. No evidence of cervical spine fracture. 4. Mild multilevel degenerative disc disease. [facility], , 12/15/2023 6:38 PM
[2023-12-15] MEDS: POTASSIUM CHLORIDE ER 20 MEQ TAB.ER PO STA (19:42)
--- NOTE | 2023-12-15 20:07 | XR ---
EXAMINATION TYPE: XR shoulder complete LT DATE OF EXAM: 12/15/2023 7:02 PM COMPARISON: None CLINICAL INDICATION: Male, 63 years old with history of Trauma; pain TECHNIQUE: XR shoulder complete LT; examined in AP, internally rotated and scapular Y projections. FINDINGS: No evidence of acute osseous pathology, joint dislocation, or soft tissue swelling. The remaining po rtions of the visualized chest are unremarkable. IMPRESSION: 1. No acute osseous pathology. 2. Mild shoulder osteoarthrosis. [facility], , 12/15/2023 8:04 PM
--- NOTE | 2023-12-15 20:08 | XR ---
EXAMINATION TYPE: XR sacrum coccyx DATE OF EXAM: 12/15/2023 7:02 PM COMPARISON: None CLINICAL INDICATION: Male, 63 years old with history of Trauma; pain TECHNIQUE: XR sacrum coccyx, examined in frontal and lateral projections. FINDINGS: There is no evidence of fracture or dislocation. There is no soft tissue abnormality. No a bnormal calcifications are present. Multilevel degenerative changes of the lower spine. Hip arthropla sties appear intact. IMPRESSION: No acute osseous pathology. [facility], , 12/15/2023 8:05 PM
[2023-12-15] MEDS: SODIUM CHLORIDE 0.9% 500 ML 500 ML IV ONE (21:00)
[2023-12-15 21:03] VITALS: BP 140/78; PULSE 88; TEMP 98
== END 2023-12-15 21:03 | disposition home or self-care (01) ==
LOC: EC 17:16
DX: S40.012A Contusion of left shoulder, initial encounter (principal); S30.0XXA Contusion of lower back and pelvis, initial encounter; F10.129 Alcohol abuse with intoxication, unspecified; F17.200 Nicotine dependence, unspecified, uncomplicated; W19.XXXA Unspecified fall, initial encounter; Y90.8 Blood alcohol level of 240 mg/100 ml or more
CPT/HCPCS: 36415; 80053; 83735; 85025; 72220; 73030; 72125; 70450; 99285; 96360; 96361 ×2; G0480; 80320

== ENCOUNTER 2024-01-29 21:20 | Inpatient (IN) | payer MEDICARE ==
[2024-01-29] MEDS ORDERED: LORazepam 2 MG/ML INJ IV PRN ×2 (21:27)
[2024-01-29] MEDS ORDERED: LORazepam 1 MG TAB PO PRN (21:27)
--- NOTE | 2024-01-29 21:29 | ED ---
Chest Pain HPI - General Stated Complaint: Chest Pain Time Seen by Provider: 01/29/24 21:27 Source: RN notes reviewed, old records reviewed Mode of arrival: EMS Limitations: altered mental status - History of Present Illness Initial Comments: This is a 63-year-old male presenting by EMS for chest pain today. Patient also having recent falls left-sided shoulder pain chest wall pain back pain poor story historian secondary to intoxicated state MD Complaint: chest pain -: days(s) Onset: during exertion Pain Location: substernal, left chest Pain Radiation: none Severity: moderate Severity scale (1-10): 4 Quality: tightness, heaviness Consistency: constant Improves With: nothing Worsens With: nothing Anginal Symptoms: nausea Other Symptoms: palpitations Treatments Prior to Arrival: none - Related Data Home Medications Medication Instructions Recorded Confirmed No Known Home Medications 01/30/24 01/30/24 Allergies Allergy/AdvReac Type Severity Reaction Status Date / Time No Known Allergies Allergy Verified 01/30/24 08:48 Review of Systems ROS Statement: Those systems with pertinent positive or pertinent negative responses have been documented in the HPI. ROS Other: All systems not noted in ROS Statement are negative. EKG Findings - EKG Comments: EKG Findings:: EKG is sinus 91 SD 155 QRS 80 QTc 421 - EKG Results: EKG: interpreted by BECKY Past Medical History Past Medical History: Blood Disorder, Hearing Disorder / Deafness, Hyperlipidemia, Osteoarthritis (OA), Syncope Additional Past Medical History / Comment(s): ETOH abuse/withdrawal DTs, thrombocytopenia, FALLS, past high cholesterol, neuropathy bilateral hands/feet, chronic back pain, benign colon polyps, frequent urination/wears depends, ti nnitis bilateral ears, sinus issues. History of Any Multi-Drug Resistant Organisms: None Reported Past Surgical History: Back Surgery, Joint Replacement Additional Past Surgical History / Comment(s): Back surgeries x 3, cervical surgery, bilateral hip surgeries including total hip arthroplasties, R knee arthroscopy/meniscus repair, R knee injections, R shoulder rotator cuff repair, bilateral wrist carpal tunnel releases, colonoscopy. Past Anesthesia/Blood Transfusion Reactions: No Reported Reaction Past Psychological History: Anxiety Smoking Status: Current every day smoker Past Alcohol Use History: Abuse, Daily, Heavy Past Drug Use History: Marijuana - Past Family History Mother History Unknown: Yes Additional Family Medical History / Comment(s): Patient states after a fall which cause cervical fracture. Father Family Medical History: Dementia, Musculoskeletal Disorder Additional Family Medical History / Comment(s): Parkinsons General Exam Limitations: altered mental status General appearance: appears intoxicated Head exam: Present: atraumatic, normocephalic, normal inspection Eye exam: Present: normal appearance, PERRL, EOMI. Absent: scleral icterus, conjunctival injection, periorbital swelling ENT exam: Present: normal exam, mucous membranes moist Neck exam: Present: normal inspection. Absent: tenderness, meningismus, lymphadenopathy Respiratory exam: Present: normal lung sounds bilaterally. Absent: respiratory distress, wheezes, rales, rhonchi, stridor Cardiovascular Exam: Present: regular rate, normal rhythm, normal heart sounds. Absent: systolic murmur, diastolic murmur, rubs, gallop, clicks GI/Abdominal exam: Present: soft, normal bowel sounds. Absent: distended, tenderness, guarding, rebound, rigid Extremities exam: Present: normal inspection, full ROM, normal capillary refill. Absent: tenderness, pedal edema, joint swelling, calf tenderness Back exam: Present: normal inspection Neurological exam: Present: alert, oriented X3, CN II-XII intact Psychiatric exam: Present: normal affect, normal mood Skin exam: Present: warm, dry, intact, normal color. Absent: rash Course Vital Signs 01/29/24 01/29/24 01/30/24 21:30 23:00 00:00 Temperature 97 F L 98.0 F Pulse Rate 92 74 82 Pulse Rate [ 75 Comb Winder ] Respiratory 18 20 15 Rate Blood Pressure 135/85 152/58 139/91 O2 Sat by Pulse 98 97 98 Oximetry 01/30/24 01/30/24 01/30/24 03:07 06:59 08:12 Temperature Pulse Rate 65 90 76 Pulse Rate [ Comb Winder ] Respiratory 18 18 20 Rate Blood Pressure 137/89 138/89 146/90 O2 Sat by Pulse 98 97 96 Oximetry 01/30/24 01/30/24 11:00 12:00 Temperature Pulse Rate 84 101 H Pulse Rate [ Comb Winder ] Respiratory 97 H 20 Rate Blood Pressure 147/96 158/91 O2 Sat by Pulse 97 98 Oximetry - Reevaluation(s) Reevaluation #1: 01/29/24 21:58 Medical records reviewed Reevaluation #2: 01/29/24 23:22 Patient still remains significant altered here in the Reevaluation #3: 01/29/24 23:22 Patient informed of results questions answered Reevaluation #4: Was pt. sent in by a medical professional or institution ([facility] Tolentino, RIGHT OF WAY AGENT, urgent care, hospital, or usp...) When possible be specific @ -no Did you speak to anyone other than the patient for history (EMS, parent, family, police, friend...)? What history was obtained from this source @ -no Did you review nursing and triage notes (agree or disagree)? Why? @ -agree Are old charts reviewed (outside hosp., previous admission, EMS record, old EKG, old radiological studies, urgent care reports/EKG's, usp records)? Report findings @ -yes Differential Diagnosis (chest pain, altered mental status, abdominal pain women, abdominal pain men, vaginal bleeding, weakness, fever, dyspnea, syncope, headache, dizziness, GI bleed, back pain, seizure, CVA, palpatations, mental health, musculoskeletal)? @ -prior EKG interpreted by me (3pts min.). @ -yes X-rays interpreted by me (1pt min.). @ -yes negative for acute disease CT interpreted by me (1pt min.). @ -Yes negative for acute disease U/S interpreted by me (1pt. min.). @ -no What testing was considered but not performed or refused? (CT, X-rays, U/S, labs)? Why? @ -none What meds were considered but not given or refused? Why? @ -none Did you discuss the management of the patient with other professionals (professionals i.e. Ю[employer] Tolentino, RIGHT OF WAY AGENT, lab, RT, psych nurse, perinatal social worker, disintegrator, teacher, parole hearing officer, caser up)? Give summary @ -no Was smoking cessation discussed for >3mins.? @ -no Was critical care preformed (if so, how long)? @ -no Were there social determinants of health that impacted care today? How? (Homeles sness, low income, unemployed, alcoholism, drug addiction, transportation, low edu. Level, literacy, decrease access to med. care, fdc, rehab)? @ -none Was there de-escalation of care discussed even if they declined (Discuss DNR or withdrawal of care, Hospice)? DNR status @ -no What co-morbidities impacted this encounter? (DM, HTN, Smoking, COPD, CAD, Cancer, CVA, ARF, Chemo, Hep., AIDS, mental health diagnosis, sleep apnea, morbid obesity)? @ -none Was patient admitted / discharged? Hospital course, mention meds given and route, prescriptions, significant lab abnormalities, going to OR and other pertinent info. @ - 63 male with chest pain and severe alcohol intoxication, patient will admit Admit Undiagnosed new problem with uncertain prognosis? @ -no Drug Therapy requiring intensive monitoring for toxicity (Heparin, Nitro, Insulin, Cardizem)? @ -no Were any procedures done? @ -no Diagnosis/symptom? @ -Chest pain and alcohol intoxication Acute, or Chronic, or Acute on Chronic? @ -Acute Uncomplicated (without systemic symptoms) or Complicated (systemic symptoms)? @ -Complicated Side effects of treatment? @ -no Exacerbation, Progression, or Severe Exacerbation? @ -exacerbation Poses a threat to life or bodily function? How? (Chest pain, USA, [place], pneumonia, PE, COPD, DKA, ARF, appy, cholecystitis, CVA, Diverticulitis, Homicidal, Suicidal, threat to staff... and all critical care pts) @ -yes with chest pain, significant intoxication Reevaluation #5: Differential Altered Mental Status: Hypoglycemia, DKA, hypercapnia, ETOH, overdose, CO poisoning, trauma, myxedema coma, HTN encephalopathy, infection, encephalitis, psychosis, intercranial hemorrhage, hepatic encephalopathy, meningitis, CVA, this is not meant to be an all-inclusive list Differential Chest Pain: Stable Angina, Unstable Angina, STEMI, NSTEMI Aortic Dissection, Pneumothorax, Musculoskeletal, Esophageal Spasm GERD, Cholecystitis, Pancreatitis, Zoster, this is not meant to be an all-inclusive list. - Consultations Consultation #1: PMH who agrees to admit this Chest Pain MDM - MDM 63 male with chest pain and severe alcohol intoxication, patient will admit Disposition Clinical Impression: Tachycardia, Fall, Alcohol intoxication, Acute alcohol intoxication, Chest pain Disposition: ADMITTED IP TO THIS HOSP Condition: Serious Is patient prescribed a controlled substance at d/c from ED?: No Time of Disposition: 23:00
[2024-01-29] MEDS: ONDANSETRON 4 MG/2 ML VIAL IVP STA (22:00)
[2024-01-29] MEDS: LORazepam 2 MG/ML INJ IV STA ×2 (22:03→23:34)
[2024-01-29] MEDS: SODIUM CHLORIDE 0.9% 1,000 ML IV STA ×2 (22:04)
[2024-01-29] MEDS: SODIUM CHLORIDE 0.9% 500 ML 500 ML IV STA (22:05)
[2024-01-29 22:19] LABS: ALT 27 U/L (4-49); AST 123 U/L (17-59); African American GFR (CKD) >90 (>60 ml/min/1.73 sqM); Albumin 4.8 g/dL (3.5-5.0); Alkaline Phosphatase 98 U/L (38-126); Anion Gap 11 mmol/L; Blood Urea Nitrogen 14 mg/dL (9-20); Calcium 8.8 mg/dL (8.4-10.2); Carbon Dioxide 25 mmol/L (22-30); Chloride 107 mmol/L (98-107); Glucose 83 mg/dL (74-99); Lipase 261 U/L (23-300); Magnesium 1.7 mg/dL (1.6-2.3); Non-African American GFR(CKD) >90 (>60 ml/min/1.73 sqM); Phosphorus 3.1 mg/dL (2.5-4.5); Potassium 3.2 mmol/L (3.5-5.1); Sodium 143 mmol/L (137-145); Total Bilirubin 0.9 mg/dL (0.2-1.3); Total Protein 7.4 g/dL (6.3-8.2)
[2024-01-29 22:26] LABS: NT-Pro-B-Type Natriuretic Pept 54 pg/mL
[2024-01-29 22:46] LABS: Partial Thromboplastin Time 23.7 sec (22.0-30.0)
[2024-01-29 22:47] LABS: Alcohol 399 mg/dL
[2024-01-29 23:06] LABS: HCT 32.5 % (39.0-53.0); HGB 10.9 gm/dL (13.0-17.5); MCH 30.6 pg (25.0-35.0); MCHC 33.4 g/dL (31.0-37.0); MCV 91.8 fL (80.0-100.0); Mean Platelet Volume 9.1; RBC 3.54 m/uL (4.30-5.90); RDW 15.2 % (11.5-15.5); WBC 4.3 k/uL (3.8-10.6)
[2024-01-29 23:16] LABS: Appearance,Urine Clear (Clear); Bilirubin,Urine Negative (Negative); Blood,Urine Trace (Negative); Color,Urine Light Yellow; Glucose,Urine (UA) Negative (Negative); Hyaline Casts,Urine 8 /lpf (0-2); Ketones,Urine Negative (Negative); Leukocyte Esterase,Urine Negative (Negative); Mucus,Urine Rare /hpf; Nitrite,Urine Negative (Negative); Protein,Urine Trace (Negative); RBC,Urine 1 /hpf (0-5); Specific Gravity,Urine 1.012 (1.001-1.035); Squamous Epithelial Cell,Urine <1 /hpf (0-4); Urobilinogen,Urine <2.0 mg/dL (<2.0); WBC,Urine <1 /hpf (0-5)
[2024-01-29] MEDS ORDERED: ONDANSETRON 4 MG/2 ML VIAL IVP PRN (23:20)
[2024-01-29] MEDS ORDERED: NALOXONE 0.4 MG/ML 1 ML VIAL IV PRN (23:20)
[2024-01-29] MEDS: SODIUM CHLORIDE 0.9% 1,000 ML IV SCH (23:57)
[2024-01-29] MEDS: POTASSIUM CHLORIDE 20 MEQ in WATER FOR INJECTION 1 100ML.BAG IVPB STA (23:57)
[2024-01-29] MEDS: PANTOPRAZOLE 40 MG/10 ML VIAL IV SCH (23:57)
--- NOTE | 2024-01-30 01:32 | XR ---
EXAM: XR Chest, 1 View CLINICAL HISTORY: ITS.REASON XR Reason: chest pain TECHNIQUE: Frontal view of the chest. COMPARISON: No relevant prior studies available. FINDINGS: Lungs: Unremarkable. No consolidation. Pleural space: Unremarkable. No pneumothorax. Heart: Unremarkable. No cardiomegaly. Mediastinum: Unremarkable. Normal mediastinal contour. Bones/joints: Unremarkable. No acute fracture. IMPRESSION: No consolidation.
--- NOTE | 2024-01-30 01:43 | XR ---
EXAM: XR Pelvis, 1 or 2 Views CLINICAL HISTORY: ITS.REASON XR Reason: pain TECHNIQUE: Frontal view of the pelvis. COMPARISON: No relevant prior studies available. FINDINGS: Bones/joints: Bilateral hip arthroplasties. No periprosthetic fracture. Anatomic alignment. Diffuse osseous demineralization. Multilevel lumbar spondylosis. Soft tissues: Unremarkable. IMPRESSION: Bilateral hip arthroplasties. No periprosthetic fracture. Anatomic alignment.
--- NOTE | 2024-01-30 01:47 | XR ---
EXAM: XR Left Shoulder Complete, 2 or More Views CLINICAL HISTORY: ITS.REASON XR Reason: painq TECHNIQUE: Two or more views of the left shoulder. COMPARISON: No relevant prior studies available. FINDINGS: Bones/joints: Diffuse osseous demineralization. Moderate degenerative changes of the acromioclavicular joint. No acute fracture or subluxation. Soft tissues: Unremarkable. IMPRESSION: No acute fracture or subluxation.
[2024-01-30 02:04] LABS: Eosinophils # (M) 0.04 k/uL (0-0.7); Lymphocytes # (M) 1.42 k/uL (1.0-4.8); Monocytes # (M) 0.47 k/uL (0-1.0); Neutrophils # (M) 2.37 k/uL (1.3-7.7); Neutrophils % (M) 55 %; Nucleated Red Blood Cells 0 /100 WBC (0-0); Platelet Count 55 k/uL (150-450); Total Cells Counted 100
--- NOTE | 2024-01-30 02:26 | CT ---
EXAM: CT Head Without Intravenous Contrast CLINICAL HISTORY: ITS.REASON CT Reason: pain TECHNIQUE: Axial computed tomography images of the head/brain without intravenous contrast. CTDI is 45.2 mGy and DLP is 1925 mGy-cm. This CT exam was performed using one or more of the following dose reduction techniques: automated exposure control, adjustment of the mA and/or kV according to patient size, and/or use of iterative reconstruction technique. COMPARISON: No relevant prior studies available. FINDINGS: Brain: No hemorrhage or mass effect. Senescent changes. Ventricles: No hydrocephalus. Bones/joints: Unremarkable. Soft tissues: Unremarkable. Sinuses: No air fluid level. Mastoid air cells: Clear. IMPRESSION: No acute hemorrhage, hydrocephalus, or mass effect. EXAM: CT Cervical Spine With Intravenous Contrast CLINICAL HISTORY: ITS.REASON CT Reason: pain TECHNIQUE: Axial computed tomography images of the cervical spine with intravenous contrast. CTDI is 10.4 mGy and DLP is 275 mGy-cm. This CT exam was performed using one or more of the following dose reduction techniques: automated exposure control, adjustment of the mA and/or kV according to patient size, and/or use of iterative reconstruction technique. COMPARISON: No relevant prior studies available. FINDINGS: Vertebrae: No acute fracture. Discs/spinal canal/neural foramina: degenerative changes. Soft tissues: No prevertebral swelling. IMPRESSION: No acute fracture or subluxation.
--- NOTE | 2024-01-30 02:42 | CT ---
EXAM: CT Angiography Chest With Intravenous Contrast CLINICAL HISTORY: ITS.REASON CT Reason: PE TECHNIQUE: Axial computed tomographic angiography images of the chest with intravenous contrast. CTDI is 20.5 mGy and DLP is 282.7 mGy-cm. This CT exam was performed using one or more of the following dose reduction techniques: automated exposure control, adjustment of the mA and/or kV according to patient size, and/or use of iterative reconstruction technique. MIP reconstructed images were created and reviewed. COMPARISON: Chest x-ray of 01/29/2024. FINDINGS: Pulmonary arteries: Central pulmonary arteries are unremarkable. Peripheral branches the pulmonary arteries are unremarkable. Aorta: Atherosclerotic disease of the thoracic aorta. No thoracic aortic aneurysm. Lungs: There is COPD. Airway is normal. Scarring and subsegmental atelectasis in the mid lower lung zones. No mass. Pleural space: Unremarkable. No significant effusion. No pneumothorax. Heart: Unremarkable. No cardiomegaly. No significant pericardial effusion. No evidence of RV dysfunction. Thyroid: Thyroid gland is unremarkable. Bones/joints: Moderate to severe degenerative disc disease of the thoracic spine and kyphosis are noted. No acute fracture. No dislocation. Soft tissues: Unremarkable. Lymph nodes: Unremarkable. No enlarged lymph nodes. IMPRESSION: No central or peripheral pulmonary emboli.
[2024-01-30 05:11] LABS: Basophils # (A) 0.1 k/uL (0-0.2); Basophils % (A) 2 %; Eosinophils # (A) 0.1 k/uL (0-0.7); Eosinophils % (A) 2 %; HCT 35.2 % (39.0-53.0); HGB 11.7 gm/dL (13.0-17.5); Lymphocytes # (A) 1.1 k/uL (1.0-4.8); Lymphocytes % (A) 32 %; MCHC 33.1 g/dL (31.0-37.0); MCV 93.5 fL (80.0-100.0); Monocytes # (A) 0.3 k/uL (0-1.0); Monocytes % (A) 8 %; Neutrophils # (A) 1.9 k/uL (1.3-7.7); Neutrophils % (A) 53 %; RBC 3.77 m/uL (4.30-5.90); RDW 14.9 % (11.5-15.5); WBC 3.5 k/uL (3.8-10.6)
[2024-01-30 05:26] LABS: Platelet Count 46 k/uL (150-450)
[2024-01-30 05:29] LABS: ALT 30 U/L (4-49); AST 131 U/L (17-59); African American GFR (CKD) >90 (>60 ml/min/1.73 sqM); Albumin 4.6 g/dL (3.5-5.0); Alkaline Phosphatase 107 U/L (38-126); Anion Gap 6 mmol/L; Blood Urea Nitrogen 10 mg/dL (9-20); Calcium 8.2 mg/dL (8.4-10.2); Carbon Dioxide 30 mmol/L (22-30); Chloride 105 mmol/L (98-107); Glucose 66 mg/dL (74-99); Magnesium 1.6 mg/dL (1.6-2.3); Non-African American GFR(CKD) >90 (>60 ml/min/1.73 sqM); Phosphorus 3.4 mg/dL (2.5-4.5); Potassium 2.8 mmol/L (3.5-5.1); Sodium 141 mmol/L (137-145)
[2024-01-30] MEDS: POTASSIUM CHLORIDE ER 20 MEQ TAB.ER PO STA (08:14)
[2024-01-30] MEDS ORDERED: Potassium Replacement Protocol 1 EACH MISC MISCELLANE PRN (10:44)
--- NOTE | 2024-01-30 10:44 | P.HPIM ---
History of Present Illness H&P Date: 01/30/24 History of present illness; patient is a 63-year-old gentleman with past medical history significant for alcohol abuse, thrombocytopenia, hyperlipidemia who presented to the ER for alcohol intoxication and chest pain. Patient had multiple visits to the ER in the last 6 months with similar presentation. Patient is not the best of historian. At this time patient is intoxicated, complaining of recent fall with trauma to his neck and left shoulder. There is no obvious sign of head trauma. Currently complains of chest pain as well which is central in location, nonradiating, no aggravating or relieving factor associated chest pain. Initial lab work done in the ER showed WBC 4.3, hemoglobin 10.9, platelet count 55, sodium 143, potassium 3.2, BUN 14, creatinine 0.74, AST 123, ALT 27, Serum alcohol level 399 EKG done in the ER showed heart rate of 91, no ST segment elevation or depression seen, no T-wave inversions seen. Chest x-ray done in the ER showed no acute cardiopulmonary process X-ray pelvis done showed bilateral hip arthroplasties, no GARRISON prosthetic fracture X-ray left shoulder done showed no fracture CT head done showed no acute intracranial process CT cervical spine done showed no acute fracture or subluxation CTA chest done showed no PE Patient admitted to internal medicine service REVIEW OF SYSTEMS: CONSTITUTIONAL: No fever, no malaise, no fatigue. HEENT: No recent visual problems or hearing problems. Denied any sore throat. CARDIOVASCULAR: As mentioned above PULMONARY: As mentioned above GASTROINTESTINAL: No diarrhea, no nausea, no vomiting, no abdominal pain. NEUROLOGICAL: No headaches, no weakness, no numbness. HEMATOLOGICAL: Denies any bleeding or petechiae. GENITOURINARY: Denies any burning micturition, frequency, or urgency. MUSCULOSKELETAL/RHEUMATOLOGICAL: Denies any joint pain, swelling, or any muscle pain. ENDOCRINE: Denies any polyuria or polydipsia. The rest of the 14-point review of systems is negative. PHYSICAL EXAMINATION: GENERAL: The patient is alert and oriented x3, not in any acute distress. Well developed, well nourished. HEENT: Pupils are round and equally reacting to light. EOMI. No scleral icterus. No conjunctival pallor. Normocephalic, atraumatic. No pharyngeal erythema. No thyromegaly. CARDIOVASCULAR: S1 and S2 present. No murmurs, rubs, or gallops. PULMONARY: Chest is clear to auscultation, no wheezing or crackles. ABDOMEN: Soft, nontender, nondistended, normoactive bowel sounds. No palpable organomegaly. MUSCULOSKELETAL: No joint swelling or deformity. EXTREMITIES: No cyanosis, clubbing, or pedal edema. NEUROLOGICAL: Gross neurological examination did not reveal any focal deficits. SKIN: No rashes. Assessment and plan Acute alcohol intoxication Impending alcohol detox Chest pain Hypokalemia Thrombocytopenia Monitor vital signs Monitor CBC Monitor CMP Continue telemetry monitoring Ordered troponin monitoring Ordered CIWA protocol Ordered high-dose thiamine and folic acid Patient counseled in detail regarding alcohol cessation Consult cardiology Labs and medication were reviewed.. Continue same treatment. Continue with symptomatic treatment. Resume home medication. Monitor labs and vitals. DVT and GI prophylaxis. Further recommendations as per clinical course of the patient Dictation was produced using [employer] dictation software. please excuse any grammatical, word or spelling errors. Past Medical History Past Medical History: Blood Disorder, Hearing Disorder / Deafness, Hyperlipidemia, Osteoarthritis (OA), Syncope Additional Past Medical History / Comment(s): ETOH abuse/withdrawal DTs, thrombocytopenia, FALLS, past high cholesterol, neuropathy bilateral hands/feet, chronic back pain, benign colon polyps, frequent urination/wears depends, tinnitis bilateral ears, sinus issues. History of Any Multi-Drug Resistant Organisms: None Reported Past Surgical History: Back Surgery, Joint Replacement Additional Past Surgical History / Comment(s): Back surgeries x 3, cervical surgery, bilateral hip surgeries including total hip arthroplasties, R knee arthroscopy/meniscus repair, R knee injections, R shoulder rotator cuff repair, bilateral wrist carpal tunnel releases, colonoscopy. Past Anesthesia/Blood Transfusion Reactions: No Reported Reaction Past Psychological History: Anxiety Smoking Status: Current every day smoker Past Alcohol Use History: Abuse, Daily, Heavy Past Drug Use History: Marijuana - Past Family History Mother History Unknown: Yes Additional Family Medical History / Comment(s): Patient states after a fall which cause cervical fracture. Father Family Medical History: Dementia, Musculoskeletal Disorder Additional Family Medical History / Comment(s): Parkinsons Medications and Allergies Home Medications Medication Instructions Recorded Confirmed Type No Known Home Medications 01/30/24 01/30/24 History Allergies Allergy/AdvReac Type Severity Reaction Status Date / Time No Known Allergies Allergy Verified 01/30/24 08:48 Physical Exam Vitals: Vital Signs Temp Pulse Pulse Resp BP Pulse Ox 01/30/24 08:12 76 20 146/90 96 01/30/24 06:59 90 18 138/89 97 01/30/24 03:07 65 18 137/89 98 01/30/24 00:00 82 15 139/91 98 01/29/24 23:00 98.0 F 74 20 152/58 97 01/29/24 21:30 97 F L 92 75 18 135/85 98 Intake and Output 01/29/24 01/30/24 01/30/24 22:59 06:59 14:59 Other: Weight 56.699 kg Results CBC & Chem 7: 01/30/24 04:49 01/30/24 04:49 Labs: Abnormal Lab Results - Last 24 Hours (Table) 01/29/24 01/29/24 01/29/24 Range/Units 21:34 21:34 21:34 WBC (3.8-10.6) k/uL RBC 3.54 L (4.30-5.90) m/uL Hgb 10.9 L (13.0-17.5) gm/dL Hct 32.5 L (39.0-53.0) % Plt Count 55 L (150-450) k/uL D-Dimer 2.68 H (<0.60) mg/L FEU Potassium 3.2 L (3.5-5.1) mmol/L Glucose (74-99) mg/dL Calcium (8.4-10.2) mg/dL AST 123 H (17-59) U/L Creatine Kinase (55-170) U/L Urine Protein (Negative) Urine Blood (Negative) Hyaline Casts (0-2) /lpf Urine Mucus (None) /hpf Serum Alcohol 399 H* mg/dL 01/29/24 01/29/24 01/30/24 Range/Units 21:34 22:55 04:49 WBC 3.5 L (3.8-10.6) k/uL RBC 3.77 L (4.30-5.90) m/uL Hgb 11.7 L (13.0-17.5) gm/dL Hct 35.2 L (39.0-53.0) % Plt Count 46 L (150-450) k/uL D-Dimer (<0.60) mg/L FEU Potassium (3.5-5.1) mmol/L Glucose (74-99) mg/dL Calcium (8.4-10.2) mg/dL AST (17-59) U/L Creatine Kinase 245 H (55-170) U/L Urine Protein Trace H (Negative) Urine Blood Trace H (Negative) Hyaline Casts 8 H (0-2) /lpf Urine Mucus Rare H (None) /hpf Serum Alcohol mg/dL 01/30/24 Range/Units 04:49 WBC (3.8-10.6) k/uL RBC (4.30-5.90) m/uL Hgb (13.0-17.5) gm/dL Hct (39.0-53.0) % Plt Count (150-450) k/uL D-Dimer (<0.60) mg/L FEU Potassium 2.8 L (3.5-5.1) mmol/L Glucose 66 L (74-99) mg/dL Calcium 8.2 L (8.4-10.2) mg/dL AST 131 H (17-59) U/L Creatine Kinase (55-170) U/L Urine Protein (Negative) Urine Blood (Negative) Hyaline Casts (0-2) /lpf Urine Mucus (None) /hpf Serum Alcohol mg/dL
[2024-01-30] MEDS: POTASSIUM CHLORIDE ER 20 MEQ TAB.ER PO SCH ×2 (10:59→21:22)
[2024-01-30] MEDS: LORazepam 1 MG TAB PO PRN (12:17)
[2024-01-30] MEDS: MORPHINE SULFATE 4 MG/ML SYRINGE IV PRN (16:19)
[2024-01-30] MEDS: LORazepam 0.5 MG TAB PO PRN (22:50)
--- NOTE | 2024-01-31 14:05 | P.PN ---
Subjective Progress Note Date: 01/31/24 patient is a 63-year-old gentleman with past medical history significant for alcohol abuse, thrombocytopenia, hyperlipidemia who presented to the ER for alcohol intoxication and chest pain. Patient had multiple visits to the ER in the last 6 months with similar presentation. Patient is not the best of h istorian. At this time patient is intoxicated, complaining of recent fall with trauma to his neck and left shoulder. There is no obvious sign of head trauma. Currently complains of chest pain as well which is central in location, nonradiating, no aggravating or relieving factor associated chest pain. Initial lab work done in the ER showed WBC 4.3, hemoglobin 10.9, platelet count 55, sodium 143, potassium 3.2, BUN 14, creatinine 0.74, AST 123, ALT 27, Serum alcohol level 399 EKG done in the ER showed heart rate of 91, no ST segment elevation or depression seen, no T-wave inversions seen. Chest x-ray done in the ER showed no acute cardiopulmonary process X-ray pelvis done showed bilateral hip arthroplasties, no GARRISON prosthetic fracture X-ray left shoulder done showed no fracture CT head done showed no acute intracranial process CT cervical spine done showed no acute fracture or subluxation CTA chest done showed no PE Patient admitted to internal medicine service 01/30. Patient seen and examined. Complaining of generalized bodyaches and anxiety. REVIEW OF SYSTEMS: CONSTITUTIONAL: No fever, no malaise,. CARDIOVASCULAR: No chest pain, no palpitations, no syncope. PULMONARY: No shortness of breath, no cough, GASTROINTESTINAL: No diarrhea, no nausea, no vomiting, no abdominal pain. NEUROLOGICAL: No headaches, no weakness, PHYSICAL EXAMINATION: GENERAL: The patient is alert, chronically ill looking HEENT: Pupils are round and equally reacting to light. EOMI. No scleral icterus. No conjunctival pallor. Normocephalic, atraumatic. No pharyngeal erythema. No thyromegaly. CARDIOVASCULAR: S1 and S2 present. No murmurs, rubs, or gallops. PULMONARY: Chest is clear to auscultation, no wheezing or crackles. ABDOMEN: Soft, nontender, nondistended, normoactive bowel sounds. No palpable organomegaly. MUSCULOSKELETAL: No joint swelling or deformity. EXTREMITIES: No cyanosis, clubbing, or pedal edema. NEUROLOGICAL: Gross neurological examination did not reveal any focal deficits. SKIN: No rashes. Assessment and plan Acute alcohol intoxication Impending alcohol detox Chest pain Hypokalemia Thrombocytopenia Monitor vital signs Monitor CBC Monitor CMP Continue telemetry monitoring Continue CIWA protocol Continue high-dose thiamine and folic acid Patient counseled in detail regarding alcohol cessation Consult cardiology PT OT consulted Labs and medication were reviewed.. Continue same treatment. Continue with symptomatic treatment. Resume home medication. Monitor labs and vitals. DVT and GI prophylaxis. Further recommendations as per clinical course of the patient Dictation was produced using [employer] dictation software. please excuse any grammatical, word or spelling errors. Objective - Vital Signs Vital signs: Vital Signs Temp 98.8 F 01/31/24 06:47 Pulse 104 H 01/31/24 06:47 Resp 16 01/31/24 06:47 BP 130/86 01/31/24 06:47 Pulse Ox 96 01/31/24 06:47 FiO2 Intake & Output 01/30/24 01/31/24 01/31/24 18:59 06:59 18:59 Intake Total 118 Output Total 0 700 Balance 118 -700 Weight 56.699 kg Intake: Oral 118 Output: Urine 0 700 Other: Voiding Method External Catheter External Catheter External Catheter - Labs CBC & Chem 7: 01/30/24 04:49 01/31/24 02:25 Labs: Abnormal Lab Results - Last 24 Hours (Table) 01/30/24 Range/Units 18:44 Potassium 2.9 L (3.5-5.1) mmol/L
--- NOTE | 2024-01-31 16:54 | P.CRDCN ---
History of Present Illness History of present illness: Dr. Lakhani dictating on this 63-year-old male patient who came to the ER. He h ad a recent fall and complained of left shoulder pain as well as chest pain and back pain and pain in the sacral area. He was in an intoxicated state upon admission His twelve-lead EKG showed sinus rhythm nonspecific ST-T abnormality narrow QRS CT of the chest did not show any central or peripheral pulmonary emboli He was complaining of pain all over Hemoglobin 11.7 Potassium was low at 2.8 kidney function normal Cardiac enzymes normal He was admitted for rule out NV when the pain was clearly musculoskeletal by history and examination On examination Blood pressure 165/90 Pulse rate 119 Afebrile Tenderness over the chest wall and left shoulder Heart sounds S1-S2 normal, mildly tachycardic Breath sounds are clear Impression Recent history of fall in an intoxicated state Musculoskeletal pain Alcohol withdrawal Normal cardiac enzymes no ST segment abnormalities of any significance on twelv e-lead EKG Suggest Treat musculoskeletal chest pain and alcohol withdrawal this patient's clinical scenario does not represent an acute coronary syndrome nor an acute myocardial infarction Thank you for the consultation Past Medical History Past Medical History: Blood Disorder, Hearing Disorder / Deafness, Hyperlipidemia, Osteoarthritis (OA), Syncope Additional Past Medical History / Comment(s): ETOH abuse/withdrawal DTs, ETOH one pint daily, thrombocytopenia, FALLS, past high cholesterol, neuropathy bilateral hands/feet, chronic back pain, benign colon polyps, frequent urination/wears depends, tinnitis bilateral ears, sinus issues. History of Any Multi-Drug Resistant Organisms: None Reported Past Surgical History: Back Surgery, Joint Replacement Additional Past Surgical History / Comment(s): Back surgeries x 3, cervical surgery, bilateral hip surgeries including total hip arthroplasties, R knee arthroscopy/meniscus repair, R knee injections, R shoulder rotator cuff repair, bilateral wrist carpal tunnel releases, colonoscopy. Past Anesthesia/Blood Transfusion Reactions: No Reported Reaction Past Psychological History: Anxiety Additional Psychological History / Comment(s): Pt resides with his spouse. He had a walker but fell on it and now it is bent and unable to use. Pt no longer drives d/t bilateral feet neuropathy. Pt has FALLS. He states he manages his own medication but misses doses at times. Smoking Status: Current every day smoker Past Alcohol Use History: Abuse, Daily, Heavy Additional Past Alcohol Use History / Comment(s): Pt started smoking in 1973 and smokes at least a ppd. Pt drinks a pint to a fifth of whiskey per day and last drank 07/16/2022 Past Drug Use History: Marijuana Additional Drug Use History / Comment(s): Occasional marijuana use. - Past Family History Mother History Unknown: Yes Additional Family Medical History / Comment(s): Patient states after a fall which cause cervical fracture. Father Family Medical History: Dementia, Musculoskeletal Disorder Additional Family Medical History / Comment(s): Parkinsons Medications and Allergies Home Medications Medication Instructions Recorded Confirmed Type No Known Home Medications 01/30/24 01/30/24 History Allergies Allergy/AdvReac Type Severity Reaction Status Date / Time No Known Allergies Allergy Verified 01/30/24 08:48 Physical Exam Vitals: Vital Signs Temp Pulse Resp BP BP Pulse Ox 01/31/24 06:47 98.8 F 104 H 16 130/86 96 01/31/24 02:00 98.6 F 98 18 156/91 97 01/30/24 21:31 119 H 01/30/24 20:00 98.7 F 119 H 20 165/90 92 L Intake and Output 01/31/24 01/31/24 01/31/24 06:59 14:59 22:59 Intake Total 118 Output Total 700 500 Balance -700 -382 Intake: Oral 118 Output: Urine 700 500 Other: Voiding Method External Catheter Results 01/30/24 04:49 01/31/24 02:25 Comprehensive Metabolic Panel 01/30/24 01/31/24 Range/Units 18:44 02:25 Potassium 2.9 L 3.7 (3.5-5.1) mmol/L Current Medications Generic Name Dose Route Start Last Admin Trade Name Freq PRN Reason Stop Dose Admin Lorazepam 0.5 mg 01/29/24 21:27 01/30/24 22:50 Lorazepam 0.5 Mg Tab PO 0.5 mg Q4HR PRN Administration Ciwa 4 To 5 Lorazepam 2 mg 01/29/24 21:27 Lorazepam 1 Mg Tab PO Q3HR PRN Ciwa 8 To 9 Lorazepam 2 mg 01/29/24 21:27 Lorazepam 1 Mg Tab PO Q2HR PRN Ciwa 10 or greater Lorazepam 1 mg 01/29/24 21:27 01/31/24 08:37 Lorazepam 1 Mg Tab PO 1 mg Q4HR PRN Administration Ciwa 6 To 7 Lorazepam 2 mg 01/29/24 21:27 Lorazepam 2 Mg/Ml Inj IV 01/31/24 21:28 Q10M PRN CIWA 16 or higher Lorazepam 1 mg 01/29/24 21:27 Lorazepam 2 Mg/Ml Inj IV Q2HR PRN CIWA 8 or 9 Lorazepam 1 mg 01/29/24 21:27 Lorazepam 2 Mg/Ml Inj IV Q1HR PRN CIWA 10 to 15 Lorazepam 1 mg 01/29/24 21:27 Lorazepam 1 Mg Tab PO Q1HR PRN Alcohol Withdrawal Miscellaneous Information 1 each 01/30/24 10:44 Potassium Replacement Protocol 1 Each Misc MISCELLANE DAILY PRN Per Protocol Protocol Morphine Sulfate 4 mg 01/29/24 23:20 01/31/24 11:43 Morphine Sulfate 4 Mg/Ml Syringe IV 4 mg Q4HR PRN Administration Severe Pain (Scale 7 to 10) Naloxone HCl 0.2 mg 01/29/24 23:20 Naloxone 0.4 Mg/Ml 1 Ml Vial IV Q2M PRN Opioid Reversal Ondansetron HCl 4 mg 01/29/24 23:20 Ondansetron 4 Mg/2 Ml Vial IVP Q8HR PRN Nausea And Vomiting Pantoprazole Sodium 40 mg 01/29/24 23:30 01/31/24 08:37 Pantoprazole 40 Mg/10 Ml Vial IV 40 mg DAILY CARLEE Administration Intake and Output 01/31/24 01/31/24 01/31/24 06:59 14:59 22:59 Intake Total 118 Output Total 700 500 Balance -700 -382 Intake: Oral 118 Output: Urine 700 500 Other: Voiding Method External Catheter 01/30/24 04:49 01/31/24 02:25
[2024-01-31] MEDS: LORazepam 2 MG/ML INJ IV PRN (19:56)
[2024-01-31] MEDS: LORazepam 1 MG TAB PO PRN (22:27)
[2024-01-31] MEDS: NICOTINE 14MG/24HR PATCH TRANSDERM SCH (22:39)
--- NOTE | 2024-02-01 13:42 | P.PN ---
Subjective Progress Note Date: 02/01/24 patient is a 63-year-old gentleman with past medical history significant for alcohol abuse, thrombocytopenia, hyperlipidemia who presented to the ER for alcohol intoxication and chest pain. Patient had multiple visits to the ER in the last 6 months with similar presentation. Patient is not the best of h istorian. At this time patient is intoxicated, complaining of recent fall with trauma to his neck and left shoulder. There is no obvious sign of head trauma. Currently complains of chest pain as well which is central in location, nonradiating, no aggravating or relieving factor associated chest pain. Initial lab work done in the ER showed WBC 4.3, hemoglobin 10.9, platelet count 55, sodium 143, potassium 3.2, BUN 14, creatinine 0.74, AST 123, ALT 27, Serum alcohol level 399 EKG done in the ER showed heart rate of 91, no ST segment elevation or depression seen, no T-wave inversions seen. Chest x-ray done in the ER showed no acute cardiopulmonary process X-ray pelvis done showed bilateral hip arthroplasties, no GARRISON prosthetic fracture X-ray left shoulder done showed no fracture CT head done showed no acute intracranial process CT cervical spine done showed no acute fracture or subluxation CTA chest done showed no PE Patient admitted to internal medicine service 01/30. Patient seen and examined. Complaining of generalized bodyaches and anxiety. 01/31. Patient seen and examined. Patient with lethargic. PT and OT recommend rehab REVIEW OF SYSTEMS: CONSTITUTIONAL: No fever, no malaise,. CARDIOVASCULAR: No chest pain, no palpitations, no syncope. PULMONARY: No shortness of breath, no cough, GASTROINTESTINAL: No diarrhea, no nausea, no vomiting, no abdominal pain. NEUROLOGICAL: No headaches, no weakness, PHYSICAL EXAMINATION: GENERAL: The patient is alert, chronically ill looking HEENT: Pupils are round and equally reacting to light. EOMI. No scleral icterus. No conjunctival pallor. Normocephalic, atraumatic. No pharyngeal erythema. No thyromegaly. CARDIOVASCULAR: S1 and S2 present. No murmurs, rubs, or gallops. PULMONARY: Chest is clear to auscultation, no wheezing or crackles. ABDOMEN: Soft, nontender, nondistended, normoactive bowel sounds. No palpable organomegaly. MUSCULOSKELETAL: No joint swelling or deformity. EXTREMITIES: No cyanosis, clubbing, or pedal edema. NEUROLOGICAL: Gross neurological examination did not reveal any focal deficits. SKIN: No rashes. Assessment and plan Acute alcohol intoxication Impending alcohol detox Chest pain, ACS ruled out Hypokalemia Thrombocytopenia Monitor vital signs Monitor CBC Monitor CMP Continue telemetry monitoring Continue CIWA protocol Continue high-dose thiamine and folic acid Patient counseled in detail regarding alcohol cessation Cardiology consulted, no need for any ischemic workup as patient pain is musculoskeletal PT OT recommend rehab Labs and medication were reviewed.. Continue same treatment. Continue with symptomatic treatment. Resume home medication. Monitor labs and vitals. DVT and GI prophylaxis. Further recommendations as per clinical course of the patient Dictation was produced using [employer] dictation software. please excuse any grammatical, word or spelling errors. Objective - Vital Signs Vital signs: Vital Signs Temp 97.9 F 02/01/24 07:00 Pulse 105 H 02/01/24 07:00 Resp 17 02/01/24 07:00 BP 147/92 02/01/24 07:00 Pulse Ox 99 02/01/24 07:00 FiO2 Intake & Output 01/31/24 02/01/24 02/01/24 18:59 06:59 18:59 Intake Total 236 Output Total 500 700 Balance -264 -700 Intake: Oral 236 Output: Urine 500 700 Other: Voiding Method External Catheter External Catheter - Labs CBC & Chem 7: 01/30/24 04:49 01/31/24 02:25
[2024-02-02] MEDS: LORazepam 1 MG TAB PO PRN (06:25)
--- NOTE | 2024-02-02 16:31 | P.PN ---
Subjective Progress Note Date: 02/02/24 patient is a 63-year-old gentleman with past medical history significant for alcohol abuse, thrombocytopenia, hyperlipidemia who presented to the ER for alcohol intoxication and chest pain. Patient had multiple visits to the ER in the last 6 months with similar presentation. Patient is not the best of h [facility]. At this time patient is intoxicated, complaining of recent fall with trauma to his neck and left shoulder. There is no obvious sign of head trauma. Currently complains of chest pain as well which is central in location, nonradiating, no aggravating or relieving factor associated chest pain. Initial lab work done in the ER showed WBC 4.3, hemoglobin 10.9, platelet count 55, sodium 143, potassium 3.2, BUN 14, creatinine 0.74, AST 123, ALT 27, Serum alcohol level 399 EKG done in the ER showed heart rate of 91, no ST segment elevation or depression seen, no T-wave inversions seen. Chest x-ray done in the ER showed no acute cardiopulmonary process X-ray pelvis done showed bilateral hip arthroplasties, no GARRISON prosthetic fracture X-ray left shoulder done showed no fracture CT head done showed no acute intracranial process CT cervical spine done showed no acute fracture or subluxation CTA chest done showed no PE Patient admitted to internal medicine service 01/30. Patient seen and examined. Complaining of generalized bodyaches and anxiety. 01/31. Patient seen and examined. Patient with lethargic. PT and OT recommend rehab 02/01. Patient seen and examined. Patient continues to be very weak and lethargic. Patient is alert REVIEW OF SYSTEMS: CONSTITUTIONAL: No fever, no malaise,. CARDIOVASCULAR: No chest pain, no palpitations, no syncope. PULMONARY: No shortness of breath, no cough, GASTROINTESTINAL: No diarrhea, no nausea, no vomiting, no abdominal pain. NEUROLOGICAL: No headaches, no weakness, PHYSICAL EXAMINATION: GENERAL: The patient is alert, chronically ill looking HEENT: Pupils are round and equally reacting to light. EOMI. No scleral icterus. No conjunctival pallor. Normocephalic, atraumatic. No pharyngeal erythema. No thyromegaly. CARDIOVASCULAR: S1 and S2 present. No murmurs, rubs, or gallops. PULMONARY: Chest is clear to auscultation, no wheezing or crackles. ABDOMEN: Soft, nontender, nondistended, normoactive bowel sounds. No palpable organomegaly. MUSCULOSKELETAL: No joint swelling or deformity. EXTREMITIES: No cyanosis, clubbing, or pedal edema. NEUROLOGICAL: Gross neurological examination did not reveal any focal deficits. SKIN: No rashes. Assessment and plan Acute alcohol intoxication Impending alcohol detox Chest pain, ACS ruled out Hypokalemia Thrombocytopenia Monitor vital signs Monitor CBC Monitor CMP Continue telemetry monitoring Continue CIWA protocol Continue high-dose thiamine and folic acid Patient counseled in detail regarding alcohol cessation Cardiology consulted, no need for any ischemic workup as patient pain is musculoskeletal PT OT recommend rehab Labs and medication were reviewed.. Continue same treatment. Continue with symptomatic treatment. Resume home medication. Monitor labs and vitals. DVT and GI prophylaxis. Further recommendations as per clinical course of the patient Dictation was produced using [employer] dictation software. please excuse any grammatical, word or spelling errors. Objective - Vital Signs Vital signs: Vital Signs Temp 97.8 F 02/02/24 07:00 Pulse 96 02/02/24 07:00 Resp 16 02/02/24 07:00 BP 114/76 02/02/24 07:00 Pulse Ox 98 02/02/24 07:00 FiO2 Intake & Output 02/01/24 02/02/24 02/02/24 18:59 06:59 18:59 Intake Total 118 118 Output Total 200 400 Balance -82 -400 118 Intake: Oral 118 118 Output: Urine 200 400 Other: Voiding Method External Catheter # Voids 1 1 - Labs CBC & Chem 7: 01/30/24 04:49 01/31/24 02:25
[2024-02-03 09:40] LABS: HCT 32.5 % (39.6-50.0); HGB 10.8 g/dL (13.0-17.0); MCH 29.8 pg (27.0-32.0); MCHC 33.2 g/dL (32.0-37.0); MCV 89.8 FL (80.0-97.0); Mean Platelet Volume 11.9 FL (9.5-12.2); NRBC Per 100 WBC 0 X 10*3/uL (0.00-0.01); Platelet Count 48 X 10*3/uL (140-440); RBC 3.62 X 10*6/uL (4.40-5.60); RDW 13.2 % (11.5-14.5); WBC 6.08 X 10*3/uL (4.50-10.00)
[2024-02-03 10:21] LABS: Basophils # (A) 0.05 X 10*3/uL (0.00-0.10); Basophils % (A) 0.8 %; Eosinophils # (A) 0.15 X 10*3/uL (0.04-0.35); Eosinophils % (A) 2.5 %; Lymphocytes # (A) 0.76 X 10*3/uL (0.90-5.00); Lymphocytes % (A) 12.5 %; Monocytes # (A) 1.01 X 10*3/uL (0.20-1.00); Monocytes % (A) 16.6 %; Neutrophils # (A) 4.09 X 10*3/uL (1.80-7.70); Neutrophils % (A) 67.3 %; RBC Morphology Normal (Normal)
[2024-02-03 10:26] LABS: ALT 19 U/L (10-49); AST 48 U/L (14-35); Albumin/Globulin Ratio 1.67 Ratio (1.60-3.17); Alkaline Phosphatase 93 U/L (41-126); BUN/Creat Ratio 23.11 Ratio (12.00-20.00); Blood Urea Nitrogen 20.8 mg/dL (9.0-27.0); Calcium 9.3 mg/dL (8.7-10.3); Carbon Dioxide 26.3 mmol/L (21.6-31.8); Chloride 97 mmol/L (96-109); Globulin 2.4 g/dL (1.6-3.3); Glucose 99 mg/dL (70-110); Potassium 3.2 mmol/L (3.5-5.5); Sodium 138 mmol/L (135-145); Total Bilirubin 0.7 mg/dL (0.3-1.2); Total Protein 6.4 g/dL (6.2-8.2)
--- NOTE | 2024-02-03 15:01 | P.PN ---
Subjective Progress Note Date: 02/03/24 patient is a 63-year-old gentleman with past medical history significant for alcohol abuse, thrombocytopenia, hyperlipidemia who presented to the ER for alcohol intoxication and chest pain. Patient had multiple visits to the ER in the last 6 months with similar presentation. Patient is not the best of h [facility]. At this time patient is intoxicated, complaining of recent fall with trauma to his neck and left shoulder. There is no obvious sign of head trauma. Currently complains of chest pain as well which is central in location, nonradiating, no aggravating or relieving factor associated chest pain. Initial lab work done in the ER showed WBC 4.3, hemoglobin 10.9, platelet count 55, sodium 143, potassium 3.2, BUN 14, creatinine 0.74, AST 123, ALT 27, Serum alcohol level 399 EKG done in the ER showed heart rate of 91, no ST segment elevation or depression seen, no T-wave inversions seen. Chest x-ray done in the ER showed no acute cardiopulmonary process X-ray pelvis done showed bilateral hip arthroplasties, no GARRISON prosthetic fracture X-ray left shoulder done showed no fracture CT head done showed no acute intracranial process CT cervical spine done showed no acute fracture or subluxation CTA chest done showed no PE Patient admitted to internal medicine service 01/30. Patient seen and examined. Complaining of generalized bodyaches and anxiety. 01/31. Patient seen and examined. Patient with lethargic. PT and OT recommend rehab 02/01. Patient seen and examined. Patient continues to be very weak and lethargic. Patient is alert 02/02. Patient seen and examined. Vital signs stable REVIEW OF SYSTEMS: CONSTITUTIONAL: No fever, no malaise,. CARDIOVASCULAR: No chest pain, no palpitations, no syncope. PULMONARY: No shortness of breath, no cough, GASTROINTESTINAL: No diarrhea, no nausea, no vomiting, no abdominal pain. NEUROLOGICAL: No headaches, no weakness, PHYSICAL EXAMINATION: GENERAL: The patient is alert, chronically ill looking HEENT: Pupils are round and equally reacting to light. EOMI. No scleral icterus. No conjunctival pallor. Normocephalic, atraumatic. No pharyngeal erythema. No thyromegaly. CARDIOVASCULAR: S1 and S2 present. No murmurs, rubs, or gallops. PULMONARY: Chest is clear to auscultation, no wheezing or crackles. ABDOMEN: Soft, nontender, nondistended, normoactive bowel sounds. No palpable organomegaly. MUSCULOSKELETAL: No joint swelling or deformity. EXTREMITIES: No cyanosis, clubbing, or pedal edema. NEUROLOGICAL: Gross neurological examination did not reveal any focal deficits. SKIN: No rashes. Assessment and plan Acute alcohol intoxication Impending alcohol detox Chest pain, ACS ruled out Hypokalemia Thrombocytopenia Monitor vital signs Monitor CBC Monitor CMP Continue telemetry monitoring Continue CIWA protocol Continue high-dose thiamine and folic acid Patient counseled in detail regarding alcohol cessation Cardiology consulted, no need for any ischemic workup as patient pain is musculoskeletal PT OT recommend rehab Labs and medication were reviewed.. Continue same treatment. Continue with symptomatic treatment. Resume home medication. Monitor labs and vitals. DVT and GI prophylaxis. Further recommendations as per clinical course of the patient Dictation was produced using [employer] dictation software. please excuse any grammatical, word or spelling errors. Objective - Vital Signs Vital signs: Vital Signs Temp 97.6 F 02/03/24 07:45 Pulse 85 02/03/24 07:45 Resp 18 02/03/24 07:45 BP 125/76 02/03/24 07:45 Pulse Ox 99 02/03/24 07:45 FiO2 Intake & Output 02/02/24 02/03/24 02/03/24 18:59 06:59 18:59 Intake Total 338 Balance 338 Intake: Oral 338 Other: Voiding Method Diaper Diaper External Catheter External Catheter # Voids 2 1 1 - Labs CBC & Chem 7: 02/03/24 05:37 02/03/24 05:37 Labs: Abnormal Lab Results - Last 24 Hours (Table) 02/03/24 02/03/24 Range/Units 05:37 05:37 RBC 3.62 L (4.40-5.60) X 10*6/uL Hgb 10.8 L (13.0-17.0) g/dL Hct 32.5 L (39.6-50.0) % Plt Count 48 A* (140-440) X 10*3/uL Lymphocytes # 0.76 L (0.90-5.00) X 10*3/uL Monocytes # 1.01 H (0.20-1.00) X 10*3/uL Immature Plt Fraction 13.0 H (1.1-6.1) % Potassium 3.2 L (3.5-5.5) mmol/L Anion Gap 14.70 H (4.00-12.00) mmol/L BUN/Creatinine Ratio 23.11 H (12.00-20.00) Ratio AST 48 H (14-35) U/L
[2024-02-04 08:04] VITALS: BMI 19.0
--- NOTE | 2024-02-04 13:41 | P.PN ---
Subjective Progress Note Date: 02/04/24 patient is a 63-year-old gentleman with past medical history significant for alcohol abuse, thrombocytopenia, hyperlipidemia who presented to the ER for alcohol intoxication and chest pain. Patient had multiple visits to the ER in the last 6 months with similar presentation. Patient is not the best of h [facility]. At this time patient is intoxicated, complaining of recent fall with trauma to his neck and left shoulder. There is no obvious sign of head trauma. Currently complains of chest pain as well which is central in location, nonradiating, no aggravating or relieving factor associated chest pain. Initial lab work done in the ER showed WBC 4.3, hemoglobin 10.9, platelet count 55, sodium 143, potassium 3.2, BUN 14, creatinine 0.74, AST 123, ALT 27, Serum alcohol level 399 EKG done in the ER showed heart rate of 91, no ST segment elevation or depression seen, no T-wave inversions seen. Chest x-ray done in the ER showed no acute cardiopulmonary process X-ray pelvis done showed bilateral hip arthroplasties, no GARRISON prosthetic fracture X-ray left shoulder done showed no fracture CT head done showed no acute intracranial process CT cervical spine done showed no acute fracture or subluxation CTA chest done showed no PE Patient admitted to internal medicine service 01/30. Patient seen and examined. Complaining of generalized bodyaches and anxiety. 01/31. Patient seen and examined. Patient with lethargic. PT and OT recommend rehab 02/01. Patient seen and examined. Patient continues to be very weak and lethargic. Patient is alert 02/02. Patient seen and examined. Vital signs stable 02/03. Patient seen and examined. Patient continues to be lethargic. REVIEW OF SYSTEMS: CONSTITUTIONAL: No fever, no malaise,. CARDIOVASCULAR: No chest pain, no palpitations, no syncope. PULMONARY: No shortness of breath, no cough, GASTROINTESTINAL: No diarrhea, no nausea, no vomiting, no abdominal pain. NEUROLOGICAL: No headaches, no weakness, PHYSICAL EXAMINATION: GENERAL: The patient is alert, chronically ill looking HEENT: Pupils are round and equally reacting to light. EOMI. No scleral icterus. No conjunctival pallor. Normocephalic, atraumatic. No pharyngeal erythema. No thyromegaly. CARDIOVASCULAR: S1 and S2 present. No murmurs, rubs, or gallops. PULMONARY: Chest is clear to auscultation, no wheezing or crackles. ABDOMEN: Soft, nontender, nondistended, normoactive bowel sounds. No palpable organomegaly. MUSCULOSKELETAL: No joint swelling or deformity. EXTREMITIES: No cyanosis, clubbing, or pedal edema. NEUROLOGICAL: Gross neurological examination did not reveal any focal deficits. SKIN: No rashes. Assessment and plan Acute alcohol intoxication Impending alcohol detox Chest pain, ACS ruled out Hypokalemia Thrombocytopenia Monitor vital signs Monitor CBC Monitor CMP Continue telemetry monitoring Continue CIWA protocol Continue high-dose thiamine and folic acid Patient counseled in detail regarding alcohol cessation Cardiology consulted, no need for any ischemic workup as patient pain is musculoskeletal PT OT recommend rehab Labs and medication were reviewed.. Continue same treatment. Continue with symptomatic treatment. Resume home medication. Monitor labs and vitals. DVT and GI prophylaxis. Further recommendations as per clinical course of the patient Dictation was produced using [employer] dictation software. please excuse any g rammatical, word or spelling errors. Objective - Vital Signs Vital signs: Vital Signs Temp 98.1 F 02/04/24 07:58 Pulse 95 02/04/24 07:58 Resp 16 02/04/24 07:58 BP 100/63 02/04/24 07:58 Pulse Ox 95 02/04/24 07:58 FiO2 Intake & Output 02/03/24 02/04/24 02/04/24 18:59 06:59 18:59 Intake Total 118 120 118 Balance 118 120 118 Weight 56.699 kg Intake: Oral 118 120 118 Other: Voiding Method Diaper Diaper Diaper External Catheter External Catheter # Voids 1 0 # Bowel Movements 1 - Labs CBC & Chem 7: 02/03/24 05:37 02/03/24 05:37
[2024-02-04] MEDS: HYDROcodone/APAP 5-325MG 1 EACH TAB PO PRN (16:46)
--- NOTE | 2024-02-05 14:33 | P.PN ---
Subjective Progress Note Date: 02/05/24 patient is a 63-year-old gentleman with past medical history significant for alcohol abuse, thrombocytopenia, hyperlipidemia who presented to the ER for alcohol intoxication and chest pain. Patient had multiple visits to the ER in the last 6 months with similar presentation. Patient is not the best of [facility]. At this time patient is intoxicated, complaining of recent fall with trauma to his neck and left shoulder. There is no obvious sign of head trauma. Currently complains of chest pain as well which is central in location, nonradiating, no aggravating or relieving factor associated chest pain. Initial lab work done in the ER showed WBC 4.3, hemoglobin 10.9, platelet count 55, sodium 143, potassium 3.2, BUN 14, creatinine 0.74, AST 123, ALT 27, Serum alcohol level 399 EKG done in the ER showed heart rate of 91, no ST segment elevation or depression seen, no T-wave inversions seen. Chest x-ray done in the ER showed no acute cardiopulmonary process X-ray pelvis done showed bilateral hip arthroplasties, no GARRISON prosthetic fracture X-ray left shoulder done showed no fracture CT head done showed no acute intracranial process CT cervical spine done showed no acute fracture or subluxation CTA chest done showed no PE Patient admitted to internal medicine service 01/30. Patient seen and examined. Complaining of generalized bodyaches and anxiety. 01/31. Patient seen and examined. Patient with lethargic. PT and OT recommend rehab 02/01. Patient seen and examined. Patient continues to be very weak and lethargic. Patient is alert 02/02. Patient seen and examined. Vital signs stable 02/03. Patient seen and examined. Patient continues to be lethargic. 02/04. Patient seen and examined. Sitting upright in the bed. Still weak but alert and talking REVIEW OF SYSTEMS: CONSTITUTIONAL: No fever, no malaise,. CARDIOVASCULAR: No chest pain, no palpitations, no syncope. PULMONARY: No shortness of breath, no cough, GASTROINTESTINAL: No diarrhea, no nausea, no vomiting, no abdominal pain. NEUROLOGICAL: No headaches, no weakness, PHYSICAL EXAMINATION: GENERAL: The patient is alert, chronically ill looking HEENT: Pupils are round and equally reacting to light. EOMI. No scleral icterus. No conjunctival pallor. Normocephalic, atraumatic. No pharyngeal erythema. No thyromegaly. CARDIOVASCULAR: S1 and S2 present. No murmurs, rubs, or gallops. PULMONARY: Chest is clear to auscultation, no wheezing or crackles. ABDOMEN: Soft, nontender, nondistended, normoactive bowel sounds. No palpable organomegaly. MUSCULOSKELETAL: No joint swelling or deformity. EXTREMITIES: No cyanosis, clubbing, or pedal edema. NEUROLOGICAL: Gross neurological examination did not reveal any focal deficits. SKIN: No rashes. Assessment and plan Acute alcohol intoxication Impending alcohol detox Chest pain, ACS ruled out Hypokalemia Thrombocytopenia Monitor vital signs Monitor CBC Monitor CMP Continue telemetry monitoring Continue CIWA protocol Continue high-dose thiamine and folic acid Patient counseled in detail regarding alcohol cessation Cardiology consulted, no need for any ischemic workup as patient pain is musculoskeletal PT OT recommend rehab Labs and medication were reviewed.. Continue same treatment. Continue with symptomatic treatment. Resume home medication. Monitor labs and vitals. DVT and GI prophylaxis. Further recommendations as per clinical course of the patient Dictation was produced using [employer] dictation software. please excuse any gra mmatical, word or spelling errors. Objective - Vital Signs Vital signs: Vital Signs Temp 98.5 F 02/05/24 08:00 Pulse 94 02/05/24 08:00 Resp 16 02/05/24 08:00 BP 130/68 02/05/24 08:00 Pulse Ox 98 02/05/24 08:00 FiO2 Intake & Output 02/04/24 02/05/24 02/05/24 18:59 06:59 18:59 Intake Total 236 Output Total 225 Balance 236 -225 Weight 56.699 kg Intake: Oral 236 Output: Urine 225 Other: Voiding Method Diaper Diaper Diaper # Voids 1 # Bowel Movements 1 1 - Labs CBC & Chem 7: 02/03/24 05:37 02/03/24 05:37
--- NOTE | 2024-02-06 15:23 | P.PN ---
Subjective Progress Note Date: 02/06/24 patient is a 63-year-old gentleman with past medical history significant for alcohol abuse, thrombocytopenia, hyperlipidemia who presented to the ER for alcohol intoxication and chest pain. Patient had multiple visits to the ER in the last 6 months with similar presentation. Patient is not the best of h [facility]. At this time patient is intoxicated, complaining of recent fall with trauma to his neck and left shoulder. There is no obvious sign of head trauma. Currently complains of chest pain as well which is central in location, nonradiating, no aggravating or relieving factor associated chest pain. Initial lab work done in the ER showed WBC 4.3, hemoglobin 10.9, platelet count 55, sodium 143, potassium 3.2, BUN 14, creatinine 0.74, AST 123, ALT 27, Serum alcohol level 399 EKG done in the ER showed heart rate of 91, no ST segment elevation or depression seen, no T-wave inversions seen. Chest x-ray done in the ER showed no acute cardiopulmonary process X-ray pelvis done showed bilateral hip arthroplasties, no GARRISON prosthetic fracture X-ray left shoulder done showed no fracture CT head done showed no acute intracranial process CT cervical spine done showed no acute fracture or subluxation CTA chest done showed no PE Patient admitted to internal medicine service 01/30. Patient seen and examined. Complaining of generalized bodyaches and anxiety. 01/31. Patient seen and examined. Patient with lethargic. PT and OT recommend rehab 02/01. Patient seen and examined. Patient continues to be very weak and lethargic. Patient is alert 02/02. Patient seen and examined. Vital signs stable 02/03. Patient seen and examined. Patient continues to be lethargic. 02/04. Patient seen and examined. Sitting upright in the bed. Still weak but alert and talking 02/05. Patient seen and examined. Currently waiting on placement to rehab facility REVIEW OF SYSTEMS: CONSTITUTIONAL: No fever, no malaise,. CARDIOVASCULAR: No chest pain, no palpitations, no syncope. PULMONARY: No shortness of breath, no cough, GASTROINTESTINAL: No diarrhea, no nausea, no vomiting, no abdominal pain. NEUROLOGICAL: No headaches, no weakness, PHYSICAL EXAMINATION: GENERAL: The patient is alert, chronically ill looking HEENT: Pupils are round and equally reacting to light. EOMI. No scleral icterus. No conjunctival pallor. Normocephalic, atraumatic. No pharyngeal erythema. No thyromegaly. CARDIOVASCULAR: S1 and S2 present. No murmurs, rubs, or gallops. PULMONARY: Chest is clear to auscultation, no wheezing or crackles. ABDOMEN: Soft, nontender, nondistended, normoactive bowel sounds. No palpable organomegaly. MUSCULOSKELETAL: No joint swelling or deformity. EXTREMITIES: No cyanosis, clubbing, or pedal edema. NEUROLOGICAL: Gross neurological examination did not reveal any focal deficits. SKIN: No rashes. Assessment and plan Acute alcohol intoxication Impending alcohol detox Chest pain, ACS ruled out Hypokalemia Thrombocytopenia Monitor vital signs Monitor CBC Monitor CMP CIWA scores have been low, avoid IV Ativan, added Atarax Continue high-dose thiamine and folic acid Patient counseled in detail regarding alcohol cessation Cardiology consulted, no need for any ischemic workup as patient pain is musculoskeletal PT OT recommend rehab Labs and medication were reviewed.. Continue same treatment. Continue with symptomatic treatment. Resume home medication. Monitor labs and vitals. DVT and GI prophylaxis. Further recommendations as per clinical course of the patient Dictation was produced using [employer] dictation software. please excuse any grammatical, word or spelling errors. Objective - Vital Signs Vital signs: Vital Signs Temp 98.7 F 02/06/24 13:19 Pulse 74 02/06/24 13:19 Resp 16 02/06/24 13:19 BP 129/74 02/06/24 13:19 Pulse Ox 99 02/06/24 13:19 FiO2 Intake & Output 02/05/24 02/06/24 02/06/24 18:59 06:59 18:59 Intake Total 118 236 Output Total 425 500 Balance 118 425 -264 Intake: Oral 118 236 Output: Urine 425 500 Other: Voiding Method Diaper Diaper Diaper # Voids 2 2 # Bowel Movements 1 1 - Labs CBC & Chem 7: 02/03/24 05:37 02/03/24 05:37
[2024-02-06] MEDS: hydrOXYzine HCL 25 MG TAB PO PRN (15:51)
[2024-02-07 09:14] LABS: ALT 23 U/L (10-49); AST 35 U/L (14-35); Albumin 4.2 g/dL (3.8-4.9); Albumin/Globulin Ratio 1.75 Ratio (1.60-3.17); Alkaline Phosphatase 87 U/L (41-126); Blood Urea Nitrogen 14.7 mg/dL (9.0-27.0); Calcium 9.3 mg/dL (8.7-10.3); Carbon Dioxide 24.6 mmol/L (21.6-31.8); Chloride 100 mmol/L (96-109); Globulin 2.4 g/dL (1.6-3.3); Glucose 90 mg/dL (70-110); Potassium 3.5 mmol/L (3.5-5.5); Sodium 138 mmol/L (135-145); Total Bilirubin 0.3 mg/dL (0.3-1.2); Total Protein 6.6 g/dL (6.2-8.2)
[2024-02-07 10:06] LABS: HCT 29.7 % (39.6-50.0); HGB 9.7 g/dL (13.0-17.0); MCH 29.8 pg (27.0-32.0); MCHC 32.7 g/dL (32.0-37.0); MCV 91.1 FL (80.0-97.0); Mean Platelet Volume 10.1 FL (9.5-12.2); NRBC Per 100 WBC 0 X 10*3/uL (0.00-0.01); Platelet Count 154 X 10*3/uL (140-440); RBC 3.26 X 10*6/uL (4.40-5.60); RDW 12.8 % (11.5-14.5); WBC 6.86 X 10*3/uL (4.50-10.00)
[2024-02-07 14:54] VITALS: BP 161/81; PULSE 110; RESP 16; TEMP 98.5
--- NOTE | 2024-02-07 14:54 | P.PN ---
Subjective Progress Note Date: 02/07/24 patient is a 63-year-old gentleman with past medical history significant for alcohol abuse, thrombocytopenia, hyperlipidemia who presented to the ER for alcohol intoxication and chest pain. Patient had multiple visits to the ER in the last 6 months with similar presentation. Patient is not the best of h istorian. At this time patient is intoxicated, complaining of recent fall with trauma to his neck and left shoulder. There is no obvious sign of head trauma. Currently complains of chest pain as well which is central in location, nonradiating, no aggravating or relieving factor associated chest pain. Initial lab work done in the ER showed WBC 4.3, hemoglobin 10.9, platelet count 55, sodium 143, potassium 3.2, BUN 14, creatinine 0.74, AST 123, ALT 27, Serum alcohol level 399 EKG done in the ER showed heart rate of 91, no ST segment elevation or depression seen, no T-wave inversions seen. Chest x-ray done in the ER showed no acute cardiopulmonary process X-ray pelvis done showed bilateral hip arthroplasties, no GARRISON prosthetic fracture X-ray left shoulder done showed no fracture CT head done showed no acute intracranial process CT cervical spine done showed no acute fracture or subluxation CTA chest done showed no PE Patient admitted to internal medicine service 01/30. Patient seen and examined. Complaining of generalized bodyaches and anxiety. 01/31. Patient seen and examined. Patient with lethargic. PT and OT recommend rehab 02/01. Patient seen and examined. Patient continues to be very weak and lethargic. Patient is alert 02/02. Patient seen and examined. Vital signs stable 02/03. Patient seen and examined. Patient continues to be lethargic. 02/04. Patient seen and examined. Sitting upright in the bed. Still weak but alert and talking 02/05. Patient seen and examined. Currently waiting on placement to rehab facility 02/06. Patient seen and examined. Patient was supposed to be discharged to rehab but prior to discharge, patient started becoming aggressive, made homicidal statements about his to the nursing staff that how can she send him to rehab. On my examination, patient stated that he stated all the statements in anger as he does not want to go to rehab. Patient has capacity to make decisions. Security was called and they talk to the patient and PD was also called. REVIEW OF SYSTEMS: CONSTITUTIONAL: No fever, no malaise,. CARDIOVASCULAR: No chest pain, no palpitations, no syncope. PULMONARY: No shortness of breath, no cough, GASTROINTESTINAL: No diarrhea, no nausea, no vomiting, no abdominal pain. NEUROLOGICAL: No headaches, no weakness, PHYSICAL EXAMINATION: GENERAL: The patient is alert, aggressive HEENT: Pupils are round and equally reacting to light. EOMI. No scleral icterus. No conjunctival pallor. Normocephalic, atraumatic. No pharyngeal erythema. No thyromegaly. CARDIOVASCULAR: S1 and S2 present. No murmurs, rubs, or gallops. PULMONARY: Chest is clear to auscultation, no wheezing or crackles. ABDOMEN: Soft, nontender, nondistended, normoactive bowel sounds. No palpable or ganomegaly. MUSCULOSKELETAL: No joint swelling or deformity. EXTREMITIES: No cyanosis, clubbing, or pedal edema. NEUROLOGICAL: Gross neurological examination did not reveal any focal deficits. SKIN: No rashes. Assessment and plan Acute alcohol intoxication Impending alcohol detox Chest pain, ACS ruled out Hypokalemia Thrombocytopenia Monitor vital signs Monitor CBC Monitor CMP CIWA scores have been low, avoid IV Ativan, added Atarax Continue high-dose thiamine and folic acid Patient counseled in detail regarding alcohol cessation Cardiology consulted, no need for any ischemic workup as patient pain is musculoskeletal PT OT recommend rehab Patient was supposed to be discharged to rehab but prior to discharge, patient started becoming aggressive, made homicidal statements about his to the nursing staff that how can she send him to rehab. On my examination, patient stated that he stated all the statements in anger as he does not want to go to rehab. Patient has capacity to make decisions. Security was called and they talk to the patient and PD was also called Labs and medication were reviewed.. Continue same treatment. Continue with symptomatic treatment. Resume home medication. Monitor labs and vitals. DVT and GI prophylaxis. Further recommendations as per clinical course of the patient Dictation was produced using [employer] dictation software. please excuse any grammatical, word or spelling errors. Objective - Vital Signs Vital signs: Vital Signs Temp 98.0 F 02/07/24 08:00 Pulse 87 02/07/24 08:00 Resp 18 02/07/24 08:00 BP 160/87 02/07/24 08:00 Pulse Ox 99 02/07/24 08:00 FiO2 Intake & Output 02/06/24 02/07/24 02/07/24 18:59 06:59 18:59 Intake Total 354 Output Total 500 900 Balance -146 -900 Intake: Oral 354 Output: Urine 500 900 Other: Voiding Method Diaper Toilet Toilet Urinal # Voids 2 # Bowel Movements 1 - Labs CBC & Chem 7: 02/07/24 05:42 02/07/24 05:42 Labs: Abnormal Lab Results - Last 24 Hours (Table) 02/07/24 02/07/24 Range/Units 05:42 05:42 RBC 3.26 L (4.40-5.60) X 10*6/uL Hgb 9.7 L (13.0-17.0) g/dL Hct 29.7 L (39.6-50.0) % Anion Gap 13.40 H (4.00-12.00) mmol/L BUN/Creatinine Ratio 21.00 H (12.00-20.00) Ratio
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
== END 2024-02-07 18:03 | disposition home health service (06) | DRG 897 ==
LOC: EC 21:20 → 6NMEDSUR 23:20
PROVIDERS: ADMIT Hospitalist; ATTEND Hospitalist
DX: F10.229 Alcohol dependence with intoxication, unspecified (principal); D69.6 Thrombocytopenia, unspecified; R45.850 Homicidal ideations; F10.239 Alcohol dependence with withdrawal, unspecified; F17.210 Nicotine dependence, cigarettes, uncomplicated; E78.00 Pure hypercholesterolemia, unspecified; H91.90 Unspecified hearing loss, unspecified ear; F41.9 Anxiety disorder, unspecified; E87.6 Hypokalemia; R29.6 Repeated falls; Y90.8 Blood alcohol level of 240 mg/100 ml or more; Z86.0100 Personal history of colon polyps, unspecified; Z91.81 History of falling
CPT/HCPCS: 36415; 70450; 71045; 71275; 72125; 72170; 80053; 80320; 81001; 82550; 83690; 83735; 83880; 84100; 84132; 84484; 85025; 85027; 85379; 85610; 85730; 93005; 96361; 96365; 96366; 96375; 96376; 99285

== ENCOUNTER 2024-03-20 23:03 | Inpatient (IN) | payer MEDICARE ==
[2024-03-20] MEDS ORDERED: LORazepam 1 MG TAB PO PRN (23:17)
[2024-03-20] MEDS ORDERED: LORazepam 2 MG/ML INJ IV PRN (23:17)
--- NOTE | 2024-03-20 23:17 | ED ---
Recheck HPI - General Chief Complaint: Alcohol Stated Complaint: ETOH, Abnormal Labs Time Seen by Provider: 03/20/24 23:08 Source: patient, RN notes reviewed, old records reviewed Mode of arrival: EMS - History of Present Illness Initial Comments: This is a 63-year-old male to the ER for evaluation patient presents today for evaluation regards to alcohol intoxication alcohol withdrawal transferred to us for thrombocytopenia with history of alcohol abuse MD Complaint: abnormal lab (Low platelets abnormal lab testing) -: unknown Returns Today for: Called Because of Abnormal Lab/Test Symptoms Since Prior Visit: no new symptoms Context: called for abnormal lab result Associated Symptoms: none Treatments Prior to Arrival: other (0) - Related Data Home Medications Medication Instructions Recorded Confirmed No Known Home Medications 01/30/24 03/21/24 Allergies Allergy/AdvReac Type Severity Reaction Status Date / Time No Known Allergies Allergy Verified 03/21/24 07:11 Review of Systems ROS Statement: Those systems with pertinent positive or pertinent negative responses have been documented in the HPI. ROS Other: All systems not noted in ROS Statement are negative. Past Medical History Past Medical History: Blood Disorder, Hearing Disorder / Deafness, Hyperlipidemia, Osteoarthritis (OA), Syncope Additional Past Medical History / Comment(s): ETOH abuse/withdrawal DTs, thrombocytopenia, FALLS, past high cholesterol, neuropathy bilateral hands/feet, chronic back pain, benign colon polyps, frequent urination/wears depends, tinnitis bilateral ears, sinus issues. History of Any Multi-Drug Resistant Organisms: None Reported Past Surgical History: Back Surgery, Joint Replacement Additional Past Surgical History / Comment(s): Back surgeries x 3, cervical surgery, bilateral hip surgeries including total hip arthroplasties, R knee arthroscopy/meniscus repair, R knee injections, R shoulder rotator cuff repair, bilateral wrist carpal tunnel releases, colonoscopy. Past Anesthesia/Blood Transfusion Reactions: No Reported Reaction Past Psychological History: Anxiety Smoking Status: Current every day smoker Past Alcohol Use History: Abuse, Daily, Heavy Past Drug Use History: Marijuana - Past Family History Mother History Unknown: Yes Additional Family Medical History / Comment(s): Patient states after a fall which cause cervical fracture. Father Family Medical History: Dementia, Musculoskeletal Disorder Additional Family Medical History / Comment(s): Parkinsons General Exam General appearance: alert, in no apparent distress Head exam: Present: atraumatic, normocephalic, normal inspection Eye exam: Present: normal appearance, PERRL, EOMI. Absent: scleral icterus, conjunctival injection, periorbital swelling ENT exam: Present: normal exam, mucous membranes moist Neck exam: Present: normal inspection. Absent: tenderness, meningismus, lymphadenopathy Respiratory exam: Present: normal lung sounds bilaterally. Absent: respiratory distress, wheezes, rales, rhonchi, stridor Cardiovascular Exam: Present: regular rate, normal rhythm, normal heart sounds. Absent: systolic murmur, diastolic murmur, rubs, gallop, clicks GI/Abdominal exam: Present: soft, normal bowel sounds. Absent: distended, tenderness, guarding, rebound, rigid Extremities exam: Present: normal inspection, full ROM, normal capillary refill. Absent: tenderness, pedal edema, joint swelling, calf tenderness Back exam: Present: normal inspection Neurological exam: Present: alert, oriented X3, CN II-XII intact Psychiatric exam: Present: normal affect, normal mood Skin exam: Present: warm, dry, intact, normal color. Absent: rash Course Vital Signs 03/20/24 03/21/24 03/21/24 23:04 03:19 08:12 Temperature 97.5 F L Pulse Rate 82 91 111 H Respiratory 18 18 14 Rate Blood Pressure 160/86 131/91 148/94 O2 Sat by Pulse 96 97 97 Oximetry 03/21/24 03/21/24 03/21/24 09:30 13:00 14:00 Temperature Pulse Rate 84 Respiratory 17 Rate Blood Pressure 140/81 145/88 135/85 O2 Sat by Pulse 97 Oximetry 03/21/24 03/21/24 03/21/24 14:30 15:00 17:30 Temperature Pulse Rate 110 H Respiratory 16 Rate Blood Pressure 133/84 139/88 141/83 O2 Sat by Pulse 99 Oximetry 03/21/24 03/21/24 03/21/24 18:20 19:30 20:00 Temperature Pulse Rate 94 101 H 107 H Respiratory 16 16 16 Rate Blood Pressure 159/91 146/93 120/84 O2 Sat by Pulse 98 97 99 Oximetry 03/21/24 03/22/24 03/22/24 21:48 01:00 05:23 Temperature Pulse Rate 109 H 100 95 Respiratory 16 17 17 Rate Blood Pressure 146/94 138/85 157/98 O2 Sat by Pulse 97 95 98 Oximetry 03/22/24 03/22/24 03/22/24 07:00 12:39 14:00 Temperature Pulse Rate 116 H 112 H 105 H Respiratory 18 18 18 Rate Blood Pressure 145/115 126/97 124/85 O2 Sat by Pulse 99 98 99 Oximetry 03/22/24 17:10 Temperature Pulse Rate 103 H Respiratory 18 Rate Blood Pressure 120/85 O2 Sat by Pulse 99 Oximetry - Reevaluation(s) Reevaluation #1: 03/20/24 23:46 Medical records reviewed Transfer paperwork is reviewed Reevaluation #2: 03/20/24 23:46 Patient has no change in symptoms here in the ER Reevaluation #3: 03/20/24 23:46 Patient informed of results questions answered Reevaluation #4: Was pt. sent in by a medical professional or institution ([facility], DEPENDENCY COUNSELOR, urgent care, hospital, or custodial...) When possible be specific @ -no Did you speak to anyone other than the patient for history (EMS, parent, family, police, friend...)? What history was obtained from this source @ -no Did you review nursing and triage notes (agree or disagree)? Why? @ -agree Are old charts reviewed (outside hosp., previous admission, EMS record, old EKG, old radiological studies, urgent care reports/EKG's, custodial records)? Report findings @ -yes Differential Diagnosis (chest pain, altered mental status, abdominal pain women, abdominal pain men, vaginal bleeding, weakness, fever, dyspnea, syncope, headache, dizziness, GI bleed, back pain, seizure, CVA, palpatations, mental health, musculoskeletal)? @ -prior EKG interpreted by me (3pts min.). @ -no X-rays interpreted by me (1pt min.). @ -no CT interpreted by me (1pt min.). @ -no U/S interpreted by me (1pt. min.). @ -no What testing was considered but not performed or refused? (CT, X-rays, U/S, labs)? Why? @ -none What meds were considered but not given or refused? Why? @ -none Did you discuss the management of the patient with other professionals (professionals i.e. [employer], DEPENDENCY COUNSELOR, lab, RT, psych nurse, social media community manager, dairy management specialist, teacher, corporate ethics officer, continuous pillowcase cutter)? Give summary @ -no Was smoking cessation discussed for >3mins.? @ -no Was critical care preformed (if so, how long)? @ -no Were there social determinants of health that impacted care today? How? (Ho melessness, low income, unemployed, alcoholism, drug addiction, transportation, low edu. Level, literacy, decrease access to med. care, care home, rehab)? @ -none Was there de-escalation of care discussed even if they declined (Discuss DNR or withdrawal of care, Hospice)? DNR status @ -no What co-morbidities impacted this encounter? (DM, HTN, Smoking, COPD, CAD, Cancer, CVA, ARF, Chemo, Hep., AIDS, mental health diagnosis, sleep apnea, morbid obesity)? @ -none Was patient admitted / discharged? Hospital course, mention meds given and route, prescriptions, significant lab abnormalities, going to OR and other pertinent info. @ - 63 male with history of alcohol abuse and alcohol intoxication withdrawal patient will be admitted for monitoring of lab testings and alcohol withdrawal Admitted Undiagnosed new problem with uncertain prognosis? @ -no Drug Therapy requiring intensive monitoring for toxicity (Heparin, Nitro, Insulin, Cardizem)? @ -no Were any procedures done? @ -no Diagnosis/symptom? @ -Alcohol intoxication withdrawal Acute, or Chronic, or Acute on Chronic? @ -Acute Uncomplicated (without systemic symptoms) or Complicated (systemic symptoms)? @ -Complicated Side effects of treatment? @ -no Exacerbation, Progression, or Severe Exacerbation? @ -exacerbation Poses a threat to life or bodily function? How? (Chest pain, [place], PR, pneumonia, PE, COPD, DKA, ARF, appy, cholecystitis, CVA, Diverticulitis, Homicidal, Suicidal, threat to staff... and all critical care pts) @ -yes withdrawal symptoms Reevaluation #5: Differential Altered Mental Status: Hypoglycemia, DKA, hypercapnia, ETOH, overdose, CO poisoning, trauma, myxedema coma, HTN encephalopathy, infection, encephalitis, psychosis, intercranial hemorrhage, hepatic encephalopathy, meningitis, CVA, this is not meant to be an all-inclusive list - Consultations Consultation #1: Spoke with [facility] who agrees to admit this patient Medical Decision Making - Medical Decision Making 63 male with history of alcohol abuse and alcohol intoxication withdrawal patient will be admitted for monitoring of lab testings and alcohol withdrawal - Lab Data Result diagrams: 03/25/24 10:50 03/25/24 10:50 Disposition Clinical Impression: Alcohol intoxication, Thrombocytopenia, Alcohol abuse, Alcohol withdrawal Disposition: ADMITTED IP TO THIS HOSP Condition: Fair Is patient prescribed a controlled substance at d/c from ED?: No Time of Disposition: 23:55
[2024-03-20] MEDS ORDERED: NALOXONE 0.4 MG/ML 1 ML VIAL IV PRN (23:48)
[2024-03-20] MEDS: SODIUM CHLORIDE 0.9% 1,000 ML IV STA (23:50)
[2024-03-20] MEDS: DEXTROSE 5%-0.45% NACL 1,000 ML IV ONE (23:56)
[2024-03-21 00:57] LABS: ALT 15 U/L (4-49); AST 63 U/L (17-59); African American GFR (CKD) >90 (>60 ml/min/1.73 sqM); Albumin 4.7 g/dL (3.5-5.0); Alkaline Phosphatase 96 U/L (38-126); Anion Gap 13 mmol/L; Blood Urea Nitrogen 12 mg/dL (9-20); Calcium 8.9 mg/dL (8.4-10.2); Carbon Dioxide 29 mmol/L (22-30); Chloride 98 mmol/L (98-107); Glucose 67 mg/dL (74-99); Lipase 140 U/L (23-300); Magnesium 1.5 mg/dL (1.6-2.3); Non-African American GFR(CKD) >90 (>60 ml/min/1.73 sqM); Phosphorus 3.7 mg/dL (2.5-4.5); Potassium 2.8 mmol/L (3.5-5.1); Sodium 140 mmol/L (137-145); Total Bilirubin 0.9 mg/dL (0.2-1.3); Total Protein 7.3 g/dL (6.3-8.2)
[2024-03-21 00:59] LABS: Alcohol 212 mg/dL
[2024-03-21 01:07] LABS: HCT 35.5 % (39.0-53.0); HGB 11.8 gm/dL (13.0-17.5); MCH 29.8 pg (25.0-35.0); MCHC 33.3 g/dL (31.0-37.0); MCV 89.5 fL (80.0-100.0); Mean Platelet Volume 8.1; RBC 3.97 m/uL (4.30-5.90); RDW 14.4 % (11.5-15.5); WBC 3.6 k/uL (3.8-10.6)
[2024-03-21 01:10] LABS: Platelet Count 37 k/uL (150-450)
[2024-03-21 01:32] LABS: Band Neutrophils % 4 %; Basophils # (M) 0.04 k/uL (0-0.2); Lymphocytes # (M) 0.94 k/uL (1.0-4.8); Monocytes # (M) 0.36 k/uL (0-1.0); Neutrophils % (M) 59 %; Nucleated Red Blood Cells 0 /100 WBC (0-0); RBC Morphology Normal; Total Cells Counted 100
[2024-03-21] MEDS: LORazepam 1 MG TAB PO PRN (03:59)
[2024-03-21] MEDS: LORazepam 0.5 MG TAB PO PRN (08:31)
[2024-03-21 08:36] LABS: Basophils % (A) 1 %; Eosinophils # (A) 0.1 k/uL (0-0.7); Eosinophils % (A) 1 %; HCT 32.6 % (39.0-53.0); HGB 10.8 gm/dL (13.0-17.5); Lymphocytes # (A) 0.8 k/uL (1.0-4.8); Lymphocytes % (A) 18 %; MCH 29.1 pg (25.0-35.0); MCHC 33.3 g/dL (31.0-37.0); MCV 87.5 fL (80.0-100.0); Mean Platelet Volume 9.2; Monocytes # (A) 0.4 k/uL (0-1.0); Monocytes % (A) 9 %; Neutrophils # (A) 3.1 k/uL (1.3-7.7); Neutrophils % (A) 68 %; Platelet Count 36 k/uL (150-450); RBC 3.72 m/uL (4.30-5.90); RDW 14.5 % (11.5-15.5); WBC 4.5 k/uL (3.8-10.6)
[2024-03-21 08:44] LABS: ALT 14 U/L (4-49); AST 54 U/L (17-59); African American GFR (CKD) >90 (>60 ml/min/1.73 sqM); Albumin 4.5 g/dL (3.5-5.0); Alkaline Phosphatase 84 U/L (38-126); Anion Gap 13 mmol/L; Blood Urea Nitrogen 9 mg/dL (9-20); Calcium 8.6 mg/dL (8.4-10.2); Carbon Dioxide 28 mmol/L (22-30); Chloride 96 mmol/L (98-107); Glucose 84 mg/dL (74-99); Magnesium 1.2 mg/dL (1.6-2.3); Non-African American GFR(CKD) >90 (>60 ml/min/1.73 sqM); Phosphorus 2.8 mg/dL (2.5-4.5); Potassium 2.8 mmol/L (3.5-5.1); Sodium 137 mmol/L (137-145); Total Bilirubin 1.1 mg/dL (0.2-1.3); Total Protein 7.1 g/dL (6.3-8.2)
[2024-03-21] MEDS ORDERED: Potassium Replacement Protocol 1 EACH MISC MISCELLANE PRN (09:48)
--- NOTE | 2024-03-21 10:57 | P.HPIM ---
History of Present Illness H&P Date: 03/21/24 History of present illness; patient 63-year-old gentleman past medical history significant for alcohol abuse, chronic thrombocytopenia up in the ER for alcohol abuse. Patient is a transfer from [facility]. Patient has been admitted in the past with similar complaints and has not gone through alcohol detox but unfortunately has not been able to remain sober. Patient stated he has been dri nking excessively for the last few weeks. Patient has been complaining of increasing weakness. Patient been falling at home. Patient at this time denies any auditory or visual urination. Patient denies any homicidal thoughts. Patient intends to stop drinking. Initial lab work done in the ER showed WBC 3.6, hemoglobin 0.8, platelet count 37, sodium 140, potassium 2.8, BUN 12, creatinine 0.70, glucose 67, magnesium 1.5, AST 63 serum alcohol level 212 Patient admitted to internal medicine service REVIEW OF SYSTEMS: Review of system cannot be obtained as patient is very lethargic PHYSICAL EXAMINATION: GENERAL: The patient is lethargic, ill looking HEENT: Pupils are round and equally reacting to light. EOMI. No scleral icterus. No conjunctival pallor. Normocephalic, atraumatic. No pharyngeal erythema. No thyromegaly. CARDIOVASCULAR: S1 and S2 present. No murmurs, rubs, or gallops. PULMONARY: Chest is clear to auscultation, no wheezing or crackles. ABDOMEN: Soft, nontender, nondistended, normoactive bowel sounds. No palpable organomegaly. MUSCULOSKELETAL: No joint swelling or deformity. EXTREMITIES: No cyanosis, clubbing, or pedal edema. NEUROLOGICAL: Gross neurological examination did not reveal any focal deficits. SKIN: No rashes. Assessment and plan Acute alcohol intoxication Impending alcohol detox Hypokalemia Hypomagnesemia Chronic thrombocytopenia Monitor vital signs Monitor CBC Monitor CMP Continue telemetry monitoring Ordered troponin monitoring Ordered CIWA protocol Ordered high-dose thiamine and folic acid Ordered symptom triggered Ativan therapy Patient counseled in detail regarding alcohol cessation Potassium replacement ordered Magnesium replacement ordered Labs and medication were reviewed.. Continue same treatment. Continue with symptomatic treatment. Resume home medication. Monitor labs and vitals. DVT and GI prophylaxis. Further recommendations as per clinical course of the patient Dictation was produced using [employer] dictation software. please excuse any grammatical, word or spelling errors. Past Medical History Past Medical History: Blood Disorder, Hearing Disorder / Deafness, Hype rlipidemia, Osteoarthritis (OA), Syncope Additional Past Medical History / Comment(s): ETOH abuse/withdrawal DTs, thrombocytopenia, FALLS, past high cholesterol, neuropathy bilateral hands/feet, chronic back pain, benign colon polyps, frequent urination/wears depends, tinnit is bilateral ears, sinus issues. History of Any Multi-Drug Resistant Organisms: None Reported Past Surgical History: Back Surgery, Joint Replacement Additional Past Surgical History / Comment(s): Back surgeries x 3, cervical surgery, bilateral hip surgeries including total hip arthroplasties, R knee arthroscopy/meniscus repair, R knee injections, R shoulder rotator cuff repair, bilateral wrist carpal tunnel releases, colonoscopy. Past Anesthesia/Blood Transfusion Reactions: No Reported Reaction Past Psychological History: Anxiety Smoking Status: Current every day smoker Past Alcohol Use History: Abuse, Daily, Heavy Past Drug Use History: Marijuana - Past Family History Mother History Unknown: Yes Additional Family Medical History / Comment(s): Patient states after a fall which cause cervical fracture. Father Family Medical History: Dementia, Musculoskeletal Disorder Additional Family Medical History / Comment(s): Parkinsons Medications and Allergies Home Medications Medication Instructions Recorded Confirmed Type No Known Home Medications 01/30/24 03/21/24 History Allergies Allergy/AdvReac Type Severity Reaction Status Date / Time No Known Allergies Allergy Verified 03/21/24 07:11 Physical Exam Vitals: Vital Signs Temp Pulse Resp BP Pulse Ox 03/21/24 09:30 84 17 140/81 97 03/21/24 08:12 111 H 14 148/94 97 03/21/24 03:19 91 18 131/91 97 03/20/24 23:04 97.5 F L 82 18 160/86 96 Intake and Output 03/20/24 03/21/24 03/21/24 22:59 06:59 14:59 Other: Weight 56.699 kg Results CBC & Chem 7: 03/21/24 08:17 03/21/24 08:17 Labs: Abnormal Lab Results - Last 24 Hours (Table) 03/21/24 03/21/24 03/21/24 Range/Units 00:00 00:00 08:17 WBC 3.6 L (3.8-10.6) k/uL RBC 3.97 L 3.72 L (4.30-5.90) m/uL Hgb 11.8 L 10.8 L (13.0-17.5) gm/dL Hct 35.5 L 32.6 L (39.0-53.0) % Plt Count 37 L 36 L (150-450) k/uL Lymphocytes # 0.8 L (1.0-4.8) k/uL Lymphocytes # (Manual) 0.94 L (1.0-4.8) k/uL Potassium 2.8 L (3.5-5.1) mmol/L Chloride (98-107) mmol/L Creatinine (0.66-1.25) mg/dL Glucose 67 L (74-99) mg/dL Magnesium 1.5 L (1.6-2.3) mg/dL AST 63 H (17-59) U/L Serum Alcohol 212 H* mg/dL 03/21/24 Range/Units 08:17 WBC (3.8-10.6) k/uL RBC (4.30-5.90) m/uL Hgb (13.0-17.5) gm/dL Hct (39.0-53.0) % Plt Count (150-450) k/uL Lymphocytes # (1.0-4.8) k/uL Lymphocytes # (Manual) (1.0-4.8) k/uL Potassium 2.8 L (3.5-5.1) mmol/L Chloride 96 L (98-107) mmol/L Creatinine 0.64 L (0.66-1.25) mg/dL Glucose (74-99) mg/dL Magnesium 1.2 L (1.6-2.3) mg/dL AST (17-59) U/L Serum Alcohol mg/dL
[2024-03-21] MEDS: LORazepam 2 MG/ML INJ IV PRN ×2 (12:35→18:14)
[2024-03-21] MEDS: POTASSIUM CHLORIDE ER 20 MEQ TAB.ER PO SCH ×2 (13:47→20:25)
[2024-03-21] MEDS: MAGNESIUM SULFATE-D5W PMX 1 GM in DEXTROSE/WATER 1 100ML.BAG IVPB SCH (13:48)
--- NOTE | 2024-03-22 12:39 | P.PN ---
Subjective Progress Note Date: 03/22/24 patient 63-year-old gentleman past medical history significant for alcohol abuse, chronic thrombocytopenia up in the ER for alcohol abuse. Patient is a transfer from [facility]. Patient has been admitted in the past with similar complaints and has not gone through alcohol detox but unfortunately has not been able to remain sober. Patient stated he has been drinking excessively for the last few weeks. Patient has been complaining of increasing weakness. Patient been falling at home. Patient at this time denies any auditory or visual urination. Patient denies any homicidal thoughts. Patient intends to stop drinking. Initial lab work done in the ER showed WBC 3.6, hemoglobin 0.8, platelet count 37, sodium 140, potassium 2.8, BUN 12, creatinine 0.70, glucose 67, magnesium 1.5, AST 63 serum alcohol level 212 Patient admitted to internal medicine service 03/22. Patient seen and examined. Patient is much more alert compared to yesterday. Last CIWA score was 3. Still weak and lethargic REVIEW OF SYSTEMS: CONSTITUTIONAL: No fever, no malaise,. CARDIOVASCULAR: No chest pain, no palpitations, no syncope. PULMONARY: No shortness of breath, no cough, GASTROINTESTINAL: No diarrhea, no nausea, no vomiting, no abdominal pain. NEUROLOGICAL: No headaches, no weakness, PHYSICAL EXAMINATION: GENERAL: The patient is alert, chronically ill looking HEENT: Pupils are round and equally reacting to light. EOMI. No scleral icterus. No conjunctival pallor. Normocephalic, atraumatic. No pharyngeal erythema. No thyromegaly. CARDIOVASCULAR: S1 and S2 present. No murmurs, rubs, or gallops. PULMONARY: Chest is clear to auscultation, no wheezing or crackles. ABDOMEN: Soft, nontender, nondistended, normoactive bowel sounds. No palpable organomegaly. MUSCULOSKELETAL: No joint swelling or deformity. EXTREMITIES: No cyanosis, clubbing, or pedal edema. NEUROLOGICAL: Gross neurological examination did not reveal any focal deficits. SKIN: No rashes. Assessment and plan Acute alcohol intoxication Impending alcohol detox Hypokalemia Hypomagnesemia Chronic thrombocytopenia Monitor vital signs Monitor CBC Monitor CMP Continue telemetry monitoring Continue CIWA protocol Continue high-dose thiamine and folic acid Continue symptom triggered Ativan therapy Patient counseled in detail regarding alcohol cessation Continue home meds Labs and medication were reviewed.. Continue same treatment. Continue with symptomatic treatment. Resume home medication. Monitor labs and vitals. DVT and GI prophylaxis. Further recommendations as per clinical course of the patient Dictation was produced using [employer] dictation software. please excuse any grammatical, word or spelling errors. Objective - Vital Signs Vital signs: Vital Signs Temp 97.5 F L 03/20/24 23:04 Pulse 116 H 03/22/24 07:00 Resp 18 03/22/24 07:00 BP 145/115 03/22/24 07:00 Pulse Ox 99 03/22/24 07:00 FiO2 - Labs CBC & Chem 7: 03/21/24 08:17 03/21/24 23:51 Labs: Abnormal Lab Results - Last 24 Hours (Table) 03/21/24 03/21/24 Range/Units 18:14 23:51 Potassium 3.1 L (3.5-5.1) mmol/L Magnesium 2.6 H (1.6-2.3) mg/dL
[2024-03-22] MEDS: MORPHINE SULFATE 4 MG/ML SYRINGE IV PRN (20:08)
[2024-03-23 08:48] LABS: BUN/Creat Ratio 26.71 Ratio (12.00-20.00); Blood Urea Nitrogen 18.7 mg/dL (9.0-27.0); Chloride 94 mmol/L (96-109); Glucose 100 mg/dL (70-110); Potassium 4.2 mmol/L (3.5-5.5); Sodium 139 mmol/L (135-145)
[2024-03-23 08:49] LABS: ALT 19 U/L (10-49); AST 59 U/L (14-35); Albumin 4.6 g/dL (3.8-4.9); Alkaline Phosphatase 90 U/L (41-126); Calcium 9.8 mg/dL (8.7-10.3); Carbon Dioxide 33.3 mmol/L (21.6-31.8); Globulin 2.7 g/dL (1.6-3.3); Total Bilirubin 0.8 mg/dL (0.3-1.2); Total Protein 7.3 g/dL (6.2-8.2)
[2024-03-23 09:30] LABS: Basophils # (A) 0.04 X 10*3/uL (0.00-0.10); Basophils % (A) 0.8 %; Eosinophils # (A) 0.04 X 10*3/uL (0.04-0.35); Eosinophils % (A) 0.8 %; HCT 34.5 % (39.6-50.0); HGB 11.4 g/dL (13.0-17.0); Immature Platelet Fraction 12.2 % (1.1-6.1); Lymphocytes # (A) 0.78 X 10*3/uL (0.90-5.00); MCH 29.7 pg (27.0-32.0); MCV 89.8 FL (80.0-97.0); Mean Platelet Volume 11.9 FL (9.5-12.2); Monocytes # (A) 0.77 X 10*3/uL (0.20-1.00); Monocytes % (A) 14.8 %; NRBC Per 100 WBC 0 X 10*3/uL (0.00-0.01); Neutrophils # (A) 3.55 X 10*3/uL (1.80-7.70); Neutrophils % (A) 68.2 %; Platelet Count 31 X 10*3/uL (140-440); RBC 3.84 X 10*6/uL (4.40-5.60); RDW 14.1 % (11.5-14.5)
[2024-03-23] MEDS: chlordiazePOXIDE 25 MG CAP PO SCH (09:33)
[2024-03-23] MEDS: PANTOPRAZOLE 40 MG TABLET PO SCH (14:56)
[2024-03-23] MEDS: LORazepam 1 MG TAB PO PRN (14:56)
[2024-03-23] MEDS: FOLIC ACID 1 MG TAB PO SCH (14:56)
[2024-03-23] MEDS: MULTIVITAMINS, THERA 1 EACH TAB PO SCH (14:56)
[2024-03-23] MEDS: THIAMINE 100 MG TAB PO SCH (16:29)
--- NOTE | 2024-03-24 06:36 | P.PN ---
Subjective Progress Note Date: 03/23/24 patient 63-year-old gentleman past medical history significant for alcohol abuse, chronic thrombocytopenia up in the ER for alcohol abuse. Patient is a transfer from [facility]. Patient has been admitted in the past with similar complaints and has not gone through alcohol detox but unfortunately has not been able to remain sober. Patient stated he has been drinking excessively for the last few weeks. Patient has been complaining of increasing weakness. Patient been falling at home. Patient at this time denies any auditory or visual urination. Patient denies any homicidal thoughts. Patient intends to stop drinking. Initial lab work done in the ER showed WBC 3.6, hemoglobin 0.8, platelet count 37, sodium 140, potassium 2.8, BUN 12, creatinine 0.70, glucose 67, magnesium 1.5, AST 63 serum alcohol level 212 Patient admitted to internal medicine service 03/22. Patient seen and examined. Patient is much more alert compared to yesterday. Last CIWA score was 3. Still weak and lethargic 03/23/2024 Patient is seen in follow-up today continues to be confused needing constant re direction and per nursing staff has been attempting to get up although is significantly weak. Will have PT/OT therapy evaluate the patient and may need some physical rehab. Patient is maintained on CIWA protocol and will also add Librium taper. Patient platelets continue to be low and recommend SCDs. Will add thiamine, folic acid, multivitamin. REVIEW OF SYSTEMS: CONSTITUTIONAL: No fever, no malaise,. CARDIOVASCULAR: No chest pain, no palpitations, no syncope. PULMONARY: No shortness of breath, no cough, GASTROINTESTINAL: No diarrhea, no nausea, no vomiting, no abdominal pain. NEUROLOGICAL: No headaches, reports of weakness PHYSICAL EXAMINATION: GENERAL: The patient is alert x 1-2, chronically ill looking, thin, cachectic, elderly appearing HEENT: Pupils are round and equally reacting to light. EOMI. No scleral icterus. No conjunctival pallor. Normocephalic, atraumatic. No pharyngeal erythema. No thyromegaly. CARDIOVASCULAR: S1 and S2 present. No murmurs, rubs, or gallops. PULMONARY: Chest is clear to auscultation, no wheezing or crackles. ABDOMEN: Soft, thin, scaphoid, nontender, nondistended, normoactive bowel sounds. No palpable organomegaly. MUSCULOSKELETAL: No joint swelling or deformity. EXTREMITIES: No cyanosis, clubbing, or pedal edema. NEUROLOGICAL: Gross neurological examination did not reveal any focal deficits. Diffusely weak, confused SKIN: No rashes. Assessment: Acute alcohol intoxication with concerns of acute alcohol withdrawal and deliri [facility]-acquired delirium Hypokalemia, replaced Hypomagnesemia, replaced Chronic thrombocytopenia, likely secondary to continued ongoing alcohol abuse Generalized weakness with gait dysfunction Moderate protein calorie malnutrition with a BMI of 19 GI prophylaxis DVT prophylaxis, SCDs due to thrombocytopenia Full code Plan: Patient is maintained on CIWA protocol and will continue. Add Librium taper and wean off Ativan Follow-up on repeat labs and replace electrolytes per protocol Recommend PT/OT therapy evaluation for possible rehab as patient is significantly weak The impression and plan of care has been dictated by Meaghan Waller, Nurse Practitioner as directed. Dr. Sherman MD I have performed a history and examination and MDM of this patient, discussed th e same with the dictator, and agree with the dictator's assessment and plan as written ,documented as a scribe. Based on total visit time, I have performed more than 50% of the visit. Objective - Vital Signs Vital signs: Vital Signs Temp 97.3 F L 03/23/24 00:49 Pulse 92 03/23/24 00:49 Resp 17 03/23/24 00:49 BP 144/95 03/23/24 00:49 Pulse Ox 98 03/23/24 00:49 FiO2 Intake & Output 03/22/24 03/23/24 03/23/24 18:59 06:59 18:59 Intake Total 1080 Balance 1080 Weight 56.699 kg Intake: Oral 1080 Other: Voiding Method Toilet Urinal # Voids 1 1 - Labs CBC & Chem 7: 03/23/24 04:47 03/23/24 04:47 Labs: Abnormal Lab Results - Last 24 Hours (Table) 03/23/24 Range/Units 04:47 Chloride 94 L (96-109) mmol/L Carbon Dioxide 33.3 H (21.6-31.8) mmol/L BUN/Creatinine Ratio 26.71 H (12.00-20.00) Ratio AST 59 H (14-35) U/L
[2024-03-24 09:16] LABS: ALT 26 U/L (10-49); AST 79 U/L (14-35); Albumin 4.4 g/dL (3.8-4.9); Albumin/Globulin Ratio 1.83 Ratio (1.60-3.17); Alkaline Phosphatase 90 U/L (41-126); BUN/Creat Ratio 24.75 Ratio (12.00-20.00); Basophils # (A) 0.05 X 10*3/uL (0.00-0.10); Basophils % (A) 0.9 %; Blood Urea Nitrogen 19.8 mg/dL (9.0-27.0); Calcium 9.8 mg/dL (8.7-10.3); Carbon Dioxide 30.5 mmol/L (21.6-31.8); Chloride 97 mmol/L (96-109); Eosinophils # (A) 0.15 X 10*3/uL (0.04-0.35); Eosinophils % (A) 2.6 %; Globulin 2.4 g/dL (1.6-3.3); Glucose 90 mg/dL (70-110); HCT 34.5 % (39.6-50.0); HGB 11.1 g/dL (13.0-17.0); Immature Platelet Fraction 13.7 % (1.1-6.1); Lymphocytes % (A) 15.4 %; MCH 29.1 pg (27.0-32.0); MCHC 32.2 g/dL (32.0-37.0); MCV 90.3 FL (80.0-97.0); Magnesium 2.2 mg/dL (1.5-2.4); Mean Platelet Volume 12.9 FL (9.5-12.2); Monocytes # (A) 0.86 X 10*3/uL (0.20-1.00); Monocytes % (A) 14.7 %; NRBC Per 100 WBC 0 X 10*3/uL (0.00-0.01); Neutrophils # (A) 3.87 X 10*3/uL (1.80-7.70); Neutrophils % (A) 66.1 %; Platelet Count 34 X 10*3/uL (140-440); Potassium 3.8 mmol/L (3.5-5.5); RBC 3.82 X 10*6/uL (4.40-5.60); RDW 14.1 % (11.5-14.5); Sodium 141 mmol/L (135-145); Total Bilirubin 0.7 mg/dL (0.3-1.2); Total Protein 6.8 g/dL (6.2-8.2); WBC 5.85 X 10*3/uL (4.50-10.00)
--- NOTE | 2024-03-24 13:41 | P.PN ---
Subjective Progress Note Date: 03/24/24 patient 63-year-old gentleman past medical history significant for alcohol abuse, chronic thrombocytopenia up in the ER for alcohol abuse. Patient is a transfer from [facility]. Patient has been admitted in the past with similar complaints and has not gone through alcohol detox but unfortunately has not been able to remain sober. Patient stated he has been drinking excessively for the last few weeks. Patient has been complaining of increasing weakness. Patient been falling at home. Patient at this time denies any auditory or visual urination. Patient denies any homicidal thoughts. Patient intends to stop drinking. Initial lab work done in the ER showed WBC 3.6, hemoglobin 0.8, platelet count 37, sodium 140, potassium 2.8, BUN 12, creatinine 0.70, glucose 67, magnesium 1.5, AST 63 serum alcohol level 212 Patient admitted to internal medicine service 03/22. Patient seen and examined. Patient is much more alert compared to yesterday. Last CIWA score was 3. Still weak and lethargic 03/23/2024 Patient is seen in follow-up today continues to be confused needing constant redirection and per nursing staff has been attempting to get up although is significantly weak. Will have PT/OT therapy evaluate the patient and may need some physical rehab. Patient is maintained on CIWA protocol and will also add Librium taper. Patient platelets continue to be low and recommend SCDs. Will add thiamine, folic acid, multivitamin. 03/24/2024 Patient is evaluated in follow-up on the medical floor. He is sitting in bed he is quite fatigued and tremulous. He is requiring IV Ativan. He is less confused he is more awake alert but he does state that he feels quite tired and would like to take a nap today. He will likely need rehab on discharge. He is complaining of pain wound to his left left shoulder and states that he did have a recent fall on it. There is some pain with range of motion. We will order an x-ray of the shoulder. Labs today reveal a white blood cell count of 5.85, hemoglobin 11.1, sodium of 141, BUN of 19.8, creatinine of 0.8. REVIEW OF SYSTEMS: CONSTITUTIONAL: No fever, no malaise,. CARDIOVASCULAR: No chest pain, no palpitations, no syncope. PULMONARY: No shortness of breath, no cough, GASTROINTESTINAL: No diarrhea, no nausea, no vomiting, no abdominal pain. NEUROLOGICAL: No headaches, reports of weakness PHYSICAL EXAMINATION: GENERAL: The patient is alert x 1-2, chronically ill looking, thin, cachectic, elderly appearing HEENT: Pupils are round and equally reacting to light. EOMI. No scleral icterus. No conjunctival pallor. Normocephalic, atraumatic. No pharyngeal erythema. No thyromegaly. CARDIOVASCULAR: S1 and S2 present. No murmurs, rubs, or gallops. PULMONARY: Chest is clear to auscultation, no wheezing or crackles. ABDOMEN: Soft, thin, scaphoid, nontender, nondistended, normoactive bowel sounds. No palpable organomegaly. MUSCULOSKELETAL: No joint swelling or deformity. EXTREMITIES: No cyanosis, clubbing, or pedal edema. NEUROLOGICAL: Gross neurological examination did not reveal any focal deficits. Diffusely weak, confused SKIN: No rashes. Assessment: Acute alcohol intoxication with concerns of acute alcohol withdrawal and delirium tremens Hospital-acquired delirium Hypokalemia, replaced Hypomagnesemia, replaced Chronic thrombocytopenia, likely secondary to continued ongoing alcohol abuse Generalized weakness with gait dysfunction Moderate protein calorie malnutrition with a BMI of 19 GI prophylaxis DVT prophylaxis, SCDs due to thrombocytopenia Full code Plan: Patient is maintained on CIWA protocol and will continue. Add Librium taper and wean off Ativan Follow-up on repeat labs and replace electrolytes per protocol Recommend PT/OT therapy evaluation for possible rehab as patient is signifi cantly weak PT evaluation recommending subacute rehabilitation and social work following X-ray of the left shoulder has been ordered and pending reports for review. The impression and plan of care has been dictated by Asha Martin, Nurse Practitioner as directed. Dr. Sherman MD I have performed a history and examination and MDM of this patient, discussed the same with the dictator, and agree with the dictator's assessment and plan as written ,documented as a scribe. Based on total visit time, I have performed more than 50% of the visit. Objective - Vital Signs Vital signs: Vital Signs Temp 98.0 F 03/24/24 07:08 Pulse 103 H 03/24/24 07:08 Resp 20 03/24/24 07:08 BP 104/74 03/24/24 07:08 Pulse Ox 100 03/24/24 07:08 FiO2 Intake & Output 03/23/24 03/24/24 03/24/24 18:59 06:59 18:59 Intake Total 540 0 Output Total 300 200 Balance 240 -200 Intake: Oral 540 0 Output: Urine 300 200 Other: Voiding Method Toilet Toilet Urinal Urinal # Voids 1 - Labs CBC & Chem 7: 03/24/24 05:01 03/24/24 05:01 Labs: Abnormal Lab Results - Last 24 Hours (Table) 03/24/24 03/24/24 Range/Units 05:01 05:01 RBC 3.82 L (4.40-5.60) X 10*6/uL Hgb 11.1 L (13.0-17.0) g/dL Hct 34.5 L (39.6-50.0) % Plt Count 34 A* (140-440) X 10*3/uL MPV 12.9 H (9.5-12.2) FL Immature Plt Fraction 13.7 H (1.1-6.1) % Anion Gap 13.50 H (4.00-12.00) mmol/L BUN/Creatinine Ratio 24.75 H (12.00-20.00) Ratio AST 79 H (14-35) U/L Assessment and Plan Time with Patient: Less than 30
--- NOTE | 2024-03-24 13:46 | XR ---
EXAMINATION TYPE: XR shoulder complete LT DATE OF EXAM: 03/24/2024 12:41 PM COMPARISON: None. CLINICAL INDICATION: Male, 63 years old with history of pain after fall, Pain TECHNIQUE: XR shoulder complete LT view(s) obtained. FINDINGS: The humeral head articulates with the glenoid. The acromio-clavicular junction is normal. No acute fractures or dislocations are evident. A follow up study can be performed 7-10 days from acute trauma for continued pain. MRI can be perfor med if soft tissue evaluation would be of benefit. IMPRESSION: 1. No acute osseous shoulder abnormality. [facility], , 03/24/2024 1:43 PM
--- NOTE | 2024-03-24 16:44 | XR ---
EXAMINATION TYPE: XR chest 1V portable DATE OF EXAM: 03/24/2024 4:32 PM COMPARISON: 01/29/2024 CLINICAL INDICATION: Male, 63 years old with history of possible aspiration, TECHNIQUE: XR chest 1V portable view(s) obtained. FINDINGS: The heart size is normal. The pulmonary vasculature is normal. The lungs are clear. No suspicious infiltrates to suggest aspiration. IMPRESSION: 1. No acute pulmonary process. [facility], , 03/24/2024 4:41 PM
[2024-03-25 11:10] LABS: Basophils % (A) 1 %; Eosinophils # (A) 0.1 k/uL (0-0.7); Eosinophils % (A) 2 %; HCT 34.4 % (39.0-53.0); Hypochromasia Slight; Lymphocytes # (A) 0.8 k/uL (1.0-4.8); Lymphocytes % (A) 14 %; MCHC 32.2 g/dL (31.0-37.0); Mean Platelet Volume 8.5; Monocytes # (A) 0.7 k/uL (0-1.0); Monocytes % (A) 12 %; Neutrophils # (A) 3.8 k/uL (1.3-7.7); Neutrophils % (A) 66 %; RBC 3.69 m/uL (4.30-5.90); RDW 14.1 % (11.5-15.5); WBC 5.7 k/uL (3.8-10.6)
[2024-03-25 11:11] LABS: HGB 11.1 gm/dL (13.0-17.5)
[2024-03-25 11:12] LABS: MCV 93.1 fL (80.0-100.0); Platelet Count 60 k/uL (150-450)
[2024-03-25 11:20] LABS: Carbon Dioxide 27 mmol/L (22-30); Chloride 96 mmol/L (98-107); Glucose 95 mg/dL (74-99); Potassium 3.3 mmol/L (3.5-5.1); Sodium 137 mmol/L (137-145)
[2024-03-25 11:21] LABS: African American GFR (CKD) >90 (>60 ml/min/1.73 sqM); Anion Gap 14 mmol/L; Blood Urea Nitrogen 27 mg/dL (9-20); Calcium 9.8 mg/dL (8.4-10.2); Non-African American GFR(CKD) >90 (>60 ml/min/1.73 sqM)
[2024-03-25] MEDS: THIAMINE 500 MG in SODIUM CHLORIDE 0.9% 50 ML IVPB SCH (15:39)
[2024-03-25] MEDS: ACETAMINOPHEN TAB 325 MG TAB PO PRN (17:12)
--- NOTE | 2024-03-25 18:39 | CT ---
EXAMINATION TYPE: CT brain wo con DATE OF EXAM: 03/25/2024 6:31 PM COMPARISON: 01/29/2024. CLINICAL INDICATION: Male, 63 years old with history of Ataxia, blurry vision, Ataxia, blurry vision. TECHNIQUE: Brain: Axial CT images of the brain were obtained with coronal and sagittal reformats created and rev iewed. Contrast used: None. Oral contrast used: None. CT DLP: 1079.4 mGycm, Automated exposure control for dose reduction was used. FINDINGS: Brain: Extra-axial spaces: No abnormal extra-axial fluid collections. Ventricular system: Dilatation in proportion to cerebral atrophy. Cerebral parenchyma: Cerebral atrophy. No acute intraparenchymal hemorrhage or mass effect. The parker -white junction is well differentiated. Scattered hypoattenuating areas are seen within the white mat ter. Cerebellum: Unremarkable. Mass effect: No evidence of midline shift. Intracranial vasculature: unremarkable Soft tissues: Normal. Calvarium/osseous structures: No depressed skull fracture. Paranasal sinuses and mastoid air cells: Mild scattered paranasal sinus disease. Visualized orbits: Orbital contents are intact. IMPRESSION: 1. No acute intracranial process. 2. Nonspecific white matter changes, likely secondary to chronic small vessel ischemic disease. [facility], , 03/25/2024 6:37 PM
--- NOTE | 2024-03-25 20:20 | P.PN ---
Subjective Progress Note Date: 03/25/24 patient 63-year-old gentleman past medical history significant for alcohol abuse, chronic thrombocytopenia up in the ER for alcohol abuse. Patient is a transfer from [facility]. Patient has been admitted in the past with similar complaints and has not gone through alcohol detox but unfortunately has not been able to remain sober. Patient stated he has been drinking excessively for the last few weeks. Patient has been complaining of increasing weakness. Patient been falling at home. Patient at this time denies any auditory or visual urination. Patient denies any homicidal thoughts. Patient intends to stop drinking. Initial lab work done in the ER showed WBC 3.6, hemoglobin 0.8, platelet count 37, sodium 140, potassium 2.8, BUN 12, creatinine 0.70, glucose 67, magnesium 1.5, AST 63 serum alcohol level 212 Patient admitted to internal medicine service 03/22. Patient seen and examined. Patient is much more alert compared to yesterday. Last CIWA score was 3. Still weak and lethargic 03/23/2024 Patient is seen in follow-up today continues to be confused needing constant redirection and per nursing staff has been attempting to get up although is significantly weak. Will have PT/OT therapy evaluate the patient and may need some physical rehab. Patient is maintained on CIWA protocol and will also add Librium taper. Patient platelets continue to be low and recommend SCDs. Will add thiamine, folic acid, multivitamin. 03/24/2024 Patient is evaluated in follow-up on the medical floor. He is sitting in bed he is quite fatigued and tremulous. He is requiring IV Ativan. He is less confused he is more awake alert but he does state that he feels quite tired and would like to take a nap today. He will likely need rehab on discharge. He is complaining of pain wound to his left left shoulder and states that he did have a recent fall on it. There is some pain with range of motion. We will order an x-ray of the shoulder. Labs today reveal a white blood cell count of 5.85, hemoglobin 11.1, sodium of 141, BUN of 19.8, creatinine of 0.8. 03/25/2024 Patient evaluated in follow up. He continues to be quite tremulous and fatigued. He is confused AO x 2. He states he has blurry vision. He has noted ataxia. There is concern for Wernickes Encephalopathy and patient will be started on high dose thiamine supplementation. A brain CT has been completed which reveals no acute intracranial process. There is nonspecific white matter changes likely secondary to chronic small vessel ischemic disease. REVIEW OF SYSTEMS: CONSTITUTIONAL: No fever, no malaise,. CARDIOVASCULAR: No chest pain, no palpitations, no syncope. PULMONARY: No shortness of breath, no cough, GASTROINTESTINAL: No diarrhea, no nausea, no vomiting, no abdominal pain. NEUROLOGICAL: No headaches, reports of weakness PHYSICAL EXAMINATION: GENERAL: The patient is alert x 2-3 chronically ill looking, thin, cachectic, elderly appearing HEENT: Pupils are round and equally reacting to light. EOMI. No scleral icterus. No conjunctival pallor. Normocephalic, atraumatic. No pharyngeal erythema. No thyromegaly. CARDIOVASCULAR: S1 and S2 present. No murmurs, rubs, or gallops. PULMONARY: Chest is clear to auscultation, no wheezing or crackles. ABDOMEN: Soft, thin, scaphoid, nontender, nondistended, normoactive bowel sounds. No palpable organomegaly. MUSCULOSKELETAL: No joint swelling or deformity. EXTREMITIES: No cyanosis, clubbing, or pedal edema. NEUROLOGICAL: Gross neurological examination did not reveal any focal deficits. Patient is ataxic. Diffusely weak, confused SKIN: No rashes. Assessment: Acute alcohol intoxication with concerns of acute alcohol withdrawal and delir ium tremens Concern for wernickes encephalopathy Hospital-acquired delirium Hypokalemia, replaced Hypomagnesemia, replaced Chronic thrombocytopenia, likely secondary to continued ongoing alcohol abuse Generalized weakness with gait dysfunction Moderate protein calorie malnutrition with a BMI of 19 GI prophylaxis DVT prophylaxis, SCDs due to thrombocytopenia Full code Plan: Patient is maintained on CIWA protocol and will continue. Add Librium taper and wean off Ativan Patient has been started on high dose thiamine supplementation Brain CT noted Check vitamin B12, folate levels and TSH Follow-up on repeat labs and replace electrolytes per protocol Recommend PT/OT therapy evaluation for possible rehab as patient is significantly weak PT evaluation recommending subacute rehabilitation and social work following The impression and plan of care has been dictated by Asha Martin, Nurse Practitioner as directed. Dr. Sherman MD I have performed a history and examination and MDM of this patient, discussed the same with the dictator, and agree with the dictator's assessment and plan as written ,documented as a scribe. Based on total visit time, I have performed more than 50% of the visit. Objective - Vital Signs Vital signs: Vital Signs Temp 97.6 F 03/25/24 14:00 Pulse 84 03/25/24 14:00 Resp 16 03/25/24 14:00 BP 118/75 03/25/24 14:00 Pulse Ox 98 03/25/24 14:00 FiO2 Intake & Output 03/24/24 03/25/24 03/25/24 18:59 06:59 18:59 Intake Total 1500 Balance 1500 Intake: Oral 1500 Other: Voiding Method Incontinent Incontinent # Voids 5 1 # Bowel Movements 1 - Labs CBC & Chem 7: 03/25/24 10:50 03/25/24 10:50 Labs: Abnormal Lab Results - Last 24 Hours (Table) 03/25/24 03/25/24 Range/Units 10:50 10:50 RBC 3.69 L (4.30-5.90) m/uL Hgb 11.1 L (13.0-17.5) gm/dL Hct 34.4 L (39.0-53.0) % Plt Count 60 L D (150-450) k/uL Lymphocytes # 0.8 L (1.0-4.8) k/uL Potassium 3.3 L (3.5-5.1) mmol/L Chloride 96 L (98-107) mmol/L BUN 27 H (9-20) mg/dL Assessment and Plan Time with Patient: Greater than 30
[2024-03-25] MEDS: HEPARIN SODIUM,PORCINE 5,000 UNIT/ML 1 ML VIAL SQ SCH (21:47)
[2024-03-26 12:07] LABS: BUN/Creat Ratio 22.78 Ratio (12.00-20.00); Blood Urea Nitrogen 20.5 mg/dL (9.0-27.0); Carbon Dioxide 29.4 mmol/L (21.6-31.8); Chloride 101 mmol/L (96-109); Glucose 102 mg/dL (70-110); Potassium 3.5 mmol/L (3.5-5.5); Sodium 141 mmol/L (135-145)
[2024-03-26 12:23] LABS: HCT 30.1 % (39.6-50.0); HGB 9.5 g/dL (13.0-17.0); Immature Platelet Fraction 7.4 % (1.1-6.1); MCH 29.4 pg (27.0-32.0); MCHC 31.6 g/dL (32.0-37.0); MCV 93.2 FL (80.0-97.0); Mean Platelet Volume 10.9 FL (9.5-12.2); NRBC Per 100 WBC 0 X 10*3/uL (0.00-0.01); Platelet Count 61 X 10*3/uL (140-440); RBC 3.23 X 10*6/uL (4.40-5.60)
[2024-03-26 12:24] LABS: Basophils # (A) 0.03 X 10*3/uL (0.00-0.10); Basophils % (A) 0.5 %; Eosinophils # (A) 0.12 X 10*3/uL (0.04-0.35); Eosinophils % (A) 2.1 %; Lymphocytes # (A) 0.85 X 10*3/uL (0.90-5.00); Lymphocytes % (A) 15.2 %; Monocytes # (A) 1.24 X 10*3/uL (0.20-1.00); Monocytes % (A) 22.1 %; Neutrophils # (A) 3.34 X 10*3/uL (1.80-7.70); Neutrophils % (A) 59.7 %
--- NOTE | 2024-03-26 13:20 | P.PN ---
Subjective Progress Note Date: 03/26/24 patient 63-year-old gentleman past medical history significant for alcohol abuse, chronic thrombocytopenia up in the ER for alcohol abuse. Patient is a transfer from [facility]. Patient has been admitted in the past with similar complaints and has not gone through alcohol detox but unfortunately has not been able to remain sober. Patient stated he has been drinking excessively for the last few weeks. Patient has been complaining of increasing weakness. Patient been falling at home. Patient at this time denies any auditory or visual urination. Patient denies any homicidal thoughts. Patient intends to stop drinking. Initial lab work done in the ER showed WBC 3.6, hemoglobin 0.8, platelet count 37, sodium 140, potassium 2.8, BUN 12, creatinine 0.70, glucose 67, magnesium 1.5, AST 63 serum alcohol level 212 Patient admitted to internal medicine service 03/22. Patient seen and examined. Patient is much more alert compared to yesterday. Last CIWA score was 3. Still weak and lethargic 03/23/2024 Patient is seen in follow-up today continues to be confused needing constant redirection and per nursing staff has been attempting to get up although is significantly weak. Will have PT/OT therapy evaluate the patient and may need some physical rehab. Patient is maintained on CIWA protocol and will also add Librium taper. Patient platelets continue to be low and recommend SCDs. Will add thiamine, folic acid, multivitamin. 03/24/2024 Patient is evaluated in follow-up on the medical floor. He is sitting in bed he is quite fatigued and tremulous. He is requiring IV Ativan. He is less confused he is more awake alert but he does state that he feels quite tired and would like to take a nap today. He will likely need rehab on discharge. He is complaining of pain wound to his left left shoulder and states that he did have a recent fall on it. There is some pain with range of motion. We will order an x-ray of the shoulder. Labs today reveal a white blood cell count of 5.85, hemoglobin 11.1, sodium of 141, BUN of 19.8, creatinine of 0.8. 03/25/2024 Patient evaluated in follow up. He continues to be quite tremulous and fatigued. He is confused AO x 2. He states he has blurry vision. He has noted ataxia. There is concern for Wernickes Encephalopathy and patient will be started on high dose thiamine supplementation. A brain CT has been completed which reveals no acute intracranial process. There is nonspecific white matter changes likely secondary to chronic small vessel ischemic disease. 03/26/2024 Patient is evaluated in follow-up in the medical floor he continues to be alert and oriented x 2. He does continue to report some blurry vision states that he did fall and hit his head prior to coming to the hospital. He is a more awake and alert and less confused and does continue on high-dose IV thiamine supplementation. He does report that he has a tremor at baseline. He is continuing to report some pain to his left wrist and arm. REVIEW OF SYSTEMS: CONSTITUTIONAL: No fever, no malaise,. CARDIOVASCULAR: No chest pain, no palpitations, no syncope. PULMONARY: No shortness of breath, no cough, GASTROINTESTINAL: No diarrhea, no nausea, no vomiting, no abdominal pain. NEUROLOGICAL: No headaches, reports of weakness PHYSICAL EXAMINATION: GENERAL: The patient is alert x 2-3 chronically ill looking, thin, cachectic, elderly appearing HEENT: Pupils are round and equally reacting to light. EOMI. No scleral icterus. No conjunctival pallor. Normocephalic, atraumatic. No pharyngeal erythema. No thyromegaly. CARDIOVASCULAR: S1 and S2 present. No murmurs, rubs, or gallops. PULMONARY: Chest is clear to auscultation, no wheezing or crackles. ABDOMEN: Soft, thin, scaphoid, nontender, nondistended, normoactive bowel sounds. No palpable organomegaly. MUSCULOSKELETAL: No joint swelling or deformity. EXTREMITIES: No cyanosis, clubbing, or pedal edema. NEUROLOGICAL: Gross neurological examination did not reveal any focal deficits. Patient is ataxic. Diffusely weak, confused SKIN: No rashes. Assessment: Acute alcohol intoxication with concerns of acute alcohol withdrawal and delirium tremens Concern for wernickes encephalopathy Hospital-acquired delirium Hypokalemia, replaced Hypomagnesemia, replaced Chronic thrombocytopenia, likely secondary to continued ongoing alcohol abuse Generalized weakness with gait dysfunction Moderate protein calorie malnutrition with a BMI of 19 GI prophylaxis DVT prophylaxis, SCDs due to thrombocytopenia Full code Plan: Patient is maintained on CIWA protocol and will continue. Begin librium taper. Patient has been started on high dose thiamine supplementation Brain CT noted Check vitamin B12, folate levels and TSH Follow-up on repeat labs and replace electrolytes per protocol Recommend PT/OT therapy evaluation for possible rehab as patient is significantly weak PT evaluation recommending subacute rehabilitation and social work following The impression and plan of care has been dictated by Asha Martin, Nurse Practitioner as directed. Dr. Sherman MD I have performed a history and examination and MDM of this patient, discussed the same with the dictator, and agree with the dictator's assessment and plan as written ,documented as a scribe. Based on total visit time, I have performed more than 50% of the visit. Objective - Vital Signs Vital signs: Vital Signs Temp 97.6 F 03/26/24 08:00 Pulse 93 03/26/24 08:00 Resp 17 03/26/24 08:00 BP 119/81 03/26/24 08:00 Pulse Ox 100 03/26/24 08:00 FiO2 Intake & Output 03/25/24 03/26/24 03/26/24 18:59 06:59 18:59 Intake Total 1080 590 480 Balance 1080 590 480 Intake: Oral 1080 590 480 Other: Voiding Method Incontinent Diaper Incontinent # Voids 3 1 - Labs CBC & Chem 7: 03/26/24 05:41 03/26/24 05:41 Labs: Abnormal Lab Results - Last 24 Hours (Table) 03/25/24 03/25/24 Range/Units 10:50 10:50 RBC 3.69 L (4.30-5.90) m/uL Hgb 11.1 L (13.0-17.5) gm/dL Hct 34.4 L (39.0-53.0) % Plt Count 60 L D (150-450) k/uL Lymphocytes # 0.8 L (1.0-4.8) k/uL Potassium 3.3 L (3.5-5.1) mmol/L Chloride 96 L (98-107) mmol/L BUN 27 H (9-20) mg/dL Assessment and Plan Time with Patient: Less than 30
[2024-03-26] MEDS: POTASSIUM CHLORIDE ER 20 MEQ TAB.ER PO STA (13:28)
--- NOTE | 2024-03-26 14:33 | XR ---
EXAMINATION TYPE: XR humerus LT, XR wrist complete LT, XR elbow complete LT, XR forearm LT DATE OF EXAM: 03/26/2024 1:59 PM COMPARISON: None CLINICAL INDICATION: Male, 63 years old with history of pain post fall; PHH, pain TECHNIQUE: XR humerus LT, XR wrist complete LT, XR elbow complete LT, XR forearm LT 2 views of the humerus, 2 views of the forearm, 3 views of the elbow, 4 views of the wrist. FINDINGS: No evidence of acute osseous pathology, joint dislocation, or soft tissue swelling. The rem aining portions of the visualized chest are unremarkable. Mild multifocal degeneration changes of the visualized joints with joint space narrowing and osteophyte formation IMPRESSION: 1. No acute osseous pathology. 2. Mild multifocal degeneration changes of the joints of the upper extremity. [facility], , 03/26/2024 2:30 PM
[2024-03-27 08:50] LABS: BUN/Creat Ratio 14.38 Ratio (12.00-20.00); Blood Urea Nitrogen 11.5 mg/dL (9.0-27.0); Calcium 9.5 mg/dL (8.7-10.3); Carbon Dioxide 28.3 mmol/L (21.6-31.8); Chloride 99 mmol/L (96-109); Glucose 101 mg/dL (70-110); Potassium 3.8 mmol/L (3.5-5.5); Sodium 138 mmol/L (135-145)
[2024-03-27] MEDS ORDERED: Magnesium Replacement Protocol 1 EACH MISC MISCELLANE PRN (09:53)
[2024-03-27] MEDS: MAGNESIUM SULFATE-D5W PMX 1 GM in DEXTROSE/WATER 1 100ML.BAG IVPB ONE (12:31)
[2024-03-27 12:33] LABS: African American GFR (CKD) >90 (>60 ml/min/1.73 sqM); Anion Gap 8 mmol/L; Blood Urea Nitrogen 12 mg/dL (9-20); Calcium 9.5 mg/dL (8.4-10.2); Carbon Dioxide 29 mmol/L (22-30); Chloride 98 mmol/L (98-107); Glucose 95 mg/dL (74-99); Non-African American GFR(CKD) >90 (>60 ml/min/1.73 sqM); Potassium 3.8 mmol/L (3.5-5.1); Sodium 135 mmol/L (137-145)
[2024-03-27 17:15] VITALS: BMI 19.0
[2024-03-27] MEDS: QUEtiapine 25 MG TAB PO SCH (21:21)
[2024-03-27 21:53] LABS: Urine Alcohol Negative (Negative); Urine Barbiturate Negative (Negative); Urine Cocaine Negative (Negative); Urine Methadone Negative (Negative); Urine Opiates Negative (Negative); Urine Phencyclidine Negative (Negative)
--- NOTE | 2024-03-28 10:14 | P.DS ---
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 Patient will follow-up with Dr. Simental in the outpatient setting upon discharge. Patient is to continue with thiamine twice daily along with Librium taper for the next few days to complete. Total time taken is greater than 35 minutes. Hospital course This is a 63-year-old male who was recently admitted with acute alcohol intoxication with acute alcohol withdrawal being closely monitored maintained on CIWA protocol. CIWA has been discontinued and patient is continued on Librium taper with concerns of hospital-acquired delirium as well as Warnicke's encephalopathy. Patient showing improvement on IV thiamine and will continue thiamine twice daily on discharge. Patient with significant weakness evaluated by physical therapy recommending rehab and patient family concerned with him coming home. Patient has been accepted at [facility] and CIWA protocol has been discontinued. Continue with Seroquel at night and close outpatient follow-up with primary care provider. Patient will be going to [facility] for continued strength and mobility. Currently no reports of chest pain, shortness of breath, or palpitations. Patient is afebrile. No reports of nausea or vomiting and patient is tolerating diet. Patient will be going to [facility] today. High risk for readmissions given significant comorbidities and continued ongoing alcohol abuse. Strongly recommend inpatient alcohol therapy once discharged from [facility]. Physical exam: Gen: This is a 63-year-old male who is awake, alert and oriented x 2-3, thin built, elderly appearing, ill-appearing, cachectic HEENT: Head is atraumatic, normocephalic. Pupils equal, round. Sclerae is anicteric. NECK: Supple. No JVD. No lymphadenopathy. No thyromegaly. LUNGS: Diminished breath sounds bilaterally otherwise clear to auscultation. No wheezes or rhonchi. No intercostal retractions. HEART: S1, S2 are muffled ABDOMEN: Soft. Thin. Bowel sounds are present. No masses. No tenderness. EXTREMITIES: No pedal edema. No calf tenderness. NEUROLOGICAL: Patient is awake, alert and oriented x 23. Cranial nerves 2 through 12 are grossly intact. Diffusely weak Please refer to medication reconciliation sheet for a list of medications. The impression and plan of care has been dictated by Meaghan Waller, Nurse Practitioner as directed. Dr. Sherman MD I have performed a history and examination and MDM of this patient, discussed th e same with the dictator, and agree with the dictator's assessment and plan as written ,documented as a scribe. Based on total visit time, I have performed more than 50% of the visit. Patient Condition at Discharge: Fair Plan - Discharge Summary New Discharge Prescriptions: New chlordiazePOXIDE HCl [Librium] 20 mg PO BID #5 cap Multivitamins, Thera [Multivitamin (formulary)] 1 each PO DAILY tab QUEtiapine [SEROquel] 12.5 mg PO HS tab Acetaminophen Tab [Tylenol] 650 mg PO Q6HR PRN tab PRN Reason: Fever And/ Or Pain Thiamine [Vitamin B-1] 100 mg PO BID #60 tablet Folic Acid 1 mg PO DAILY tab Heparin Sodium,Porcine (1 ml) [Heparin Sodium] 5,000 unit SQ Q12HR each Pantoprazole [Protonix] 40 mg PO AC-BRKFST tab Discharge Medication List Acetaminophen Tab [Tylenol] 650 mg PO Q6HR PRN tab 03/28/24 [Rx] Folic Acid 1 mg PO DAILY tab 03/28/24 [Rx] Heparin Sodium,Porcine (1 ml) [Heparin Sodium] 5,000 unit SQ Q12HR each 03/28/24 [Rx] Multivitamins, Thera [Multivitamin (formulary)] 1 each PO DAILY tab 03/28/24 [Rx] Pantoprazole [Protonix] 40 mg PO AC-BRKFST tab 03/28/24 [Rx] QUEtiapine [SEROquel] 12.5 mg PO HS tab 03/28/24 [Rx] Thiamine [Vitamin B-1] 100 mg PO BID #60 tablet 03/28/24 [Rx] chlordiazePOXIDE HCl [Librium] 20 mg PO BID #5 cap 03/28/24 [Rx] Follow up Appointment(s)/Referral(s): Helena Simental DO [Primary Care Provider] - 1-2 days Activity/Diet/Wound Care/Special Instructions: Patient is going to [facility] as tolerated Continue Librium taper for the next 3 days to complete Avoid all alcohol use and exposure Follow-up primary care provider on discharge Repeat labs of CBC, CMP, magnesium in 2 to 3 days Discharge Disposition: TRANSFER TO SNF/ECF
[2024-03-28 11:48] VITALS: BP 138/83; PULSE 93; RESP 19; TEMP 97.3
== END 2024-03-28 17:26 | DRG 897 ==
LOC: EC 23:03 → 5NMEDONC 23:49 → 6NMEDSUR 03-21 23:16 → 5NMEDONC 03-21 23:22 → 6NMEDSUR 03-21 23:26 → 5NMEDONC 03-21 23:29 → 6NMEDSUR 03-21 23:33 → 5NMEDONC 03-21 23:36 → 6NMEDSUR 03-22 00:32 → 5NMEDONC 03-22 00:40
PROVIDERS: ADMIT Hospitalist; ATTEND Hospitalist
DX: F10.129 Alcohol abuse with intoxication, unspecified (principal); E51.2 Wernicke's encephalopathy; E44.0 Moderate protein-calorie malnutrition; D69.59 Other secondary thrombocytopenia; F10.139 Alcohol abuse with withdrawal, unspecified; Z68.1 Body mass index [BMI] 19.9 or less, adult; E87.6 Hypokalemia; E83.42 Hypomagnesemia; R53.1 Weakness; F17.200 Nicotine dependence, unspecified, uncomplicated; R27.0 Ataxia, unspecified; Y90.7 Blood alcohol level of 200-239 mg/100 ml; Z86.0100 Personal history of colon polyps, unspecified
CPT/HCPCS: 70450; 71045; 80048; 80053; 80306; 80320; 82607; 82746; 83690; 83735; 84100; 84132; 84443; 85025; 96361; 96365; 96366; 96375; 96376; 99285